=== PATIENT | male | born 1945 | race Caucasian/White ===

== ENCOUNTER → 2016-06-01 | Outpatient (CLI) | payer BC ==
[~2016-06-01] MED LIST: ALL300 PO; ALLO300T2 PO; ATV5 SL; CLC100 PO; CLOT10TR PO; CPR500 PO; CRFL PO; CYM20 PO; CYM30 PO; CYM60 PO; DFL100 PO; DLD/2 PO; DLD2 PO; DRGTP25 TD; DRON5CAP2 PO; ESOM1CAP34 PO; FAMO20TA11 PO; FAMO20TA9 PO; FINA5TAB PO; FNTTP25 TOP; GING550C PO; HYDR-5688 PO; IBUP-103 PO; IMD/2 PO; LEVO-366 PO; LIDO2SOL19 MT; LORA-741 PO; LXP10 PO; NALO1TAB2 PO; NRN100 PO; NXM/40 PO; ONDA4TAB65 PO; ONDA8TAB6 PO; OPTIRAY 320 IV PRN; PANT40TA PO; PHEN-775 PO; POLY335019 PO; PRED10TA PO; PREG1CAP28 PO; PROC1TAB5 PO; PROM25TA9 PO; PRT40 PO; RLSI SQ; SIME80CH PO; TAMS0.4C38 PO; ZNTT/150 PO
--- NOTE | 2016-06-01 10:20 | DIAGNOSTIC IMAGING REPORT ---
CHEST CT WITH CONTRAST CT DOSE: 969.13 mGy.cm HISTORY: Esophageal carcinoma ESOPHAGEAL CA TECHNIQUE: Multiaxial CT images of the chest were performed following the intravenous administration of contrast. COMPARISON: 03/03/2016 FINDINGS: Lungs currently are considered clear. The left hemithoracic findings have resolved. Esophageal stent is unchanged in location. Subcarinal node as well as are noted within the aortopulmonary window region are stable. There is no evidence for progression of mediastinal or hilar adenopathy. The wall thickening of the mid to distal esophagus primarily superior to the stent as well as seen circumferentially about the stent is stable. Intraluminal stent soft tissue primarily at its proximal aspect is stable with no major interval change. Hepatic metastatic disease is minimally progressive. Slight increase in size of lesions is present within number considered generally stable. IMPRESSION: 1. Esophageal findings stable from the prior exam. 2. Lungs are now considered clear. 3. Slightly progressive hepatic metastatic disease. Electronically signed by: Yash Giordano M.D. 06/01/2016 10:19 AM Dictated Date/Time: 06/01/2016 10:09 AM
--- NOTE | 2016-06-01 10:30 | DIAGNOSTIC IMAGING REPORT ---
CT SCAN OF THE ABDOMEN AND PELVIS WITH IV CONTRAST CLINICAL HISTORY: Metastatic esophageal cancer. COMPARISON STUDY: Abdominal CT dated 03/03/2016. TECHNIQUE: Following the IV administration of 119 cc of Optiray 320, CT scan of the abdomen and pelvis is performed from the lung bases to the proximal femora. Images are reviewed in the axial, sagittal, and coronal planes. IV contrast was administered without complication. Automated dose control exposure was utilized. FINDINGS: Lung bases: The heart is normal in size and there is trace pericardial effusion. The coronary arteries are densely calcified. There is an indeterminant 4 mm pleural-based nodule at the right lung base on image #63. This has not significant changed from previous. The nodule in the medial right middle lobe questioned previously is no longer apparent. No additional pulmonary nodules are identified. There is no airspace consolidation or pleural effusion. Liver: The contrast-enhanced liver is normal in size, contour, and attenuation. There is no intrahepatic biliary ductal dilatation. The hepatic veins and portal veins are patent. Again seen is multifocal hepatic metastatic disease (greater than 10 lesions). Several lesions have minimally decreased in size and all lesions show significantly diminished attenuation as compared to the 03/03/2016 examination. A residential sales representative lesion in the right lobe on image # 95 measures approximately 4 x 4 cm (previously measured approximately 4 x 5 cm). No new lesions are identified. Again seen is a 1.6 cm enhancing lesion the left lobe on image #89. This is incompletely characterized but may represent a hemangioma. Gallbladder: Unremarkable. Spleen: The spleen is mildly enlarged measuring 13.5 cm in length. Pancreas: The pancreas is moderately atrophic and grossly unremarkable. Adrenal glands: Nodularity of the left adrenal gland is unchanged. The right adrenal gland is unremarkable. Kidneys: The right kidney is surgically absent. The left kidney is normal in size and without hydronephrosis. The left kidney enhances symmetrically. A 1.3 cm cyst is again seen in the left upper pole. Additional subcentimeter cortical hypodensities also likely represent cysts but are too small for definitive characterization. There is a retroaortic left renal vein. Abdominal vasculature: The abdominal aorta is normal in course and caliber noting moderate to advanced atherosclerotic calcification. Stomach and bowel: A stent is again seen spanning the gastroesophageal junction. Circumferential wall thickening is seen in the distal esophagus around the stent. The stent is patent and filled with enteric contrast. The duodenum is normal in configuration. There is no bowel obstruction. There is moderate sigmoid diverticulosis without CT evidence of acute diverticulitis. Moderate colonic fecal retention is observed. The appendix is well-visualized and normal. Peritoneum: There is no intraperitoneal free air or abdominal ascites. There is a small fat-containing umbilical hernia. Lymphadenopathy: Retroperitoneal lymphadenopathy is similar appearance to the 03/03/2016 examination. Left periaortic nodes measure up to 1.2 cm in short axis as seen on image # 165. Enlarged lymph nodes in the gastrohepatic space and betsy hepatis are also also similar to previous. A gastrohepatic node seen on image #137 measures 2.7 x 1.9 cm (previously measured 2.5 x 2.2 cm.) There is there is no pelvic sidewall or inguinal lymphadenopathy. Pelvic viscera: The prostate gland is enlarged and demonstrates median lobe hypertrophy. The prostate gland measures 5.7 cm in transverse diameter. The bladder wall appears thickened and trabeculated. Small bladder diverticula are noted. These findings are consistent with chronic outlet obstruction. Skeletal structures: No definite lytic or blastic lesions are seen. IMPRESSION: 1. There has likely been positive response to treatment regarding multifocal hepatic metastatic disease as compared to 03/03/2016. Several of the lesions have slightly decreased in size and all of lesions show diminished density from previous. 2. No evidence of progressive metastatic disease is seen. 3. Metastatic upper abdominal and retroperitoneal lymphadenopathy is similar in appearance to the 03/03/2016 study. 4. An esophageal stent is unchanged in position and appears patent. Circumferential esophageal wall thickening is present around the stent. This may be related to neoplasm or treatment related change. 5. The right kidney is surgically absent. 6. Moderate sigmoid diverticulosis without CT evidence of acute diverticulitis. 7. Prostatomegaly with evidence of chronic bladder outlet obstruction. 8. Additional findings as above. Electronically signed by: Lalo Brower M.D. 06/01/2016 10:29 AM Dictated Date/Time: 06/01/2016 10:11 AM
== END | disposition home or self-care (01) ==
LOC: C.CTS 09:33
PROVIDERS: ATTEND Internal Medicine Hematology & Oncology
DX: C15.5 Malignant neoplasm of lower third of esophagus (principal); C78.7 Secondary malignant neoplasm of liver and intrahepatic bile duct; E27.9 Disorder of adrenal gland, unspecified; Z90.5 Acquired absence of kidney; R59.0 Localized enlarged lymph nodes; K57.30 Diverticulosis of large intestine without perforation or abscess without bleeding; N40.1 Benign prostatic hyperplasia with lower urinary tract symptoms

== ENCOUNTER 2016-06-26 10:03 | Emergency (ER) | payer BC ==
[~2016-06-26] VITALS: Ht 177.8 cm; Wt 86.3 kg
[~2016-06-26 10:03] MED LIST changes: -ALLO300T2 PO; -ATV5 SL; -CLC100 PO; -CLOT10TR PO; -CRFL PO; -CYM20 PO; -CYM30 PO; -CYM60 PO; -DFL100 PO; -DLD/2 PO; -DLD2 PO; -DRGTP25 TD; -DRON5CAP2 PO; -ESOM1CAP34 PO; -FAMO20TA11 PO; -FAMO20TA9 PO; -FNTTP25 TOP; -HYDR-5688 PO; -IBUP-103 PO; -LEVO-366 PO; -LIDO2SOL19 MT; -LORA-741 PO; -LXP10 PO; -NALO1TAB2 PO; -NRN100 PO; -NXM/40 PO; -ONDA4TAB65 PO; -OPTIRAY 320 IV PRN; -PHEN-775 PO; -POLY335019 PO; -PREG1CAP28 PO; -PROM25TA9 PO; -PRT40 PO; -RLSI SQ
[2016-06-26 10:09] VITALS: TEMP 36.9; Ht 177.8 cm; Wt 86.3 kg
[2016-06-26] MEDS ORDERED: GI COCKTAIL PO STA (10:12)
[2016-06-26] MEDS ORDERED: HYDROmorphone INJ 1 MG/ML SYR IV STA (10:12)
[2016-06-26] MEDS ORDERED: SODIUM CHLORIDE 0.9% 1000ML 1,000 ML IV STA (10:12)
[2016-06-26 10:20] VITALS: O2SAT 95
[2016-06-26] MEDS ORDERED: LIDOCAINE HCL 2% VISC SOLN 20 ML UDC ONE (10:33)
[2016-06-26] MEDS ORDERED: ALUMINUM/MAGNESIUM SUSP 30 ML UDC ONE (10:33)
[2016-06-26] MEDS ORDERED: HYDR-5688 PO ×2 (10:39→12:35)
[2016-06-26] MEDS ORDERED: FAMO20TA11 PO (10:39)
[2016-06-26] MEDS ORDERED: PREG1CAP28 PO (10:39)
[2016-06-26] MEDS ORDERED: NXM/40 PO ×2 (10:39→12:35)
[2016-06-26] MEDS ORDERED: CRFL PO (10:39)
[2016-06-26] MEDS ORDERED: LORA-741 PO (10:39)
[2016-06-26] MEDS ORDERED: IBUP-103 PO (10:40)
--- NOTE | 2016-06-26 10:40 | DIAGNOSTIC IMAGING REPORT ---
SINGLE VIEW CHEST CLINICAL HISTORY: Atypical chest pain. History of metastatic esophageal cancer. FINDINGS: An AP, portable, upright chest radiograph is compared to study dated 11/29/2015 and correlated with chest CT dated 06/01/16. A left subclavian central venous infusion port is unchanged in position. The cardiomediastinal silhouette is unremarkable. There is atherosclerotic calcification of the thoracic aorta. The lungs and pleural spaces are clear. No pneumothorax is seen. The bony thorax is grossly intact. An esophageal stent is again noted. IMPRESSION: 1. No acute cardiopulmonary abnormality. 2. An esophageal stent is again noted. Electronically signed by: Lalo Brower M.D. 06/26/2016 10:38 AM Dictated Date/Time: 06/26/2016 10:36 AM
[2016-06-26 10:43] LABS: BASO % 0.4 %; BASO ABS # 0.03 K/uL (0-0.2); COMPLETE YES; EOS % 2.2 %; HEMATOCRIT 35.8 % (42-52); IG% 0.5 %; LYMPH ABS # 2.32 K/uL (1.2-3.4); MEAN CELL VOLUME 85.6 fL (80-100); MEAN CORPUSCULAR HEMOGLOBIN 29.7 pg (25-34); MEAN CORPUSCULAR HGB CONC 34.6 g/dl (32-36); MEAN PLATELET VOLUME 9.5 fL (7.4-10.4); MONO % 7.9 %; PLATELET COUNT 206 K/uL (130-400); RED BLOOD COUNT 4.18 M/uL (4.7-6.1); WHITE BLOOD COUNT 8.01 K/uL (4.8-10.8)
[2016-06-26 11:01] LABS: BLOOD UREA NITROGEN 16 mg/dl (7-18); BUN/CREATININE RATIO 15.6 (10-20); CALCIUM 8.9 mg/dl (8.5-10.1); CARBON DIOXIDE 27 mmol/L (21-32); CHLORIDE 104 mmol/L (98-107); GLUCOSE 101 mg/dl (70-99); MAGNESIUM 1.9 mg/dl (1.8-2.4); POTASSIUM 3.9 mmol/L (3.5-5.1); SODIUM 139 mmol/L (136-145)
[2016-06-26] MEDS ORDERED: LIDO2SOL19 MT (12:35)
--- NOTE | 2016-06-26 12:36 | EMERGENCY ROOM VISIT NOTE ---
History Report prepared by Konrad: Bang Wadsworth Under the Supervision of: Dr. Sarwat Pedroza M.D. First contact with patient: 10:06 Chief Complaint: CHEST PAIN Stated Complaint: CHEST AND BACK PAIN, ACID REFLUX-CANCER PATIENT History of Present Illness The patient is a 70 year old male who presents to the Emergency Room with complaints of persistent mid chest pain starting about 1-2 days ago. He has been taking [place] with some relief. He also reports a sorethroat and some shortness of breath. He has a history of esophageal cancer and stents in the esophagus. He had infusion about 5 days ago. As per , he has a reduced appetite which is normal for him after infusion. He denies loss of consciousness , or any other complaints. Source of History: patient Onset: about 1-2 days ago Position: chest (mid) Timing: other (persistent) Modifying Factors (Relieving): other ([place] with some relief) Associated Symptoms: + SOB, + sorethroat, No LOC Review of Systems See HPI for pertinent positives & negatives. A total of 10 systems reviewed and were otherwise negative. Past Medical & Surgical Medical Problems: (1) Anxiety (2) Esophageal cancer (3) Gout (4) UTI (urinary tract infection) Family History Cancer Gallbladder disease Heart disease Hypertension Lung disease Social History Smoking Status: Former Smoker Alcohol Use: none Drug Use: none Marital Status: Housing Status: lives alone Occupation Status: retired Current/Historical Medications Scheduled Allopurinol (Zyloprim *), 300 MG PO QAM Esomeprazole Magnesium (Nexium), 1 CAP PO BID Famotidine (Pepcid), 20 MG PO BID Finasteride (Proscar), 5 MG PO QAM Nicole (Zingiber Officinalis) (Nicole Root), 550 MG PO QAM Lorazepam (Ativan), 0.5 MG PO Q6H Prednisone Tab (Prednisone), 10 MG PO QAM Pregabalin (Lyrica), 75 MG PO BID Ranitidine (Zantac), 150 MG PO DAILY Simethicone (Gas-X), 2 TAB PO DAILY Sucralfate (Carafate), 10 ML PO QID Tamsulosin Hcl (Flomax), 0.4 MG PO QPM Scheduled PRN Hydrocodone/Acetaminophen 5MG/325MG ([place] 5MG/325MG), 1-2 TAB PO Q4H PRN for Pain Ibuprofen Tab (Advil), 600 MG PO DAILY PRN for Pain Lidocaine Hcl (Mouth-Throat) (Lidocaine Viscous), 5-10 ML MT Q6H PRN for Pain Ondansetron Hcl (Zofran), 8 MG PO Q8 PRN for Nausea Prochlorperazine Maleate (Compazine), 10 MG PO Q6H PRN for Nausea Allergies Coded Allergies: No Known Allergies (Verified , 06/26/16) Physical Exam Vital Signs Date Time Temp Pulse Resp B/P Pulse Ox O2 Delivery O2 Flow Rate FiO2 06/26/16 13:04 64 16 122/64 97 06/26/16 12:18 63 20 134/69 99 Room Air 06/26/16 10:40 76 16 131/79 99 Room Air 06/26/16 10:20 95 Room Air 06/26/16 10:14 97 Room Air 06/26/16 10:10 83 06/26/16 10:09 36.9 80 16 146/100 98 Room Air Physical Exam GENERAL: Patient is in moderate distress, uncomfortable appearing, generalized weakness. HEENT: No acute trauma, normocephalic atraumatic, mucous membranes moist, no nasal congestion, no scleral icterus. NECK: No stridor, no adenopathy, no meningismus, trachea is midline. CHEST: Power port in left upper chest. LUNGS: No dyspnea. Clear to auscultation and equal bilaterally. No wheeze, no rhonchi. HEART: Regular rate and rhythm. No murmurs, rubs, gallops appreciated. ABDOMEN: Soft, nontender, bowel sounds positive, no masses appreciated, no peritonitis. BACK: No midline tenderness, no CVA tenderness EXTREMITIES: Normal motion all extremities, no cyanosis, no edema. NEUROLOGIC: Alert and oriented, no acute motor or sensory deficits, no focal weakness, cranial nerves grossly intact. SKIN: No rash, no jaundice, no diaphoresis. Medical Decision & Procedures ER Provider Diagnostic Interpretation: X ray results are stated below per my interpretation and the radiologist's interpretation. SINGLE VIEW CHEST CLINICAL HISTORY: Atypical chest pain. History of metastatic esophageal cancer. FINDINGS: An AP, portable, upright chest radiograph is compared to study dated 11/29/2015 and correlated with chest CT dated 06/01/16. A left subclavian central venous infusion port is unchanged in position. The cardiomediastinal silhouette is unremarkable. There is atherosclerotic calcification of the thoracic aorta. The lungs and pleural spaces are clear. No pneumothorax is seen. The bony thorax is grossly intact. An esophageal stent is again noted. IMPRESSION: 1. No acute cardiopulmonary abnormality. 2. An esophageal stent is again noted. Electronically signed by: Lalo Brower M.D. 06/26/2016 10:38 AM Dictated Date/Time: 06/26/2016 10:36 AM Laboratory Results 06/26/16 10:25 Red Blood Count 4.18, Mean Corpuscular Volume 85.6, Mean Corpuscular Hemoglobin 29.7, Mean Corpuscular Hemoglobin Concent 34.6, Mean Platelet Volume 9.5, Neutrophils (%) (Auto) 60.0, Lymphocytes (%) (Auto) 29.0, Monocytes (%) (Auto) 7.9, Eosinophils (%) (Auto) 2.2, Basophils (%) (Auto) 0.4, Neutrophils # (Auto) 4.81, Lymphocytes # (Auto) 2.32, Monocytes # (Auto) 0.63, Eosinophils # (Auto) 0.18, Basophils # (Auto) 0.03 06/26/16 10:25 Test 06/26/16 10:25 White Blood Count 8.01 K/uL (4.8-10.8) Red Blood Count 4.18 M/uL (4.7-6.1) Hemoglobin 12.4 g/dL (14.0-18.0) Hematocrit 35.8 % (42-52) Mean Corpuscular Volume 85.6 fL (80-100) Mean Corpuscular Hemoglobin 29.7 pg (25-34) Mean Corpuscular Hemoglobin Concent 34.6 g/dl (32-36) Platelet Count 206 K/uL (130-400) Mean Platelet Volume 9.5 fL (7.4-10.4) Neutrophils (%) (Auto) 60.0 % Lymphocytes (%) (Auto) 29.0 % Monocytes (%) (Auto) 7.9 % Eosinophils (%) (Auto) 2.2 % Basophils (%) (Auto) 0.4 % Neutrophils # (Auto) 4.81 K/uL (1.4-6.5) Lymphocytes # (Auto) 2.32 K/uL (1.2-3.4) Monocytes # (Auto) 0.63 K/uL (0.11-0.59) Eosinophils # (Auto) 0.18 K/uL (0-0.5) Basophils # (Auto) 0.03 K/uL (0-0.2) RDW Standard Deviation 43.8 fL (36.4-46.3) RDW Coefficient of Variation 14.1 % (11.5-14.5) Immature Granulocyte % (Auto) 0.5 % Immature Granulocyte # (Auto) 0.04 K/uL (0.00-0.02) Anion Gap 8.0 mmol/L (3-11) Est Creatinine Clear Calc Drug Dose 71.0 ml/min Estimated GFR () 88.0 Estimated GFR (Non- 75.9 BUN/Creatinine Ratio 15.6 (10-20) Calcium Level 8.9 mg/dl (8.5-10.1) Magnesium Level 1.9 mg/dl (1.8-2.4) Total Creatine Kinase 41 U/L (39-308) Creatine Kinase MB < 0.5 ng/ml (0.5-3.6) Creatine Kinase MB Ratio (0-3.0) Troponin I < 0.015 ng/ml (0-0.045) Laboratory results as reviewed by me. Medications Administered Medications (Trade) Dose Ordered Sig/Sabino Route Start Time Stop Time Status Last Admin Dose Admin Hydromorphone HCl 1 mg 1 mg NOW STAT IV 06/26/16 10:12 06/26/16 10:14 DC 06/26/16 10:39 1 MG Sodium Chloride (Nss 1000ml) 1,000 ml @ 999 mls/hr Q1H1M STAT IV 06/26/16 10:12 06/26/16 11:12 DC 06/26/16 10:38 999 MLS/HR Al Hydroxide/Mg Hydroxide (Maalox Susp) 30 ml STK-MED ONCE .ROUTE 06/26/16 10:33 06/26/16 10:36 DC 06/26/16 10:39 30 ML Lidocaine HCl (Viscous Lidocaine 2% Soln) 20 ml STK-MED ONCE .ROUTE 06/26/16 10:33 06/26/16 10:36 DC 06/26/16 10:39 10 ML Heparin Sodium (Porcine) (Heparin 100 Unit/ml 5ml Flush) 5 ml STK-MED ONCE .ROUTE 06/26/16 12:50 06/26/16 12:53 DC 06/26/16 12:50 5 ML ECG Indication: chest pain Rate (beats per minute): 83 Rhythm: normal sinus Findings: RBBB (incomplete), no acute ischemic change, no ectopy Comparison ECG Date: November 29, 2015 Change: Incomplete right bundle branch block is new when compared to November 29, 2015. ED Course 1006: The patient was evaluated in room A11B. A complete history and physical exam was performed. 1012: GI Cocktail 24 ml PO, Sodium Chloride 1000 ml @ 999 mls/hr IV, Dilaudid Inj 1 mg IV 1154: I discussed the patient's case with Dr. Lopez, intermediate manager from [facility]. He is comfortable sending the patient home. He recommended increasing the Nexium dose, adding on magic mouth wash, and increasing pain medication as needed. 1200: Reevaluated the patient. Discussed results and discharge instructions: He verbalized understanding and agreement. The patient is ready for discharge. Medical Decision Differential: Esophagitis, Esophageal stent malfunction, Cardiac Ischemia (STEMI , NSTEMI, Unstable Angina, etc), Aortic Dissection, Arrhythmia, Pulmonary Embolism, Pneumonia, Pneumothorax, MSK, Infectious, Pericarditis/Myocarditis, Esophageal Rupture, Gastrointestinal, amongst other pathologies entertained. 70 yr old male with known esophageal CA arrived with substernal chest pain radiating to back in identical fashion to previous episodes of severe esophagitis. Responded quite well to Dilaudid and gi cocktail. He has normal EKG, normal trop after several days of continued pain thus I feel this is not ACS. With improvement in symptoms I do not feel dissection likely. Symptoms not consistent with PE. He does not wish to have further CT testing as it is. Labs look good. CXR unchanged and stent in place. He is willing to try further outpatient treatment. Discussed with Dr Lopez and we will increase nexium to BID, increase norco frequency/dose and add in PRN viscous lidocaine. Patient stable and comfortable with this plan. Aware he can return at any time if worsenign or other concerns. Consults Time Called: 1146 Consulting Physician: Dr. Lopez, intermediate manager from [facility] Returned Call: 1154 I discussed the patient's case with Dr. Lopez, intermediate manager from [facility]. He is comfortable sending the patient home. He recommended increasing the Nexium dose, adding on magic mouth wash, and increasing pain medication as needed. Impression Primary Impression: Esophageal cancer Additional Impression: Esophagitis Scribe Attestation The scribe's documentation has been prepared under my direction and personally reviewed by me in its entirety. I confirm that the note above accurately reflects all work, treatment, procedures, and medical decision making performed by me. Departure Information Dispostion Home / Self-Care Prescriptions Lidocaine Hcl (Mouth-Throat) (LIDOCAINE VISCOUS) 2 % Cecilia 5-10 ML MT Q6H Y for Pain, #100 ML 5 Refills Prov: Sarwat Pedroza M.D. 06/26/16 Esomeprazole Magnesium (NEXIUM) 40 Mg Cap 1 CAP PO BID for 14 Days, #28 CAP 5 Refills Prov: Sarwat Pedroza M.D. 06/26/16 Hydrocodone/Acetaminophen 5MG/325MG ([place] 5MG/325MG) Tab 1-2 TAB PO Q4H Y for Pain, #30 TAB PRN PAIN Prov: Sarwat Pedroza M.D. 06/26/16 Referrals Garcia Whalen M.D. (PCP) Forms HOME CARE DOCUMENTATION FORM, IMPORTANT VISIT INFORMATION Patient Instructions Esophagitis, My [facility] Additional Instructions You have received a narcotic pain medication prescription. These medications may cause drowsiness and should not be used with other sedative medications. Do not drive, drink alcohol, perform dangerous activities, nor make important decisions after taking these medications. retirement use or inappropriate use may lead to addiction. Problem Qualifiers Primary Impression: Esophageal cancer Malignant neoplasm of esophagus location: unspecified location Qualified Codes: C15.9 - Malignant neoplasm of esophagus, unspecified
[2016-06-26 13:04] VITALS: BP 122/64; PULSE 64; O2SAT 97
== END 2016-06-26 13:05 | disposition home or self-care (01) ==
LOC: C.EDB 10:05 → C.EDA 13:05
DX: C15.9 Malignant neoplasm of esophagus, unspecified (principal); F41.9 Anxiety disorder, unspecified; M10.9 Gout, unspecified; Z87.440 Personal history of urinary (tract) infections; Z82.49 Family history of ischemic heart disease and other diseases of the circulatory system; Z87.891 Personal history of nicotine dependence; Z79.899 Other long term (current) drug therapy

== ENCOUNTER → 2016-07-10 | Outpatient (CLI) | payer BC ==
[~2016-07-10] MED LIST changes: +ALLO300T2 PO; +ATV5 SL; +CLC100 PO; +CLOT10TR PO; -CPR500 PO; +CRFL PO; +CYM20 PO; +CYM30 PO; +CYM60 PO; +DFL100 PO; +DLD/2 PO; +DLD2 PO; +DRGTP25 TD; +DRON5CAP2 PO; +ESOM1CAP34 PO; +FAMO20TA11 PO; +FAMO20TA9 PO; +FNTTP25 TOP; +HYDR-5688 PO; +IBUP-103 PO; -IMD/2 PO; +LEVO-366 PO; +LIDO2SOL19 MT; +LORA-741 PO; +LXP10 PO; +NALO1TAB2 PO; +NRN100 PO; +NXM/40 PO; +ONDA4TAB65 PO; +OPTIRAY 320 IV PRN; -PANT40TA PO; +PHEN-775 PO; +POLY335019 PO; +PREG1CAP28 PO; +PROM25TA9 PO; +PRT40 PO; +RLSI SQ
--- NOTE | 2016-07-10 16:24 | DIAGNOSTIC IMAGING REPORT ---
CHEST CT WITH CONTRAST CT DOSE: 936.20 mGy.cm HISTORY: Esophageal cancer. TECHNIQUE: Multiaxial CT images of the chest were performed following the intravenous administration of contrast. COMPARISON: Chest CT 06/01/2016. FINDINGS: The central airways are patent. No pleural effusions. No pneumothorax. No suspicious pulmonary nodules. Left subclavian Port-A-Cath terminates in the distal SVC. Subtle lucent lesions within the ribs remain stable and are likely benign. Hepatic lesions have increased in size. The esophageal stent is unchanged in position. Distal esophageal thickening is also unchanged. No hilar lymphadenopathy. Subcarinal lymph node is stable in size. Multiple anterior mediastinal lymph nodes have increased in number and size. These remain subcentimeter in short axis diameter. Dominant lymph node measures 8 mm, previously measuring 3 mm. IMPRESSION: 1. Multiple subcentimeter anterior mediastinal lymph nodes which have increased in size and number. This is concerning for metastatic disease. Stable prominent subcarinal lymph node. 2. Increase in size in the hepatic metastatic lesions. This is better appreciated on the same day abdomen and pelvis CT. 3. The distal esophageal stent is unchanged in position. Mild distal esophageal thickening is also stable. Electronically signed by: Antoni Badillo M.D. 07/10/2016 4:23 PM Dictated Date/Time: 07/10/2016 4:13 PM
--- NOTE | 2016-07-10 16:32 | DIAGNOSTIC IMAGING REPORT ---
CT OF THE ABDOMEN AND PELVIS WITH CONTRAST CLINICAL HISTORY: Esophageal cancer. Abdominal pain and weight loss. COMPARISON STUDY: CT of the abdomen and pelvis June 01, 2016. TECHNIQUE: Following IV administration of 70 mL of Optiray-320, axial images of the abdomen and pelvis were obtained from the lung bases to the proximal femurs. Images were reviewed in the axial, sagittal, and coronal planes. IV contrast was administered without complication. Oral contrast was administered. FINDINGS: The chest will be reported separately. The right kidney is surgically absent. There is a cyst within the upper pole of the left kidney. A subcentimeter hypodense lesion within the midpole of the left kidney is too small to characterize. An esophageal stent traversing the gastroesophageal junction is unchanged in position. Numerous hepatic metastases have increased in size since exam of June 06, 2016. An index lateral segment lesion shown on image 58 of 501 measures 5.2 cm. It previously measured 4 cm. An index right hepatic dome lesion measures 5.4 cm. It previously measured 4.7 cm. The spleen, adrenal glands and pancreas are unremarkable. Multiple enlarged upper abdominal lymph nodes have slightly increased in size since prior exam. An index portacaval node measures 1.5 cm in short axis diameter. It previously measured 1.3 cm. Small gallstones are suspected within the gallbladder. There is mild pericholecystic infiltration. There is no evidence for a bowel obstruction. There is sigmoid diverticulosis without evidence for acute diverticulitis. The prostate is mildly enlarged. Several lucent and sclerotic lesions within the ribs are unchanged. These are indeterminate. A 3.1 cm lucent lesion within the medial right iliac bone shown on image 334 is unchanged since prior exam. This has increase in size since earlier exams. IMPRESSION: 1. Mild to moderate increase in size of numerous hepatic metastases. 2. Mild increase in upper abdominal lymphadenopathy since CT of June 01, 2016. 3. Suspected cholelithiasis with mild pericholecystic infiltration. No gallbladder distention. This could be correlated with right upper outer pain to evaluate for acute cholecystitis. 4. No significant change in several lucent and sclerotic skeletal lesions which remain indeterminate. Electronically signed by: Lennox Singh M.D. 07/10/2016 4:31 PM Dictated Date/Time: 07/10/2016 4:12 PM
== END ==
LOC: C.CTS 15:21
PROVIDERS: ATTEND Internal Medicine Hematology & Oncology
DX: C15.5 Malignant neoplasm of lower third of esophagus (principal); R10.9 Unspecified abdominal pain

== ENCOUNTER 2016-07-16 10:50 | Inpatient (IN) | payer BC, OTHER ==
[~2016-07-16] VITALS: Ht 177.8 cm; Wt 84.0 kg
[~2016-07-16 10:50] MED LIST changes: -ALLO300T2 PO; -ATV5 SL; -CLC100 PO; -CLOT10TR PO; -CYM20 PO; -CYM30 PO; -CYM60 PO; -DFL100 PO; -DLD/2 PO; -DLD2 PO; -DRGTP25 TD; -DRON5CAP2 PO; -ESOM1CAP34 PO; -FAMO20TA9 PO; -FNTTP25 TOP; -LEVO-366 PO; -LXP10 PO; -NALO1TAB2 PO; -NRN100 PO; -ONDA4TAB65 PO; -OPTIRAY 320 IV PRN; -PHEN-775 PO; -POLY335019 PO; -PROM25TA9 PO; -PRT40 PO; -RLSI SQ
--- NOTE | 2016-07-16 11:40 | EMERGENCY ROOM VISIT NOTE ---
History Report prepared by Konrad: Leighton Villeda Under the Supervision of: Dr. Regina Medina M.D. First contact with patient: 11:22 Chief Complaint: CARDIAC ASSESSMENT Stated Complaint: BACK, CHEST, STOMACH PAIN, CONSTIPATION DX CANCER Nursing Triage Summary: pt is ca pt at [facility] center [address] scan and found more spot in liver and possible gallbladder problem called dr kin did not want to do anything at that time has pain below ribs has been constant. has stent in esophagus. has pain meds but do not help, pain in chest radiates to middle of shoulder blades. intermittent sob, stabbing pain. pt stopped lyrica radha night. reports pt has been depressed and believes it has been told ct scan showed mets. History of Present Illness The patient is a 70 year old male who presents to the Emergency Room with complaints of worsening chest pain for the past year. He has had pain since he had a stent placed one year ago but the pain has been worse this past week. The patient notes pain in his abdomen and back as well. The pain is rated 8/10 in severity. He has been eating and drinking less than he should. He denies vomiting. The patient had a prescription for [place] with Codeine, which has not helped with his pain this week. 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 His last chemotherapy treatment was two weeks ago. The patient had a CT scan last week that showed progression of the cancer. The CT also showed gallbladder disease. The patient is a former smoker and no longer drinks. His notes that he has been more depressed lately. He stopped taking Lyrica two days ago. Source of History: patient, spouse/significant other Onset: one week Position: chest Symptom Intensity: 8/10 Timing: worsening Associated Symptoms: + abdominal pain, + back pain, No vomiting Review of Systems See HPI for pertinent positives & negatives. A total of 10 systems reviewed and were otherwise negative. Past Medical & Surgical Medical Problems: (1) Anxiety (2) Cholecystitis (3) Esophageal cancer (4) Gout (5) UTI (urinary tract infection) Family History Cancer Gallbladder disease Heart disease Hypertension Lung disease Social History Smoking Status: Never Smoker Alcohol Use: none Drug Use: none Marital Status: Housing Status: lives alone Occupation Status: retired Current/Historical Medications Scheduled Allopurinol (Zyloprim *), 300 MG PO QAM Esomeprazole Magnesium (Nexium), 1 CAP PO BID Famotidine (Pepcid), 20 MG PO BID Finasteride (Proscar), 5 MG PO QAM Lorazepam (Ativan), 0.5 MG PO Q6H Prednisone Tab (Prednisone), 10 MG PO QAM Ranitidine (Zantac), 150 MG PO HS Sucralfate (Carafate), 10 ML PO QID Tamsulosin Hcl (Flomax), 0.4 MG PO QPM Scheduled PRN Hydrocodone/Acetaminophen 5MG/325MG ([place] 5MG/325MG), 1-2 TAB PO Q4H PRN for Pain Ibuprofen Tab (Advil), 600 MG PO DAILY PRN for Pain Lidocaine Hcl (Mouth-Throat) (Lidocaine Viscous), 5-10 ML MT Q6H PRN for Pain Ondansetron Hcl (Zofran), 8 MG PO Q8 PRN for Nausea Prochlorperazine Maleate (Compazine), 10 MG PO Q6H PRN for Nausea Allergies Coded Allergies: No Known Allergies (Verified , 07/16/16) Physical Exam Vital Signs Date Time Temp Pulse Resp B/P Pulse Ox O2 Delivery O2 Flow Rate FiO2 07/16/16 14:57 67 17 140/71 100 Room Air 07/16/16 12:33 72 16 105/66 91 Room Air 07/16/16 11:54 84 07/16/16 10:54 36.3 102 18 113/67 98 Room Air Physical Exam Vital signs reviewed. General: Chronically ill-appearing female, in no significant distress. HEENT: No scleral icterus, PERRLA, neck supple. Atraumatic. Cardiovascular: Regular rate and rhythm, no extra sounds. Pulmonary: Clear to auscultation bilaterally, normal work of breathing. Abdomen: Mild epigastric tenderness, no rebound or guarding. Musculoskeletal: Atraumatic, no peripheral edema. Neurologic: Patient awake alert and oriented x 3, full strength in all 4 extremities. Cranial nerves 2 through 12 grossly intact. Skin: Warm, dry, no rash Medical Decision & Procedures ER Provider Diagnostic Interpretation: X-ray results as stated below per my interpretation and radiologist interpretation. Other radiology results as stated below per my review and radiologist interpretation: CHEST ONE VIEW PORTABLE CLINICAL HISTORY: jermaine ZAMORA dyspnea COMPARISON STUDY: 06/26/2016 FINDINGS: Central catheter in superior vena cava. Lungs are clear. Diaphragms are smooth. Esophageal stent is again noted. IMPRESSION: No acute process.. Esophageal stent is unchanged in location. Electronically signed by: Yash Giordano M.D. 07/16/2016 12:35 PM Dictated Date/Time: 07/16/2016 12:34 PM Right upper quadrant ultrasound GALLBLADDER-ABD LIMITED CLINICAL HISTORY: epigastric pain, hopes CA pain. Nausea. TECHNIQUE: Ultrasound COMPARISON STUDY: CT dated 07/10/2016 FINDINGS: Several gallstones within the gallbladder lumen. Gallbladder wall thickness measures 3 mm with a suggestion of a trace amount pericholecystic fluid. Common bile duct is 5 mm. Hepatic metastatic change is again noted. Pancreas is poorly seen. Right kidney has been surgically removed. IMPRESSION: 1. Several gallstones with slight edematous change of the gallbladder wall. 2. A component of acute cholecystitis cannot be excluded. 3. Normal caliber bile duct. 4. Hepatic metastatic change which has been described previously Electronically signed by: Yash Giordano M.D. 07/16/2016 1:15 PM Dictated Date/Time: 07/16/2016 1:12 PM Laboratory Results Test 07/16/16 12:10 07/16/16 12:16 Immature Granulocyte % (Auto) 0.1 % White Blood Count 7.01 K/uL (4.8-10.8) Red Blood Count 4.00 M/uL (4.7-6.1) Hemoglobin 11.8 g/dL (14.0-18.0) Hematocrit 34.3 % (42-52) Mean Corpuscular Volume 85.8 fL (80-100) Mean Corpuscular Hemoglobin 29.5 pg (25-34) Mean Corpuscular Hemoglobin Concent 34.4 g/dl (32-36) Platelet Count 187 K/uL (130-400) Mean Platelet Volume 8.8 fL (7.4-10.4) Neutrophils (%) (Auto) 65.3 % Lymphocytes (%) (Auto) 26.2 % Monocytes (%) (Auto) 6.0 % Eosinophils (%) (Auto) 2.1 % Basophils (%) (Auto) 0.3 % Neutrophils # (Auto) 4.57 K/uL (1.4-6.5) Lymphocytes # (Auto) 1.84 K/uL (1.2-3.4) Monocytes # (Auto) 0.42 K/uL (0.11-0.59) Eosinophils # (Auto) 0.15 K/uL (0-0.5) Basophils # (Auto) 0.02 K/uL (0-0.2) Immature Granulocyte # (Auto) 0.01 K/uL (0.00-0.02) Direct Bilirubin 0.1 mg/dl (0-0.2) Total Creatine Kinase 55 U/L (39-308) Creatine Kinase MB < 0.5 ng/ml (0.5-3.6) Creatine Kinase MB Ratio (0-3.0) Lipase 170 U/L (73-393) Bedside Troponin I 0.000 ng/ml (0-0.045) Laboratory results per my review. Medications Administered Medications (Trade) Dose Ordered Sig/Sabino Route Start Time Stop Time Status Last Admin Dose Admin Sodium Chloride 500 ml @ 999 mls/hr Q31M STAT IV 07/16/16 11:50 07/16/16 12:20 DC 07/16/16 11:50 999 MLS/HR Sodium Chloride (Nss 1000ml) 1,000 ml @ 125 mls/hr Q8H STAT IV 07/16/16 11:50 07/16/16 16:19 DC 07/16/16 11:50 125 MLS/HR Hydromorphone HCl (Dilaudid Inj) 1 mg NOW STAT IV 07/16/16 11:50 07/16/16 11:53 DC 07/16/16 12:20 1 MG Ondansetron HCl (Zofran Inj) 4 mg NOW STAT IV 07/16/16 11:50 07/16/16 11:53 DC 07/16/16 12:20 4 MG Hydromorphone HCl (Dilaudid Inj) 1 mg NOW STAT IV 07/16/16 15:01 07/16/16 15:02 DC 07/16/16 15:05 1 MG Polyethylene (Miralax Powder Packet) 17 gm DAILY PRN PO 07/16/16 15:00 07/17/16 14:59 DC 07/17/16 06:06 17 GM Ondansetron HCl (Zofran Inj) 4 mg Q6H PRN IV 07/16/16 15:00 08/15/16 14:59 07/19/16 11:33 4 MG Prochlorperazine Maleate (Compazine Tab) 10 mg Q6H PRN PO 07/16/16 15:00 08/15/16 14:59 07/18/16 16:41 10 MG Hydromorphone HCl (Dilaudid Inj) 1 mg Q2H PRN IV 07/16/16 15:00 07/17/16 14:59 DC 07/17/16 11:06 1 MG ECG Rate (beats per minute): 85 Rhythm: normal sinus Findings: no acute ischemic change, left axis deviation, other (old inferior infarct) ED Course 1130: Past medical records reviewed. The patient was evaluated in room A2. A complete history and physical examination was performed. 1150: Zofran 4 mg IV, Dilaudid 1 mg IV, NSS 1000 ml @ 125 mls/hr, NSS 500 ml @ 999 mls/hr. 1335: Updated the patient. 1330: [facility] The patient will be evaluated. 1345: Discussed case with Dr. Bills, General Surgeon. He is aware. Medical Decision Differential diagnosis: cholecystitis, complication of esophageal stent, pleural effusion, pancreatitis, viral illness, ACS. This patient was evaluated and appeared to be in no significant distress. IV access was obtained and laboratory work was drawn. Patient was placed on the lunchroom monitor and found to be in a normal sinus rhythm. Laboratory work is fairly unrevealing. Chest x-ray is clear with a stent in good position. Ultrasound of right upper quadrant reveals evidence of cholelithiasis. The etiology of the patient's pain is unclear whether is related to his known malignancy, esophageal stent or his gallbladder. The patient responded well to IV hydration, IV Dilaudid and IV Zofran. He'll be evaluated by the hospitalist service for further management. He is aware of the plan and agrees. Consults Time Called: 1320 Consulting Physician: [facility] Returned Call: [phone]: Discussed case with Dr. [facility]ager [facility]. The patient will be evaluated. Additional Consults: Time Called: 1335 Consulted Physician: Dr. Bills, General Surgeon Returned Call: 1345 Additional Comments: 1345: Discussed case with Dr. Bills, General Surgeon. He is aware. Impression Primary Impression: Symptomatic cholelithiasis Additional Impression: Metastasis from esophageal cancer Scribe Attestation The scribe's documentation has been prepared under my direction and personally reviewed by me in its entirety. I confirm that the note above accurately reflects all work, treatment, procedures, and medical decision making performed by me. Departure Information Dispostion Being Evaluated By Hospitalist Referrals Garcia Whalen M.D. (PCP) Patient Instructions [facility] Problem Qualifiers
[2016-07-16] MEDS ORDERED: HYDROmorphone INJ 1 MG/ML SYR IV STA ×2 (11:50→15:01)
[2016-07-16] MEDS ORDERED: SODIUM CHLORIDE 0.9% 1000ML 1,000 ML IV STA (11:50)
[2016-07-16] MEDS ORDERED: ONDANSETRON INJ 2 MG/ML 2 ML VIAL IV STA (11:50)
[2016-07-16] MEDS ORDERED: SODIUM CHLORIDE 0.9% 500ML 500 ML IV STA (11:50)
[2016-07-16 12:19] LABS: BASO % 0.3 %; BASO ABS # 0.02 K/uL (0-0.2); COMPLETE YES; EOS % 2.1 %; HEMATOCRIT 34.3 % (42-52); IG% 0.1 %; LYMPH % 26.2 %; LYMPH ABS # 1.84 K/uL (1.2-3.4); MEAN CELL VOLUME 85.8 fL (80-100); MEAN CORPUSCULAR HEMOGLOBIN 29.5 pg (25-34); MEAN CORPUSCULAR HGB CONC 34.4 g/dl (32-36); MEAN PLATELET VOLUME 8.8 fL (7.4-10.4); NEUT % 65.3 %; PLATELET COUNT 187 K/uL (130-400); WHITE BLOOD COUNT 7.01 K/uL (4.8-10.8)
--- NOTE | 2016-07-16 12:36 | DIAGNOSTIC IMAGING REPORT ---
CHEST ONE VIEW PORTABLE CLINICAL HISTORY: CP, jermaine CA dyspnea COMPARISON STUDY: 06/26/2016 FINDINGS: Central catheter in superior vena cava. Lungs are clear. Diaphragms are smooth. Esophageal stent is again noted. IMPRESSION: No acute process.. Esophageal stent is unchanged in location. Electronically signed by: Yash Giordano M.D. 07/16/2016 12:35 PM Dictated Date/Time: 07/16/2016 12:34 PM
[2016-07-16 12:37] LABS: ALT/SGPT 50 U/L (12-78); AST/SGOT 28 U/L (15-37); BLOOD UREA NITROGEN 13 mg/dl (7-18); BUN/CREATININE RATIO 14.9 (10-20); CALCIUM 8.4 mg/dl (8.5-10.1); CARBON DIOXIDE 29 mmol/L (21-32); CHLORIDE 103 mmol/L (98-107); CREATININE 0.85 mg/dl (0.60-1.40); GLUCOSE 98 mg/dl (70-99); POTASSIUM 3.7 mmol/L (3.5-5.1); SODIUM 140 mmol/L (136-145)
[2016-07-16 12:42] LABS: ALKALINE PHOSPHATASE 211 U/L (45-117)
--- NOTE | 2016-07-16 13:16 | DIAGNOSTIC IMAGING REPORT ---
Right upper quadrant ultrasound GALLBLADDER-ABD LIMITED CLINICAL HISTORY: epigastric pain, hopes CA pain. Nausea. TECHNIQUE: Ultrasound COMPARISON STUDY: CT dated 07/10/2016 FINDINGS: Several gallstones within the gallbladder lumen. Gallbladder wall thickness measures 3 mm with a suggestion of a trace amount pericholecystic fluid. Common bile duct is 5 mm. Hepatic metastatic change is again noted. Pancreas is poorly seen. Right kidney has been surgically removed. IMPRESSION: 1. Several gallstones with slight edematous change of the gallbladder wall. 2. A component of acute cholecystitis cannot be excluded. 3. Normal caliber bile duct. 4. Hepatic metastatic change which has been described previously Electronically signed by: Yash Giordano M.D. 07/16/2016 1:15 PM Dictated Date/Time: 07/16/2016 1:12 PM
[2016-07-16] MEDS ORDERED: MAGNESIUM HYDROXIDE SUSP 30 ML UDC PO PRN (15:00)
[2016-07-16] MEDS ORDERED: LIDOCAINE HCL 2% VISC SOLN 20 ML UDC MT PRN (15:00)
[2016-07-16] MEDS ORDERED: ONDANSETRON 8 MG TAB PO PRN (15:00)
[2016-07-16] MEDS ORDERED: HYDROmorphone INJ 2 MG/ML SYR/VIAL IV PRN (15:00)
[2016-07-16] MEDS ORDERED: POLYETHYLENE (MIRALAX) 17 GM PACK PO PRN (15:00)
[2016-07-16] MEDS ORDERED: PROCHLORPERAZINE MALEATE 10 MG TAB PO PRN (15:00)
[2016-07-16] MEDS ORDERED: ALUMINUM/MAGNESIUM/SIMETH (MAALOX MAX) 30 ML UDC PO PRN (15:00)
[2016-07-16] MEDS ORDERED: HYDROmorphone INJ 0.5 MG/0.5 ML SYR IV PRN (15:00)
[2016-07-16] MEDS ORDERED: ACETAMINOPHEN 325 MG TAB PO PRN (15:00)
[2016-07-16] MEDS ORDERED: HYDROCODONE/ACETAMOPHEN 5/325MG TAB PO PRN (15:00)
[2016-07-16] MEDS: SODIUM CHLORIDE 0.9% 1000ML 1,000 ML IV SCH (15:15)
[2016-07-16] MEDS ORDERED: NON-FORMULARY MEDICATION SCH (15:15)
[2016-07-16 15:35] VITALS: O2SAT 100; Ht 177.8 cm; Wt 84.0 kg
[2016-07-16] MEDS ORDERED: IV FLUIDS COMPLETED PRN (16:15)
[2016-07-16] MEDS ORDERED: METHYLNALTREXONE BROMIDE INJ 12 MG/0.6 ML SYR SQ ONE (17:00)
[2016-07-16 17:01] VITALS: BP 132/76; PULSE 71; TEMP 36.6; O2SAT 97
--- NOTE | 2016-07-16 17:47 | History and Physical ---
History & Physical Date & Time of Service: Jul 16, 2016 at 17:43 Chief Complaint: Cholecystitis, Esophageal Cancer Primary Care Physician: Garcia Whalen M.D. History of Present Illness Source: patient, spouse Mr. Howell is a 70 y/o male with PMHx of R Nephrectomy (1970 - Nephritis?), BPH , GERD, and Esophageal CA with Liver Metastasis and S/P Esophageal Stent who presents to the ED complaining of worsening chest pain, upper quadrant abdominal pain, and upper back pain 1 week. Patient has been experiencing these symptoms largely for the past year ever since a stent was placed in his esophagus. However reports acute worsening over this past week. Pain is located in the sternal region with radiation to the back between shoulder blades. He also reports bilateral upper quadrant abdominal pain. He rates this pain as an 8/10 and is unable to control his pain as an outpatient. Pain is described as stabbing. Pain is exacerbated by gas with some relief with belching. Patient has prescription for [place] however does not report any relief. Patient received chemotherapy approximately 2 weeks ago and thinks he was treated with Trexall? He states he was due for follow-up appointment to reassess treatment. CT on 07/10/16 with evidence of numerous hepatic metastasis and multiple enlarged lymph nodes with evidence of gallbladder disease. Associated constipation that is chronic. He was recently started on Movantik. Last bowel movement was 3 days ago the patient reports he does not have the urge to defecate. Reports anorexia and the lack of desire to eat. States he has been avoiding more solid foods as they seem to exacerbated his abdominal pain and gas. States when he does eat he normally sticks with cereal or fruits. Patient's is at bedside and reports the patient has appeared more depressed lately since the results of his recent CT scan suggesting further metastasis. In the ED, patient is afebrile without leukocytosis. Ultrasound of the gallbladder with evidence of several gallstones, slight edematous gallbladder wall, trace pericholecystic fluid, and hepatic metastatic changes. Patient was hydrated. Pain was managed with Dilaudid 1 mg that improved the pain per patient. Patient will be admitted to [facility] for pain control and further evaluation and care. Family History Cancer Gallbladder disease Heart disease Hypertension Lung disease Social History Smoking Status: Former Smoker Smokeless Tobacco Use: No Alcohol Use: none Drug Use: none Marital Status: Occupational Status: retired Immunizations History of Influenza Vaccine: Yes Influenza Vaccine Date: Jan 18, 2015 History of Tetanus Vaccine?: Unknown History of Pneumococcal: No History of Hepatitis B Vaccine: Unknown Multi-Drug Resistant Organisms History of MDRO: No Allergies Coded Allergies: No Known Allergies (Verified , 07/16/16) Home Medications Scheduled Allopurinol (Zyloprim *), 300 MG PO QAM Esomeprazole Magnesium (Nexium), 1 CAP PO BID Famotidine (Pepcid), 20 MG PO BID Finasteride (Proscar), 5 MG PO QAM Lorazepam (Ativan), 0.5 MG PO Q6H Prednisone Tab (Prednisone), 10 MG PO QAM Ranitidine (Zantac), 150 MG PO HS Sucralfate (Carafate), 10 ML PO QID Tamsulosin Hcl (Flomax), 0.4 MG PO QPM Scheduled PRN Hydrocodone/Acetaminophen 5MG/325MG ([place] 5MG/325MG), 1-2 TAB PO Q4H PRN for Pain Ibuprofen Tab (Advil), 600 MG PO DAILY PRN for Pain Lidocaine Hcl (Mouth-Throat) (Lidocaine Viscous), 5-10 ML MT Q6H PRN for Pain Ondansetron Hcl (Zofran), 8 MG PO Q8 PRN for Nausea Prochlorperazine Maleate (Compazine), 10 MG PO Q6H PRN for Nausea Review of Systems Constitutional: + problem reported (anorexia), No chills, No fever Eyes: No worsening of vision ENT: No nasal symptoms, No sore throat, No trouble swallowing Respiratory: No cough, No shortness of breath Cardiovascular: + chest pain (chronic with exacerbation) Abdomen: + constipation, + pain (RUQ and LUQ), No diarrhea, No nausea, No vomiting Musculoskeletal: No calf pain, No swelling Genitourinary - Male: No dysuria Psychiatric: + depression symptoms Hematologic / Lymphatic: No abnormal bleeding/bruising, No clotting problems Integumentary: No rash Physical Exam Vital Signs Date Time Temp Pulse Resp B/P Pulse Ox O2 Delivery O2 Flow Rate FiO2 07/16/16 17:01 36.6 71 20 132/76 97 07/16/16 16:57 Room Air 3/19/17 15:35 100 Room Air 07/16/16 14:57 67 17 140/71 100 Room Air 07/16/16 12:33 72 16 105/66 91 Room Air 07/16/16 11:54 84 07/16/16 10:54 36.3 102 18 113/67 98 Room Air General Appearance: WD/WN, no apparent distress Head: normocephalic, atraumatic Eyes: sclerae normal ENT: hearing grossly normal Neck: supple, no JVD, trachea midline Respiratory/Chest: lungs clear, normal breath sounds, no respiratory distress, no accessory muscle use Cardiovascular: regular rate, rhythm, no gallop, no murmur Abdomen/GI: normal bowel sounds, soft, + tenderness (tenderness to palp of upper quadrants; neg for rigidity/guarding - no acute abdomen; neg Galindo's sign ) Back: no CVA tenderness Extremities/Musculoskelatal: no calf tenderness, no pedal edema Neurologic/Psych: alert, oriented x 3 Skin: normal color, warm/dry Diagnostics Laboratory Results Results Past 24 Hours Test 07/16/16 12:10 07/16/16 12:16 Range/Units White Blood Count 7.01 4.8-10.8 K/uL Red Blood Count 4.00 4.7-6.1 M/uL Hemoglobin 11.8 14.0-18.0 g/dL Hematocrit 34.3 42-52 % Mean Corpuscular Volume 85.8 80-100 fL Mean Corpuscular Hemoglobin 29.5 25-34 pg Mean Corpuscular Hemoglobin Concent 34.4 32-36 g/dl Platelet Count 187 130-400 K/uL Mean Platelet Volume 8.8 7.4-10.4 fL Neutrophils (%) (Auto) 65.3 % Lymphocytes (%) (Auto) 26.2 % Monocytes (%) (Auto) 6.0 % Eosinophils (%) (Auto) 2.1 % Basophils (%) (Auto) 0.3 % Neutrophils # (Auto) 4.57 1.4-6.5 K/uL Lymphocytes # (Auto) 1.84 1.2-3.4 K/uL Monocytes # (Auto) 0.42 0.11-0.59 K/uL Eosinophils # (Auto) 0.15 0-0.5 K/uL Basophils # (Auto) 0.02 0-0.2 K/uL RDW Standard Deviation 44.4 36.4-46.3 fL RDW Coefficient of Variation 14.2 11.5-14.5 % Immature Granulocyte % (Auto) 0.1 % Immature Granulocyte # (Auto) 0.01 0.00-0.02 K/uL Sodium Level 140 136-145 mmol/L Potassium Level 3.7 3.5-5.1 mmol/L Chloride Level 103 98-107 mmol/L Carbon Dioxide Level 29 21-32 mmol/L Anion Gap 8.0 3-11 mmol/L Blood Urea Nitrogen 13 7-18 mg/dl Creatinine 0.85 0.60-1.40 mg/dl Est Creatinine Clear Calc Drug Dose 83.5 ml/min Estimated GFR () 102.3 Estimated GFR (Non- 88.3 BUN/Creatinine Ratio 14.9 10-20 Random Glucose 98 70-99 mg/dl Calcium Level 8.4 8.5-10.1 mg/dl Total Bilirubin 0.5 0.2-1 mg/dl Direct Bilirubin 0.1 0-0.2 mg/dl Aspartate Amino Transf (AST/SGOT) 28 15-37 U/L Alanine Aminotransferase (ALT/SGPT) 50 12-78 U/L Alkaline Phosphatase 211 45-117 U/L Total Creatine Kinase 55 39-308 U/L Creatine Kinase MB < 0.5 0.5-3.6 ng/ml Creatine Kinase MB Ratio 0-3.0 Total Protein 6.2 6.4-8.2 gm/dl Albumin 3.0 3.4-5.0 gm/dl Lipase 170 73-393 U/L Bedside Troponin I 0.000 0-0.045 ng/ml Diagnostic Radiology CHEST ONE VIEW PORTABLE CLINICAL HISTORY: CP, hopes CA dyspnea COMPARISON STUDY: 06/26/2016 FINDINGS: Central catheter in superior vena cava. Lungs are clear. Diaphragms are smooth. Esophageal stent is again noted. IMPRESSION: No acute process.. Esophageal stent is unchanged in location. Right upper quadrant ultrasound GALLBLADDER-ABD LIMITED CLINICAL HISTORY: epigastric pain, hopes CA pain. Nausea. TECHNIQUE: Ultrasound COMPARISON STUDY: CT dated 07/10/2016 FINDINGS: Several gallstones within the gallbladder lumen. Gallbladder wall thickness measures 3 mm with a suggestion of a trace amount pericholecystic fluid. Common bile duct is 5 mm. Hepatic metastatic change is again noted. Pancreas is poorly seen. Right kidney has been surgically removed. IMPRESSION: 1. Several gallstones with slight edematous change of the gallbladder wall. 2. A component of acute cholecystitis cannot be excluded. 3. Normal caliber bile duct. 4. Hepatic metastatic change which has been described previously Impression Assessment and Plan Mr. Howell is a 70 y/o male with PMHx of R Nephrectomy (1970 - Nephritis?), BPH , GERD, and Esophageal CA with Liver Metastasis and S/P Esophageal Stent who presents to the ED complaining of worsening chest pain, upper quadrant abdominal pain, and upper back pain 1 week. Pain is acute on chronic. Worsening chest pain is consistent with chronic pain he has been dealing with. This pain is unlikely to be cardiac in nature. Large GI component with metastatic cancer pain. Esophageal CA with Metastasis S/P Esophageal Stent: CP, Back Pain, Abdominal Pain - Pain is consistent with chronic symptoms with recent exacerbation - multifactorial given metastatic cancer, GERD, gallbladder findings -- Pain is inadequately controlled with [place] and GERD symptoms difficult to treat and is on multiple drug regimen - Consideration for HIDA scanning? Unlikely need for surgical intervention at this time - We'll defer antibiotic treatment at this time as patient is afebrile and without leukocytosis - consideration for antibiotic treatment in AM - [place] Q4H PRN and Dilaudid 0.5-2 mg IV PRN - Prednisone 10 mg daily - utilized as an appetite stimulant - Patient may benefit from pain management consultation for outpatient control - Current low-fat diet - will place NPO at midnight - a case of GI intervention - Consult gastroenterology - patient has been seen by Dr. Lopez in the past -- Appreciate recommendations related to esophageal stent in gallbladder findings - Consult oncology - patient follows with Dr. Ybarra - appreciate recommendations GERD: - Pepcid 20 mg BID - Protonix 40 mg BID as omeprazole interchange - Zantac 150 mg daily - Carafate 1 g QID Opioid Induced Constipation: - NSS at 125 mL/hr - Milk of magnesia and MiraLAX PRN - Relistor 12 mg SC x 1 dose - Movantik 25 mg daily - non-formulary and patient may take his own med BPH: - Proscar 5 mg daily and Flomax 0.4 mg daily Gout: - Allopurinol 300 mg daily DVT Prophylaxis: - JESI/SCDs - Withhold chemical prophylaxis - pending surgical intervention -- Given unlikely nature of for surgical intervention - may need prophylaxis initiated tomorrow Disposition: - Patient lives at home with spouse and is currently undergoing cancer treatment I agree with PA assessment and plan and have seen and examined pt myself Reviewed imaging, labs No leukocytosis or fevers Pt with chest pain, RUQ and LUQ pain Abd US with GB wall thickening and pericholecystic fluid Abd: Soft ND, mildly tender in RUQ, LUQ Spoke with surgery, unlikely pain from GB No need for antibx at this time May benefit from palliative care, and perhaps switching norco to fentanyl patch Level of Care Med/Surg Advanced Directives Existing Living Will: Yes Existing Power of Retort Setter: Yes Resuscitation Status FULL RESUSCITATION VTE Prophylaxis VTE Risk Assessment Done? Y/N: Yes Risk Level: Moderate Given or contraindicated: Tina Orta, SCD's Social Service Consult Cancer Patient Under [place]
[2016-07-16] MEDS ORDERED: LORAZEPAM 0.5 MG TAB PO SCH (18:00)
--- NOTE | 2016-07-16 18:15 | Surgery Consultation ---
Consultation Date of Consultation: Jul 16, 2016. Attending Physician: Jose Angel Hager D.O. History of Present Illness pt with metastatic esophageal cancer and a stent currently in place. has been having epigastric pain, burning, gerd, etc...on going but it has been getting worse. he states his appetite has decreased as well and nausea has increased. He has metastatic disease to his liver and lymph nodes. US showed some gallstones and possibly some wall thickening Past Medical/Surgical History Medical Problems: (1) Esophagitis Status: Acute (2) GI bleed Status: Acute (3) Metastasis from esophageal cancer Status: Acute (4) Symptomatic cholelithiasis Status: Acute Family History Cancer Gallbladder disease Heart disease Hypertension Lung disease Social History Smoking Status: Former Smoker Smokeless Tobacco Use: No Alcohol Use: none Drug Use: none Marital Status: Housing Status: lives alone Occupation Status: retired Allergies Coded Allergies: No Known Allergies (Verified , 07/16/16) Home Medications Scheduled Allopurinol (Zyloprim *), 300 MG PO QAM Esomeprazole Magnesium (Nexium), 1 CAP PO BID Famotidine (Pepcid), 20 MG PO BID Finasteride (Proscar), 5 MG PO QAM Lorazepam (Ativan), 0.5 MG PO Q6H Prednisone Tab (Prednisone), 10 MG PO QAM Ranitidine (Zantac), 150 MG PO HS Sucralfate (Carafate), 10 ML PO QID Tamsulosin Hcl (Flomax), 0.4 MG PO QPM Scheduled PRN Hydrocodone/Acetaminophen 5MG/325MG ([place] 5MG/325MG), 1-2 TAB PO Q4H PRN for Pain Ibuprofen Tab (Advil), 600 MG PO DAILY PRN for Pain Lidocaine Hcl (Mouth-Throat) (Lidocaine Viscous), 5-10 ML MT Q6H PRN for Pain Ondansetron Hcl (Zofran), 8 MG PO Q8 PRN for Nausea Prochlorperazine Maleate (Compazine), 10 MG PO Q6H PRN for Nausea Current Inpatient Medications Current Inpatient Medications Medications (Trade) Dose Ordered Sig/Sabino Route Start Time Stop Time Status Last Admin Dose Admin Acetaminophen (Tylenol Tab) 650 mg Q4H PRN PO 07/16/16 15:00 08/15/16 14:59 Al Hydrox/Mg Hydrox/Simethicone (Maalox Max Susp) 15 ml Q4H PRN PO 07/16/16 15:00 08/15/16 14:59 Magnesium Hydroxide (Milk Of Magnesia Susp) 30 ml Q6H PRN PO 07/16/16 15:00 08/15/16 14:59 Polyethylene (Miralax Powder Packet) 17 gm DAILY PRN PO 07/16/16 15:00 08/15/16 14:59 Ondansetron HCl (Zofran Inj) 4 mg Q6H PRN IV 07/16/16 15:00 08/15/16 14:59 Allopurinol (Zyloprim Tab) 300 mg QAM PO 07/17/16 08:00 08/16/16 08:59 Famotidine (Pepcid Tab) 20 mg BID PO 07/16/16 20:00 08/15/16 20:59 Finasteride (Proscar Tab) 5 mg QAM PO 07/17/16 08:00 08/16/16 08:59 Acetaminophen/ Hydrocodone Bitart ([place] 5/325 Tab) 1 tab Q4H PRN PO 07/16/16 15:00 07/30/16 14:59 Lidocaine HCl (Viscous Lidocaine 2% Soln) 5 ml Q6H PRN MT 07/16/16 15:00 08/15/16 14:59 Ondansetron HCl (Zofran Tab) 8 mg Q8 PRN PO 07/16/16 15:00 08/15/16 14:59 Prednisone (PredniSONE TAB) 10 mg QAM PO 07/17/16 08:00 08/16/16 08:59 Prochlorperazine Maleate (Compazine Tab) 10 mg Q6H PRN PO 07/16/16 15:00 08/15/16 14:59 Ranitidine HCl (zANTac TAB) 150 mg HS PO 07/16/16 21:00 08/15/16 20:59 Sucralfate (Carafate Susp) 1 gm QID PO 07/16/16 17:00 08/15/16 16:59 Tamsulosin HCl (Flomax Cap) 0.4 mg QPM PO 07/16/16 21:00 08/15/16 20:59 Pantoprazole Sodium (Protonix Tab) 40 mg BID PO 07/16/16 20:00 08/15/16 20:59 Hydromorphone HCl (Dilaudid Inj) 1 mg Q2H PRN IV 07/16/16 15:00 07/30/16 14:59 Hydromorphone HCl (Dilaudid Inj) 2 mg Q2H PRN IV 07/16/16 15:00 07/30/16 14:59 Hydromorphone HCl 0.5 mg 0.5 mg Q2H PRN IV 07/16/16 15:00 07/30/16 14:59 Sodium Chloride (Nss 1000ml) 1,000 ml @ 100 mls/hr Q10H IV 07/16/16 15:15 08/15/16 15:14 07/16/16 15:15 100 MLS/HR Miscellaneous (Iv Fluids Completed) 1 ea PRN PRN N/A 07/16/16 16:15 07/16/17 16:14 Non-Formulary Medication (Non-Formulary Patient'S Own Med) 1 ea DAILY PO 07/17/16 08:00 08/16/16 07:59 Lorazepam (Ativan Tab) 0.5 mg Q6 PRN PO 07/16/16 18:00 08/15/16 17:59 Review of Systems Constitutional: + weight loss Abdomen: + nausea, + pain Physical Exam Date Time Temp Pulse Resp B/P Pulse Ox O2 Delivery O2 Flow Rate FiO2 07/16/16 17:01 36.6 71 20 132/76 97 07/16/16 16:57 Room Air 07/16/16 15:35 100 Room Air 07/16/16 14:57 67 17 140/71 100 Room Air 07/16/16 12:33 72 16 105/66 91 Room Air 07/16/16 11:54 84 07/16/16 10:54 36.3 102 18 113/67 98 Room Air General Appearance: no apparent distress Head: normocephalic, atraumatic Eyes: PERRL, EOMI ENT: hearing grossly normal Neck: supple, no adenopathy Respiratory/Chest: no respiratory distress, no accessory muscle use Abdomen/GI: soft, + pertinent finding (mild epigastric ttp. no g/r/r) Extremities/Musculoskelatal: no pedal edema Neurologic/Psych: radiology aide II-XII nml as tested, alert, oriented x 3 Skin: normal color, warm/dry Laboratory Results Last 24 Hours Test 07/16/16 12:10 07/16/16 12:16 White Blood Count 7.01 K/uL Red Blood Count 4.00 M/uL Hemoglobin 11.8 g/dL Hematocrit 34.3 % Mean Corpuscular Volume 85.8 fL Mean Corpuscular Hemoglobin 29.5 pg Mean Corpuscular Hemoglobin Concent 34.4 g/dl Platelet Count 187 K/uL Mean Platelet Volume 8.8 fL Neutrophils (%) (Auto) 65.3 % Lymphocytes (%) (Auto) 26.2 % Monocytes (%) (Auto) 6.0 % Eosinophils (%) (Auto) 2.1 % Basophils (%) (Auto) 0.3 % Neutrophils # (Auto) 4.57 K/uL Lymphocytes # (Auto) 1.84 K/uL Monocytes # (Auto) 0.42 K/uL Eosinophils # (Auto) 0.15 K/uL Basophils # (Auto) 0.02 K/uL RDW Standard Deviation 44.4 fL RDW Coefficient of Variation 14.2 % Immature Granulocyte % (Auto) 0.1 % Immature Granulocyte # (Auto) 0.01 K/uL Sodium Level 140 mmol/L Potassium Level 3.7 mmol/L Chloride Level 103 mmol/L Carbon Dioxide Level 29 mmol/L Anion Gap 8.0 mmol/L Blood Urea Nitrogen 13 mg/dl Creatinine 0.85 mg/dl Est Creatinine Clear Calc Drug Dose 83.5 ml/min Estimated GFR () 102.3 Estimated GFR (Non- 88.3 BUN/Creatinine Ratio 14.9 Random Glucose 98 mg/dl Calcium Level 8.4 mg/dl Total Bilirubin 0.5 mg/dl Direct Bilirubin 0.1 mg/dl Aspartate Amino Transf (AST/SGOT) 28 U/L Alanine Aminotransferase (ALT/SGPT) 50 U/L Alkaline Phosphatase 211 U/L Total Creatine Kinase 55 U/L Creatine Kinase MB < 0.5 ng/ml Creatine Kinase MB Ratio Total Protein 6.2 gm/dl Albumin 3.0 gm/dl Lipase 170 U/L Bedside Troponin I 0.000 ng/ml Assessment & Plan discussed case with Dr. Hager. I suspect progression of his disease and possible gerd/esophagitis from stent contributing clinically not c/w gallbladder etiology. wbc normal I would consider changing oral hydrocodone to duragesic patch or something similar as the norco thurman when he takes it and admittedly he avoids taking it will cont to follow along for now. doubt lap johnny would relieve his symptoms.
[2016-07-16] MEDS: SUCRALFATE 1 GM/10 ML UDC PO SCH ×2 (18:20→20:20)
[2016-07-16] MEDS: HYDROmorphone INJ 1 MG/ML SYR IV PRN ×3 (18:25→23:33)
[2016-07-16 19:25] VITALS: BP 123/72; PULSE 68; TEMP 36.6; O2SAT 97
[2016-07-16 19:39] LABS: INR 0.9 (0.9-1.1); PARTIAL THROMBOPLASTIN RATIO 0.9
[2016-07-16] MEDS: FAMOTIDINE 20 MG TAB PO SCH (20:20)
[2016-07-16] MEDS: PANTOprazole SOD 40 MG TAB PO SCH (20:20)
[2016-07-16] MEDS: TAMSULOSIN HCL 0.4 MG CAP PO SCH (20:20)
[2016-07-16] MEDS: RANITIDINE HCL 150 MG TAB PO SCH (20:20)
[2016-07-16] MEDS: HEPARIN SOD 5000 UNIT/0.5 ML CARP SQ SCH (20:23)
[2016-07-16 23:39] VITALS: BP 121/66; PULSE 71; TEMP 36.7; O2SAT 98
[2016-07-16 23:50] VITALS: BP 146/79; TEMP 36.5; O2SAT 100
[2016-07-17] VITALS (7 sets, daily range): BP systolic 115–154; BP diastolic 68–81; PULSE 58–82; TEMP 36.2–37.1; O2SAT 95–98
[2016-07-17] MEDS: SODIUM CHLORIDE 0.9% 1000ML 1,000 ML IV SCH ×3 (00:50→21:16)
[2016-07-17] MEDS: HYDROmorphone INJ 1 MG/ML SYR IV PRN ×3 (02:00→11:06)
[2016-07-17] MEDS: MOVANTIK PO SCH (06:01)
[2016-07-17] MEDS: FAMOTIDINE 20 MG TAB PO SCH ×2 (07:45→21:12)
[2016-07-17] MEDS: ALLOPURINOL 300 MG TAB PO SCH (07:45)
[2016-07-17] MEDS: FINASTERIDE 5 MG TAB PO SCH (07:46)
[2016-07-17] MEDS: SUCRALFATE 1 GM/10 ML UDC PO SCH ×4 (07:46→21:11)
[2016-07-17] MEDS: PANTOprazole SOD 40 MG TAB PO SCH ×2 (07:46→21:13)
[2016-07-17] MEDS: HEPARIN SOD 5000 UNIT/0.5 ML CARP SQ SCH ×2 (07:49→21:18)
--- NOTE | 2016-07-17 08:42 | Oncology Consultation ---
Oncology/Heme Consultation Date of Consultation: Jul 17, 2016. Attending Physician: Garcia Ewing MD Reason for Consultation: History of metastatic esophageal adenocarcinoma History of Present Illness Mr. 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 He has been treated with a number of systemic regimens. An esophageal stent was placed in June 2015. He then went on to receive 6 cycles ofEOX. This tumor is adenocarcinoma and HER-2/cierra negative. He did have a number of GI complaints and Xeloda was continued as a single agent in December of last year but then held in January due to worsening performance status peripheral neuropathy and cytopenias and disease progression. In February of last year there was progression of hepatic metastatic disease compared to November. He was then treated with Taxol along with Ramucirumab. Initially there appeared to be a response but the patient then developed significant peripheral neuropathy.He was continued on ramicurumab as a single agent but unfortunately a recent CT scan showed progression of his prostatic metastasis. He has now admitted with abdominal pain in the right upper quadrant as well as mid epigastric. We are currently pursuing a checkpoint inhibitor (nivolumab). He is admitted now with abdominal pain. He denies nausea or vomiting. He does admit to constipation Past Medical/Surgical History Medical Problems: (1) Esophagitis Status: Acute (2) GI bleed Status: Acute (3) Metastasis from esophageal cancer Status: Acute (4) Symptomatic cholelithiasis Status: Acute Family History Cancer Gallbladder disease Heart disease Hypertension Lung disease Social History Smoking Status: Former Smoker Smokeless Tobacco Use: No Alcohol Use: none Drug Use: none Marital Status: Housing Status: lives alone Occupation Status: retired Allergies Coded Allergies: No Known Allergies (Verified , 07/16/16) Home Medications Scheduled Allopurinol (Zyloprim *), 300 MG PO QAM Esomeprazole Magnesium (Nexium), 1 CAP PO BID Famotidine (Pepcid), 20 MG PO BID Finasteride (Proscar), 5 MG PO QAM Lorazepam (Ativan), 0.5 MG PO Q6H Prednisone Tab (Prednisone), 10 MG PO QAM Ranitidine (Zantac), 150 MG PO HS Sucralfate (Carafate), 10 ML PO QID Tamsulosin Hcl (Flomax), 0.4 MG PO QPM Scheduled PRN Hydrocodone/Acetaminophen 5MG/325MG ([place] 5MG/325MG), 1-2 TAB PO Q4H PRN for Pain Ibuprofen Tab (Advil), 600 MG PO DAILY PRN for Pain Lidocaine Hcl (Mouth-Throat) (Lidocaine Viscous), 5-10 ML MT Q6H PRN for Pain Ondansetron Hcl (Zofran), 8 MG PO Q8 PRN for Nausea Prochlorperazine Maleate (Compazine), 10 MG PO Q6H PRN for Nausea Current Inpatient Medications Current Inpatient Medications Medications (Trade) Dose Ordered Sig/Sabino Route Start Time Stop Time Status Last Admin Dose Admin Acetaminophen (Tylenol Tab) 650 mg Q4H PRN PO 07/16/16 15:00 08/15/16 14:59 Al Hydrox/Mg Hydrox/Simethicone (Maalox Max Susp) 15 ml Q4H PRN PO 07/16/16 15:00 08/15/16 14:59 Magnesium Hydroxide (Milk Of Magnesia Susp) 30 ml Q6H PRN PO 07/16/16 15:00 08/15/16 14:59 Polyethylene (Miralax Powder Packet) 17 gm DAILY PRN PO 07/16/16 15:00 08/15/16 14:59 07/17/16 06:06 17 GM Ondansetron HCl (Zofran Inj) 4 mg Q6H PRN IV 07/16/16 15:00 08/15/16 14:59 Allopurinol (Zyloprim Tab) 300 mg QAM PO 07/17/16 08:00 08/16/16 08:59 07/17/16 07:45 300 MG Famotidine (Pepcid Tab) 20 mg BID PO 07/16/16 20:00 08/15/16 20:59 07/17/16 07:45 20 MG Finasteride (Proscar Tab) 5 mg QAM PO 07/17/16 08:00 08/16/16 08:59 07/17/16 07:46 5 MG Acetaminophen/ Hydrocodone Bitart ([place] 5/325 Tab) 1 tab Q4H PRN PO 07/16/16 15:00 07/30/16 14:59 Lidocaine HCl (Viscous Lidocaine 2% Soln) 5 ml Q6H PRN MT 07/16/16 15:00 08/15/16 14:59 Ondansetron HCl (Zofran Tab) 8 mg Q8 PRN PO 07/16/16 15:00 08/15/16 14:59 Prednisone (PredniSONE TAB) 10 mg QAM PO 07/17/16 08:00 08/16/16 08:59 07/17/16 07:46 10 MG Prochlorperazine Maleate (Compazine Tab) 10 mg Q6H PRN PO 07/16/16 15:00 08/15/16 14:59 Ranitidine HCl (zANTac TAB) 150 mg HS PO 07/16/16 21:00 08/15/16 20:59 Sucralfate (Carafate Susp) 1 gm QID PO 07/16/16 17:00 08/15/16 16:59 07/17/16 07:46 1 GM Tamsulosin HCl (Flomax Cap) 0.4 mg QPM PO 07/16/16 21:00 08/15/16 20:59 07/16/16 20:20 0.4 MG Pantoprazole Sodium (Protonix Tab) 40 mg BID PO 07/16/16 20:00 08/15/16 20:59 07/17/16 07:46 40 MG Hydromorphone HCl (Dilaudid Inj) 1 mg Q2H PRN IV 07/16/16 15:00 07/30/16 14:59 07/17/16 05:54 1 MG Hydromorphone HCl (Dilaudid Inj) 2 mg Q2H PRN IV 07/16/16 15:00 07/30/16 14:59 Hydromorphone HCl 0.5 mg 0.5 mg Q2H PRN IV 07/16/16 15:00 07/30/16 14:59 Sodium Chloride (Nss 1000ml) 1,000 ml @ 100 mls/hr Q10H IV 07/16/16 15:15 08/15/16 15:14 07/17/16 00:50 100 MLS/HR Miscellaneous (Iv Fluids Completed) 1 ea PRN PRN N/A 07/16/16 16:15 07/16/17 16:14 Non-Formulary Medication (Non-Formulary Patient'S Own Med) 1 ea DAILY PO 07/17/16 08:00 4/19/17 07:59 07/17/16 06:01 1 EA Lorazepam (Ativan Tab) 0.5 mg Q6 PRN PO 07/16/16 18:00 08/15/16 17:59 Heparin Sodium (Porcine) (Heparin Sq 5000 Unit/0.5ml) 5,000 unit Q12 SQ 07/16/16 21:00 08/15/16 20:59 07/17/16 07:49 5,000 UNIT Heparin Sodium (Porcine) (Heparin 100 Unit/ml 5ml Flush) 1 ml PRN PRN FLUSH 07/17/16 01:00 08/16/16 00:59 Review of Systems Constitutional: Negative for weight loss, night sweats, or fever Eyes: Negative for event change of vision ENT: Negative for epistaxis, nasal discharge, sore throat, or deafness Cardiovascular: Negative for chest pain, palpitations, dizziness, diaphoresis Respiratory: Negative for new shortness of breath,hemoptysis, or purulent cough Gastrointestinal: Negative for diarrhea, hematemesis, melena, nausea, vomiting , or dyspepsia. He denies any reflux symptoms. Pain that he has is mostly midepigastric and right upper quadrant. He states it has become worse over the past 2-3 weeks Integumentary (skin): Negative for rash or jaundice discoloration Genitourinary: Negative for urinary frequency, hematuria, or dysuria Neurological: Negative for weakness, seizure activity, headache, or dizziness Lymphatic/Hematologic: Negative for petechiae, bleeding or new adenopathy Musculoskeletal: Negative for new joint or back pain Allergic/Immunologic: Negative for unusual rash or pruritis. Physical Exam Date Time Temp Pulse Resp B/P Pulse Ox O2 Delivery O2 Flow Rate FiO2 07/17/16 06:57 36.4 58 18 154/80 95 Room Air 07/17/16 03:59 36.7 63 20 115/68 98 Room Air 07/16/16 23:50 36.5 16 146/79 100 Room Air 07/16/16 23:50 Room Air 07/16/16 23:39 36.7 71 20 121/66 98 Room Air 07/16/16 19:25 36.6 68 20 123/72 97 Room Air 07/16/16 17:01 36.6 71 20 132/76 97 07/16/16 16:57 Room Air 07/16/16 15:35 100 Room Air 07/16/16 14:57 67 17 140/71 100 Room Air 07/16/16 12:33 72 16 105/66 91 Room Air 07/16/16 11:54 84 07/16/16 10:54 36.3 102 18 113/67 98 Room Air Constitutional: vitals are stable. Eyes: Eyes are SUAD EOMI without conjuctival erythema or icterus. ENT: External examination was negative for masses. Neck: Negative for masses or palpable thyromegaly Respiratory: Lung sounds were generally clear bilaterally Cardiovascular: Heart was RRR without significant murmur, gallops aoe rubs Gastrointestinal: No palpable hepatic or splenomegaly. The abdomen was soft with normal bowel sounds. There is a slight fullness in the left upper quadrant. The abdomen itself was nontender. Bowel sounds were normal slightly decreased Lymphatic system: there was no palpable peripheral lymphadenopathy Musculoskeletal System: The musculoskeletal system seemed concordant with age. Skin: The skin was negative for jaundice. Neurologic exam: The exam was negative for any focal findings. Deep tendon reflexes were equal and symmetrical. Psychiatric exam: Was essentially negative with normal mood and effect. Extremities: Negative for edema or erythema Laboratory Results Last 24 Hours Test 07/16/16 12:10 07/16/16 12:16 07/16/16 19:12 07/17/16 07:17 White Blood Count 7.01 K/uL Red Blood Count 4.00 M/uL Hemoglobin 11.8 g/dL Hematocrit 34.3 % Mean Corpuscular Volume 85.8 fL Mean Corpuscular Hemoglobin 29.5 pg Mean Corpuscular Hemoglobin Concent 34.4 g/dl Platelet Count 187 K/uL Mean Platelet Volume 8.8 fL Neutrophils (%) (Auto) 65.3 % Lymphocytes (%) (Auto) 26.2 % Monocytes (%) (Auto) 6.0 % Eosinophils (%) (Auto) 2.1 % Basophils (%) (Auto) 0.3 % Neutrophils # (Auto) 4.57 K/uL Lymphocytes # (Auto) 1.84 K/uL Monocytes # (Auto) 0.42 K/uL Eosinophils # (Auto) 0.15 K/uL Basophils # (Auto) 0.02 K/uL RDW Standard Deviation 44.4 fL RDW Coefficient of Variation 14.2 % Immature Granulocyte % (Auto) 0.1 % Immature Granulocyte # (Auto) 0.01 K/uL Sodium Level 140 mmol/L Potassium Level 3.7 mmol/L Chloride Level 103 mmol/L Carbon Dioxide Level 29 mmol/L Anion Gap 8.0 mmol/L Blood Urea Nitrogen 13 mg/dl Creatinine 0.85 mg/dl Est Creatinine Clear Calc Drug Dose 83.5 ml/min Estimated GFR () 102.3 Estimated GFR (Non- 88.3 BUN/Creatinine Ratio 14.9 Random Glucose 98 mg/dl Calcium Level 8.4 mg/dl Total Bilirubin 0.5 mg/dl Direct Bilirubin 0.1 mg/dl Aspartate Amino Transf (AST/SGOT) 28 U/L Alanine Aminotransferase (ALT/SGPT) 50 U/L Alkaline Phosphatase 211 U/L Total Creatine Kinase 55 U/L Creatine Kinase MB < 0.5 ng/ml Creatine Kinase MB Ratio Total Protein 6.2 gm/dl Albumin 3.0 gm/dl Lipase 170 U/L Bedside Troponin I 0.000 ng/ml Prothrombin Time 10.0 SECONDS Prothromb Time International Ratio 0.9 Activated Partial Thromboplast Time 23.2 SECONDS Partial Thromboplastin Ratio 0.9 Assessment & Plan Metastatic esophageal adenocarcinoma HER-2/cierra negative. We are pursuing Opdivo as a systemic treatment alternative in our clinic.. Scans were reviewed and he does have cholelithiasis however I doubt that the gallstones are responsible for symptoms. I suspect his pain is from liver capsule stretching secondary to progression of his metastatic disease. Treatment then should be focused on pain control and would recommend adding a Duragesic patch beginning at 12 g per hour every 72 hours with oxycodone 5-10 mg every 4 hours as needed for breakthrough pain. We will follow along with you. He is concerned about his constipation and stool softeners along with bowel stimulants are ongoing.
[2016-07-17 09:12] LABS: MEAN CELL VOLUME 88.2 fL (80-100); MEAN CORPUSCULAR HEMOGLOBIN 29.4 pg (25-34); MEAN CORPUSCULAR HGB CONC 33.3 g/dl (32-36); MEAN PLATELET VOLUME 9.2 fL (7.4-10.4); PLATELET COUNT 191 K/uL (130-400); RED BLOOD COUNT 4.08 M/uL (4.7-6.1)
[2016-07-17 09:37] LABS: CALCIUM 8.8 mg/dl (8.5-10.1); CREATININE 0.77 mg/dl (0.60-1.40); POTASSIUM 3.8 mmol/L (3.5-5.1)
--- NOTE | 2016-07-17 09:41 | Gastrointestinal Consultation ---
Gastrointestinal Consultation Date of Consultation: Jul 17, 2016 Attending Physician: Dr. Ewing Consulting Physician: Candi Zamora PA-C Reason for Consultation: epigastric pain, constipation History of Present Illness Patient is a 70 year old male with a PMH of nephrectomy, BPH, GERD, & esophageal adenocarcinoma with liver metastasis who presents with epigastric abdominal pain & acute on chronic constipation. The patient was recently seen in the outpatient GI clinic by Gavi PAZ. He was prescribed Movantik for his opioid-induced constipation. He does take prescription narcotic pain medications due to his advanced cancer. He last underwent an EGD on 07/21/15 at which time an esophageal stent was placed. He takes Nexium 40 mg daily at home along with Pepcid & Carafate. He is prescribed Lidocaine, but he reports that he rarely uses this. He has persistent epigastric discomfort & can feel his esophageal stent. He denies melena or hematemesis. He reports that he has had minimal bowel movements for 4 days. He denies rectal bleeding. He has been utilizing Miralax since hospitalized. He offers no further complaints at present. Past Medical/Surgical History Medical Problems: (1) Esophagitis Status: Acute (2) GI bleed Status: Acute (3) Metastasis from esophageal cancer Status: Acute (4) Symptomatic cholelithiasis Status: Acute Past Medical History: Nephritis. BPH, GERD, Esophageal adenocarcinoma with liver metastasis Past Surgical History: Nephrectomy Family History Cancer Gallbladder disease Heart disease Hypertension Lung disease Social History Smoking Status: Former Smoker Alcohol Use: none Drug Use: none Marital Status: Housing Status: lives alone Occupation Status: retired Allergies Coded Allergies: No Known Allergies (Verified , 07/16/16) Current Medications Home Meds and Scripts Medications Dose Route/Sig Max Daily Dose Days Date Category Dose Instructions Lidocaine Viscous (Lidocaine Hcl (Mouth-Throat)) 2 % Cecilia 5-10 Ml MT Q6H PRN 06/26/16 Rx Nexium (Esomeprazole Magnesium) 40 Mg Cap 1 Cap PO BID 14 06/26/16 Rx [place] 5MG/325MG (Acetaminophen/Hydrocodone Bitart) Tab 1-2 Tab PO Q4H PRN 06/26/16 Rx PRN PAIN Advil (Ibuprofen) 200 Mg Tab 600 Mg PO DAILY PRN 06/26/16 Reported Ativan (Lorazepam) 0.5 Mg Tab 0.5 Mg PO Q6H 06/26/16 Reported Carafate (Sucralfate) 1 Gm/10 Ml Edilia 10 Ml PO QID 30 06/26/16 Reported Pepcid (Famotidine) 20 Mg Tab 20 Mg PO BID 06/26/16 Reported Proscar (Finasteride) 5 Mg Tab 5 Mg PO QAM 11/27/15 Reported Flomax (Tamsulosin Hcl) 0.4 Mg Cap 0.4 Mg PO QPM 11/27/15 Reported Zofran (Ondansetron HCl) 8 Mg Tab 8 Mg PO Q8 PRN 11/27/15 Reported Prednisone 10 Mg Tab 10 Mg PO QAM 11/27/15 Reported Zantac (Ranitidine HCl) 150 Mg Tab 150 Mg PO HS 11/27/15 Reported Compazine (Prochlorperazine Maleate) 10 Mg Tab 10 Mg PO Q6H PRN 07/22/15 Reported Zyloprim * (Allopurinol) 300 Mg Tab 300 Mg PO QAM 12/17/05 Reported Review of Systems Constitutional: No chills, No fever Eyes: No problem reported Respiratory: No cough, No shortness of breath Cardiac: No chest pain Abdomen: + constipation, + pain (epigastric), No GI bleeding, No diarrhea, No nausea, No vomiting Musculoskeletal: No joint pain Neuro: No problem reported Heme: No problem reported Skin: No problem reported Physical Exam Date Time Temp Pulse Resp B/P Pulse Ox O2 Delivery O2 Flow Rate FiO2 07/17/16 08:00 Room Air 07/17/16 06:57 36.4 58 18 154/80 95 Room Air 07/17/16 03:59 36.7 63 20 115/68 98 Room Air 07/16/16 23:50 36.5 16 146/79 100 Room Air 07/16/16 23:50 Room Air 07/16/16 23:39 36.7 71 20 121/66 98 Room Air 07/16/16 19:25 36.6 68 20 123/72 97 Room Air 07/16/16 17:01 36.6 71 20 132/76 97 07/16/16 16:57 Room Air 07/16/16 15:35 100 Room Air 07/16/16 14:57 67 17 140/71 100 Room Air 07/16/16 12:33 72 16 105/66 91 Room Air 07/16/16 11:54 84 07/16/16 10:54 36.3 102 18 113/67 98 Room Air General Appearance: WD/WN, no apparent distress Eyes: normal inspection, PERRL Respiratory/Chest: lungs clear, normal breath sounds Cardiovascular: regular rate, rhythm Abdomen: normal bowel sounds, + tenderness (epigastric) Extremities: non-tender Neurologic/Psych: alert, oriented x 3 Skin: normal color Laboratory Results Last 24 Hours Test 07/16/16 12:10 07/16/16 12:16 07/16/16 19:12 07/17/16 08:42 White Blood Count 7.01 K/uL 5.90 K/uL Red Blood Count 4.00 M/uL 4.08 M/uL Hemoglobin 11.8 g/dL 12.0 g/dL Hematocrit 34.3 % 36.0 % Mean Corpuscular Volume 85.8 fL 88.2 fL Mean Corpuscular Hemoglobin 29.5 pg 29.4 pg Mean Corpuscular Hemoglobin Concent 34.4 g/dl 33.3 g/dl Platelet Count 187 K/uL 191 K/uL Mean Platelet Volume 8.8 fL 9.2 fL Neutrophils (%) (Auto) 65.3 % Lymphocytes (%) (Auto) 26.2 % Monocytes (%) (Auto) 6.0 % Eosinophils (%) (Auto) 2.1 % Basophils (%) (Auto) 0.3 % Neutrophils # (Auto) 4.57 K/uL Lymphocytes # (Auto) 1.84 K/uL Monocytes # (Auto) 0.42 K/uL Eosinophils # (Auto) 0.15 K/uL Basophils # (Auto) 0.02 K/uL RDW Standard Deviation 44.4 fL 46.7 fL RDW Coefficient of Variation 14.2 % 14.4 % Immature Granulocyte % (Auto) 0.1 % Immature Granulocyte # (Auto) 0.01 K/uL Sodium Level 140 mmol/L Potassium Level 3.7 mmol/L Chloride Level 103 mmol/L Carbon Dioxide Level 29 mmol/L Anion Gap 8.0 mmol/L Blood Urea Nitrogen 13 mg/dl Creatinine 0.85 mg/dl Est Creatinine Clear Calc Drug Dose 83.5 ml/min Estimated GFR () 102.3 Estimated GFR (Non- 88.3 BUN/Creatinine Ratio 14.9 Random Glucose 98 mg/dl Calcium Level 8.4 mg/dl Total Bilirubin 0.5 mg/dl Direct Bilirubin 0.1 mg/dl Aspartate Amino Transf (AST/SGOT) 28 U/L Alanine Aminotransferase (ALT/SGPT) 50 U/L Alkaline Phosphatase 211 U/L Total Creatine Kinase 55 U/L Creatine Kinase MB < 0.5 ng/ml Creatine Kinase MB Ratio Total Protein 6.2 gm/dl Albumin 3.0 gm/dl Lipase 170 U/L Bedside Troponin I 0.000 ng/ml Prothrombin Time 10.0 SECONDS Prothromb Time International Ratio 0.9 Activated Partial Thromboplast Time 23.2 SECONDS Partial Thromboplastin Ratio 0.9 Impression Patient is a 70 year old male with epigastric pain & chest discomfort along with opioid induced constipation. Plan Opioid-Induced Constipation 1) Obtain abdominal xray to rule out obstruction 2) If no obstruction, would recommend continuation of Relistor 12 mg subcutaneously every other day. 3) Continue Miralax, but would increase to 17 gm BID dosing. 4) If no obstruction, would recommend continuation of Movantik as prescribed as an outpatient. Patient may bring home medication. Esophageal Adenocarcinoma with liver metastasis; Epigastric discomfort presumably from stent 1) Offered EGD for further evaluation of stent. Patient would like to think about this and make a decision this afternoon. Would plan for tomorrow if patient wants this to be done. He must be strictly NPO. 2) Continue PPI therapy daily. Takes Nexium 40 mg daily at home. Can have Protonix 40 mg BID now. 3) Continue Carafate 1 gm four times daily before meals and at bedtime. 4) Continue viscous Lidocaine as prescribed as an outpatient for persistent symptoms. Thank you for allowing us to participate in the care of this patient. If you should have any further questions or concerns, do not hesitate to contact us. Agree with INNA Carpio as above Abd: Soft, NT, ND, +BS Continue current therapy Patient Agreeable to EGD in AM NPO after midnight
[2016-07-17 09:51] LABS: ALB/GLOB RATIO 1.1 (0.9-2)
[2016-07-17] MEDS ORDERED: METHYLNALTREXONE BROMIDE INJ 12 MG/0.6 ML SYR SQ SCH (10:30)
[2016-07-17] MEDS: DOCUSATE SODIUM 100 MG CAP PO SCH ×2 (11:07→21:12)
--- NOTE | 2016-07-17 11:43 | DIAGNOSTIC IMAGING REPORT ---
ABDOMEN 2 VIEWS CLINICAL HISTORY: constipation COMPARISON STUDY: 11/10/2015 FINDINGS: Mass. Esophageal stent in position. Nonobstructive bowel pattern. Unremarkable fecal load. IMPRESSION: No obstructive change. No evidence for constipation or increased fecal load. Esophageal stent. Electronically signed by: Yash Giordano M.D. 07/17/2016 11:42 AM Dictated Date/Time: 07/17/2016 11:40 AM
--- NOTE | 2016-07-17 12:44 | Surgery Progress Note ---
Surgery Progress Note Date of Service Jul 17, 2016. Subjective no new complaints/issues Objective Vital Signs: Date Time Temp Pulse Resp B/P Pulse Ox O2 Delivery O2 Flow Rate FiO2 07/17/16 08:00 Room Air 07/17/16 06:57 36.4 58 18 154/80 95 Room Air 07/17/16 03:59 36.7 63 20 115/68 98 Room Air 07/16/16 23:50 36.5 16 146/79 100 Room Air 07/16/16 23:50 Room Air 07/16/16 23:39 36.7 71 20 121/66 98 Room Air 07/16/16 19:25 36.6 68 20 123/72 97 Room Air 07/16/16 17:01 36.6 71 20 132/76 97 07/16/16 16:57 Room Air 07/16/16 15:35 100 Room Air 07/16/16 14:57 67 17 140/71 100 Room Air General Appearance: no apparent distress Head: normocephalic Neck: supple, no adenopathy Abdomen: non distended, soft Extremities: normal inspection Laboratory Results: Results Past 24 Hours Test 07/16/16 19:12 07/17/16 08:42 Range/Units Prothrombin Time 10.0 9.0-12.0 SECONDS Prothromb Time International Ratio 0.9 0.9-1.1 Activated Partial Thromboplast Time 23.2 21.0-31.0 SECONDS Partial Thromboplastin Ratio 0.9 White Blood Count 5.90 4.8-10.8 K/uL Red Blood Count 4.08 4.7-6.1 M/uL Hemoglobin 12.0 14.0-18.0 g/dL Hematocrit 36.0 42-52 % Mean Corpuscular Volume 88.2 80-100 fL Mean Corpuscular Hemoglobin 29.4 25-34 pg Mean Corpuscular Hemoglobin Concent 33.3 32-36 g/dl RDW Standard Deviation 46.7 36.4-46.3 fL RDW Coefficient of Variation 14.4 11.5-14.5 % Platelet Count 191 130-400 K/uL Mean Platelet Volume 9.2 7.4-10.4 fL Sodium Level 140 136-145 mmol/L Potassium Level 3.8 3.5-5.1 mmol/L Chloride Level 106 98-107 mmol/L Carbon Dioxide Level 26 21-32 mmol/L Anion Gap 8.0 3-11 mmol/L Blood Urea Nitrogen 10 7-18 mg/dl Creatinine 0.77 0.60-1.40 mg/dl Est Creatinine Clear Calc Drug Dose 92.2 ml/min Estimated GFR () 106.6 Estimated GFR (Non- 91.9 BUN/Creatinine Ratio 13.0 10-20 Random Glucose 105 70-99 mg/dl Calcium Level 8.8 8.5-10.1 mg/dl Total Bilirubin 0.5 0.2-1 mg/dl Aspartate Amino Transf (AST/SGOT) 29 15-37 U/L Alanine Aminotransferase (ALT/SGPT) 42 12-78 U/L Alkaline Phosphatase 215 45-117 U/L Total Protein 6.0 6.4-8.2 gm/dl Albumin 3.1 3.4-5.0 gm/dl Globulin 2.9 2.5-4.0 gm/dl Albumin/Globulin Ratio 1.1 0.9-2 Assessment & Plan reviewed oncology/GI consults d/w IM I think everyone agrees it is unlikely to be his gallbladder as the main issue will sign off. please call if I can be of assistance
[2016-07-17] MEDS: LORAZEPAM 0.5 MG TAB PO PRN ×2 (13:09→21:11)
[2016-07-17] MEDS ORDERED: OXYCODONE HCL IR 5 MG TAB (IMMEDIATE RELEASE) PO PRN (14:45)
--- NOTE | 2016-07-17 14:57 | Hospitalist Progress Note ---
Hospitalist Progress Note Date of Service Jul 17, 2016. (Adrianne Thomas ., PA-C) Subjective Pt evaluation today including: conversation w/ patient, conversation w/ family , physical exam, chart review, lab review, review of studies, review of inpatient medication list Voiding: no voiding problems, no incontinence Patient still admits to RUQ/epigastric discomfort. Per patient, pain has been ongoing since esophageal stent placement- he would just like some relief in his symptoms. GI recommended EGD- patient does NOT want procedure at this time. + constipation- patient admits to small bowel movement this afternoon. Discussed starting Fentanyl patch for pain management- he is eager to try. Patient denies any fever, chills, sweats, lightheadedness, dizziness, vision changes, CP, palpitations, edema, SOB, wheezing, cough, nausea, vomiting, diarrhea, urinary symptoms, melena, numbness/tingling, weakness, muscle/joint pain, anxiety/ depression, active bleeding, or new skin discoloration/changes. (Adrianne Thomas ., PA-C) Medications Current Inpatient Medications Medications (Trade) Dose Ordered Sig/Sabino Route Start Time Stop Time Status Last Admin Dose Admin Acetaminophen (Tylenol Tab) 650 mg Q4H PRN PO 07/16/16 15:00 08/15/16 14:59 Al Hydrox/Mg Hydrox/Simethicone (Maalox Max Susp) 15 ml Q4H PRN PO 07/16/16 15:00 08/15/16 14:59 Magnesium Hydroxide (Milk Of Magnesia Susp) 30 ml Q6H PRN PO 07/16/16 15:00 08/15/16 14:59 Ondansetron HCl (Zofran Inj) 4 mg Q6H PRN IV 07/16/16 15:00 08/15/16 14:59 Allopurinol (Zyloprim Tab) 300 mg QAM PO 07/17/16 08:00 08/16/16 08:59 07/17/16 07:45 300 MG Famotidine (Pepcid Tab) 20 mg BID PO 07/16/16 20:00 08/15/16 20:59 07/17/16 07:45 20 MG Finasteride (Proscar Tab) 5 mg QAM PO 07/17/16 08:00 08/16/16 08:59 07/17/16 07:46 5 MG Lidocaine HCl (Viscous Lidocaine 2% Soln) 5 ml Q6H PRN MT 07/16/16 15:00 08/15/16 14:59 Ondansetron HCl (Zofran Tab) 8 mg Q8 PRN PO 07/16/16 15:00 08/15/16 14:59 Prednisone (PredniSONE TAB) 10 mg QAM PO 07/17/16 08:00 08/16/16 08:59 07/17/16 07:46 10 MG Prochlorperazine Maleate (Compazine Tab) 10 mg Q6H PRN PO 07/16/16 15:00 08/15/16 14:59 Ranitidine HCl (zANTac TAB) 150 mg HS PO 07/16/16 21:00 08/15/16 20:59 Sucralfate (Carafate Susp) 1 gm QID PO 07/16/16 17:00 08/15/16 16:59 07/17/16 12:04 1 GM Tamsulosin HCl (Flomax Cap) 0.4 mg QPM PO 07/16/16 21:00 08/15/16 20:59 07/16/16 20:20 0.4 MG Pantoprazole Sodium 40 mg 40 mg BID PO 07/16/16 20:00 08/15/16 20:59 07/17/16 07:46 40 MG Sodium Chloride (Nss 1000ml) 1,000 ml @ 100 mls/hr Q10H IV 07/16/16 15:15 08/15/16 15:14 07/17/16 11:02 100 MLS/HR Miscellaneous (Iv Fluids Completed) 1 ea PRN PRN N/A 07/16/16 16:15 07/16/17 16:14 Non-Formulary Medication (Non-Formulary Patient'S Own Med) 1 ea DAILY PO 07/17/16 08:00 08/16/16 07:59 07/17/16 06:01 1 EA Lorazepam (Ativan Tab) 0.5 mg Q6 PRN PO 07/16/16 18:00 08/15/16 17:59 07/17/16 13:09 0.5 MG Heparin Sodium (Porcine) (Heparin Sq 5000 Unit/0.5ml) 5,000 unit Q12 SQ 07/16/16 21:00 08/15/16 20:59 07/17/16 07:49 5,000 UNIT Heparin Sodium (Porcine) (Heparin 100 Unit/ml 5ml Flush) 1 ml PRN PRN FLUSH 07/17/16 01:00 08/16/16 00:59 Polyethylene (Miralax Powder Packet) 17 gm BID PO 07/17/16 20:00 08/16/16 19:59 Methylnaltrexone [place] (Relistor Inj) 12 mg Q2D SQ 07/17/16 10:30 08/16/16 10:29 Docusate Sodium (coLACE CAP) 100 mg BID PO 07/17/16 20:00 08/16/16 19:59 07/17/16 11:07 100 MG Fentanyl (Duragesic Patch) 12 mcg Q72H TD 07/17/16 15:30 07/31/16 15:29 Miscellaneous (Fentanyl Patch Remove & Waste) 1 ea Q3D N/A 07/20/16 15:30 08/19/16 15:29 Miscellaneous Information (Check Fentanyl Patch Placement) 1 ea QS N/A 07/17/16 16:00 08/16/16 15:59 Oxycodone HCl (Roxicodone Immediate Rel Tab) 5 mg Q4H PRN PO 07/17/16 14:45 07/31/16 14:44 Oxycodone HCl (Roxicodone Immediate Rel Tab) 10 mg Q4H PRN PO 07/17/16 14:45 07/31/16 14:44 (Adrianne Thomas, PA-C) Objective Vital Signs Date Time Temp Pulse Resp B/P Pulse Ox O2 Delivery O2 Flow Rate FiO2 07/17/16 08:00 Room Air 07/17/16 06:57 36.4 58 18 154/80 95 Room Air 07/17/16 03:59 36.7 63 20 115/68 98 Room Air 07/16/16 23:50 36.5 16 146/79 100 Room Air 07/16/16 23:50 Room Air 07/16/16 23:39 36.7 71 20 121/66 98 Room Air 07/16/16 19:25 36.6 68 20 123/72 97 Room Air 07/16/16 17:01 36.6 71 20 132/76 97 07/16/16 16:57 Room Air 07/16/16 15:35 100 Room Air 07/16/16 14:57 67 17 140/71 100 Room Air (Adrianne Thomas PA-C) Physical Exam General Appearance: no apparent distress Eyes: normal inspection, PERRL ENT: hearing grossly normal Neck: supple Respiratory/Chest: lungs clear, no respiratory distress, no accessory muscle use Cardiovascular: regular rate, rhythm Abdomen: normal bowel sounds, soft, + tenderness (very minimal ttp of RUQ/ epigastric region ) Extremities: no pedal edema, no calf tenderness Neurologic/Psychiatric: alert, normal mood/affect, oriented x 3 Skin: normal color, warm/dry, no rash (Adrianne Thomas PA-C) Laboratory Results Last 24 Hours Test 07/16/16 19:12 07/17/16 08:42 Prothrombin Time 10.0 SECONDS Prothromb Time International Ratio 0.9 Activated Partial Thromboplast Time 23.2 SECONDS Partial Thromboplastin Ratio 0.9 White Blood Count 5.90 K/uL Red Blood Count 4.08 M/uL Hemoglobin 12.0 g/dL Hematocrit 36.0 % Mean Corpuscular Volume 88.2 fL Mean Corpuscular Hemoglobin 29.4 pg Mean Corpuscular Hemoglobin Concent 33.3 g/dl RDW Standard Deviation 46.7 fL RDW Coefficient of Variation 14.4 % Platelet Count 191 K/uL Mean Platelet Volume 9.2 fL Sodium Level 140 mmol/L Potassium Level 3.8 mmol/L Chloride Level 106 mmol/L Carbon Dioxide Level 26 mmol/L Anion Gap 8.0 mmol/L Blood Urea Nitrogen 10 mg/dl Creatinine 0.77 mg/dl Est Creatinine Clear Calc Drug Dose 92.2 ml/min Estimated GFR () 106.6 Estimated GFR (Non- 91.9 BUN/Creatinine Ratio 13.0 Random Glucose 105 mg/dl Calcium Level 8.8 mg/dl Total Bilirubin 0.5 mg/dl Aspartate Amino Transf (AST/SGOT) 29 U/L Alanine Aminotransferase (ALT/SGPT) 42 U/L Alkaline Phosphatase 215 U/L Total Protein 6.0 gm/dl Albumin 3.1 gm/dl Globulin 2.9 gm/dl Albumin/Globulin Ratio 1.1 (Adrianne Thomas PA-C) Assessment and Plan Mr. Howell is a 70 y/o male with PMHx of R Nephrectomy (1970 - Nephritis?), BPH , GERD, and Esophageal CA with Liver Metastasis and S/P Esophageal Stent who presents to the ED complaining of worsening chest pain, upper quadrant abdominal pain, and upper back pain 1 week. Pain is acute on chronic. Worsening chest pain is consistent with chronic pain he has been dealing with. This pain is unlikely to be cardiac in nature. Large GI component with metastatic cancer pain. Esophageal CA with metastasis S/P esophageal stent: CP, Back Pain, Abdominal Pain: - Admit med/surg - [place] Q4H PRN and Dilaudid 0.5-2 mg IV PRN--> d/c'd- started Fentanyl patch/ oxycodone regimen on 07/17--> will increase Fentanyl q72 hrs PRN until optimal pain management - Prednisone 10 mg daily - utilized as an appetite stimulant - Mechanical soft diet per pan pusher recommendations - Consult general surgery, appreciate recommendations -- Unlikely gallbladder related- No intervention at this time - Consult gastroenterology - patient has been seen by Dr. Lopez in the past -- Abdominal x-ray to r/o obstruction- unremarkable -- ?EGD- pt does NOT want procedure at this time - Consult oncology - patient follows with Dr. Ybarra - appreciate recommendations -- Recommend mainly pain control--> Duragesic patch at 12 mcg q72 hrs w/ Oxycodone 5-10 mg q4 hrs PRN for break through pain GERD: - Pepcid 20 mg BID - Protonix 40 mg BID as Omeprazole interchange - Zantac 150 mg daily - Carafate 1 g QID Opioid Induced Constipation: - NSS at 125 mL/hr - Milk of magnesia and MiraLAX BID - Relistor 12 mg SC Q2D - Movantik 25 mg daily - non-formulary and patient may take his own med BPH: Proscar 5 mg daily and Flomax 0.4 mg daily Gout: Allopurinol 300 mg daily DVT prophylaxis: Heparin 5000 units SQ q12 hrs, JESI and SCDs Disposition: - Patient lives at home with spouse and is currently undergoing cancer treatment - No discharge needs anticipated (Adrianne Thomas ., PAGala) Attending attestation: Pt seen/examined, chart reviewed, care plan d/w JUSTIN Thomas. I agree w/ the croft components of her documentation. I saw the patient very late in the day today. At that point he DID elect to have EGD tomorrow. She stated his pain WAS better. 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 He had tried gabapentin w/o relief. Tried lyrica but had side effects. gen - restricted affect but NAD heart - RRR lungs - CTA b/l abd - soft, NT, ND, mild tenderness RUQ and high epigastric area ext - no edema A/P: 1. stage 4 esophageal ca 2. esophageal stent status 3. chest pain and upper abd pain 4. neuropathy 5. concern of acute cholecystitis - ruled out per gen surgery EGD in AM NPO after MN start cymbalta tomorrow 20mg daily; increase to 30mg in a few days; ultimate goal 60mg daily PPI, carafate, etc consider b12 level in light of neuropathy Mark EWING MD (Garcia Ewing MD)
[2016-07-17] MEDS ORDERED: FENTANYL 12 MCG/HR TDSY TD SCH (15:30)
[2016-07-17] MEDS: CHECK FENTANYL PATCH PLACEMENT SCH (16:17)
[2016-07-17] MEDS: OXYCODONE HCL IR 5 MG TAB (IMMEDIATE RELEASE) PO PRN ×2 (17:10→21:41)
[2016-07-17] MEDS ORDERED: POLYETHYLENE (MIRALAX) 17 GM PACK PO SCH (20:00)
[2016-07-17] MEDS: RANITIDINE HCL 150 MG TAB PO SCH (21:12)
[2016-07-17] MEDS: TAMSULOSIN HCL 0.4 MG CAP PO SCH (21:13)
[2016-07-18] VITALS (7 sets, daily range): BP systolic 129–154; BP diastolic 68–89; PULSE 68–85; TEMP 36.3–36.9; O2SAT 94–99
[2016-07-18] MEDS: CHECK FENTANYL PATCH PLACEMENT SCH ×3 (00:10→16:41)
[2016-07-18 06:41] LABS: BUN/CREATININE RATIO 9.6 (10-20); CALCIUM 8.6 mg/dl (8.5-10.1); CREATININE 0.77 mg/dl (0.60-1.40)
[2016-07-18] MEDS: ONDANSETRON INJ 2 MG/ML 2 ML VIAL IV PRN ×2 (07:01→16:46)
[2016-07-18] MEDS: OXYCODONE HCL IR 5 MG TAB (IMMEDIATE RELEASE) PO PRN (07:02)
[2016-07-18] MEDS: SODIUM CHLORIDE 0.9% 1000ML 1,000 ML IV SCH ×2 (07:02→16:46)
[2016-07-18] MEDS: SUCRALFATE 1 GM/10 ML UDC PO SCH ×4 (08:00→21:08)
--- NOTE | 2016-07-18 08:05 | Hematology/Oncology Prog Note ---
Hematology/Onc Progress Note Date of Service Jul 18, 2016. Diagnoses Metastatic esophageal carcinoma Midepigastric pain Medications Medications Administered Medications (Trade) Dose Ordered Sig/Sabino Route Start Time Stop Time Status Last Admin Dose Admin Sodium Chloride 500 ml @ 999 mls/hr Q31M STAT IV 07/16/16 11:50 07/16/16 12:20 DC 07/16/16 11:50 999 MLS/HR Sodium Chloride (Nss 1000ml) 1,000 ml @ 125 mls/hr Q8H STAT IV 07/16/16 11:50 07/16/16 16:19 DC 07/16/16 11:50 125 MLS/HR Hydromorphone HCl (Dilaudid Inj) 1 mg NOW STAT IV 07/16/16 11:50 07/16/16 11:53 DC 07/16/16 12:20 1 MG Ondansetron HCl (Zofran Inj) 4 mg NOW STAT IV 07/16/16 11:50 07/16/16 11:53 DC 07/16/16 12:20 4 MG Hydromorphone HCl (Dilaudid Inj) 1 mg NOW STAT IV 07/16/16 15:01 07/16/16 15:02 DC 07/16/16 15:05 1 MG Polyethylene (Miralax Powder Packet) 17 gm DAILY PRN PO 07/16/16 15:00 07/17/16 14:59 DC 07/17/16 06:06 17 GM Ondansetron HCl (Zofran Inj) 4 mg Q6H PRN IV 07/16/16 15:00 08/15/16 14:59 07/18/16 07:01 4 MG Allopurinol (Zyloprim Tab) 300 mg QAM PO 07/17/16 08:00 08/16/16 08:59 07/17/16 07:45 300 MG Famotidine (Pepcid Tab) 20 mg BID PO 07/16/16 20:00 08/15/16 20:59 07/17/16 21:12 20 MG Finasteride (Proscar Tab) 5 mg QAM PO 07/17/16 08:00 08/16/16 08:59 07/17/16 07:46 5 MG Prednisone (PredniSONE TAB) 10 mg QAM PO 07/17/16 08:00 08/16/16 08:59 07/17/16 07:46 10 MG Ranitidine HCl (zANTac TAB) 150 mg HS PO 07/16/16 21:00 08/15/16 20:59 07/17/16 21:12 150 MG Sucralfate (Carafate Susp) 1 gm QID PO 07/16/16 17:00 08/15/16 16:59 07/17/16 21:11 1 GM Tamsulosin HCl (Flomax Cap) 0.4 mg QPM PO 07/16/16 21:00 08/15/16 20:59 07/17/16 21:13 0.4 MG Pantoprazole Sodium (Protonix Tab) 40 mg BID PO 07/16/16 20:00 08/15/16 20:59 07/17/16 21:13 40 MG Hydromorphone HCl 1 mg 1 mg Q2H PRN IV 07/16/16 15:00 07/17/16 14:59 DC 07/17/16 11:06 1 MG Sodium Chloride (Nss 1000ml) 1,000 ml @ 100 mls/hr Q10H IV 07/16/16 15:15 08/15/16 15:14 07/18/16 07:02 100 MLS/HR Methylnaltrexone [place] (Relistor Inj) 12 mg ONE ONCE SQ 07/16/16 17:00 07/16/16 17:01 DC 07/16/16 18:20 12 MG Non-Formulary Medication (Non-Formulary Patient'S Own Med) 1 ea DAILY PO 07/17/16 08:00 08/16/16 07:59 07/17/16 06:01 1 EA Lorazepam (Ativan Tab) 0.5 mg Q6 PRN PO 07/16/16 18:00 08/15/16 17:59 07/17/16 21:11 0.5 MG Heparin Sodium (Porcine) (Heparin Sq 5000 Unit/0.5ml) 5,000 unit Q12 SQ 07/16/16 21:00 08/15/16 20:59 07/17/16 21:18 5,000 UNIT Polyethylene (Miralax Powder Packet) 17 gm BID PO 07/17/16 20:00 08/16/16 19:59 07/17/16 21:11 17 GM Docusate Sodium (coLACE CAP) 100 mg BID PO 07/17/16 20:00 08/16/16 19:59 07/17/16 21:12 100 MG Fentanyl (Duragesic Patch) 12 mcg Q72H TD 07/17/16 15:30 07/31/16 15:29 07/17/16 16:17 12 MCG Miscellaneous Information (Check Fentanyl Patch Placement) 1 ea QS N/A 07/17/16 16:00 08/16/16 15:59 07/18/16 00:10 1 EA Oxycodone HCl (Roxicodone Immediate Rel Tab) 10 mg Q4H PRN PO 07/17/16 14:45 07/31/16 14:44 07/18/16 07:02 10 MG Subjective Still has pain in midepigastric area that waxes and wanes. Scheduled for an upper endoscopy today to check on esophageal stent primarily Review of Systems: Constitutional: Negative for weight loss, night sweats, or fever Eyes: Negative for event change of vision ENT: Negative for epistaxis, nasal discharge, sore throat, or deafness Cardiovascular: Negative for chest pain - his pain tends to be mostly subxiphoid or midepigastric, palpitations, dizziness, diaphoresis Respiratory: Negative for new shortness of breath,hemoptysis, or purulent cough Gastrointestinal: Negative for diarrhea, hematemesis, melena, nausea, vomiting , or dyspepsia. Still complains of constipation Integumentary (skin): Negative for rash or jaundice discoloration Genitourinary: Negative for urinary frequency, hematuria, or dysuria Neurological: Negative for weakness, seizure activity, headache, or dizziness Lymphatic/Hematologic: Negative for petechiae, bleeding or new adenopathy Musculoskeletal: Negative for new joint or back pain Allergic/Immunologic: Negative for unusual rash or pruritis. Vital Signs Vital Signs Past 12 Hours Date Time Temp Pulse Resp B/P Pulse Ox O2 Delivery O2 Flow Rate FiO2 07/18/16 07:19 36.6 82 20 154/81 98 Room Air 07/18/16 04:53 36.8 85 20 152/89 99 Room Air 07/18/16 00:18 36.8 81 20 142/86 99 Room Air 07/17/16 23:59 95 Room Air Physical Exam Constitutional: vitals are stable. Eyes: Eyes are SUAD EOMI without conjuctival erythema or icterus. ENT: External examination was negative for masses. Neck: Negative for masses or palpable thyromegaly Respiratory: Lung sounds were generally clear bilaterally Cardiovascular: Heart was RRR without significant murmur, gallops aoe rubs Gastrointestinal: No palpable hepatic or splenomegaly. The abdomen was soft with normal bowel sounds. Lymphatic system: there was no palpable peripheral lymphadenopathy Musculoskeletal System: The musculoskeletal system seemed concordant with age. Skin: The skin was negative for jaundice. Neurologic exam: The exam was negative for any focal findings. Deep tendon reflexes were equal and symmetrical. Psychiatric exam: Was essentially negative with normal mood and effect. Extremities: Negative for edema erythema or tenderness Assessment & Plan Seems stable. Pain is still issue. Upper endoscopy plan. Would not hesitate to increase the Duragesic patch. He should begin to have some analgesic effect from the patch placed yesterday - today. However pain persists then again would increase the patch concentration.
[2016-07-18] MEDS ORDERED: LIDOCAINE HCL 2% 2 ML VIAL (20MG/ML) ONE (12:32)
[2016-07-18] MEDS ORDERED: PROPOFOL IV EMULSION 10 MG/ML 20 ML VIAL IV ONE (12:32)
--- NOTE | 2016-07-18 12:54 | Clinical Documentation Query ---
CLINICAL DOCUMENTATION QUERY Dr. BASURTO, In your clinical opinion is this patient being managed for: ( ) Abdominal Pain due to previously placed esophageal stent ( X ) Abdominal Pain due to progression of esophageal cancer ( ) Other explanation of clinical findings (Please Explain) ( ) Unable to determine (Please Define) ( ) Need to Discuss ( ) Not Agree The medical record reflects the following clinical findings, treatment, and risk factors. Clinical Indicators:70 yo male presented with worsening chest pain, upper quadrant abd pain and upper back pain. Pain started back when esophageal stent was placed approx 1 year ago and is worsening. Cardiac etiology unlikely. GI consult documented epigastric discomfort presumably from stent. Treatment: GI consult, fentanyl patch, GI consult, pepcid, protonix, zantac, carafate, plan for EGD--result pending Risk Factors: esophageal cancer with previous stent placement Please clarify and document your clinical opinion in the progress notes and discharge summary. Terms such as "probable", "suspected", "likely", "questionable", "possible", or "still to be ruled out" are acceptable. IF IN AGREEMENT, YOU MUST DOCUMENT ABOVE DIAGNOSTIC STATEMENT IN DAILY PROGRESS NOTES AND DISCHARGE SUMMARY. This document is not part of the patient's record. Thank You, Connie Pepper, IDA [phone]
--- NOTE | 2016-07-18 12:59 | GI REPORT ---
Procedure Date: 07/18/2016 12:38 PM Procedure: Upper GI endoscopy Indications: Follow-up of malignant esophageal adenocarcinoma Medicines: Monitored Anesthesia Care Complications: No immediate complications. Estimated Blood Loss: Estimated blood loss: none. Procedure: Pre-Anesthesia Assessment: - Prior to the procedure, a History and Physical was performed, and patient medications and allergies were reviewed. The patient's tolerance of previous anesthesia was also reviewed. The risks and benefits of the procedure and the sedation options and risks were discussed with the patient. All questions were answered, and informed consent was obtained. Prior Anticoagulants: The patient has taken no previous anticoagulant or antiplatelet agents. ASA Grade Assessment: III - A patient with severe systemic disease. After reviewing the risks and benefits, the patient was deemed in satisfactory condition to undergo the procedure. After obtaining informed consent, the endoscope was passed under direct vision. Throughout the procedure, the patient's blood pressure, pulse, and oxygen saturations were monitored continuously. The scope was introduced through the mouth, and advanced to the second part of duodenum. The upper GI endoscopy was accomplished without difficulty. The patient tolerated the procedure well. Findings: An esophageal stent was found in the lower third of the esophagus. Biopsies were taken with a cold forceps for histology. The stomach was normal. The examined duodenum was normal. Impression: - Pre-existing esophageal stent. Biopsied. - Normal stomach. - Normal examined duodenum. Recommendation: - Return patient to [facility] for ongoing care. - Resume previous diet. - Continue present medications. - Await pathology results. Naeem Lopez, DO 07/18/2016 12:58:44 PM This report has been signed electronically. Note Initiated On: 07/18/2016 12:38 PM I attest to the content of the Intraoperative Record and orders documented therein, exceptions below
[2016-07-18] MEDS: HYDROmorphone INJ 2 MG/ML SYR/VIAL IV PRN ×2 (13:37→18:53)
[2016-07-18] MEDS: DULOXETINE HCL 20 MG CAP PO SCH (13:40)
[2016-07-18] MEDS: DOCUSATE SODIUM 100 MG CAP PO SCH ×2 (13:41→21:08)
[2016-07-18] MEDS: ALLOPURINOL 300 MG TAB PO SCH (13:41)
[2016-07-18] MEDS: FAMOTIDINE 20 MG TAB PO SCH ×2 (13:41→21:08)
[2016-07-18] MEDS: PANTOprazole SOD 40 MG TAB PO SCH ×2 (13:42→21:08)
[2016-07-18] MEDS: POLYETHYLENE (MIRALAX) 17 GM PACK PO SCH ×2 (13:42→21:09)
[2016-07-18] MEDS: FINASTERIDE 5 MG TAB PO SCH (13:44)
[2016-07-18] MEDS: HEPARIN SOD 5000 UNIT/0.5 ML CARP SQ SCH ×2 (13:47→21:14)
[2016-07-18] MEDS: MOVANTIK PO SCH (13:49)
--- NOTE | 2016-07-18 14:40 | Anesthesiology Progress Note ---
Anesthesia Post Op Note Date & Time Jul 18, 2016 at 14:40 Vital Signs Pain Intensity: 9.0 Vital Signs Past 12 Hours Date Time Temp Pulse Resp B/P Pulse Ox O2 Delivery O2 Flow Rate FiO2 07/18/16 13:24 72 18 168/78 97 Room Air 07/18/16 13:07 79 18 172/77 97 Room Air 07/18/16 12:53 69 22 116/59 97 Room Air 07/18/16 11:20 36.8 76 22 161/86 98 Room Air 07/18/16 11:13 36.8 78 20 129/75 97 Room Air 07/18/16 08:00 Room Air 07/18/16 07:19 36.6 82 20 154/81 98 Room Air 07/18/16 04:53 36.8 85 20 152/89 99 Room Air Notes Mental Status: alert / awake / arousable, participated in evaluation Pt Amnestic to Procedure: Yes Nausea / Vomiting: adequately controlled Pain: adequately controlled Airway Patency, RR, SpO2: stable & adequate BP & HR: stable & adequate Hydration State: stable & adequate Anesthetic Complications: no major complications apparent
--- NOTE | 2016-07-18 18:13 | Hospitalist Progress Note ---
Hospitalist Progress Note Date of Service Jul 18, 2016. Subjective Pt evaluation today including: conversation w/ patient, physical exam, chart review, lab review, review of studies, review of inpatient medication list Patient had EGD and no stricture found. Stent was in place. I going to increase the Duragesic patch to attempt to improve pain control. Additional Comments: A 10 system review was performed and all were negative. Positives were placed in the subjective section. Objective Vital Signs Date Time Temp Pulse Resp B/P Pulse Ox O2 Delivery O2 Flow Rate FiO2 07/18/16 16:00 97 Room Air 07/18/16 14:56 36.9 80 22 130/74 97 Room Air 07/18/16 13:24 72 18 168/78 97 Room Air 07/18/16 13:07 79 18 172/77 97 Room Air 07/18/16 12:53 69 22 116/59 97 Room Air 07/18/16 11:20 36.8 76 22 161/86 98 Room Air 07/18/16 11:13 36.8 78 20 129/75 97 Room Air 07/18/16 08:00 Room Air 07/18/16 07:19 36.6 82 20 154/81 98 Room Air 07/18/16 04:53 36.8 85 20 152/89 99 Room Air 07/18/16 00:18 36.8 81 20 142/86 99 Room Air 07/17/16 23:59 95 Room Air 07/17/16 19:08 36.2 82 18 139/78 95 Room Air 07/17/16 18:58 36.6 82 20 154/81 98 Room Air Physical Exam Notes: GEN: Awake, alert, and oriented x 3. Not in acute distress HEENT: Tm's intact, no inflammation, EOMI, PERRLA, MMM Neck: Soft, supple Lungs: CTA b/l, no r/r/w Heart: REG, nrl S1S2 without murmurs, rubs or gallops Abdomen: Soft, NT, ND, + BS EXT: No C/C/E NEURO: CN's II-XII grossly intact, non-focal Skin: warm, dry, no rashes PSYCH: pleasant, cooperative. Laboratory Results Last 24 Hours Test 07/18/16 05:50 Sodium Level 143 mmol/L Potassium Level 4.0 mmol/L Chloride Level 109 mmol/L Carbon Dioxide Level 26 mmol/L Anion Gap 8.0 mmol/L Blood Urea Nitrogen 7 mg/dl Creatinine 0.77 mg/dl Est Creatinine Clear Calc Drug Dose 92.2 ml/min Estimated GFR () 106.6 Estimated GFR (Non- 91.9 BUN/Creatinine Ratio 9.6 Random Glucose 87 mg/dl Calcium Level 8.6 mg/dl Assessment and Plan 1) Esophageal cancer - Stent in place. 2) Cancer related pain - increase Duragesic patch. He has not had any side effect to the 12mcg dose. 3) GERD - PPI 4) Constipation - Hold Relistor now. DVT prophylaxis - Heparin sub-q, TEDs and SCDs.
[2016-07-18] MEDS ORDERED: FENTANYL PATCH REMOVE & WASTE SCH (18:14)
[2016-07-18] MEDS ORDERED: FENTANYL 25 MCG/HR TDSY TD SCH (18:15)
[2016-07-18] MEDS: TAMSULOSIN HCL 0.4 MG CAP PO SCH (21:08)
[2016-07-18] MEDS: RANITIDINE HCL 150 MG TAB PO SCH (21:08)
[2016-07-19] VITALS (7 sets, daily range): BP systolic 133–166; BP diastolic 70–94; PULSE 74–82; TEMP 36.3–36.8; O2SAT 93–99
[2016-07-19] MEDS: CHECK FENTANYL PATCH PLACEMENT SCH ×3 (00:13→16:27)
[2016-07-19] MEDS: HYDROmorphone INJ 2 MG/ML SYR/VIAL IV PRN ×2 (00:18→17:30)
[2016-07-19] MEDS: SODIUM CHLORIDE 0.9% 1000ML 1,000 ML IV SCH ×2 (02:38→13:16)
[2016-07-19 05:37] LABS: HEMATOCRIT 32.2 % (42-52); MEAN CELL VOLUME 86.1 fL (80-100); MEAN CORPUSCULAR HEMOGLOBIN 29.4 pg (25-34); MEAN CORPUSCULAR HGB CONC 34.2 g/dl (32-36); MEAN PLATELET VOLUME 9.2 fL (7.4-10.4); PLATELET COUNT 172 K/uL (130-400); RED BLOOD COUNT 3.74 M/uL (4.7-6.1)
[2016-07-19 06:13] LABS: BUN/CREATININE RATIO 11.3 (10-20); CALCIUM 8.2 mg/dl (8.5-10.1); CREATININE 0.67 mg/dl (0.60-1.40)
[2016-07-19] MEDS: SUCRALFATE 1 GM/10 ML UDC PO SCH ×4 (07:49→19:41)
[2016-07-19] MEDS: POLYETHYLENE (MIRALAX) 17 GM PACK PO SCH ×2 (07:49→19:42)
[2016-07-19] MEDS: DULOXETINE HCL 20 MG CAP PO SCH (07:53)
[2016-07-19] MEDS: ALLOPURINOL 300 MG TAB PO SCH (07:53)
[2016-07-19] MEDS: FINASTERIDE 5 MG TAB PO SCH (07:53)
[2016-07-19] MEDS: PANTOprazole SOD 40 MG TAB PO SCH ×2 (07:53→19:42)
[2016-07-19] MEDS: DOCUSATE SODIUM 100 MG CAP PO SCH ×2 (07:53→19:41)
[2016-07-19] MEDS: MOVANTIK PO SCH (07:54)
[2016-07-19] MEDS: FAMOTIDINE 20 MG TAB PO SCH ×2 (07:54→19:42)
[2016-07-19] MEDS: HEPARIN SOD 5000 UNIT/0.5 ML CARP SQ SCH ×2 (07:56→20:26)
--- NOTE | 2016-07-19 09:54 | Gastroenterology Progress Note ---
Progress Note Date of Service: Jul 19, 2016 Subjective Pt evaluation today including: conversation w/ patient, physical exam, lab review, review of studies Patient is a 70 yo male with metastatic esophageal cancer and chest discomfort. He underwent an EGD on 07/18/16 that did not indicate any acute abnormality of the existing esophageal stent. He reports persistent discomfort. CT of the chest did indicate increased mediastinal lymph nodes. His Duragesic patch dosing has been increased. He reports his bowels are moving more than they have been. An abdominal xray was unremarkable for significant constipation or obstruction. He offers no new complaints at present. Review of Systems Constitutional: No problem reported Respiratory: No cough, No shortness of breath Cardiac: + chest pain Abdomen: + constipation (improving), No GI bleeding, No diarrhea, No nausea, No pain, No vomiting Musculoskeletal: No joint pain, No problem reported Heme: No problem reported Skin: No problem reported Medications Current Inpatient Medications Medications (Trade) Dose Ordered Sig/Sabino Route Start Time Stop Time Status Last Admin Dose Admin Acetaminophen (Tylenol Tab) 650 mg Q4H PRN PO 07/16/16 15:00 08/15/16 14:59 Al Hydrox/Mg Hydrox/Simethicone (Maalox Max Susp) 15 ml Q4H PRN PO 07/16/16 15:00 08/15/16 14:59 Magnesium Hydroxide (Milk Of Magnesia Susp) 30 ml Q6H PRN PO 07/16/16 15:00 08/15/16 14:59 Ondansetron HCl (Zofran Inj) 4 mg Q6H PRN IV 07/16/16 15:00 08/15/16 14:59 07/18/16 16:46 4 MG Allopurinol (Zyloprim Tab) 300 mg QAM PO 07/17/16 08:00 08/16/16 08:59 07/19/16 07:53 300 MG Famotidine (Pepcid Tab) 20 mg BID PO 07/16/16 20:00 08/15/16 20:59 07/19/16 07:54 20 MG Finasteride (Proscar Tab) 5 mg QAM PO 07/17/16 08:00 08/16/16 08:59 07/19/16 07:53 5 MG Lidocaine HCl (Viscous Lidocaine 2% Soln) 5 ml Q6H PRN MT 07/16/16 15:00 4/18/17 14:59 Ondansetron HCl (Zofran Tab) 8 mg Q8 PRN PO 07/16/16 15:00 08/15/16 14:59 Prednisone (PredniSONE TAB) 10 mg QAM PO 07/17/16 08:00 08/16/16 08:59 07/19/16 07:53 10 MG Prochlorperazine Maleate (Compazine Tab) 10 mg Q6H PRN PO 07/16/16 15:00 08/15/16 14:59 07/18/16 16:41 10 MG Ranitidine HCl (zANTac TAB) 150 mg HS PO 07/16/16 21:00 08/15/16 20:59 07/18/16 21:08 150 MG Sucralfate (Carafate Susp) 1 gm QID PO 07/16/16 17:00 08/15/16 16:59 07/19/16 07:49 1 GM Tamsulosin HCl (Flomax Cap) 0.4 mg QPM PO 07/16/16 21:00 08/15/16 20:59 07/18/16 21:08 0.4 MG Pantoprazole Sodium 40 mg 40 mg BID PO 07/16/16 20:00 08/15/16 20:59 07/19/16 07:53 40 MG Sodium Chloride (Nss 1000ml) 1,000 ml @ 100 mls/hr Q10H IV 07/16/16 15:15 08/15/16 15:14 07/19/16 02:38 100 MLS/HR Miscellaneous (Iv Fluids Completed) 1 ea PRN PRN N/A 07/16/16 16:15 07/16/17 16:14 Non-Formulary Medication (Non-Formulary Patient'S Own Med) 1 ea DAILY PO 07/17/16 08:00 08/16/16 07:59 07/19/16 07:54 1 EA Lorazepam (Ativan Tab) 0.5 mg Q6 PRN PO 07/16/16 18:00 08/15/16 17:59 07/17/16 21:11 0.5 MG Heparin Sodium (Porcine) (Heparin Sq 5000 Unit/0.5ml) 5,000 unit Q12 SQ 07/16/16 21:00 08/15/16 20:59 07/19/16 07:56 5,000 UNIT Heparin Sodium (Porcine) (Heparin 100 Unit/ml 5ml Flush) 1 ml PRN PRN FLUSH 07/17/16 01:00 08/16/16 00:59 Docusate Sodium (coLACE CAP) 100 mg BID PO 07/17/16 20:00 08/16/16 19:59 07/19/16 07:53 100 MG Oxycodone HCl (Roxicodone Immediate Rel Tab) 5 mg Q4H PRN PO 07/17/16 14:45 07/31/16 14:44 Oxycodone HCl (Roxicodone Immediate Rel Tab) 10 mg Q4H PRN PO 07/17/16 14:45 07/31/16 14:44 07/18/16 07:02 10 MG Duloxetine HCl (Cymbalta Cap) 20 mg QAM PO 07/18/16 08:00 08/17/16 07:59 07/19/16 07:53 20 MG Hydromorphone HCl (Dilaudid Inj) 1.5 mg Q3HWA PRN IV 07/18/16 10:00 08/01/16 09:59 07/19/16 00:18 1.5 MG Polyethylene (Miralax Powder Packet) 17 gm BID PO 07/18/16 20:00 08/17/16 19:59 07/19/16 07:49 17 GM Fentanyl (Duragesic Patch) 25 mcg Q3D@2100 TD 07/18/16 18:15 08/01/16 18:14 07/18/16 18:34 25 MCG Miscellaneous (Fentanyl Patch Remove & Waste) 1 ea Q3D@2059 N/A 07/18/16 18:14 08/17/16 18:13 07/18/16 18:33 1 EA Miscellaneous Information (Check Fentanyl Patch Placement) 1 ea QS N/A 07/19/16 00:00 08/18/16 00:00 07/19/16 07:55 1 EA Objective Vital Signs Date Time Temp Pulse Resp B/P Pulse Ox O2 Delivery O2 Flow Rate FiO2 07/19/16 07:37 36.7 82 18 166/94 96 Room Air 147/84 07/19/16 03:45 36.8 74 20 138/70 96 Room Air 07/19/16 00:01 36.6 81 20 145/76 96 Room Air 07/19/16 00:00 Room Air 07/18/16 20:03 36.3 68 20 131/68 94 07/18/16 16:00 97 Room Air 07/18/16 14:56 36.9 80 22 130/74 97 Room Air 07/18/16 13:24 72 18 168/78 97 Room Air 07/18/16 13:07 79 18 172/77 97 Room Air 07/18/16 12:53 69 22 116/59 97 Room Air 07/18/16 11:20 36.8 76 22 161/86 98 Room Air 07/18/16 11:13 36.8 78 20 129/75 97 Room Air Physical Exam General Appearance: WD/WN, no apparent distress Eyes: normal inspection, PERRL Respiratory/Chest: lungs clear, normal breath sounds Cardiovascular: regular rate, rhythm Abdomen: normal bowel sounds, non tender, soft Extremities: non-tender Neurologic/Psych: alert, oriented x 3 Skin: normal color Laboratory Results Last 24 Hours Test 07/19/16 05:00 White Blood Count 5.00 K/uL Red Blood Count 3.74 M/uL Hemoglobin 11.0 g/dL Hematocrit 32.2 % Mean Corpuscular Volume 86.1 fL Mean Corpuscular Hemoglobin 29.4 pg Mean Corpuscular Hemoglobin Concent 34.2 g/dl RDW Standard Deviation 44.5 fL RDW Coefficient of Variation 14.2 % Platelet Count 172 K/uL Mean Platelet Volume 9.2 fL Sodium Level 142 mmol/L Potassium Level 4.0 mmol/L Chloride Level 108 mmol/L Carbon Dioxide Level 26 mmol/L Anion Gap 8.0 mmol/L Blood Urea Nitrogen 8 mg/dl Creatinine 0.67 mg/dl Est Creatinine Clear Calc Drug Dose 105.9 ml/min Estimated GFR () 112.8 Estimated GFR (Non- 97.4 BUN/Creatinine Ratio 11.3 Random Glucose 99 mg/dl Calcium Level 8.2 mg/dl Assessment and Plan Patient is a 70 yo male with metastatic esophageal cancer who underwent an EGD on 07/18/16 due to persistent chest discomfort. 1) Continue Protonix 40 mg BID. 2) Continue Carafate 4 times daily before meals and at bedtime. 3) Okay to use viscous Lidocaine as needed for persistent esophageal discomfort. 4) Discussed symptoms likely related to cancer pain. Primary team has increased his pain medications. 5) As for constipation, this has improved. Would hold off on Relistor, but continue Miralax 17 gm BID on a daily and Movantik as prescribed as an outpatient for OIC. 6) Supportive care per primary team. Thank you for allowing us to participate in the care of this patient. If you should have any further questions or concerns, do not hesitate to contact us. Agree with INNA Carpio as above Abd: Soft, NT, ND, +BS Continue current therapy Continue current bowel regimen
[2016-07-19] MEDS: ONDANSETRON INJ 2 MG/ML 2 ML VIAL IV PRN (11:33)
--- NOTE | 2016-07-19 13:03 | Progress Note ---
Subjective Date of Service: Jul 19, 2016. (Lara Vergara PA-C) Subjective Pt evaluation today including: conversation w/ patient, physical exam, chart review, lab review, review of studies, review of inpatient medication list Patient seen and evaluated. No acute events overnight. He reports his pain is better controlled with fentanyl patch. Pain is not completely resolved however she reports it is manageable. At this point pain appears to be related to cancer burden and no further GI workup anticipated. Patient with BM on 07/17 and 07/18. He still reports some abdominal distention. Mild increase in oral intake. States the desire to the distal absent. He had an appointment with oncology scheduled today. Will await their possible visit. Pending pain control may be optimal for discharge tomorrow. 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 Status: Acute (4) Symptomatic cholelithiasis Status: Acute (Lara Vergara PA-C) Review of Systems Constitutional: No chills, No fever Respiratory: No shortness of breath Cardiac: + chest pain (improved) Abdomen: + pain (improved - epigastric), No constipation, No diarrhea, No nausea, No vomiting Musculoskeletal: No calf pain, No swelling Male : No dysuria Skin: No rash (Lara Vergara PA-C) Medications Current Inpatient Medications Medications (Trade) Dose Ordered Sig/Sabino Route Start Time Stop Time Status Last Admin Dose Admin Acetaminophen (Tylenol Tab) 650 mg Q4H PRN PO 07/16/16 15:00 08/15/16 14:59 Al Hydrox/Mg Hydrox/Simethicone (Maalox Max Susp) 15 ml Q4H PRN PO 07/16/16 15:00 08/15/16 14:59 Magnesium Hydroxide (Milk Of Magnesia Susp) 30 ml Q6H PRN PO 07/16/16 15:00 08/15/16 14:59 Ondansetron HCl (Zofran Inj) 4 mg Q6H PRN IV 07/16/16 15:00 08/15/16 14:59 07/19/16 11:33 4 MG Allopurinol (Zyloprim Tab) 300 mg QAM PO 07/17/16 08:00 08/16/16 08:59 07/19/16 07:53 300 MG Famotidine (Pepcid Tab) 20 mg BID PO 07/16/16 20:00 08/15/16 20:59 07/19/16 07:54 20 MG Finasteride (Proscar Tab) 5 mg QAM PO 07/17/16 08:00 08/16/16 08:59 07/19/16 07:53 5 MG Lidocaine HCl (Viscous Lidocaine 2% Soln) 5 ml Q6H PRN MT 07/16/16 15:00 08/15/16 14:59 Ondansetron HCl (Zofran Tab) 8 mg Q8 PRN PO 07/16/16 15:00 08/15/16 14:59 Prednisone (PredniSONE TAB) 10 mg QAM PO 07/17/16 08:00 08/16/16 08:59 07/19/16 07:53 10 MG Prochlorperazine Maleate (Compazine Tab) 10 mg Q6H PRN PO 07/16/16 15:00 08/15/16 14:59 07/18/16 16:41 10 MG Ranitidine HCl (zANTac TAB) 150 mg HS PO 07/16/16 21:00 08/15/16 20:59 07/18/16 21:08 150 MG Sucralfate (Carafate Susp) 1 gm QID PO 07/16/16 17:00 08/15/16 16:59 07/19/16 11:33 1 GM Tamsulosin HCl (Flomax Cap) 0.4 mg QPM PO 07/16/16 21:00 08/15/16 20:59 07/18/16 21:08 0.4 MG Pantoprazole Sodium 40 mg 40 mg BID PO 07/16/16 20:00 08/15/16 20:59 07/19/16 07:53 40 MG Sodium Chloride (Nss 1000ml) 1,000 ml @ 100 mls/hr Q10H IV 07/16/16 15:15 08/15/16 15:14 07/19/16 02:38 100 MLS/HR Miscellaneous (Iv Fluids Completed) 1 ea PRN PRN N/A 07/16/16 16:15 07/16/17 16:14 Non-Formulary Medication (Non-Formulary Patient'S Own Med) 1 ea DAILY PO 07/17/16 08:00 08/16/16 07:59 07/19/16 07:54 1 EA Lorazepam (Ativan Tab) 0.5 mg Q6 PRN PO 07/16/16 18:00 08/15/16 17:59 07/17/16 21:11 0.5 MG Heparin Sodium (Porcine) (Heparin Sq 5000 Unit/0.5ml) 5,000 unit Q12 SQ 07/16/16 21:00 08/15/16 20:59 07/19/16 07:56 5,000 UNIT Heparin Sodium (Porcine) (Heparin 100 Unit/ml 5ml Flush) 1 ml PRN PRN FLUSH 07/17/16 01:00 08/16/16 00:59 Docusate Sodium (coLACE CAP) 100 mg BID PO 07/17/16 20:00 08/16/16 19:59 07/19/16 07:53 100 MG Oxycodone HCl (Roxicodone Immediate Rel Tab) 5 mg Q4H PRN PO 07/17/16 14:45 07/31/16 14:44 Oxycodone HCl (Roxicodone Immediate Rel Tab) 10 mg Q4H PRN PO 07/17/16 14:45 07/31/16 14:44 07/18/16 07:02 10 MG Duloxetine HCl (Cymbalta Cap) 20 mg QAM PO 07/18/16 08:00 08/17/16 07:59 07/19/16 07:53 20 MG Hydromorphone HCl (Dilaudid Inj) 1.5 mg Q3HWA PRN IV 07/18/16 10:00 08/01/16 09:59 07/19/16 00:18 1.5 MG Polyethylene (Miralax Powder Packet) 17 gm BID PO 07/18/16 20:00 08/17/16 19:59 07/19/16 07:49 17 GM Fentanyl (Duragesic Patch) 25 mcg Q3D@2100 TD 07/18/16 18:15 08/01/16 18:14 07/18/16 18:34 25 MCG Miscellaneous (Fentanyl Patch Remove & Waste) 1 ea Q3D@9 N/A 07/18/16 18:14 08/17/16 18:13 07/18/16 18:33 1 EA Miscellaneous Information (Check Fentanyl Patch Placement) 1 ea QS N/A 07/19/16 00:00 08/18/16 00:00 07/19/16 07:55 1 EA (Lara Vergara PA-C) Objective Vital Signs Date Time Temp Pulse Resp B/P Pulse Ox O2 Delivery O2 Flow Rate FiO2 07/19/16 11:41 36.3 74 20 148/73 96 Room Air 07/19/16 08:00 Room Air 07/19/16 07:37 36.7 82 18 166/94 96 Room Air 147/84 07/19/16 03:45 36.8 74 20 138/70 96 Room Air 07/19/16 00:01 36.6 81 20 145/76 96 Room Air 07/19/16 00:00 Room Air 07/18/16 20:03 36.3 68 20 131/68 94 07/18/16 16:00 97 Room Air 07/18/16 14:56 36.9 80 22 130/74 97 Room Air 07/18/16 13:24 72 18 168/78 97 Room Air 07/18/16 13:07 79 18 172/77 97 Room Air 07/18/16 12:53 69 22 116/59 97 Room Air (Lara Vergara PA-C) Physical Exam General Appearance: WD/WN, no apparent distress Eyes: sclerae normal ENT: hearing grossly normal Neck: supple, no JVD, trachea midline Respiratory/Chest: lungs clear, normal breath sounds, no respiratory distress, no accessory muscle use Cardiovascular: regular rate, rhythm, no gallop, no murmur Abdomen: normal bowel sounds, non tender, soft Extremities: no pedal edema, no calf tenderness Neurologic/Psychiatric: alert, oriented x 3 Skin: normal color, warm/dry (Lara Vergara PA-C) Laboratory Results Last 24 Hours Test 07/19/16 05:00 White Blood Count 5.00 K/uL Red Blood Count 3.74 M/uL Hemoglobin 11.0 g/dL Hematocrit 32.2 % Mean Corpuscular Volume 86.1 fL Mean Corpuscular Hemoglobin 29.4 pg Mean Corpuscular Hemoglobin Concent 34.2 g/dl RDW Standard Deviation 44.5 fL RDW Coefficient of Variation 14.2 % Platelet Count 172 K/uL Mean Platelet Volume 9.2 fL Sodium Level 142 mmol/L Potassium Level 4.0 mmol/L Chloride Level 108 mmol/L Carbon Dioxide Level 26 mmol/L Anion Gap 8.0 mmol/L Blood Urea Nitrogen 8 mg/dl Creatinine 0.67 mg/dl Est Creatinine Clear Calc Drug Dose 105.9 ml/min Estimated GFR () 112.8 Estimated GFR (Non- 97.4 BUN/Creatinine Ratio 11.3 Random Glucose 99 mg/dl Calcium Level 8.2 mg/dl (Lara Vergara, PAKanC) Assessment and Plan Mr. Howell is a 70 y/o male with PMHx of R Nephrectomy (1970 - Nephritis?), BPH , GERD, and Esophageal CA with Liver Metastasis and S/P Esophageal Stent who presents to the ED complaining of worsening chest pain, upper quadrant abdominal pain, and upper back pain 1 week. Pain is acute on chronic. Worsening chest pain is consistent with chronic pain he has been dealing with. This pain is unlikely to be cardiac in nature. Large GI component with metastatic cancer pain. Esophageal CA with Metastasis S/P Esophageal Stent: Pain Related to Cancer [place] - Pain is consistent with chronic symptoms with recent exacerbation - multifactorial given metastatic cancer, GERD, gallbladder findings - Fentanyl patch 25 mcg Q3D - improvement in pain expressed by patient -- Has not required IV Dilaudid throughout today - last dose given at midnight - continue for breakthrough pain -- Consideration for continued patch and oral pain medication for breakthrough pain is outpatient - Viscous lidocaine PRN - Prednisone 10 mg daily - utilized as an appetite stimulant - Consult gastroenterology -recommendations reviewed - Consult oncology - patient follows with Dr. Ybarra - recommendations reviewed GERD: - Pepcid 20 mg BID - Protonix 40 mg BID as omeprazole interchange - Zantac 150 mg daily - Carafate 1 g QID Opioid Induced Constipation: - NSS at 100 mL/hr - Milk of magnesia and MiraLAX PRN - Colace 100 mg BID - Movantik 25 mg daily - non-formulary and patient may take his own med BPH: - Proscar 5 mg daily and Flomax 0.4 mg daily Gout: - Allopurinol 300 mg daily DVT Prophylaxis: - JESI/SCDs - Heparin 5000 units SC BID Disposition: - Possible discharge tomorrow pending adequate pain control Continued [facility] stay due to: multiple IV medications needed Discharge planning: home (Lara Vergara PA-C) I personally evaluated this patient and performed a physical exam. I reviewed the orders. I read this note completed by Lara Vergara PA-C and agree with the contents in entirety. (Josué Bueno, DO)
[2016-07-19] MEDS: LORAZEPAM 0.5 MG TAB PO PRN (14:29)
[2016-07-19] MEDS ORDERED: NURSING VERBAL MED ORDER ONE (14:30)
[2016-07-19] MEDS: TAMSULOSIN HCL 0.4 MG CAP PO SCH (20:24)
[2016-07-19] MEDS: RANITIDINE HCL 150 MG TAB PO SCH (20:24)
[2016-07-20] MEDS: CHECK FENTANYL PATCH PLACEMENT SCH ×2 (00:02→08:56)
[2016-07-20] MEDS: HYDROmorphone INJ 2 MG/ML SYR/VIAL IV PRN (03:57)
[2016-07-20 04:45] VITALS: BP 105/62; PULSE 71; TEMP 36.6; O2SAT 95
[2016-07-20 06:22] LABS: BUN/CREATININE RATIO 8.8 (10-20); CALCIUM 8.3 mg/dl (8.5-10.1); CREATININE 0.68 mg/dl (0.60-1.40); POTASSIUM 3.7 mmol/L (3.5-5.1)
[2016-07-20 07:37] VITALS: BP 159/82; PULSE 88; TEMP 35.8; O2SAT 95
[2016-07-20] MEDS: SUCRALFATE 1 GM/10 ML UDC PO SCH ×2 (07:44→11:49)
[2016-07-20] MEDS: LORAZEPAM 0.5 MG TAB PO PRN (07:55)
[2016-07-20] MEDS ORDERED: HYDROmorphone HCL 2 MG TAB PO PRN (08:15)
--- NOTE | 2016-07-20 08:36 | Hematology/Oncology Prog Note ---
Hematology/Onc Progress Note Date of Service Jul 20, 2016. Diagnoses Metastatic esophageal carcinoma Midepigastric pain Medications Medications Administered Medications (Trade) Dose Ordered Sig/Sabino Route Start Time Stop Time Status Last Admin Dose Admin Sodium Chloride 500 ml @ 999 mls/hr Q31M STAT IV 07/16/16 11:50 07/16/16 12:20 DC 07/16/16 11:50 999 MLS/HR Sodium Chloride (Nss 1000ml) 1,000 ml @ 125 mls/hr Q8H STAT IV 07/16/16 11:50 07/16/16 16:19 DC 07/16/16 11:50 125 MLS/HR Hydromorphone HCl (Dilaudid Inj) 1 mg NOW STAT IV 07/16/16 11:50 07/16/16 11:53 DC 07/16/16 12:20 1 MG Ondansetron HCl (Zofran Inj) 4 mg NOW STAT IV 07/16/16 11:50 07/16/16 11:53 DC 07/16/16 12:20 4 MG Hydromorphone HCl (Dilaudid Inj) 1 mg NOW STAT IV 07/16/16 15:01 07/16/16 15:02 DC 07/16/16 15:05 1 MG Polyethylene (Miralax Powder Packet) 17 gm DAILY PRN PO 07/16/16 15:00 07/17/16 14:59 DC 07/17/16 06:06 17 GM Ondansetron HCl (Zofran Inj) 4 mg Q6H PRN IV 07/16/16 15:00 08/15/16 14:59 07/19/16 11:33 4 MG Allopurinol (Zyloprim Tab) 300 mg QAM PO 07/17/16 08:00 08/16/16 08:59 07/19/16 07:53 300 MG Famotidine (Pepcid Tab) 20 mg BID PO 07/16/16 20:00 08/15/16 20:59 07/19/16 19:42 20 MG Finasteride (Proscar Tab) 5 mg QAM PO 07/17/16 08:00 08/16/16 08:59 07/19/16 07:53 5 MG Ondansetron HCl (Zofran Tab) 8 mg Q8 PRN PO 07/16/16 15:00 08/15/16 14:59 07/20/16 07:51 8 MG Prednisone (PredniSONE TAB) 10 mg QAM PO 07/17/16 08:00 08/16/16 08:59 07/19/16 07:53 10 MG Prochlorperazine Maleate (Compazine Tab) 10 mg Q6H PRN PO 07/16/16 15:00 08/15/16 14:59 07/18/16 16:41 10 MG Ranitidine HCl (zANTac TAB) 150 mg HS PO 07/16/16 21:00 08/15/16 20:59 07/19/16 20:24 150 MG Sucralfate (Carafate Susp) 1 gm QID PO 07/16/16 17:00 08/15/16 16:59 07/20/16 07:44 1 GM Tamsulosin HCl (Flomax Cap) 0.4 mg QPM PO 07/16/16 21:00 08/15/16 20:59 07/19/16 20:24 0.4 MG Pantoprazole Sodium (Protonix Tab) 40 mg BID PO 07/16/16 20:00 08/15/16 20:59 07/19/16 19:42 40 MG Hydromorphone HCl 1 mg 1 mg Q2H PRN IV 07/16/16 15:00 07/17/16 14:59 DC 07/17/16 11:06 1 MG Sodium Chloride (Nss 1000ml) 1,000 ml @ 100 mls/hr Q10H IV 07/16/16 15:15 07/19/16 14:24 DC 07/19/16 13:16 100 MLS/HR Methylnaltrexone [place] (Relistor Inj) 12 mg ONE ONCE SQ 07/16/16 17:00 07/16/16 17:01 DC 07/16/16 18:20 12 MG Non-Formulary Medication (Non-Formulary Patient'S Own Med) 1 ea DAILY PO 07/17/16 08:00 08/16/16 07:59 07/19/16 07:54 1 EA Lorazepam (Ativan Tab) 0.5 mg Q6 PRN PO 07/16/16 18:00 08/15/16 17:59 07/20/16 07:55 0.5 MG Heparin Sodium (Porcine) (Heparin Sq 5000 Unit/0.5ml) 5,000 unit Q12 SQ 07/16/16 21:00 08/15/16 20:59 07/19/16 20:26 5,000 UNIT Heparin Sodium (Porcine) (Heparin 100 Unit/ml 5ml Flush) 1 ml PRN PRN FLUSH 07/17/16 01:00 08/16/16 00:59 07/20/16 05:30 5 ML Polyethylene (Miralax Powder Packet) 17 gm BID PO 07/17/16 20:00 07/18/16 12:24 DC 07/17/16 21:11 17 GM Docusate Sodium (coLACE CAP) 100 mg BID PO 07/17/16 20:00 08/16/16 19:59 07/19/16 19:41 100 MG Fentanyl (Duragesic Patch) 12 mcg Q72H TD 07/17/16 15:30 07/18/16 18:04 DC 07/17/16 16:17 12 MCG Miscellaneous Information (Check Fentanyl Patch Placement) 1 ea QS N/A 07/17/16 16:00 07/18/16 18:04 DC 07/18/16 16:41 1 EA Oxycodone HCl (Roxicodone Immediate Rel Tab) 10 mg Q4H PRN PO 07/17/16 14:45 07/31/16 14:44 07/18/16 07:02 10 MG Duloxetine HCl (Cymbalta Cap) 20 mg QAM PO 07/18/16 08:00 08/17/16 07:59 07/19/16 07:53 20 MG Hydromorphone HCl (Dilaudid Inj) 1.5 mg Q3HWA PRN IV 07/18/16 10:00 07/20/16 08:16 DC 07/20/16 03:57 1.5 MG Polyethylene (Miralax Powder Packet) 17 gm BID PO 07/18/16 20:00 08/17/16 19:59 07/19/16 19:42 17 GM Fentanyl (Duragesic Patch) 25 mcg Q3D@2100 TD 07/18/16 18:15 08/01/16 18:14 07/18/16 18:34 25 MCG Miscellaneous (Fentanyl Patch Remove & Waste) 1 ea Q3D@2059 N/A 07/18/16 18:14 08/17/16 18:13 07/18/16 18:33 1 EA Miscellaneous Information (Check Fentanyl Patch Placement) 1 ea QS N/A 07/19/16 00:00 08/18/16 00:00 07/20/16 00:02 1 EA Subjective Still has pain in midepigastric area that waxes and wanes. also still complains of constipation although he looks quite comfortable. He wonders whether a lot of his pain and nausea might be more from anxiety Review of Systems: Constitutional: Negative for night sweats, or fever Eyes: Negative for event change of vision ENT: Negative for epistaxis, nasal discharge, sore throat, or deafness Cardiovascular: Negative for chest pain, palpitations, dizziness, diaphoresis Respiratory: Negative for new shortness of breath,hemoptysis, or purulent cough Gastrointestinal: Negative for diarrhea, hematemesis, melena, nausea, vomiting , or dyspepsia Integumentary (skin): Negative for rash or jaundice discoloration Genitourinary: Negative for urinary frequency, hematuria, or dysuria Neurological: Negative for weakness, seizure activity, headache, or dizziness Lymphatic/Hematologic: Negative for petechiae, bleeding or new adenopathy Musculoskeletal: Negative for new joint or back pain Allergic/Immunologic: Negative for unusual rash or pruritis. Vital Signs Vital Signs Past 12 Hours Date Time Temp Pulse Resp B/P Pulse Ox O2 Delivery O2 Flow Rate FiO2 07/20/16 07:40 18 07/20/16 07:37 35.8 88 159/82 95 Room Air 07/20/16 04:45 36.6 71 20 105/62 95 Room Air 07/20/16 00:01 Room Air 07/19/16 23:41 36.6 76 18 133/74 99 Room Air Physical Exam Constitutional: vitals are stable. Respiratory: Lung sounds were generally clear bilaterally Cardiovascular: Heart was RRR without significant murmur, gallops aoe rubs Gastrointestinal: No palpable hepatic or splenomegaly. The abdomen was soft with normal bowel sounds. Lymphatic system: there was no palpable peripheral lymphadenopathy Musculoskeletal System: The musculoskeletal system seemed concordant with age. Skin: The skin was negative for jaundice. Neurologic exam: The exam was negative for any focal findings. Deep tendon reflexes were equal and symmetrical. Psychiatric exam: Was essentially negative with normal mood and effect. Extremities: Negative for edema or erythema Laboratory Last 24 Hours Test 07/20/16 05:28 Sodium Level 139 mmol/L Potassium Level 3.7 mmol/L Chloride Level 103 mmol/L Carbon Dioxide Level 28 mmol/L Anion Gap 8.0 mmol/L Blood Urea Nitrogen 6 mg/dl Creatinine 0.68 mg/dl Est Creatinine Clear Calc Drug Dose 104.4 ml/min Estimated GFR () 112.1 Estimated GFR (Non- 96.8 BUN/Creatinine Ratio 8.8 Random Glucose 88 mg/dl Calcium Level 8.3 mg/dl Assessment & Plan Continues to look stable. He feels that the narcotic patch has helped. I suspect he'll be ready for discharge today. The paperwork to obtain Opdivo has been obtained and submitted. We will arrange for follow-up in our clinic in a neck 7-10 days in anticipation of hopefully beginning that medicine. Appreciate everyone's help in his care
[2016-07-20] MEDS: DOCUSATE SODIUM 100 MG CAP PO SCH (08:57)
[2016-07-20] MEDS: DULOXETINE HCL 20 MG CAP PO SCH (08:58)
[2016-07-20] MEDS: POLYETHYLENE (MIRALAX) 17 GM PACK PO SCH (08:59)
[2016-07-20] MEDS: MOVANTIK PO SCH (08:59)
[2016-07-20] MEDS: FAMOTIDINE 20 MG TAB PO SCH (09:00)
[2016-07-20] MEDS: PANTOprazole SOD 40 MG TAB PO SCH (09:01)
[2016-07-20] MEDS: FINASTERIDE 5 MG TAB PO SCH (09:01)
[2016-07-20] MEDS: ALLOPURINOL 300 MG TAB PO SCH (09:02)
[2016-07-20] MEDS ORDERED: CLC100 PO (09:04)
[2016-07-20] MEDS ORDERED: DLD2 PO (09:04)
[2016-07-20] MEDS ORDERED: DRGTP25 TD (09:04)
[2016-07-20] MEDS ORDERED: CYM20 PO (09:04)
[2016-07-20] MEDS ORDERED: NALO1TAB2 PO (09:05)
[2016-07-20] MEDS: HEPARIN SOD 5000 UNIT/0.5 ML CARP SQ SCH (09:10)
--- NOTE | 2016-07-20 09:20 | Discharge Instructions ---
Discharge Instructions Date of Service Jul 20, 2016. Admission Reason for Admission: Cholecystitis, Esophageal Cancer Discharge Discharge Diagnosis / Problem: Esophageal Cancer Discharge Goals Goal(s): Decrease discomfort, Improve function, Increase independence Activity Recommendations Activity Limitations: resume your previous activity . Instructions / Follow-Up Instructions / Follow-Up Esophageal Cancer with Esophageal Stent: - Your pain is related to your esophageal cancer with an element of your acid reflux. - You will be provided with a prescription for fentanyl patch 25 mcg to use every 3 days - You will be provided with a prescription for Dilaudid 2-4 mg to take every 4 hours as needed for breakthrough pain -- You may take 1 pill (2mg) for moderate pain or 2 pills (4mg) for severe pain - STOP YOUR NORCO THAT WAS PREVIOUSLY PRESCRIBED AND DISCARD APPROPRIATELY - You were started on Cymbalta 20 mg daily and you'll be provided a prescription. - Continue your home medications for your heartburn as previously prescribed - Follow-up with your oncologist - they will call you with an appointment in the next 1-2 days for continued treatment Opioid Induced Constipation: - Continue Movantik take 25 mg daily - You may use MiraLAX daily to assist with bowel movements - He will be provided with a prescription for Colace 100 mg to take twice a day to help soften stools Home Medications: - Please continue your home medications as previously prescribed Disposition: - Possible discharge tomorrow pending adequate pain control Current Hospital Diet Patient's current hospital diet: Regular Diet Discharge Diet Recommended Diet: Regular Diet Procedures Procedures Performed: EGD, BX Pending Studies Studies pending at discharge: no Medical Emergencies . Who to Call and When: Medical Emergencies: If at any time you feel your situation is an emergency, please call 911 immediately. . Non-Emergent Contact Non-Emergency issues call your: Primary Care Provider Call Non-Emergent contact if: you have a fever, your pain is concerning you, you have any medication questions . . "Provider Documentation" section prepared by Lara Vergara. VTE Core Measure Inpt VTE Proph given/why not?: Unfractionated heparin SQ, T.E.D. You, SCD 's [place] Drug Monitoring Program Search Results: patient reviewed within database Drug Monitoring Findings: Patient with recent prescription for Otter 5 mg/325 mg - from the emergency department - this medication not produce adequate control in the setting of cancer - patient was instructed to discontinue this Otter and dispose of appropriately.
[2016-07-20 10:45] VITALS: BP 110/70; PULSE 82; TEMP 36.8; O2SAT 96
--- NOTE | 2016-07-20 14:03 | Discharge Summary ---
Discharge Summary Date of Service Jul 20, 2016. (Lara Vergara PA-C) Discharge Summary Admission Date: Jul 16, 2016 at 15:10 Discharge Date: Jul 20, 2016 Discharge Disposition: Home Principal Diagnosis: Metastatic Esophageal Cancer Problems/Secondary Diagnoses: 1. GERD 2. Anxiety/Depression Immunizations: Have You Had Influenza Vaccine: Yes Influenza Vaccine Date: Jan 18, 2015 History of Tetanus Vaccine?: Unknown History of Pneumococcal: No History of Hepatitis B Vaccine: Unknown Procedures: 1. EGD Impression: - Pre-existing esophageal stent. Biopsied. - Normal stomach. - Normal examined duodenum. 2. ABDOMEN 2 VIEWS CLINICAL HISTORY: constipation COMPARISON STUDY: 11/10/2015 FINDINGS: Mass. Esophageal stent in position. Nonobstructive bowel pattern. Unremarkable fecal load. IMPRESSION: No obstructive change. No evidence for constipation or increased fecal load. Esophageal stent. 3. CHEST ONE VIEW PORTABLE CLINICAL HISTORY: CP, hopes CA dyspnea COMPARISON STUDY: 06/26/2016 FINDINGS: Central catheter in superior vena cava. Lungs are clear. Diaphragms are smooth. Esophageal stent is again noted. IMPRESSION: No acute process.. Esophageal stent is unchanged in location. 4. Right upper quadrant ultrasound GALLBLADDER-ABD LIMITED CLINICAL HISTORY: epigastric pain, hopes CA pain. Nausea. TECHNIQUE: Ultrasound COMPARISON STUDY: CT dated 07/10/2016 FINDINGS: Several gallstones within the gallbladder lumen. Gallbladder wall thickness measures 3 mm with a suggestion of a trace amount pericholecystic fluid. Common bile duct is 5 mm. Hepatic metastatic change is again noted. Pancreas is poorly seen. Right kidney has been surgically removed. IMPRESSION: 1. Several gallstones with slight edematous change of the gallbladder wall. 2. A component of acute cholecystitis cannot be excluded. 3. Normal caliber bile duct. 4. Hepatic metastatic change which has been described previously Consultations: 1. GI 2. Oncology (Lara Vergara PA-C) Medication Reconciliation New Medications: Docusate Sodium (Docusate Sodium) 100 Mg Cap 100 MG PO BID for 15 Days, CAP Duloxetine HCl (Duloxetine HCl) 20 Mg Cap 20 MG PO QAM for 30 Days, CAP Fentanyl (Fentanyl) 25 Mcg Tdsy 25 MCG TD Q3D@2100 for 15 Days Hydromorphone HCl (Hydromorphone HCl) 2 Mg Tab 2-4 MG PO Q4H PRN for Pain for 15 Days, TAB Take one tablet for moderate pain and two tablets for severe pain Continued Medications: Allopurinol (Zyloprim *) 300 Mg Tab 300 MG PO QAM Esomeprazole Magnesium (Nexium) 40 Mg Cap 1 CAP PO BID for 14 Days, #28 CAP 5 Refills Famotidine (Pepcid) 20 Mg Tab 20 MG PO BID, TAB Finasteride (Proscar) 5 Mg Tab 5 MG PO QAM, TAB Lidocaine Hcl (Mouth-Throat) (Lidocaine Viscous) 2 % Cecilia 5-10 ML MT Q6H PRN for Pain, #100 ML 5 Refills Lorazepam (Ativan) 0.5 Mg Tab 0.5 MG PO Q6H, TAB Naloxegol Oxalate (Movantik) 25 Mg Tab 25 MG PO DAILY Ondansetron Hcl (Zofran) 8 Mg Tab 8 MG PO Q8 PRN for Nausea, TAB Prednisone Tab (Prednisone) 10 Mg Tab 10 MG PO QAM, TAB Prochlorperazine Maleate (Compazine) 10 Mg Tab 10 MG PO Q6H PRN for Nausea, TAB Ranitidine (Zantac) 150 Mg Tab 150 MG PO HS, TAB Sucralfate (Carafate) 1 Gm/10 Ml Edilia 10 ML PO QID for 30 Days, #1200 ML Tamsulosin Hcl (Flomax) 0.4 Mg Cap 0.4 MG PO QPM, CAP Discontinued Medications: Hydrocodone/Acetaminophen 5MG/325MG (Tinnie 5MG/325MG) Tab 1-2 TAB PO Q4H PRN for Pain, #30 TAB PRN PAIN Ibuprofen Tab (Advil) 200 Mg Tab 600 MG PO DAILY PRN for Pain, TAB Discharge Exam Review of Systems: Constitutional: No chills, No fever Eyes: No worsening of vision ENT: No nasal symptoms, No sore throat, No trouble swallowing Respiratory: No cough, No shortness of breath Cardiovascular: No chest pain Abdomen: + constipation, + nausea, No diarrhea, No pain, No vomiting Musculoskeletal: No calf pain, No swelling Genitourinary - Male: No dysuria Neurologic: No weakness Hematologic / Lymphatic: No abnormal bleeding/bruising, No clotting problems Integumentary: No rash Physical Exam: General Appearance: WD/WN, no apparent distress Eyes: sclerae normal ENT: hearing grossly normal Neck: supple, no JVD, trachea midline Respiratory/Chest: lungs clear, normal breath sounds, no respiratory distress, no accessory muscle use Cardiovascular: regular rate, rhythm, no gallop, no murmur Abdomen / GI: normal bowel sounds, non tender, soft Extremities: no calf tenderness, no pedal edema Neurologic/Psychiatric: alert, oriented x 3 Skin: normal color, warm/dry (Lara Vergara, ANKIT) Hospital Course ADMISSION: Mr. Howell is a 70 y/o male with PMHx of R Nephrectomy (1970 - Nephritis?), BPH, GERD, and Esophageal CA with Liver Metastasis and S/P Esophageal Stent who presents to the ED complaining of worsening chest pain, upper quadrant abdominal pain, and upper back pain 1 week. Patient has been experiencing these symptoms largely for the past year ever since a stent was placed in his esophagus. However reports acute worsening over this past week. Pain is located in the sternal region with radiation to the back between shoulder blades. He also reports bilateral upper quadrant abdominal pain. He rates this pain as an 8/10 and is unable to control his pain as an outpatient. Pain is described as stabbing. Pain is exacerbated by gas with some relief with belching. Patient has prescription for Tinnie however does not report any relief. Patient received chemotherapy approximately 2 weeks ago and thinks he was treated with Trexall? He states he was due for follow-up appointment to reassess treatment. CT on 07/10/16 with evidence of numerous hepatic metastasis and multiple enlarged lymph nodes with evidence of gallbladder disease. Associated constipation that is chronic. He was recently started on Movantik. Last bowel movement was 3 days ago the patient reports he does not have the urge to defecate. Reports anorexia and the lack of desire to eat. States he has been avoiding more solid foods as they seem to exacerbated his abdominal pain and gas. States when he does eat he normally sticks with cereal or fruits. Patient's is at bedside and reports the patient has appeared more depressed lately since the results of his recent CT scan suggesting further metastasis. In the ED, patient is afebrile without leukocytosis. Ultrasound of the gallbladder with evidence of several gallstones, slight edematous gallbladder wall, trace pericholecystic fluid, and hepatic metastatic changes. Patient was hydrated. Pain was managed with Dilaudid 1 mg that improved the pain per patient. Patient will be admitted to [facility] [place] for pain control and further evaluation and care. HOSPITAL COURSE: Mr. Howell was admitted due to intractable chest and back pain. His chest pain and back pain were consistent with chronic pain was acutely exacerbated. He was prescribed Tinnie 5 mg/325 mg but did not give him relief. Imaging revealed evidence of esophageal stent, gallstones, and slightly edematous gallbladder wall. Laboratories did not reveal evidence of a liver dysfunction. See procedures for official imaging reports. GI and oncology were both consulted given imaging findings and metastatic esophageal cancer. High suspicion the pain was related to uncontrolled cancer burden. EGD was performed without abnormal findings. Please see procedures for official report. He was initiated on Fentanyl patch and ultimately discharged home with Fentanyl patch 25 mcg Q3D. He reports good control at this dosing. Intermittent lightheadedness and nausea appreciated but improving. For breakthrough pain he was prescribed Dilaudid 2-4 mg by po Q4H. Patient's pain, constipation, anxiety, and depression were addressed. Patient was previously prescribed Lyrica which she has not been taken and reports increased depression due to continued metastasis of his cancer. He was initiated on Cymbalta 20 mg daily and prescription was provided. He was continued on his home medications as previously prescribed for his GERD and opioid-induced constipation. He was advised to appropriately discard the Tinnie. Patient was covered for DVT prophylaxis with heparin 5000 units BID. Patient with improved appetite and adequate pain control. Oncology to contact him for outpatient follow-up. Appointment for 07/27/2016 was arranged for PCP follow-up. He is optimal for discharge home. Total Time Spent: Greater than 30 minutes This includes examination of the patient, discharge planning, medication reconciliation, and communication with other providers. (Lara Vergara PA-C) I personally evaluated this patient and performed a physical exam. I reviewed the orders. I read this discharge summary completed by Lara Vergara PA-C and agree with the contents in entirety. I did adjust one discharge medication. I ordered Cymbalta 20mg daily for 5 days then wrote script for Cymbalta 30mg daily for #30. I even feel that he would benefit from an increase to 60mg some time after 5-7 days on the 30mg dose. This is being used for the combination of lower extremity neuropathy and underlying anxiety/depression. (Josué Bueno, DO) Discharge Instructions Please refer to the electronic Patient Visit Report (Discharge Instructions) for additional information. (Lara Vergara, PA-C) Additional Copies To Garcia Whalen M.D.
[2016-07-20] MEDS ORDERED: FENTANYL PATCH REMOVE & WASTE SCH (15:30)
== END 2016-07-20 12:53 | disposition home or self-care (01) | DRG 948 ==
LOC: ENRESERVTM → ENRESERVDT → C.EDB 10:57 → C.4E 15:10
PROVIDERS: ADMIT Hospitalist; ATTEND Hospitalist
PROC: 0DB38ZX Excision of Lower Esophagus, Via Natural or Artificial Opening Endoscopic, Diagnostic (ICD-10-PCS; principal; 2016-07-18 11:13)
DX: G89.3 Neoplasm related pain (acute) (chronic) (principal); C15.9 Malignant neoplasm of esophagus, unspecified; C78.7 Secondary malignant neoplasm of liver and intrahepatic bile duct; K80.00 Calculus of gallbladder with acute cholecystitis without obstruction; K21.9 Gastro-esophageal reflux disease without esophagitis; F32.9 Major depressive disorder, single episode, unspecified; F41.9 Anxiety disorder, unspecified; N40.0 Benign prostatic hyperplasia without lower urinary tract symptoms; K59.03 Drug induced constipation; M10.9 Gout, unspecified; Z87.891 Personal history of nicotine dependence

== ENCOUNTER 2016-08-02 06:58 | Emergency (ER) | payer BC, OTHER ==
[~2016-08-02] VITALS: Ht 177.8 cm; Wt 79.0 kg
[~2016-08-02 06:58] MED LIST changes: +CLC100 PO; +CYM20 PO; +DRGTP25 TD; -GING550C PO; -HYDR-5688 PO; +HYDR2TAB3 PO; -IBUP-103 PO; +NALO1TAB2 PO; -PREG1CAP28 PO; -SIME80CH PO
[2016-08-02 07:01] VITALS: TEMP 36.4; Ht 177.8 cm; Wt 79.0 kg
[2016-08-02] MEDS ORDERED: SODIUM CHLORIDE 0.9% 1000ML 1,000 ML IV STA (07:14)
[2016-08-02] MEDS ORDERED: ONDANSETRON INJ 2 MG/ML 2 ML VIAL IV STA (07:14)
[2016-08-02] MEDS ORDERED: MoRPHine SULFATE 4 MG/ML 1 ML CARP\\VIAL IV PRN (07:15)
[2016-08-02 07:25] VITALS: O2SAT 100
[2016-08-02 07:32] LABS: BASO % 0.2 %; BASO ABS # 0.02 K/uL (0-0.2); COMPLETE YES; EOS % 1.3 %; HEMATOCRIT 35.5 % (42-52); IG% 0.3 %; LYMPH % 28.9 %; LYMPH ABS # 2.66 K/uL (1.2-3.4); MEAN CELL VOLUME 81.8 fL (80-100); MEAN CORPUSCULAR HGB CONC 35.5 g/dl (32-36); MEAN PLATELET VOLUME 8.9 fL (7.4-10.4); MONO % 8.5 %; NEUT % 60.8 %; PLATELET COUNT 229 K/uL (130-400); RED BLOOD COUNT 4.34 M/uL (4.7-6.1)
[2016-08-02 07:43] LABS: PROTHROMBIN TIME (PATIENT) 10.6 SECONDS (9.0-12.0)
[2016-08-02 07:48] LABS: BUN/CREATININE RATIO 8.6 (10-20); CREATININE 0.82 mg/dl (0.60-1.40); POTASSIUM 3.6 mmol/L (3.5-5.1)
--- NOTE | 2016-08-02 08:24 | DIAGNOSTIC IMAGING REPORT ---
CHEST AND ABDOMEN 2 VIEWS HISTORY: Generalized abdominal pain. COMPARISON: Abdominal series 07/17/2016. FINDINGS: The lungs are clear. No pleural effusions. No pneumothorax. The heart is normal in size. The distal esophageal stent is unchanged in position. Left subclavian Port-A-Cath terminates in the SVC. No pneumoperitoneum. No pneumatosis. The bowel gas pattern is unremarkable. No evidence for bowel obstruction. Suture material within the right upper quadrant. IMPRESSION: 1. No acute process within the chest. 2. No evidence for bowel obstruction. 3. The distal esophageal stent is unchanged in position. Electronically signed by: Antoni Badillo M.D. 08/02/2016 8:23 AM Dictated Date/Time: 08/02/2016 8:20 AM
[2016-08-02] MEDS ORDERED: HYDROmorphone INJ 2 MG/ML SYR/VIAL IV STA (08:25)
--- NOTE | 2016-08-02 08:28 | DIAGNOSTIC IMAGING REPORT ---
CT SCAN OF THE ABDOMEN AND PELVIS WITHOUT CONTRAST CLINICAL HISTORY: Abdominal pain. Esophageal carcinoma. COMPARISON STUDY: 07/10/2016 TECHNIQUE: CT scan of the abdomen and pelvis was performed from the lung bases to the proximal femurs. Images are reviewed in the axial, sagittal, and coronal planes. IV contrast was not administered for this examination. CT DOSE: 386.53 mGy.cm FINDINGS: Lower chest: There is indwelling esophageal stent. The lung bases are clear. There are no pleural effusions. Liver: There are multiple space-occupying hepatic masses consistent with metastasis. These appear slightly larger than on the preceding study. Gallbladder: Cholelithiasis. Spleen: Normal in size and attenuation. Pancreas: Unremarkable. Adrenal glands: There is mild left adrenal gland thickening unchanged the prior study Kidneys: The right kidney is absent. There is no left-sided hydronephrosis. Bowel: There is colonic diverticulosis. There are no acute peridiverticular inflammatory changes. There are no transition zones indicate bowel obstruction. Peritoneum: There is no intraperitoneal free air or abdominal ascites. Vasculature: The abdominal aorta is normal in course and caliber. Adenopathy: There are mildly enlarged para-aortic lymph nodes similar to the prior study. There is a stable enlarged precaval lymph node. Pelvic viscera: The prostate remains enlarged. Skeletal structures: There is a 35mm lytic lesion within the right iliac bone, slightly larger than on the preceding study. There are few scattered small sclerotic bone lesions. Several lytic rib lesions are visualized. IMPRESSION: 1. No evidence of bowel obstruction. No evidence of free air 2. Indwelling esophageal stent 3. Cholelithiasis 4. Increasing hepatic metastasis 5. Persistent abdominal lymphadenopathy 6. Slight increase in the suspected skeletal metastasis Electronically signed by: Jose Renae M.D. 08/02/2016 8:26 AM Dictated Date/Time: 08/02/2016 8:20 AM
[2016-08-02] MEDS ORDERED: LXP10 PO (08:33)
[2016-08-02] MEDS ORDERED: ALLO300T2 PO (08:33)
[2016-08-02] MEDS ORDERED: CYM30 PO (08:33)
--- NOTE | 2016-08-02 09:03 | EMERGENCY ROOM VISIT NOTE ---
History Report prepared by Konrad: Carolina Gama Under the Supervision of: Dr. Wilbert Ashby D.O. First contact with patient: 07:10 Chief Complaint: ABDOMINAL PAIN Stated Complaint: PAIN IN STOMACH,VOMITING - CANCER PATIENT Nursing Triage Summary: pt shaking with reporting "it's his nerves he gets very nervous with with all this." pt has hx of liver and esophagus cancer and started on Opdivo last week. pt has had increased abd pain and vomitting over the past several days with his home medications not decreasing his pain. pt reports he has been constipated in the past and has not had bm in several day. reports "the last time he had a good bowel momvement was several weeks ago when i gave him an enema." History of Present Illness The patient is a 70 year old male who presents to the Emergency Room with complaints of worsening abdominal pain starting a couple days ago. He has a history of esophageal cancer and is currently undergoing his third round of chemotherapy. He last went to chemotherapy last week. The patient has upper abdominal pain at baseline, but reports that it has been diffuse and worse than normal. His pain is not like the chronic pain he experiences. He says that the pain is worse in his lower abdomen. He has had nausea which is worse than he usually experiences with his treatment. He reports that he had some dry heaving for the past two mornings. He also had an episode of vomiting this morning. He has not had a bowel movement in 2 days. His family reports that he has been eating around 600 calories a day of bland food. He is usually able to move his bowels, but often does not produce a lot of stool because of his diet. He reports diaphoresis. He denies any fever, chills, chest pain, SOB, or urinary symptoms. He has a past medical history of gout. Source of History: patient, family Onset: couple days ago Position: abdomen (diffuse) Timing: worsening Associated Symptoms: + diaphoresis, + nausea, + vomiting, No SOB, No chest pain, No chills, No fevers, No urinary symptoms Review of Systems See HPI for pertinent positives & negatives. A total of 10 systems reviewed and were otherwise negative. Past Medical & Surgical Medical Problems: (1) Anxiety (2) Benign prostate hyperplasia (3) Cholecystitis (4) Esophageal cancer (5) Gout (6) Precordial chest pain (7) UTI (urinary tract infection) Surgical Problems: (1) Right Nephrectomy (2) Right Nephrectomy Family History Cancer Gallbladder disease Heart disease Hypertension Lung disease Social History Smoking Status: Former Smoker Alcohol Use: none Drug Use: none Marital Status: Housing Status: lives alone Occupation Status: retired Current/Historical Medications Scheduled Allopurinol (Zyloprim), 300 MG PO QAM Docusate Sodium (Docusate Sodium), 100 MG PO BID Duloxetine HCl (Duloxetine HCl), 1 CAP PO QAM Escitalopram Oxalate (Escitalopram Oxalate), 1 TAB PO DAILY Esomeprazole Magnesium (Nexium), 1 CAP PO BID Famotidine (Pepcid), 20 MG PO BID Fentanyl (Fentanyl), 25 MCG TD Q3D@2100 Finasteride (Proscar), 5 MG PO QAM Lorazepam (Ativan), 0.5 MG PO Q6H Naloxegol Oxalate (Movantik), 25 MG PO DAILY Prednisone Tab (Prednisone), 10 MG PO QAM Sucralfate (Carafate), 10 ML PO QID Tamsulosin Hcl (Flomax), 0.4 MG PO QPM Scheduled PRN Hydromorphone HCl (Hydromorphone HCl), 2-4 MG PO Q4H PRN for Pain Lidocaine Hcl (Mouth-Throat) (Lidocaine Viscous), 5-10 ML MT Q6H PRN for Pain Ondansetron Hcl (Zofran), 8 MG PO Q8 PRN for Nausea Prochlorperazine Maleate (Compazine), 10 MG PO Q6H PRN for Nausea Allergies Coded Allergies: No Known Allergies (Verified , 08/02/16) Physical Exam Vital Signs Date Time Temp Pulse Resp B/P Pulse Ox O2 Delivery O2 Flow Rate FiO2 08/02/16 09:20 85 18 153/75 93 Room Air 08/02/16 08:21 79 18 153/83 93 Room Air 08/02/16 07:32 89 22 162/100 98 Room Air 08/02/16 07:25 100 Room Air 08/02/16 07:12 96 08/02/16 07:01 36.4 89 18 139/88 100 Room Air Physical Exam CONSTITUTIONAL/VITAL SIGNS: Reviewed / noted above. GENERAL: Non-toxic in appearance. INTEGUMENTARY: Warm, dry, and [place]. HEAD: Normocephalic. EYES: without scleral icterus or trauma. ENT/OROPHARYNX: clear and moist. LYMPHADENOPATHY/NECK: Is supple without lymphadenopathy or meningismus. RESPIRATORY: Lungs clear and equal. CARDIOVASCULAR: Regular rate and rhythm. GI/ABDOMEN: Soft with mild diffuse abdominal tenderness. No organomegaly or pulsatile mass. No rebound or guarding. Normal bowel sounds. EXTREMITIES: Warm and well perfused. BACK: No CVA tenderness. NEUROLOGICAL: Intact without focal deficits. PSYCHIATRIC: normal affect. MUSCULOSKELETAL: Normally developed with good muscle tone. Medical Decision & Procedures ER Provider Diagnostic Interpretation: X ray results and stated below per my interpretation and radiology interpretation. Radiology results as stated below per my review and radiologist interpretation: CHEST AND ABDOMEN 2 VIEWS HISTORY: Generalized abdominal pain. COMPARISON: Abdominal series 07/17/2016. FINDINGS: The lungs are clear. No pleural effusions. No pneumothorax. The heart is normal in size. The distal esophageal stent is unchanged in position. Left subclavian Port-A-Cath terminates in the SVC. No pneumoperitoneum. No pneumatosis. The bowel gas pattern is unremarkable. No evidence for bowel obstruction. Suture material within the right upper quadrant. IMPRESSION: 1. No acute process within the chest. 2. No evidence for bowel obstruction. 3. The distal esophageal stent is unchanged in position. Electronically signed by: Antoni Badillo M.D. 08/02/2016 8:23 AM Dictated Date/Time: 08/02/2016 8:[address] SCAN OF THE ABDOMEN AND PELVIS WITHOUT CONTRAST CLINICAL HISTORY: Abdominal pain. Esophageal carcinoma. COMPARISON STUDY: 07/10/2016 TECHNIQUE: CT scan of the abdomen and pelvis was performed from the lung bases to the proximal femurs. Images are reviewed in the axial, sagittal, and coronal planes. IV contrast was not administered for this examination. CT DOSE: 386.53 mGy.cm FINDINGS: Lower chest: There is indwelling esophageal stent. The lung bases are clear. There are no pleural effusions. Liver: There are multiple space-occupying hepatic masses consistent with metastasis. These appear slightly larger than on the preceding study. Gallbladder: Cholelithiasis. Spleen: Normal in size and attenuation. Pancreas: Unremarkable. Adrenal glands: There is mild left adrenal gland thickening unchanged the prior study Kidneys: The right kidney is absent. There is no left-sided hydronephrosis. Bowel: There is colonic diverticulosis. There are no acute peridiverticular inflammatory changes. There are no transition zones indicate bowel obstruction. Peritoneum: There is no intraperitoneal free air or abdominal ascites. Vasculature: The abdominal aorta is normal in course and caliber. Adenopathy: There are mildly enlarged para-aortic lymph nodes similar to the prior study. There is a stable enlarged precaval lymph node. Pelvic viscera: The prostate remains enlarged. Skeletal structures: There is a 35mm lytic lesion within the right iliac bone, slightly larger than on the preceding study. There are few scattered small sclerotic bone lesions. Several lytic rib lesions are visualized. IMPRESSION: 1. No evidence of bowel obstruction. No evidence of free air 2. Indwelling esophageal stent 3. Cholelithiasis 4. Increasing hepatic metastasis 5. Persistent abdominal lymphadenopathy 6. Slight increase in the suspected skeletal metastasis Electronically signed by: Jose Renae M.D. 08/02/2016 8:26 AM Dictated Date/Time: 08/02/2016 8:20 AM Laboratory Results 08/02/16 07:19 Red Blood Count 4.34, Mean Corpuscular Volume 81.8, Mean Corpuscular Hemoglobin 29.0, Mean Corpuscular Hemoglobin Concent 35.5, Mean Platelet Volume 8.9, Neutrophils (%) (Auto) 60.8, Lymphocytes (%) (Auto) 28.9, Monocytes (%) (Auto) 8.5, Eosinophils (%) (Auto) 1.3, Basophils (%) (Auto) 0.2, Neutrophils # (Auto) 5.59, Lymphocytes # (Auto) 2.66, Monocytes # (Auto) 0.78, Eosinophils # (Auto) 0.12, Basophils # (Auto) 0.02 08/02/16 07:19 Test 08/02/16 07:19 08/02/16 07:38 White Blood Count 9.20 K/uL (4.8-10.8) Red Blood Count 4.34 M/uL (4.7-6.1) Hemoglobin 12.6 g/dL (14.0-18.0) Hematocrit 35.5 % (42-52) Mean Corpuscular Volume 81.8 fL (80-100) Mean Corpuscular Hemoglobin 29.0 pg (25-34) Mean Corpuscular Hemoglobin Concent 35.5 g/dl (32-36) Platelet Count 229 K/uL (130-400) Mean Platelet Volume 8.9 fL (7.4-10.4) Neutrophils (%) (Auto) 60.8 % Lymphocytes (%) (Auto) 28.9 % Monocytes (%) (Auto) 8.5 % Eosinophils (%) (Auto) 1.3 % Basophils (%) (Auto) 0.2 % Neutrophils # (Auto) 5.59 K/uL (1.4-6.5) Lymphocytes # (Auto) 2.66 K/uL (1.2-3.4) Monocytes # (Auto) 0.78 K/uL (0.11-0.59) Eosinophils # (Auto) 0.12 K/uL (0-0.5) Basophils # (Auto) 0.02 K/uL (0-0.2) RDW Standard Deviation 42.2 fL (36.4-46.3) RDW Coefficient of Variation 14.1 % (11.5-14.5) Immature Granulocyte % (Auto) 0.3 % Immature Granulocyte # (Auto) 0.03 K/uL (0.00-0.02) Prothrombin Time 10.6 SECONDS (9.0-12.0) Prothromb Time International Ratio 1.0 (0.9-1.1) Activated Partial Thromboplast Time 26.4 SECONDS (21.0-31.0) Partial Thromboplastin Ratio 1.0 Anion Gap 10.0 mmol/L (3-11) Est Creatinine Clear Calc Drug Dose 86.6 ml/min Estimated GFR () 103.8 Estimated GFR (Non- 89.6 BUN/Creatinine Ratio 8.6 (10-20) Calcium Level 9.0 mg/dl (8.5-10.1) Total Bilirubin 1.1 mg/dl (0.2-1) Direct Bilirubin 0.3 mg/dl (0-0.2) Aspartate Amino Transf (AST/SGOT) 33 U/L (15-37) Alanine Aminotransferase (ALT/SGPT) 50 U/L (12-78) Alkaline Phosphatase 321 U/L (45-117) Total Protein 6.5 gm/dl (6.4-8.2) Albumin 3.3 gm/dl (3.4-5.0) Lipase 211 U/L (73-393) Lactic Acid Level 2.0 mmol/L (0.4-2.0) Laboratory results as stated above per my review. Medications Administered Medications (Trade) Dose Ordered Sig/Sabino Route Start Time Stop Time Status Last Admin Dose Admin Sodium Chloride (Nss 1000ml) 1,000 ml @ 999 mls/hr Q1H1M STAT IV 08/02/16 07:14 08/02/16 08:14 DC 08/02/16 07:29 999 MLS/HR Ondansetron HCl (Zofran Inj) 4 mg NOW STAT IV 08/02/16 07:14 08/02/16 07:16 DC 08/02/16 07:29 4 MG Morphine Sulfate (MoRPHine SULFATE INJ) 4 mg Q1H PRN IV 08/02/16 07:15 08/16/16 07:14 08/02/16 07:29 4 MG Hydromorphone HCl (Dilaudid Inj) 2 mg NOW STAT IV 08/02/16 08:25 08/02/16 08:27 DC 08/02/16 08:34 2 MG ED Course 0714: Zofran Inj 4 mg IV, NSS 1000 ml @ 999 mls/hr IV. 0715: Morphine Sulfate 4 mg IV. 0723: At this time the patient was evaluated by the medical student. The students findings were discussed with me. We discussed a possible treatment plan and differential diagnoses for the patient. 0823: Previous medical records were reviewed. The patient was evaluated in room A2. A complete history and physical examination was performed. 0825: Dilaudid Inj 2 mg IV. 0925: On reevaluation, the patient is resting comfortably. I discussed the results and findings with the patient. He verbalized agreement of the treatment plan. He was discharged home. Medical Decision Differential considered: pancreatitis, hepatitis, or acute cholecystitis, AAA, UTI, pyelonephritis, kidney stones, appendicitis, diverticulitis, shingles, bowel obstruction mesenteric ischemia, intussusception,hernia, testicular torsion. This is a 70-year-old male who presents to the ED with a chief complaint of abdominal pain. The patient has a history of esophageal cancer with a stent. He has undergone 3 chemotherapy treatments, the last one being last . He reports decreased appetite as well as no bowel movement for the past 2 days. He reports some nausea and dry heaves and a little vomiting this morning. The patient's pain is diffuse in the abdomen. He does have metastasis to the liver and lymph nodes. He also has history of gallstones seen on a ultrasound report in May. The patient's pain is worse than usual. He does take Dilaudid at home. He did not take his entire dose of Dilaudid this morning. He states that he did not take it because he is trying not to take a lot of it. He has history of a nephrectomy. His review of systems was negative. His exam reveals soft and mildly tender diffusely abdomen. Vital signs are stable. CBC and complete metabolic panel were unremarkable. Lipase is negative. Lactate is normal. Acute obstruction series did not show any acute abnormality. The CT scan of the abdomen and pelvis did not show acute abnormality. The patient was treated with IV morphine as well as IV Dilaudid, IV Zofran and IV fluids. On reassessment, the patient was feeling better. He is felt to be stable for discharge. They will continue taking medication as it is prescribed, as he has not been taking as much as he should have. Impression Primary Impression: Diffuse abdominal pain Additional Impression: Metastatic cancer Scribe Attestation The scribe's documentation has been prepared under my direction and personally reviewed by me in its entirety. I confirm that the note above accurately reflects all work, treatment, procedures, and medical decision making performed by me. Departure Information Dispostion Home / Self-Care Referrals Garcia Whalen M.D. (PCP) Patient Instructions My [facility] Additional Instructions Follow-up with your doctor for further care and evaluation in 1-2 days. Return to the emergency department for worsening or new symptoms or any concerns. You have been examined and treated today on an emergency basis only. This is not a substitute for, or an effort to provide, complete comprehensive medical care. It is impossible to recognize and treat all injuries or illnesses in a single emergency department visit. It is therefore important that you follow up closely with your doctor. Call as soon as possible for an appointment. Problem Qualifiers
[2016-08-02 09:41] VITALS: BP 151/76; PULSE 76; O2SAT 95
== END 2016-08-02 09:52 | disposition home or self-care (01) ==
LOC: C.EDB 06:59 → C.EDA 09:52
DX: G89.3 Neoplasm related pain (acute) (chronic) (principal); C15.9 Malignant neoplasm of esophagus, unspecified; C78.7 Secondary malignant neoplasm of liver and intrahepatic bile duct; R11.2 Nausea with vomiting, unspecified; M10.9 Gout, unspecified; F41.9 Anxiety disorder, unspecified; N40.0 Benign prostatic hyperplasia without lower urinary tract symptoms; Z87.440 Personal history of urinary (tract) infections; Z90.5 Acquired absence of kidney; Z82.49 Family history of ischemic heart disease and other diseases of the circulatory system; Z87.891 Personal history of nicotine dependence; Z79.899 Other long term (current) drug therapy; C79.89 Secondary malignant neoplasm of other specified sites

== ENCOUNTER → 2016-08-04 | Outpatient (CLI) | payer BC ==
[~2016-08-04] MED LIST changes: -ALL300 PO; +ALLO300T2 PO; +ATV5 SL; +CLOT10TR PO; -CYM20 PO; +CYM30 PO; +CYM60 PO; +DFL100 PO; +DLD/2 PO; +DRON5CAP2 PO; +ESOM1CAP34 PO; +FAMO20TA9 PO; +FNTTP25 TOP; +LEVO-366 PO; +LXP10 PO; +NRN100 PO; +ONDA4TAB65 PO; +PHEN-775 PO; +POLY335019 PO; +PROM25TA9 PO; +PRT40 PO; +RLSI SQ; -ZNTT/150 PO
== END | disposition home or self-care (01) ==
LOC: C.FOODA 10:01
PROVIDERS: ATTEND Internal Medicine Hematology & Oncology
DX: C15.5 Malignant neoplasm of lower third of esophagus (principal); R10.11 Right upper quadrant pain; R10.13 Epigastric pain; K92.2 Gastrointestinal hemorrhage, unspecified; Z87.891 Personal history of nicotine dependence; R63.4 Abnormal weight loss; R11.0 Nausea; R68.81 Early satiety

== ENCOUNTER 2016-08-15 22:25 | Emergency (ER) | payer BC ==
[~2016-08-15] VITALS: Ht 177.8 cm; Wt 79.0 kg
[~2016-08-15 22:25] MED LIST changes: -ATV5 SL; -CLOT10TR PO; -CYM60 PO; -DFL100 PO; -DLD/2 PO; -DRON5CAP2 PO; -ESOM1CAP34 PO; -FAMO20TA9 PO; -FNTTP25 TOP; -LEVO-366 PO; -NRN100 PO; -ONDA4TAB65 PO; -PHEN-775 PO; -POLY335019 PO; -PROM25TA9 PO; -PRT40 PO; -RLSI SQ
[2016-08-15 22:39] VITALS: Ht 177.8 cm; Wt 79.0 kg
[2016-08-15] MEDS ORDERED: SODIUM CHLORIDE 0.9% 500ML 500 ML IV STA (23:23)
[2016-08-15] MEDS ORDERED: SODIUM CHLORIDE 0.9% 1000ML 1,000 ML IV STA (23:23)
[2016-08-15] MEDS ORDERED: PROMETHAZINE HCL INJ 12.5 MG in SODIUM CHLORIDE 0.9% 50ML 50 ML IV STA (23:23)
[2016-08-15 23:31] LABS: BASO % 0.2 %; BASO ABS # 0.02 K/uL (0-0.2); COMPLETE YES; EOS % 0.8 %; HEMATOCRIT 33.3 % (42-52); IG% 0.5 %; LYMPH % 23.6 %; LYMPH ABS # 1.95 K/uL (1.2-3.4); MEAN CELL VOLUME 85.4 fL (80-100); MEAN CORPUSCULAR HEMOGLOBIN 28.7 pg (25-34); MEAN CORPUSCULAR HGB CONC 33.6 g/dl (32-36); MEAN PLATELET VOLUME 8.8 fL (7.4-10.4); MONO % 7.6 %; NEUT % 67.3 %; PLATELET COUNT 223 K/uL (130-400); WHITE BLOOD COUNT 8.28 K/uL (4.8-10.8)
--- NOTE | 2016-08-15 23:36 | EMERGENCY ROOM VISIT NOTE ---
History Report prepared by Konrad: Maxwell Lozoya Under the Supervision of: Dr. Regina Medina M.D. First contact with patient: 23:07 Chief Complaint: ABDOMINAL PAIN Stated Complaint: STOMACH PAIN, CANCER History of Present Illness The patient is a 70 year old male who presents to the Emergency Room with complaints of worsening epigastric pain and nausea that the patient has been experiencing since , five days prior to arrival. Per the patient's the patient's nausea and epigastric pain has been worsening significantly over the past two days. The patient just started a new chemotherapy treatment and had his second round of this on . The patient has esophageal cancer that metastasized. The patient is on a significant amount of medications for pain and nausea. He is currently on 8-mg of Zofran daily as well as 3 25-mg Fentanyl patches. The patient was originally started on 1 25-mg Fentanyl patch and was increased to two patches on the , five days prior to this visit. Per the , she spoke with the [facility] today who told her to increase to 3 25-mg patches. He currently is wearing 3 25-mg patches. He also takes Dilaudid daily, which the patients oncologist are trying to wean him off of. The patient notes that he has also been constipated, and has not had a good bowel movement since Sunday, two days [employer]. He commonly struggles with constipation and uses prune juice, milk of magnesia, and MiraLAX. Source of History: patient, spouse/significant other Onset: 5 days [employer] Position: abdomen (Epigastric) Timing: worsening Associated Symptoms: + nausea Note: Constipation. Review of Systems See HPI for pertinent positives & negatives. A total of 10 systems reviewed and were otherwise negative. Past Medical & Surgical Medical Problems: (1) Anxiety (2) Benign prostate hyperplasia (3) Cholecystitis (4) Esophageal cancer (5) Gout (6) Precordial chest pain (7) UTI (urinary tract infection) Surgical Problems: (1) Right Nephrectomy (2) Right Nephrectomy Family History Cancer Gallbladder disease Heart disease Hypertension Lung disease Social History Smoking Status: Former Smoker Alcohol Use: none Drug Use: none Marital Status: Housing Status: lives alone Occupation Status: retired Current/Historical Medications Scheduled Allopurinol (Zyloprim), 300 MG PO QAM Docusate Sodium (Docusate Sodium), 100 MG PO BID Dronabinol (Marinol), 5 MG PO QID Duloxetine HCl (Duloxetine HCl), 30 MG PO QAM Esomeprazole Magnesium (Esomeprazole Magnesium), 40 MG PO BID Famotidine (Pepcid), 20 MG PO BID Fentanyl (Fentanyl), 75 MCG TOP [id number] Finasteride (Proscar), 5 MG PO QAM Lorazepam (Ativan), 0.5 MG PO Q6H Naloxegol Oxalate (Movantik), 25 MG PO DAILY Polyethylene Glycol 3350 (Miralax), 17 GM PO DAILY Prednisone Tab (Prednisone), 10 MG PO QAM Tamsulosin Hcl (Flomax), 0.4 MG PO QPM Scheduled PRN Hydromorphone HCl (Hydromorphone HCl), 2-4 MG PO Q4 PRN for MOD-SEVERE PAIN Ondansetron Hcl (Zofran), 8 MG PO Q8 PRN for Nausea Promethazine Hcl (Phenergan), 25 MG PO Q6H PRN for Nausea Allergies Coded Allergies: No Known Allergies (Verified , 08/16/16) Physical Exam Vital Signs Date Time Temp Pulse Resp B/P Pulse Ox O2 Delivery O2 Flow Rate FiO2 08/16/16 02:31 73 16 154/88 93 Room Air 08/16/16 01:10 88 16 134/77 93 Room Air 08/16/16 00:13 36.9 60 20 173/103 97 Room Air 08/15/16 23:47 60 16 138/87 98 Room Air 08/15/16 23:17 75 08/15/16 22:39 36.5 88 20 129/79 97 Room Air Physical Exam Vital signs reviewed. General: Chronically ill appearing, in some discomfort HEENT: No scleral icterus, PERRLA, neck supple. Atraumatic. Cardiovascular: Regular rate and rhythm, no extra sounds. Pulmonary: Clear to auscultation bilaterally, normal work of breathing. Abdomen: Soft, nondistended, positive bowel sounds. Mildly diffuse tender abdomen. No guarding or rebounding. Musculoskeletal: Atraumatic, no peripheral edema. Neurologic: Patient awake alert and oriented x 3, full strength in all 4 extremities. Cranial nerves 2 through 12 grossly intact. Skin: Warm, dry, no rash Medical Decision & Procedures ER Provider Diagnostic Interpretation: Radiology results as stated below per my review and radiologist interpretation: CHEST ABDOMEN X-RAY: No free air, no obstruction. Laboratory Results 08/15/16 23:20 Red Blood Count 3.90, Mean Corpuscular Volume 85.4, Mean Corpuscular Hemoglobin 28.7, Mean Corpuscular Hemoglobin Concent 33.6, Mean Platelet Volume 8.8, Neutrophils (%) (Auto) 67.3, Lymphocytes (%) (Auto) 23.6, Monocytes (%) (Auto) 7.6, Eosinophils (%) (Auto) 0.8, Basophils (%) (Auto) 0.2, Neutrophils # (Auto) 5.57, Lymphocytes # (Auto) 1.95, Monocytes # (Auto) 0.63, Eosinophils # (Auto) 0.07, Basophils # (Auto) 0.02 08/15/16 23:20 Test 08/15/16 23:20 08/16/16 02:32 White Blood Count 8.28 K/uL (4.8-10.8) Red Blood Count 3.90 M/uL (4.7-6.1) Hemoglobin 11.2 g/dL (14.0-18.0) Hematocrit 33.3 % (42-52) Mean Corpuscular Volume 85.4 fL (80-100) Mean Corpuscular Hemoglobin 28.7 pg (25-34) Mean Corpuscular Hemoglobin Concent 33.6 g/dl (32-36) Platelet Count 223 K/uL (130-400) Mean Platelet Volume 8.8 fL (7.4-10.4) Neutrophils (%) (Auto) 67.3 % Lymphocytes (%) (Auto) 23.6 % Monocytes (%) (Auto) 7.6 % Eosinophils (%) (Auto) 0.8 % Basophils (%) (Auto) 0.2 % Neutrophils # (Auto) 5.57 K/uL (1.4-6.5) Lymphocytes # (Auto) 1.95 K/uL (1.2-3.4) Monocytes # (Auto) 0.63 K/uL (0.11-0.59) Eosinophils # (Auto) 0.07 K/uL (0-0.5) Basophils # (Auto) 0.02 K/uL (0-0.2) RDW Standard Deviation 44.6 fL (36.4-46.3) RDW Coefficient of Variation 14.5 % (11.5-14.5) Immature Granulocyte % (Auto) 0.5 % Immature Granulocyte # (Auto) 0.04 K/uL (0.00-0.02) Prothrombin Time 10.8 SECONDS (9.0-12.0) Prothromb Time International Ratio 1.0 (0.9-1.1) Activated Partial Thromboplast Time 26.6 SECONDS (21.0-31.0) Partial Thromboplastin Ratio 1.0 Anion Gap 8.0 mmol/L (3-11) Est Creatinine Clear Calc Drug Dose 95.9 ml/min Estimated GFR () 108.3 Estimated GFR (Non- 93.5 BUN/Creatinine Ratio 9.7 (10-20) Calcium Level 8.8 mg/dl (8.5-10.1) Total Bilirubin 0.9 mg/dl (0.2-1) Direct Bilirubin 0.3 mg/dl (0-0.2) Aspartate Amino Transf (AST/SGOT) 43 U/L (15-37) Alanine Aminotransferase (ALT/SGPT) 62 U/L (12-78) Alkaline Phosphatase 445 U/L (45-117) Total Protein 5.9 gm/dl (6.4-8.2) Albumin 2.7 gm/dl (3.4-5.0) Urine Color YELLOW Urine Appearance CLEAR (CLEAR) Urine pH 8.5 (4.5-7.5) Urine Specific Gill 1.008 (1.000-1.030) Urine Protein NEG (NEG) Urine Glucose (UA) NEG (NEG) Urine Ketones NEG (NEG) Urine Occult Blood NEG (NEG) Urine Nitrite NEG (NEG) Urine Bilirubin NEG (NEG) Urine Urobilinogen NEG (NEG) Urine Leukocyte Esterase NEG (NEG) Laboratory results per my review. Medications Administered Medications (Trade) Dose Ordered Sig/Sabino Route Start Time Stop Time Status Last Admin Dose Admin Promethazine HCl 12.5 mg/Sodium Chloride 50.5 ml @ 204 mls/hr NOW STAT IV 08/15/16 23:23 08/15/16 23:37 DC 08/15/16 23:43 204 MLS/HR Sodium Chloride 500 ml @ 999 mls/hr Q31M STAT IV 08/15/16 23:23 08/15/16 23:53 DC 08/15/16 23:23 999 MLS/HR Sodium Chloride (Nss 1000ml) 1,000 ml @ 200 mls/hr Q5H STAT IV 08/15/16 23:23 08/16/16 03:30 DC 08/16/16 00:16 200 MLS/HR Hydromorphone HCl (Dilaudid Inj) 1 mg NOW STAT IV 08/16/16 00:02 08/16/16 00:03 DC 08/16/16 00:16 1 MG Heparin Sodium (Porcine) (Heparin 100 Unit/ml 5ml Flush) 5 ml STK-MED ONCE .ROUTE 08/16/16 02:34 08/16/16 02:35 DC 08/16/16 02:34 5 ML Promethazine HCl (Phenergan 25MG Home Pack) 1 homepack UD ONCE PO 08/16/16 02:45 08/16/16 02:46 DC 08/16/16 02:40 1 HOMEPACK ED Course 2321: Past medical records reviewed. The patient was evaluated in room A11. A complete history and physical examination was performed. 2323: Ordered Sodium Chloride 1000 mL @ 200 mL/hr IV, Sodium Chloride 500 mL @ 999 mL/hr IV, Promethazine HCl 50.5 mL @ 204 mL/hr IV. 0002: Ordered Dilaudid 1 mg IV. 0234: Ordered Heparin Sodium 5 mL. 0234: Upon reevaluation, the patient appeared to have improvement of his symptoms. I discussed findings with him. He verbalized agreement of the treatment plan. The patient was discharged home. 0245: Ordered Promethazine HCl 1 homepack PO. Medical Decision Differential diagnosis: Etiologies such as gastroenteritis, food borne illness, infections, chemotherapy effect, appendicitis, diverticulitis, inflammatory bowel disease, obstruction, GI bleed, biliary pathology, as well as others were entertained. This patient was evaluated and appeared to be in no significant distress. IV access was obtained and laboratory work was drawn. The patient was placed on the medical director and found to be in a normal sinus rhythm. He was medicated with IV Phenergan and IV normal saline solution. The patient was given 1 mg of IV Dilaudid for pain control. Abdominal x-ray series reveals no evidence of obstruction or free air. Laboratory work is unrevealing. The patient was feeling much improved on my reevaluation. He was given a prescription for Phenergan tablets to be used as needed for nausea. His oncologist has increased his fentanyl patch to 75 g per hour with when necessary Dilaudid. Patient will follow up with oncology within the next several days and return to the ER for worsening of symptoms or any medical concerns. Impression Primary Impression: Abdominal pain Additional Impressions: Nausea Esophageal cancer Scribe Attestation The scribe's documentation has been prepared under my direction and personally reviewed by me in its entirety. I confirm that the note above accurately reflects all work, treatment, procedures, and medical decision making performed by me. Departure Information Dispostion Home / Self-Care Prescriptions Promethazine Hcl (Phenergan) 25 Mg Tab 25 MG PO Q6H Y for Nausea, #20 TAB Prov: Regina Medina M.D. 08/16/16 Referrals Garcia Whalen M.D. (PCP) Forms HOME CARE DOCUMENTATION FORM, IMPORTANT VISIT INFORMATION Patient Instructions My [facility] Additional Instructions Diagnosis: Abdominal pain, nausea Phenergan 25 mg tablet every 6 hours as needed for nausea. Drink plenty of clear fluids. Continue your medications as prescribed. Follow-up with your physician tomorrow for reevaluation. Return to the ER for worsening of symptoms or any medical concerns. Problem Qualifiers Primary Impression: Abdominal pain Abdominal location: generalized Qualified Codes: R10.84 - Generalized abdominal pain
[2016-08-15 23:39] LABS: PROTHROMBIN TIME (PATIENT) 10.8 SECONDS (9.0-12.0)
[2016-08-15 23:47] LABS: BUN/CREATININE RATIO 9.7 (10-20); CALCIUM 8.8 mg/dl (8.5-10.1); CREATININE 0.74 mg/dl (0.60-1.40); POTASSIUM 3.9 mmol/L (3.5-5.1)
[2016-08-16] MEDS ORDERED: HYDROmorphone INJ 1 MG/ML SYR IV STA (00:02)
[2016-08-16 00:13] VITALS: TEMP 36.9
[2016-08-16] MEDS ORDERED: FNTTP25 TOP (02:29)
[2016-08-16] MEDS ORDERED: ESOM1CAP34 PO (02:29)
[2016-08-16] MEDS ORDERED: DLD/2 PO (02:29)
[2016-08-16] MEDS ORDERED: DRON5CAP2 PO (02:29)
[2016-08-16] MEDS ORDERED: FAMO20TA9 PO (02:29)
[2016-08-16 02:31] VITALS: BP 154/88; PULSE 73; O2SAT 93
[2016-08-16] MEDS ORDERED: PROM25TA9 PO (02:34)
[2016-08-16 02:44] LABS: URINE APPEARANCE CLEAR (CLEAR); URINE BILIRUBIN NEG (NEG); URINE COLOR YELLOW; URINE NITRITE NEG (NEG); URINE PH 8.5 (4.5-7.5); URINE SPECIFIC GRAVITY 1.008 (1.000-1.030); UROBILINOGEN NEG (NEG); ZZUR CULT IF INDIC CLEAN CATCH NO
[2016-08-16 02:45] LABS: MANUAL MICROSCOPIC REQUIRED? NO; REVIEW REQ? NO
[2016-08-16] MEDS ORDERED: PHENERGAN 25MG HOMEPACK PO ONE (02:45)
--- NOTE | 2016-08-16 07:38 | DIAGNOSTIC IMAGING REPORT ---
CHEST AND ABDOMEN 2 VIEWS HISTORY: nausea, mets esophageal CA COMPARISON: Abdomen and pelvis CT 08/12/2016. FINDINGS: Left subclavian Port-A-Cath terminates in the distal SVC. The distal esophageal stent is unchanged in position. The lungs are clear. The heart is normal in size. No pneumoperitoneum. No pneumatosis. The bowel gas pattern is unremarkable. No dilated loops of small bowel to suggest an obstruction. There is suture material within the right upper quadrant. No suspicious lytic or blastic osseous lesions. No renal calculi. IMPRESSION: 1. No change from the prior study. 2. No acute process within the chest. 3. No change in position of the distal esophageal stent. 4. No evidence for bowel obstruction. Electronically signed by: Antoni Badillo M.D. 08/16/2016 7:36 AM Dictated Date/Time: 08/16/2016 7:34 AM
[2016-08-16] MEDS ORDERED: POLY335019 PO (20:39)
== END 2016-08-16 02:45 | disposition home or self-care (01) ==
LOC: C.EDB 22:26 → C.EDA 08-16 02:45
DX: R10.84 Generalized abdominal pain (principal); R11.0 Nausea; C15.9 Malignant neoplasm of esophagus, unspecified; F41.9 Anxiety disorder, unspecified; N40.0 Benign prostatic hyperplasia without lower urinary tract symptoms; K81.9 Cholecystitis, unspecified; M10.9 Gout, unspecified; Z87.440 Personal history of urinary (tract) infections; Z80.9 Family history of malignant neoplasm, unspecified; Z83.79 Family history of other diseases of the digestive system; Z82.49 Family history of ischemic heart disease and other diseases of the circulatory system; Z83.6 Family history of other diseases of the respiratory system; Z87.891 Personal history of nicotine dependence; Z79.899 Other long term (current) drug therapy; Z79.52 Long term (current) use of systemic steroids

== ENCOUNTER 2016-08-16 19:05 | Inpatient (IN) | payer BC, OTHER ==
[~2016-08-16] VITALS: Ht 177.8 cm; Wt 74.0 kg
[~2016-08-16 19:05] MED LIST changes: +DLD/2 PO; +DRON5CAP2 PO; +ESOM1CAP34 PO; +FAMO20TA9 PO; +FNTTP25 TOP; +PROM25TA9 PO
[2016-08-16] MEDS ORDERED: PROMETHAZINE HCL INJ 25 MG/ML 1 ML VIAL IV STA (19:42)
[2016-08-16] MEDS ORDERED: SODIUM CHLORIDE 0.9% 1000ML 1,000 ML IV STA (19:42)
[2016-08-16] MEDS ORDERED: SODIUM CHLORIDE 0.9% 1000ML 500 ML IV STA (19:42)
[2016-08-16] MEDS ORDERED: PIPERACILLIN/TAZOBACTAM 4.5 GM/100ML D5W IV STA (19:45)
[2016-08-16] MEDS ORDERED: HYDROmorphone INJ 2 MG/ML SYR/VIAL IV PRN (19:45)
[2016-08-16] MEDS ORDERED: OPTIRAY 320 IV PRN (20:00)
--- NOTE | 2016-08-16 20:02 | DIAGNOSTIC IMAGING REPORT ---
CHEST ONE VIEW PORTABLE CLINICAL HISTORY: ABDOMINAL PAIN/GI COMPARISON STUDY: 08/15/2016 FINDINGS: The bones soft tissues and hemidiaphragms are normal. The cardiomediastinal silhouette is normal. The lungs are clear. The pulmonary vasculature is normal. IMPRESSION: Negative chest. Electronically signed by: Yash Giordano M.D. 08/16/2016 8:01 PM Dictated Date/Time: 08/16/2016 8:00 PM
[2016-08-16 20:22] LABS: BASO % 0.3 %; BASO ABS # 0.03 K/uL (0-0.2); COMPLETE YES; EOS % 1.6 %; HEMATOCRIT 34.7 % (42-52); IG% 0.6 %; LYMPH % 20.2 %; LYMPH ABS # 1.75 K/uL (1.2-3.4); MEAN CELL VOLUME 85.9 fL (80-100); MEAN CORPUSCULAR HEMOGLOBIN 29.2 pg (25-34); MEAN PLATELET VOLUME 8.7 fL (7.4-10.4); MONO % 9.9 %; NEUT % 67.4 %; PLATELET COUNT 230 K/uL (130-400); RED BLOOD COUNT 4.04 M/uL (4.7-6.1); WHITE BLOOD COUNT 8.67 K/uL (4.8-10.8)
--- NOTE | 2016-08-16 20:25 | EMERGENCY ROOM VISIT NOTE ---
History Report prepared by Konrda: Leighton Villeda Under the Supervision of: Dr. Lalo Dumont M.D. First contact with patient: 19:32 Chief Complaint: DIZZY Stated Complaint: CHILLS,DIZZY ABD PAIN,NAUSEA Nursing Triage Summary: Pt with s.o. Reports pt has had n/v, abd pain for a month. Cancer pt. pt reports today pt now feeling dizzy, "handing me things that aren't there. Tripping over things. His nervousness and nerves are through the roof". Pt is not drinking as usual. Pt referred to ED by Cancer physician History of Present Illness The patient is a 70 year old male who presents to the Emergency Room with complaints of acute dizziness that started today. The patient has been experiencing intermittent nausea and abdominal pain for the past month. His pain can be severe. He was seen in the ED yesterday and discharged last night. The patient was discharged with Phenergan but is not feeling any better. The patient has also been experiencing chills but has no documented fevers. Per the patient's , he has not been eating or drinking much and has been losing weight. He has not had a bowel movement for the past four days. He deals with constipation often for which he takes laxatives / stool softeners. As per his , the patient had increased confusion today. 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 The patient wears a Fentanyl patch, which was increased to 75 mcg today. Source of History: patient, spouse/significant other Onset: today Position: other (global) Quality: other (dizziness) Timing: other (acute) Associated Symptoms: + abdominal pain, + chills, + nausea Review of Systems See HPI for pertinent positives & negatives. A total of 10 systems reviewed and were otherwise negative. Past Medical & Surgical Medical Problems: (1) Anxiety (2) Benign prostate hyperplasia (3) Cholecystitis (4) Esophageal cancer (5) Gout (6) Precordial chest pain (7) UTI (urinary tract infection) Surgical Problems: (1) Right Nephrectomy (2) Right Nephrectomy Family History Cancer Gallbladder disease Heart disease Hypertension Lung disease Social History Smoking Status: Former Smoker Alcohol Use: none Drug Use: none Marital Status: Housing Status: lives alone Occupation Status: retired Current/Historical Medications Scheduled Allopurinol (Zyloprim), 300 MG PO QAM Docusate Sodium (Docusate Sodium), 100 MG PO BID Dronabinol (Marinol), 5 MG PO QID Duloxetine HCl (Duloxetine HCl), 30 MG PO QAM Esomeprazole Magnesium (Esomeprazole Magnesium), 40 MG PO BID Famotidine (Pepcid), 20 MG PO BID Fentanyl (Fentanyl), 75 MCG TOP [id number] Finasteride (Proscar), 5 MG PO QAM Lorazepam (Ativan), 0.5 MG PO Q6H Naloxegol Oxalate (Movantik), 25 MG PO DAILY Polyethylene Glycol 3350 (Miralax), 17 GM PO DAILY Prednisone Tab (Prednisone), 10 MG PO QAM Tamsulosin Hcl (Flomax), 0.4 MG PO QPM Scheduled PRN Hydromorphone HCl (Hydromorphone HCl), 2-4 MG PO Q4 PRN for MOD-SEVERE PAIN Ondansetron Hcl (Zofran), 8 MG PO Q8 PRN for Nausea Promethazine Hcl (Phenergan), 25 MG PO Q6H PRN for Nausea Allergies Coded Allergies: No Known Allergies (Verified , 08/16/16) Physical Exam Vital Signs Date Time Temp Pulse Resp B/P Pulse Ox O2 Delivery O2 Flow Rate FiO2 08/16/16 22:45 76 18 142/78 94 Room Air 08/16/16 20:57 82 20 133/75 94 Room Air 08/16/16 19:15 36.7 115 18 119/92 94 Room Air Physical Exam GENERAL: Patient is in no acute distress. HEENT: No acute trauma, normocephalic atraumatic, mucous membranes are dry, no nasal congestion, no scleral icterus. NECK: No stridor, no adenopathy, no meningismus, trachea is midline. LUNGS: Clear to auscultation bilaterally, no wheeze, no rhonchi, breath sounds equal. HEART: Tachycardic with a regular rhythm and no murmurs. ABDOMEN: Soft, tender in the epigastrium, bowel sounds positive, no hernias, no peritonitis. EXTREMITIES: No cyanosis or edema, full range of motion of all the joints without pain or difficulty, no signs for acute trauma. NEUROLOGIC: Oriented x 3, no acute motor or sensory deficits, no focal weakness , no pronator drift. SKIN: No rash, no jaundice, no diaphoresis. Medical Decision & Procedures ER Provider Diagnostic Interpretation: X ray results and stated below per my interpretation and radiologist interpretation. Other radiology results and stated below per my review and radiologist interpretation: ABDOMEN AND PELVIS CT WITH IV CONTRAST CT DOSE: 423.32 mGy.cm HISTORY: Pain ABD PAIN, POSS OBSTRUCTION, IV CONTRAST ONLY TECHNIQUE: Multiaxial CT images of the abdomen and pelvis were performed following the use of intravenous contrast. COMPARISON STUDY: 08/02/2016 FINDINGS: Esophageal stent surrounding thickened esophageal wall. Stent appears to be soft tissue occluded. This is progressive compared to the prior study where there was near complete occlusion. Hepatic metastatic change slightly variable in terms of appearance from the prior study but nevertheless stable. Upper abdominal 100. No adenopathy stable. Bowel pattern within the abdomen and pelvis is considered nonobstructive. Skeletal metastatic disease stable. Small amount of fluid within the pelvic cul-de-sac considered an interval finding. Mild chronic colonic diverticulosis. No evidence for acute diverticulitis. IMPRESSION: 1. Esophageal stent now showing soft tissue occlusion. 2. Nonobstructive bowel pattern. 3. Stable abdominal and pelvic adenopathy. 4. Interval development of a small amount of cul-de-sac fluid. 6. Hepatic metastatic disease similar. 7. Skeletal metastatic change similar. Electronically signed by: Yash Giordano M.D. 08/16/2016 9:32 PM Dictated Date/Time: 08/16/2016 9:28 PM CHEST ONE VIEW PORTABLE CLINICAL HISTORY: ABDOMINAL PAIN/GI COMPARISON STUDY: 08/15/2016 FINDINGS: The bones soft tissues and hemidiaphragms are normal. The cardiomediastinal silhouette is normal. The lungs are clear. The pulmonary vasculature is normal. IMPRESSION: Negative chest. Electronically signed by: Yash Giordano M.D. 08/16/2016 8:01 PM Dictated Date/Time: 08/16/2016 8:00 PM Laboratory Results 08/16/16 20:13 Red Blood Count 4.04, Mean Corpuscular Volume 85.9, Mean Corpuscular Hemoglobin 29.2, Mean Corpuscular Hemoglobin Concent 34.0, Mean Platelet Volume 8.7, Neutrophils (%) (Auto) 67.4, Lymphocytes (%) (Auto) 20.2, Monocytes (%) (Auto) 9.9, Eosinophils (%) (Auto) 1.6, Basophils (%) (Auto) 0.3, Neutrophils # (Auto) 5.84, Lymphocytes # (Auto) 1.75, Monocytes # (Auto) 0.86, Eosinophils # (Auto) 0.14, Basophils # (Auto) 0.03 08/16/16 20:13 Test 08/16/16 20:13 White Blood Count 8.67 K/uL (4.8-10.8) Red Blood Count 4.04 M/uL (4.7-6.1) Hemoglobin 11.8 g/dL (14.0-18.0) Hematocrit 34.7 % (42-52) Mean Corpuscular Volume 85.9 fL (80-100) Mean Corpuscular Hemoglobin 29.2 pg (25-34) Mean Corpuscular Hemoglobin Concent 34.0 g/dl (32-36) Platelet Count 230 K/uL (130-400) Mean Platelet Volume 8.7 fL (7.4-10.4) Neutrophils (%) (Auto) 67.4 % Lymphocytes (%) (Auto) 20.2 % Monocytes (%) (Auto) 9.9 % Eosinophils (%) (Auto) 1.6 % Basophils (%) (Auto) 0.3 % Neutrophils # (Auto) 5.84 K/uL (1.4-6.5) Lymphocytes # (Auto) 1.75 K/uL (1.2-3.4) Monocytes # (Auto) 0.86 K/uL (0.11-0.59) Eosinophils # (Auto) 0.14 K/uL (0-0.5) Basophils # (Auto) 0.03 K/uL (0-0.2) RDW Standard Deviation 45.8 fL (36.4-46.3) RDW Coefficient of Variation 14.7 % (11.5-14.5) Immature Granulocyte % (Auto) 0.6 % Immature Granulocyte # (Auto) 0.05 K/uL (0.00-0.02) Prothrombin Time 10.6 SECONDS (9.0-12.0) Prothromb Time International Ratio 1.0 (0.9-1.1) Activated Partial Thromboplast Time 23.6 SECONDS (21.0-31.0) Partial Thromboplastin Ratio 0.9 Anion Gap 7.0 mmol/L (3-11) Est Creatinine Clear Calc Drug Dose 92.2 ml/min Estimated GFR () 106.6 Estimated GFR (Non- 91.9 BUN/Creatinine Ratio 10.3 (10-20) Lactic Acid Level 1.1 mmol/L (0.4-2.0) Calcium Level 9.1 mg/dl (8.5-10.1) Magnesium Level 1.7 mg/dl (1.8-2.4) Total Bilirubin 0.9 mg/dl (0.2-1) Aspartate Amino Transf (AST/SGOT) 40 U/L (15-37) Alanine Aminotransferase (ALT/SGPT) 56 U/L (12-78) Alkaline Phosphatase 451 U/L (45-117) Troponin I < 0.015 ng/ml (0-0.045) Total Protein 6.1 gm/dl (6.4-8.2) Albumin 2.9 gm/dl (3.4-5.0) Globulin 3.2 gm/dl (2.5-4.0) Albumin/Globulin Ratio 0.9 (0.9-2) Lipase 149 U/L (73-393) Thyroid Stimulating Hormone (TSH) 1.160 uIu/ml (0.300-4.500) Laboratory results reviewed by me. Medications Administered Medications (Trade) Dose Ordered Sig/Sabino Route Start Time Stop Time Status Last Admin Dose Admin Sodium Chloride (Nss 1000ml) 500 ml @ 999 mls/hr Q31M STAT IV 08/16/16 19:42 08/16/16 20:12 DC 08/16/16 20:21 999 MLS/HR Promethazine HCl 6.25 mg 6.25 mg NOW STAT IV 08/16/16 19:42 08/16/16 19:46 DC 08/16/16 20:29 6.25 MG Sodium Chloride (Nss 1000ml) 1,000 ml @ 200 mls/hr Q5H STAT IV 08/16/16 19:42 08/17/16 00:41 08/16/16 20:56 200 MLS/HR Hydromorphone HCl (Dilaudid Inj) 0.5 mg Q15M PRN IV 08/16/16 19:45 08/30/16 19:44 08/16/16 20:30 0.5 MG Piperacillin Sod/ Tazobactam Sod (Zosyn Iv) 4.5 gm NOW STAT IV 08/16/16 19:45 08/16/16 19:46 DC 08/16/16 20:30 4.5 GM Magnesium Sulfate (Magnesium Sulfate) 1 gm NOW STAT IV 08/16/16 21:56 08/16/16 21:57 DC 08/16/16 22:01 1 GM ECG Indication: other (dizziness) Rate (beats per minute): 90 Rhythm: normal sinus Findings: no acute ischemic change, no ectopy ED Course 1935: The patient was evaluated in room B12b. A complete history and physical exam was performed. 1941: NSS 1000 ml @ 200 mls/hr, Phenergan 6.26 mg IV, NSS 500 ml @ 999 mls/hr. 1944: Zosyn 4.5 gm IV, Dilaudid 0.5 mg IV. 2137: Discussed the case with Dr. Miller, [facility] Hospitalist. The patient will be evaluated. 2153: Updated the patient. He will get some magnesium. 2156: Magnesium Sulfate 1 gm IV. Medical Decision Differential diagnosis includes bowel obstruction, pancreatitis, dehydration, electrolyte imbalance, acute cholecystitis, pneumonia, cardiac ischemia, malignancy, diverticulitis. There is no leukocytosis or concerning anemia. No significant electrolyte abnormality or kidney failure-magnesium somewhat low. A few of the liver enzymes are slightly elevated. There was no pancreatitis. No coagulopathy. Urinalysis does not show infection. Lactic acid level is not elevated making sepsis or bowel ischemia less likely. Abdominal and pelvis CT shows findings consistent with his malignancy. His esophageal stent appears occluded by soft tissue. Chest film does not show free air or pneumonia. EKG shows a sinus rhythm, no acute ischemia. Cardiac enzyme testing is not consistent with acute cardiac injury. The patient received IV saline, IV Phenergan, IV Dilaudid. He was given IV Zosyn for antibiotic coverage. He received a dose of IV magnesium. He does feel improved. The patient has lost weight. He is failing outpatient treatment. He appears to have an obstruction of his esophageal stent, certainly, this could be causing his difficulty. I do think admission/observation is warranted. Further care in the hospital, hydration in the hospital is required. He will require a GI consult. I spoke with the patient and case management. The on- call hospitalist was consulted. Consults Time Called: 2129 Consulting Physician: Dr. Miller [facility]. Returned Call: [phone]: Discussed the case with Dr. Miller [facility]. The patient will be evaluated. Impression Primary Impression: Epigastric abdominal pain Additional Impressions: Dehydration Esophageal cancer Failure of outpatient treatment Scribe Attestation The scribe's documentation has been prepared under my direction and personally reviewed by me in its entirety. I confirm that the note above accurately reflects all work, treatment, procedures, and medical decision making performed by me. Departure Information Dispostion Being Evaluated By Hospitalist Referrals Garcia Whalen M.D. (PCP) Patient Instructions My [facility] Health Problem Qualifiers
[2016-08-16 20:35] LABS: PARTIAL THROMBOPLASTIN RATIO 0.9; PROTHROMBIN TIME (PATIENT) 10.6 SECONDS (9.0-12.0)
[2016-08-16] MEDS ORDERED: POLY335019 PO (20:39)
[2016-08-16 20:48] LABS: ALT/SGPT 56 U/L (12-78); BLOOD UREA NITROGEN 8 mg/dl (7-18); BUN/CREATININE RATIO 10.3 (10-20); CARBON DIOXIDE 29 mmol/L (21-32); CHLORIDE 101 mmol/L (98-107); CREATININE 0.77 mg/dl (0.60-1.40); GLUCOSE 99 mg/dl (70-99); MAGNESIUM 1.7 mg/dl (1.8-2.4); POTASSIUM 3.7 mmol/L (3.5-5.1); SODIUM 137 mmol/L (136-145)
[2016-08-16 20:59] LABS: ALB/GLOB RATIO 0.9 (0.9-2); ALKALINE PHOSPHATASE 451 U/L (45-117); AST/SGOT 40 U/L (15-37)
--- NOTE | 2016-08-16 21:34 | DIAGNOSTIC IMAGING REPORT ---
ABDOMEN AND PELVIS CT WITH IV CONTRAST CT DOSE: 423.32 mGy.cm HISTORY: Pain ABD PAIN, POSS OBSTRUCTION, IV CONTRAST ONLY TECHNIQUE: Multiaxial CT images of the abdomen and pelvis were performed following the use of intravenous contrast. COMPARISON STUDY: 08/02/2016 FINDINGS: Esophageal stent surrounding thickened esophageal wall. Stent appears to be soft tissue occluded. This is progressive compared to the prior study where there was near complete occlusion. Hepatic metastatic change slightly variable in terms of appearance from the prior study but nevertheless stable. Upper abdominal 100. No adenopathy stable. Bowel pattern within the abdomen and pelvis is considered nonobstructive. Skeletal metastatic disease stable. Small amount of fluid within the pelvic cul-de-sac considered an interval finding. Mild chronic colonic diverticulosis. No evidence for acute diverticulitis. IMPRESSION: 1. Esophageal stent now showing soft tissue occlusion. 2. Nonobstructive bowel pattern. 3. Stable abdominal and pelvic adenopathy. 4. Interval development of a small amount of cul-de-sac fluid. 6. Hepatic metastatic disease similar. 7. Skeletal metastatic change similar. Electronically signed by: Yash Giordano M.D. 08/16/2016 9:32 PM Dictated Date/Time: 08/16/2016 9:28 PM
[2016-08-16 21:55] LABS: CALCIUM 9.1 mg/dl (8.5-10.1)
[2016-08-16] MEDS ORDERED: MAGNESIUM SULFATE 1GM / D5W 1 GM BAG IV STA (21:56)
--- NOTE | 2016-08-16 23:57 | History and Physical ---
History & Physical Date & Time of Service: Aug 16, 2016 at 23:56 Chief Complaint: Chills,Dizzy Abd Pain,Nausea Primary Care Physician: Garcia Whalen M.D. History of Present Illness Source: patient, spouse 70-year-old male with past medical history of esophageal cancer status post esophageal stent placement, 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 He has been experiencing abdominal pain and intermittent nausea for about a month. He was in the ED yesterday and discharged with Phenergan. Per his , he has been very weak and fatigued and had decreased by mouth intake and appeared very dehydrated . denied any fevers but had been feeling chilly. He usually has issues with constipation his last bowel movement was 4 days ago. Per his the patient has been taking Dilaudid for abdominal pain. His oncologist is trying to wean him off the Dilaudid and and he was put on a scopolamine patch and fentanyl patch. The the fentanyl patch dose has been increased to 75 g a few days ago. Past Medical/Surgical History Medical Problems: (1) Anxiety Status: Chronic (2) Benign prostate hyperplasia Status: Chronic (3) Cholecystitis Status: Resolved (4) Esophageal cancer Status: Chronic (5) Precordial chest pain Status: Resolved Surgical Problems: (1) Right Nephrectomy Status: Chronic Family History Cancer Gallbladder disease Heart disease Hypertension Lung disease Social History Smoking Status: Former Smoker Drug Use: none Marital Status: Occupational Status: retired Immunizations History of Influenza Vaccine: Yes Influenza Vaccine Date: Jan 18, 2015 History of Tetanus Vaccine?: Unknown History of Pneumococcal: No History of Hepatitis B Vaccine: Unknown Multi-Drug Resistant Organisms History of MDRO: No Allergies Coded Allergies: No Known Allergies (Verified , 08/16/16) Home Medications Scheduled Allopurinol (Zyloprim), 300 MG PO QAM Docusate Sodium (Docusate Sodium), 100 MG PO BID Dronabinol (Marinol), 5 MG PO QID Duloxetine HCl (Duloxetine HCl), 30 MG PO QAM Esomeprazole Magnesium (Esomeprazole Magnesium), 40 MG PO BID Famotidine (Pepcid), 20 MG PO BID Fentanyl (Fentanyl), 75 MCG TOP [id number] Finasteride (Proscar), 5 MG PO QAM Lorazepam (Ativan), 0.5 MG PO Q6H Naloxegol Oxalate (Movantik), 25 MG PO DAILY Polyethylene Glycol 3350 (Miralax), 17 GM PO DAILY Prednisone Tab (Prednisone), 10 MG PO QAM Tamsulosin Hcl (Flomax), 0.4 MG PO QPM Scheduled PRN Hydromorphone HCl (Hydromorphone HCl), 2-4 MG PO Q4 PRN for MOD-SEVERE PAIN Ondansetron Hcl (Zofran), 8 MG PO Q8 PRN for Nausea Promethazine Hcl (Phenergan), 25 MG PO Q6H PRN for Nausea Review of Systems Constitutional: + chills, + fatigue, + problem reported (dehydrated), + weakness, No fever Eyes: No worsening of vision ENT: No hearing loss Respiratory: No cough, No shortness of breath Cardiovascular: No chest pain Abdomen: + constipation, + pain Musculoskeletal: No joint pain Genitourinary - Male: No hematuria Neurologic: No memory loss Psychiatric: + depression symptoms Endocrine: No excessive thirst Hematologic / Lymphatic: No abnormal bleeding/bruising Physical Exam Vital Signs Date Time Temp Pulse Resp B/P Pulse Ox O2 Delivery O2 Flow Rate FiO2 08/16/16 22:45 76 18 142/78 94 Room Air 08/16/16 20:57 82 20 133/75 94 Room Air 08/16/16 19:15 36.7 115 18 119/92 94 Room Air General Appearance: WD/WN, no apparent distress Head: normocephalic Eyes: normal inspection ENT: normal ENT inspection, hearing grossly normal Neck: supple Respiratory/Chest: chest non-tender, lungs clear, normal breath sounds, no respiratory distress, no accessory muscle use Cardiovascular: regular rate, rhythm Abdomen/GI: normal bowel sounds, + tenderness (diffuse tenderness) Back: normal inspection, normal range of motion Extremities/Musculoskelatal: normal inspection, no pedal edema Neurologic/Psych: alert, oriented x 3, + depressed affect Skin: warm/dry Diagnostics Laboratory Results Results Past 24 Hours Test 08/16/16 20:13 Range/Units White Blood Count 8.67 4.8-10.8 K/uL Red Blood Count 4.04 4.7-6.1 M/uL Hemoglobin 11.8 14.0-18.0 g/dL Hematocrit 34.7 42-52 % Mean Corpuscular Volume 85.9 80-100 fL Mean Corpuscular Hemoglobin 29.2 25-34 pg Mean Corpuscular Hemoglobin Concent 34.0 32-36 g/dl Platelet Count 230 130-400 K/uL Mean Platelet Volume 8.7 7.4-10.4 fL Neutrophils (%) (Auto) 67.4 % Lymphocytes (%) (Auto) 20.2 % Monocytes (%) (Auto) 9.9 % Eosinophils (%) (Auto) 1.6 % Basophils (%) (Auto) 0.3 % Neutrophils # (Auto) 5.84 1.4-6.5 K/uL Lymphocytes # (Auto) 1.75 1.2-3.4 K/uL Monocytes # (Auto) 0.86 0.11-0.59 K/uL Eosinophils # (Auto) 0.14 0-0.5 K/uL Basophils # (Auto) 0.03 0-0.2 K/uL RDW Standard Deviation 45.8 36.4-46.3 fL RDW Coefficient of Variation 14.7 11.5-14.5 % Immature Granulocyte % (Auto) 0.6 % Immature Granulocyte # (Auto) 0.05 0.00-0.02 K/uL Prothrombin Time 10.6 9.0-12.0 SECONDS Prothromb Time International Ratio 1.0 0.9-1.1 Activated Partial Thromboplast Time 23.6 21.0-31.0 SECONDS Partial Thromboplastin Ratio 0.9 Sodium Level 137 136-145 mmol/L Potassium Level 3.7 3.5-5.1 mmol/L Chloride Level 101 98-107 mmol/L Carbon Dioxide Level 29 21-32 mmol/L Anion Gap 7.0 3-11 mmol/L Blood Urea Nitrogen 8 7-18 mg/dl Creatinine 0.77 0.60-1.40 mg/dl Est Creatinine Clear Calc Drug Dose 92.2 ml/min Estimated GFR () 106.6 Estimated GFR (Non- 91.9 BUN/Creatinine Ratio 10.3 10-20 Random Glucose 99 70-99 mg/dl Lactic Acid Level 1.1 0.4-2.0 mmol/L Calcium Level 9.1 8.5-10.1 mg/dl Magnesium Level 1.7 1.8-2.4 mg/dl Total Bilirubin 0.9 0.2-1 mg/dl Aspartate Amino Transf (AST/SGOT) 40 15-37 U/L Alanine Aminotransferase (ALT/SGPT) 56 12-78 U/L Alkaline Phosphatase 451 45-117 U/L Troponin I < 0.015 0-0.045 ng/ml Total Protein 6.1 6.4-8.2 gm/dl Albumin 2.9 3.4-5.0 gm/dl Globulin 3.2 2.5-4.0 gm/dl Albumin/Globulin Ratio 0.9 0.9-2 Lipase 149 73-393 U/L Thyroid Stimulating Hormone (TSH) 1.160 0.300-4.500 uIu/ml Microbiology Results 08/16/16 Blood Culture, Received Pending 08/16/16 Blood Culture, Received Pending Diagnostic Radiology CHEST ONE VIEW PORTABLE CLINICAL HISTORY: ABDOMINAL PAIN/GI COMPARISON STUDY: 08/15/2016 FINDINGS: The bones soft tissues and hemidiaphragms are normal. The cardiomediastinal silhouette is normal. The lungs are clear. The pulmonary vasculature is normal. IMPRESSION: Negative chest. ABDOMEN AND PELVIS CT WITH IV CONTRAST CT DOSE: 423.32 mGy.cm HISTORY: Pain ABD PAIN, POSS OBSTRUCTION, IV CONTRAST ONLY TECHNIQUE: Multiaxial CT images of the abdomen and pelvis were performed following the use of intravenous contrast. COMPARISON STUDY: 08/02/2016 FINDINGS: Esophageal stent surrounding thickened esophageal wall. Stent appears to be soft tissue occluded. This is progressive compared to the prior study where there was near complete occlusion. Hepatic metastatic change slightly variable in terms of appearance from the prior study but nevertheless stable. Upper abdominal 100. No adenopathy stable. Bowel pattern within the abdomen and pelvis is considered nonobstructive. Skeletal metastatic disease stable. Small amount of fluid within the pelvic cul-de-sac considered an interval finding. Mild chronic colonic diverticulosis. No evidence for acute diverticulitis. IMPRESSION: 1. Esophageal stent now showing soft tissue occlusion. 2. Nonobstructive bowel pattern. 3. Stable abdominal and pelvic adenopathy. 4. Interval development of a small amount of cul-de-sac fluid. 6. Hepatic metastatic disease similar. 7. Skeletal metastatic change similar. Impression Assessment and Plan 70-year-old male with past medical history of esophageal cancer status post esophageal stent placement, 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 He has been experiencing abdominal pain and intermittent nausea for about a month. He has had decreased by mouth intake and has been very dehydrated and feeling very weak and fatigued. Abdominal pain: - Chronic but likely worsened by constipation secondary to opioid use - CT abdomen and pelvis: 1. Esophageal stent now showing soft tissue occlusion. 2. Nonobstructive bowel pattern. 3. Stable abdominal and pelvic adenopathy. 4. Interval development of a small amount of cul- de-sac fluid. 6. Hepatic metastatic disease similar. 7. Skeletal metastatic change similar. - Continue fentanyl patch - Continue scopolamine patch - Bowel regimen Generalized weakness/dehydration and decreased appetite - likely secondary to decreased by mouth intake: - Continue IV fluids - CT abdomen and pelvis - Esophageal stent now showing soft tissue occlusion. - Consult gastroenterology -Continue dronabinol BPH : - Continue finasteride Gout - Continue allopurinol Depression: The patient appeared very frustrated and depressed about his diagnosis/prognosis requests psychiatric involvement to help him cope with diagnosis - Consult psychiatry/support group - Continue home meds DVT prophylaxis: - Heparin subcutaneous Full code Disposition :admitted to [facility] Level of Care Med/Surg Advanced Directives Existing Living Will: Yes Resuscitation Status FULL RESUSCITATION VTE Prophylaxis VTE Risk Assessment Done? Y/N: Yes Risk Level: Moderate Given or contraindicated: Unfractionated heparin SQ Resident Tracking Resident Involvement: Resident Care Provided Care Provided: Adult [facility] Medicine Assessment and Plan Attending Addendum: I have physically seen and examined this patient, have directed their medical care, have supervised the medical residents activities, and agree with the H&P as noted above, with the following changes: NONE
[2016-08-17] VITALS (8 sets, daily range): BP systolic 111–126; BP diastolic 65–75; PULSE 69–95; TEMP 36.5–37.4; O2SAT 94–96; BMI 25.6
[2016-08-17] MEDS ORDERED: POLYETHYLENE (MIRALAX) 17 GM PACK PO PRN
[2016-08-17] MEDS ORDERED: PROMETHAZINE HCL 25 MG TAB PO PRN
[2016-08-17] MEDS ORDERED: MAGNESIUM HYDROXIDE SUSP 30 ML UDC PO PRN
[2016-08-17] MEDS ORDERED: ACETAMINOPHEN 325 MG TAB PO PRN
[2016-08-17] MEDS ORDERED: HYDROmorphone HCL 2 MG TAB PO PRN
[2016-08-17] MEDS ORDERED: FENTANYL 25 MCG/HR TDSY TD SCH
[2016-08-17] MEDS ORDERED: ALUMINUM/MAGNESIUM/SIMETH (MAALOX MAX) 30 ML UDC PO PRN
[2016-08-17] MEDS: NSS + 20MEQ KCL 1000ML 1,000 ML IV SCH ×3 (01:35→21:24)
[2016-08-17] MEDS ORDERED: NURSING DECISION MEDICATION ORDER SCH (02:00)
[2016-08-17] MEDS: LORAZEPAM 0.5 MG TAB PO SCH ×4 (06:00→23:39)
[2016-08-17 07:12] LABS: BASO % 0.4 %; BASO ABS # 0.03 K/uL (0-0.2); COMPLETE YES; EOS % 2.3 %; HEMATOCRIT 32.5 % (42-52); IG% 0.7 %; LYMPH % 21.9 %; LYMPH ABS # 1.65 K/uL (1.2-3.4); MEAN CELL VOLUME 86.9 fL (80-100); MEAN CORPUSCULAR HEMOGLOBIN 28.9 pg (25-34); MEAN CORPUSCULAR HGB CONC 33.2 g/dl (32-36); MEAN PLATELET VOLUME 9.3 fL (7.4-10.4); MONO % 9.8 %; NEUT % 64.9 %; PLATELET COUNT 208 K/uL (130-400); RED BLOOD COUNT 3.74 M/uL (4.7-6.1); WHITE BLOOD COUNT 7.54 K/uL (4.8-10.8)
[2016-08-17 07:51] LABS: BUN/CREATININE RATIO 11.6 (10-20); CALCIUM 8.4 mg/dl (8.5-10.1); CREATININE 0.7 mg/dl (0.60-1.40); POTASSIUM 3.9 mmol/L (3.5-5.1)
[2016-08-17 07:54] LABS: ALB/GLOB RATIO 0.9 (0.9-2)
[2016-08-17] MEDS ORDERED: CHECK FENTANYL PATCH PLACEMENT SCH (08:00)
[2016-08-17] MEDS ORDERED: DULOXETINE (CYMBALTA) 30 MG CAP PO SCH (08:00)
[2016-08-17] MEDS: DOCUSATE SODIUM 100 MG CAP PO SCH ×2 (08:43→21:25)
[2016-08-17] MEDS: FAMOTIDINE 20 MG TAB PO SCH ×2 (08:44→21:26)
[2016-08-17] MEDS: PANTOprazole SOD 40 MG TAB PO SCH ×2 (08:44→21:25)
[2016-08-17] MEDS: ALLOPURINOL 300 MG TAB PO SCH (08:44)
[2016-08-17] MEDS: ONDANSETRON 8 MG TAB PO PRN (08:45)
[2016-08-17] MEDS: POLYETHYLENE (MIRALAX) 17 GM PACK PO SCH (08:45)
[2016-08-17] MEDS: FINASTERIDE 5 MG TAB PO SCH (08:45)
[2016-08-17] MEDS: DRONABINOL 2.5 MG CAP PO SCH ×4 (08:52→21:24)
[2016-08-17] MEDS ORDERED: ENOXAPARIN 40 MG/0.4 ML SYR SQ SCH (09:00)
--- NOTE | 2016-08-17 09:48 | Gastrointestinal Consultation ---
Gastrointestinal Consultation Date of Consultation: Aug 17, 2016 Attending Physician: Dr. Macario Consulting Physician: Dr. Lopez/JACKSON Chris Reason for Consultation: Questionable stent occlusion History of Present Illness Patient is a 70 year old male with a history of esophageal cancer status post esophageal stent placement by Dr. Loepz with ongoing symptoms of chest and epigastric pain that have been chronic. He has been treated with PPI, Carafate, GI cocktails, viscous lidocaine and dietary modification with minimal benefit to his symptoms. He verbalizes frustration with ongoing discomfort as well as nausea, loss of appetite, weight loss and progressive weakness. He was in the ER two days ago with concerns for dehydration and returned the following day with subsequent admission. A CT a/p with IV enhancement was performed and questions the possibility of soft tissue occlusion. He denies any dysphagia, odynophagia, vomiting or hematemesis, however. Additionally, he recently underwent a diagnostic EGD by Dr. Lopez on 07/18/16 and at that time the stent was patent. The only other associated symptoms he reports are epigastric pain and constipation which has been a chronic issue in regard to use of opioid analgesics for pain. Denies any melena or hematochezia. Past Medical/Surgical History Medical Problems: (1) Abdominal pain Status: Acute (2) Dehydration Status: Acute (3) Diffuse abdominal pain Status: Acute (4) Epigastric abdominal pain Status: Acute (5) Esophageal cancer Status: Chronic (6) Esophagitis Status: Acute (7) Failure of outpatient treatment Status: Acute (8) GI bleed Status: Acute (9) Metastasis from esophageal cancer Status: Acute (10) Metastatic cancer Status: Acute (11) Nausea Status: Acute (12) Nausea & vomiting Status: Acute (13) Symptomatic cholelithiasis Status: Acute Past Medical History: 1. Anxiety 2. Benign prostate hyperplasia 3. Cholecystitis 4. Esophageal cancer 5. Chest pain Past Surgical History: 1. A port placement 2. EGD 3. Right nephrectomy Family History Cancer Gallbladder disease Heart disease Hypertension Lung disease Social History Smoking Status: Former Smoker Alcohol Use: none Drug Use: none Marital Status: in relationship Housing Status: lives alone Occupation Status: retired Allergies Coded Allergies: No Known Allergies (Verified , 08/16/16) Current Medications Home Meds and Scripts Medications Dose Route/Sig Max Daily Dose Days Date Category Dose Instructions Miralax (Polyethylene Glycol 3350) 1 Pow Pow 17 Gm PO DAILY 08/16/16 Reported Phenergan (Promethazine HCl) 25 Mg Tab 25 Mg PO Q6H PRN 08/16/16 Rx Hydromorphone HCl 2 Mg Tab 2-4 Mg PO Q4 PRN 08/16/16 Reported Esomeprazole Magnesium 40 Mg Cap 40 Mg PO BID 08/16/16 Reported Fentanyl 25 Mcg Tdsy 75 Mcg TOP CQ72HR 08/16/16 Reported CHANGE AT 10 AM START 75MCG ON 08/16/16 Marinol (Dronabinol) 5 Mg Cap 5 Mg PO QID 08/16/16 Reported Pepcid (Famotidine) 20 Mg Tab 20 Mg PO BID 08/16/16 Reported Duloxetine HCl 30 Mg Cap 30 Mg PO QAM 08/02/16 Reported Zyloprim (Allopurinol) 300 Mg Tab 300 Mg PO QAM 08/02/16 Reported Movantik (Naloxegol Oxalate) 25 Mg Tab 25 Mg PO DAILY 07/20/16 Reported Docusate Sodium 100 Mg Cap 100 Mg PO BID 15 07/20/16 Rx Ativan (Lorazepam) 0.5 Mg Tab 0.5 Mg PO Q6H 06/26/16 Reported Proscar (Finasteride) 5 Mg Tab 5 Mg PO QAM 11/27/15 Reported Flomax (Tamsulosin Hcl) 0.4 Mg Cap 0.4 Mg PO QPM 11/27/15 Reported Zofran (Ondansetron HCl) 8 Mg Tab 8 Mg PO Q8 PRN 11/27/15 Reported Prednisone 10 Mg Tab 10 Mg PO QAM 11/27/15 Reported Review of Systems Constitutional: + fatigue, + weakness, + weight loss, No chills, No fever Eyes: No problem reported ENT: No pain on swallowing, No trouble swallowing Respiratory: No cough, No wheezing Cardiac: + chest pain, No palpitations Abdomen: + constipation, + nausea, + pain, No GI bleeding, No vomiting Musculoskeletal: No problem reported Male : No problem reported Neuro: No problem reported Psych: No problem reported Physical Exam Date Time Temp Pulse Resp B/P Pulse Ox O2 Delivery O2 Flow Rate FiO2 08/17/16 07:32 36.9 74 18 115/71 94 Room Air 08/17/16 04:23 36.8 95 16 126/71 94 Room Air 08/17/16 01:33 37.0 72 16 124/74 94 Room Air 08/17/16 00:43 71 20 129/65 93 Room Air 08/16/16 22:45 76 18 142/78 94 Room Air 08/16/16 20:57 82 20 133/75 94 Room Air 08/16/16 19:15 36.7 115 18 119/92 94 Room Air General Appearance: WD/WN, no apparent distress Eyes: EOMI ENT: hearing grossly normal Neck: supple Respiratory/Chest: lungs clear, normal breath sounds, no respiratory distress Cardiovascular: regular rate, rhythm, no gallop, no murmur Abdomen: normal bowel sounds, non tender, soft Extremities: normal range of motion, non-tender, normal inspection Neurologic/Psych: alert, normal mood/affect, oriented x 3 Skin: no jaundice, warm/dry Laboratory Results Last 24 Hours Test 08/16/16 20:13 08/17/16 06:53 White Blood Count 8.67 K/uL 7.54 K/uL Red Blood Count 4.04 M/uL 3.74 M/uL Hemoglobin 11.8 g/dL 10.8 g/dL Hematocrit 34.7 % 32.5 % Mean Corpuscular Volume 85.9 fL 86.9 fL Mean Corpuscular Hemoglobin 29.2 pg 28.9 pg Mean Corpuscular Hemoglobin Concent 34.0 g/dl 33.2 g/dl Platelet Count 230 K/uL 208 K/uL Mean Platelet Volume 8.7 fL 9.3 fL Neutrophils (%) (Auto) 67.4 % 64.9 % Lymphocytes (%) (Auto) 20.2 % 21.9 % Monocytes (%) (Auto) 9.9 % 9.8 % Eosinophils (%) (Auto) 1.6 % 2.3 % Basophils (%) (Auto) 0.3 % 0.4 % Neutrophils # (Auto) 5.84 K/uL 4.90 K/uL Lymphocytes # (Auto) 1.75 K/uL 1.65 K/uL Monocytes # (Auto) 0.86 K/uL 0.74 K/uL Eosinophils # (Auto) 0.14 K/uL 0.17 K/uL Basophils # (Auto) 0.03 K/uL 0.03 K/uL RDW Standard Deviation 45.8 fL 46.7 fL RDW Coefficient of Variation 14.7 % 15.0 % Immature Granulocyte % (Auto) 0.6 % 0.7 % Immature Granulocyte # (Auto) 0.05 K/uL 0.05 K/uL Prothrombin Time 10.6 SECONDS Prothromb Time International Ratio 1.0 Activated Partial Thromboplast Time 23.6 SECONDS Partial Thromboplastin Ratio 0.9 Sodium Level 137 mmol/L 139 mmol/L Potassium Level 3.7 mmol/L 3.9 mmol/L Chloride Level 101 mmol/L 105 mmol/L Carbon Dioxide Level 29 mmol/L 26 mmol/L Anion Gap 7.0 mmol/L 8.0 mmol/L Blood Urea Nitrogen 8 mg/dl 8 mg/dl Creatinine 0.77 mg/dl 0.70 mg/dl Est Creatinine Clear Calc Drug Dose 92.2 ml/min 101.4 ml/min Estimated GFR () 106.6 110.8 Estimated GFR (Non- 91.9 95.6 BUN/Creatinine Ratio 10.3 11.6 Random Glucose 99 mg/dl 95 mg/dl Lactic Acid Level 1.1 mmol/L Calcium Level 9.1 mg/dl 8.4 mg/dl Magnesium Level 1.7 mg/dl Total Bilirubin 0.9 mg/dl 0.9 mg/dl Aspartate Amino Transf (AST/SGOT) 40 U/L 46 U/L Alanine Aminotransferase (ALT/SGPT) 56 U/L 57 U/L Alkaline Phosphatase 451 U/L 430 U/L Troponin I < 0.015 ng/ml Total Protein 6.1 gm/dl 5.6 gm/dl Albumin 2.9 gm/dl 2.6 gm/dl Globulin 3.2 gm/dl 3.0 gm/dl Albumin/Globulin Ratio 0.9 0.9 Lipase 149 U/L Thyroid Stimulating Hormone (TSH) 1.160 uIu/ml Impression Patient is a 70 year old male with a history of esophageal cancer status post stent placement with ongoing symptoms of chest and epigastric pain with new onset of nausea and decreased appetite and abnormal CT imaging which suggests a soft tissue stent obstruction. Plan Given the fact that the patient is able to swallow without difficulty, not vomiting and demonstrated a patent stent just a few weeks ago, I doubt the patient does in fact have an occluded esophageal stent. In that regard, I would recommend a clear liquid diet for now and a Gastrografin UGI series for further evaluation in this regard. Additional recommendations pending results of testing. If no obstruction, could be restarted on mechanical soft/pureed consistency diet. Continue supportive care with BID Protonix and antiemetics as prescribed. If decreased appetite and weight loss continue, could consider Megace. Thank you for allowing us to participate in the care of this patient. If you have any questions or concerns, please do not hesitate to contact us. Agree with JACKSON Chris as above Abd: Soft, NT, ND, +BS Continue current therapy Advance diet as tolerated as his UGI series was unremarkable.
--- NOTE | 2016-08-17 09:53 | ONCOLOGY CONSULTATION ---
DATE OF CONSULTATION: 08/17/2016 DATE OF CONSULTATION: 08/17/2016. ATTENDING OF CONSULTATION: Intractable nausea and vomiting. HISTORY OF PRESENT ILLNESS: Shawn is a pleasant 70-year-old gentleman well known to [facility], currently under Dr. Nacho Ybarra's care for metastatic esophageal cancer involving retroperitoneal lymph nodes and liver. Tito has been battling with intermittent abdominal pain and nausea for well over a month. Different agents have been tried recently instituted Marinol to try to increase his appetite and stabilize sensation of nausea. Tito relates he is able to eat, has no problem with dysphagia per se, but has this persistent feeling of nausea that has not resolved. The oncology service has tried to wean his opioids and actually had a scopolamine patch recently. Tito has expressed some frustration, he has been in and out of the Emergency Room and trying to seek resolution. His last visit was yesterday. He was given Phenergan and subsequently sent home. I received a call from the answering service advising me his was taking him back to the Emergency Room for further evaluation. PAST MEDICAL HISTORY: Significant for metastatic esophageal cancer, anxiety, benign prostatic hypertrophy, cholecystitis. PAST SURGICAL HISTORY: Right nephrectomy. MEDICATIONS: Prior to admission include allopurinol 300 mg p.o. q.a.m., docusate sodium 10 mg p.o. b.i.d., Marinol 5 mg p.o. q.i.d., duloxetine 30 mg p.o. daily, Nexium 40 mg p.o. b.i.d., famotidine 20 mg p.o. b.i.d., fentanyl 75 mcg topically q. 72 hours, finasteride 5 mg p.o. daily, Ativan 0.5 mg p.o. q. 6 hours, Movantik 25 mg p.o. q. daily, MiraLax 17 grams p.o. q. daily, prednisone 10 mg p.o. q.a.m., Flomax 0.4 mg p.o. q.p.m. ALLERGIES: No known drug allergies. SOCIAL HISTORY: The patient is , reformed smoker and retired. FAMILY HISTORY: Positive for cancer, gallbladder disease, heart disease, hypertension, lung disease. REVIEW OF SYSTEMS: As per HPI, negative for fevers, chills or sweats. He is not anorexic or losing weight. SKIN: No rashes or lesions. No history of dermatoses. HEAD, EYES, EARS, NOSE, AND THROAT: Negative for headaches, lightheadedness or dizziness. No dysphagia or sore throat. LYMPH: No history of lymphoproliferative disorder. CARDIAC: Negative for coronary artery disease, no angina or palpitations. PULMONARY: Negative for COPD. No shortness of breath, dyspnea or orthopnea. No cough or hemoptysis. GASTROINTESTINAL: As per HPI. GENITOURINARY: Positive for BPH. No current hematuria, dysuria, urinary incontinence. PSYCHIATRIC: Positive for anxiety/depression. ENDOCRINE: Negative for diabetes or thyroid disease. NEUROLOGIC: Negative for seizure, stroke, or migraine headache. HEMATOLOGIC: Positive for mild normocytic, normochromic anemia. PHYSICAL EXAMINATION: GENERAL: Very pleasant 70-year-old gentleman awake, alert and appropriate in no acute distress at this time. VITAL SIGNS: Temperature 36.9, pulse 74, respirations 18, blood pressure 115/71. SKIN: Warm, dry, noncyanotic with petechia, rash or ecchymosis. HEAD, EYES, EARS, NOSE, AND THROAT: Atraumatic, normocephalic. EYES: PERRLA, EOMI. Sclerae nonicteric. No conjunctival injection. Nares patent without rhinorrhea or discharge. Throat is clear. Tongue is midline. Mucous membranes are moist. NECK: Supple without JVD or thyromegaly. LYMPH: No cervical, supraclavicular, axillary or inguinal palpable nodes. HEART: Regular rate and rhythm. No clicks, rubs, murmurs, gallops. LUNGS: Clear to auscultation bilaterally. ABDOMEN: Soft, nontender, nondistended, without palpable hepatosplenomegaly. EXTREMITIES: No calf tenderness or swelling. No clubbing, cyanosis or edema. NEUROLOGICALLY: He is awake, alert and oriented x3. Cranial nerves II-XII are intact. No gross motor or sensory deficits are noted. RADIOGRAPHIC DATA: CT scan of the abdomen and pelvis done on admission reveals a nonobstructive bowel pattern, stable abdominal and pelvic lymphadenopathy. Interval development of a small amount of cul-de-sac fluid, hepatic metastatic disease similar, esophageal stent revealing a soft tissue occlusion. Chest x-ray on admission was unremarkable. LABORATORY DATA: WBC count 7,540, hemoglobin 10.8, platelet count 208,000. Sodium 139, potassium 3.9, chloride 105, carbon dioxide 26, creatinine 0.7, BUN 8, alkaline phosphatase markedly elevated at 430. Albumin decreased 2.6. LFTs otherwise reveal a very mildly elevated AST at 46. IMPRESSION: 1. Intractable nausea. 2. Metastatic esophageal cancer. 3. Possible esophageal stent obstruction. 4. Depression/anxiety. PLAN: I had the pleasure of seeing Tito at bedside today. He expressed a fair amount of frustration with his ongoing struggle with persistent nausea. He has been followed closely by Dr. Ybarra and JACKSON Perez and multiple interventions have been tried to yoly these symptoms. Most recently was started on Marinol taking 5 mg p.o. q.i.d. Perhaps the addition of a promotilic agent such as Reglan may be helpful. I generally recommend 5-10 mg p.o. q.i.d. Perhaps raising his Marinol dose might be helpful as well. Tito advised me that he did undergo EGD about 3 weeks ago. It is conceivable the stent has moved thus resulting in the soft tissue obstruction. It would not be unreasonable to have GI take a look at him again consider EGD to see if the stent has indeed migrated. I will ensure Mr. Howell is scheduled for outpatient visit with Dr. Ybarra or Rena Marin upon discharge. I have nothing further to add at this time, but will continue to follow him periodically during his hospital stay. Thank you again for allowing us to assist in the care of this very pleasant gentleman. [facility]
--- NOTE | 2016-08-17 13:14 | Psychiatric Consultation ---
Consultation Date of Consultation Aug 17, 2016. Identifying Data Shawn Howell is a 70-year-old male who was admitted to the medical floor with persistent nausea and abdominal pain in the context of metastatic esophageal cancer. We are requested to evaluate depression. Information is gathered from the patient, the electronic medical record, and considered to be reliable. Chief Complaint "I've just been feeling poorly.". History of Present Illness Shawn Howell is a 70-year-old gentleman who was diagnosed last year esophageal cancer and now has metastasis to her lymph nodes, liver and spine. He has had an esophageal stent placement as well. Over the last month or so, he has been experiencing a persistent sense of nausea that is interfering with his ability to eat. He reports a recent 12 pound weight loss. He has been trying himself to figure out whether this is a side effect to medications or some other process and has had multiple visits to the emergency due to his symptoms. He also experiences persistent abdominal pain as well. He admits that he has been depressed and anxious regarding his condition. He finds himself ruminating about what's to come, about not feeling well and about the end of his life. His sleep has been disturbed waking every 1-2 hours and not feeling rested during the day. He describes feeling that everything is an effort. He has had several recent short stays at the hospital, says that he feels better when he is in the hospital and then when he goes home, pain and nausea recur. He finds it frustrating that nobody can tell him specifically why he is experiencing these symptoms. He's had several rounds of chemotherapy the last of which he said was "tough". He is now on a new agent that they're hopeful will help to control his illness. He has been on opiates, currently on a fentanyl patch 75 g daily which they have been trying to wean down on. He has reported some visual hallucinations being on the fentanyl patch, specifically recently thinking that he had a flower in his hand and tried to hand to his significant other Imani. He denies hallucinations at any other time. He denies that he is suicidal and is committed to continuing to fight his cancer. He has never been one, by his own descriptions, to share his emotional feelings having grown up in an era where you pushed through such things. He admits that he allows Radha to do a great deal of his talking for him especially in view of the fact he has trouble remembering names and timelines. Past Psychiatric History Current OP Treatment: no current treatment Prior OP Treatment: therapist (after his first ) Prior Psych Hospitalizations: none Access to a Gun: Yes (locked but he has the croft) Suicide Attempts: No Past Medication Trials none Past Medical/Surgical History History of Concussion/Seizure: No (1) Esophageal cancer Allergies Allergies: Coded Allergies: No Known Allergies (Verified , 08/16/16) Home Medications Scheduled Allopurinol (Zyloprim), 300 MG PO QAM Docusate Sodium (Docusate Sodium), 100 MG PO BID Dronabinol (Marinol), 5 MG PO QID Duloxetine HCl (Duloxetine HCl), 30 MG PO QAM Esomeprazole Magnesium (Esomeprazole Magnesium), 40 MG PO BID Famotidine (Pepcid), 20 MG PO BID Fentanyl (Fentanyl), 75 MCG TOP [id number] Finasteride (Proscar), 5 MG PO QAM Lorazepam (Ativan), 0.5 MG PO Q6H Naloxegol Oxalate (Movantik), 25 MG PO DAILY Polyethylene Glycol 3350 (Miralax), 17 GM PO DAILY Prednisone Tab (Prednisone), 10 MG PO QAM Tamsulosin Hcl (Flomax), 0.4 MG PO QPM Scheduled PRN Hydromorphone HCl (Hydromorphone HCl), 2-4 MG PO Q4 PRN for MOD-SEVERE PAIN Ondansetron Hcl (Zofran), 8 MG PO Q8 PRN for Nausea Promethazine Hcl (Phenergan), 25 MG PO Q6H PRN for Nausea Family History Cancer Gallbladder disease Heart disease Hypertension Lung disease History of Suicide: No History of Substance Abuse: No Psychiatric History: No Alcohol Use Alcohol Use In Past 12 Months: No Smoking Use Smoking Status: Former Smoker Personal History Lives in: [place] Education: graduated college Work History: Retired from the banking industry Relationship History: (has been with his girlfriend for 11 years) Children: 1 daughter who lives in [place] Review of Systems Constitutional: malaise Eyes: denies: as stated in HPI, blurred vision, discharge, double vision, eye pain, itching, no symptoms, other, photophobia, redness, tearing, visual changes ENT: denies: dental pain, ear discharge, ear pain, epistaxis, gum swelling, loss of hearing, mouth pain, mouth swelling, nasal congestion, nasal pain, no symptoms reported, other, rhinorrhea, see HPI, sore throat, stidor, throat swelling, tinnitus Cardiovascular: denies: chest pain, chest pressure, chest tightness, diaphoresis, no symptoms reported, other, palpitations, see HPI, syncope Respiratory: denies: FISH, PND, cough, cyanosis, no symptoms reported, orthopnea , other, see HPI, short of breath, sputum production, stridor, wheezing Gastrointestinal: abdominal pain, nausea Genitourinary - Male: denies: amenorrhea, impotence, no symptoms, other, penile discharge, penile itching, rash, see HPI, testicular pain, testicular swelling Musculoskeletal: back pain Integumentary: denies no symptoms reported, denies see HPI, denies change in color, denies change in hair/nails, denies dryness, denies lesions, denies lumps , denies rash, denies other Neurologic: denies: dizziness, focal weakness, general weakness, headache, lethargy, memory loss, no symptoms, numbness, other, paresthesias, pre-existing deficit, see HPI, seizure, tics, tingling, tremors, vertigo Endocrine: denies: as stated in HPI, cold intolerance, goiter, hair changes, heat intolerance, no symptoms, other, polydipsia, polyuria, skin changes Hematologic / Lymphatic: denies: abnormal clotting, adenopathy, anemia, as stated in HPI, easy bleeding, easy bruising, gums bleeding, no symptoms, other, petechiae Examination Physical Examination As per Dr. Macario Vital Signs Vital Signs Past 12 Hours Date Time Temp Pulse Resp B/P Pulse Ox O2 Delivery O2 Flow Rate FiO2 08/17/16 11:25 36.5 69 18 126/75 94 Room Air 08/17/16 08:40 94 Room Air 08/17/16 07:32 36.9 74 18 115/71 94 Room Air 08/17/16 04:23 36.8 95 16 126/71 94 Room Air 08/17/16 01:33 37.0 72 16 124/74 94 Room Air Laboratory Results Last 24 Hours Test 4/19/17 20:13 08/17/16 06:53 White Blood Count 8.67 K/uL 7.54 K/uL Red Blood Count 4.04 M/uL 3.74 M/uL Hemoglobin 11.8 g/dL 10.8 g/dL Hematocrit 34.7 % 32.5 % Mean Corpuscular Volume 85.9 fL 86.9 fL Mean Corpuscular Hemoglobin 29.2 pg 28.9 pg Mean Corpuscular Hemoglobin Concent 34.0 g/dl 33.2 g/dl Platelet Count 230 K/uL 208 K/uL Mean Platelet Volume 8.7 fL 9.3 fL Neutrophils (%) (Auto) 67.4 % 64.9 % Lymphocytes (%) (Auto) 20.2 % 21.9 % Monocytes (%) (Auto) 9.9 % 9.8 % Eosinophils (%) (Auto) 1.6 % 2.3 % Basophils (%) (Auto) 0.3 % 0.4 % Neutrophils # (Auto) 5.84 K/uL 4.90 K/uL Lymphocytes # (Auto) 1.75 K/uL 1.65 K/uL Monocytes # (Auto) 0.86 K/uL 0.74 K/uL Eosinophils # (Auto) 0.14 K/uL 0.17 K/uL Basophils # (Auto) 0.03 K/uL 0.03 K/uL RDW Standard Deviation 45.8 fL 46.7 fL RDW Coefficient of Variation 14.7 % 15.0 % Immature Granulocyte % (Auto) 0.6 % 0.7 % Immature Granulocyte # (Auto) 0.05 K/uL 0.05 K/uL Prothrombin Time 10.6 SECONDS Prothromb Time International Ratio 1.0 Activated Partial Thromboplast Time 23.6 SECONDS Partial Thromboplastin Ratio 0.9 Sodium Level 137 mmol/L 139 mmol/L Potassium Level 3.7 mmol/L 3.9 mmol/L Chloride Level 101 mmol/L 105 mmol/L Carbon Dioxide Level 29 mmol/L 26 mmol/L Anion Gap 7.0 mmol/L 8.0 mmol/L Blood Urea Nitrogen 8 mg/dl 8 mg/dl Creatinine 0.77 mg/dl 0.70 mg/dl Est Creatinine Clear Calc Drug Dose 92.2 ml/min 101.4 ml/min Estimated GFR () 106.6 110.8 Estimated GFR (Non- 91.9 95.6 BUN/Creatinine Ratio 10.3 11.6 Random Glucose 99 mg/dl 95 mg/dl Lactic Acid Level 1.1 mmol/L Calcium Level 9.1 mg/dl 8.4 mg/dl Magnesium Level 1.7 mg/dl Total Bilirubin 0.9 mg/dl 0.9 mg/dl Aspartate Amino Transf (AST/SGOT) 40 U/L 46 U/L Alanine Aminotransferase (ALT/SGPT) 56 U/L 57 U/L Alkaline Phosphatase 451 U/L 430 U/L Troponin I < 0.015 ng/ml Total Protein 6.1 gm/dl 5.6 gm/dl Albumin 2.9 gm/dl 2.6 gm/dl Globulin 3.2 gm/dl 3.0 gm/dl Albumin/Globulin Ratio 0.9 0.9 Lipase 149 U/L Thyroid Stimulating Hormone (TSH) 1.160 uIu/ml Mental Examination During interview pt is: alert and oriented Appearance: appropriately groomed Eye contact is: good Motor behavior is: no abnormal motor movements Speech: normal in rate, rhythm & volume Affect: depressed, tearful (at times) Mood is: depressed, anxious Thought process: goal directed Thought content: reality based without delusions Suicidal thought are: denied Homicidal thoughts are: denied Hallucinations: visual (of a flower under the influence of fentanyl) Cognition: memory grossly intact, attention grossly intact, language grossly intact Intelligence estimated to be: average Insight: fair Judgement: fair Impression / Recommendations Impression 70-year-old gentleman admitted to the hospital with nausea and abdominal pain in the setting of metastatic esophageal cancer. His primary complaint is that of persistent symptoms of nausea and upper abdominal pain which may be a side effect to medications or there is a possibility that his stent has migrated. His oncologist has suggested a GI consult which has been completed and there is low likelihood for this and have suggested a clear liquid diet. The patient has been on Cymbalta 30 mg daily for pain and has found that helpful to some degree. We discussed several options for treatment including increasing his Cymbalta to 60 mg daily to target mood, anxiety and abdominal pain. We also reviewed the option for a trial of Remeron which would target his sleep, and help to quiet his GI system. After his second discussion about medications, the patient prefers to increase the Cymbalta to see if that's helpful because he has had such good success with it controlling the pain in his hands and feet. He is willing to consider Remeron as a second option. We would suggest you start at 7.5 mg moving to 15 mg at at time if this is needed. We have also talked about the benefits of having a counselor to talk to as he goes through this process. As per the history of present illness, he is a proud man who does not necessarily want to talk about his emotions, but made good use of our time together and felt the benefit of talk therapy. He will think about this and I will have our liaison nurse return tomorrow to see if he would like us to facilitate an outpatient appointment. Inventory Assets Strengths: Support from girlfriend Risk Factors Assessment Male: Yes : Yes /single/: Yes Higher / Fall in social status: No Access to guns: Yes Health problems: Yes Mental Health Diagnoses: No Substance use disorders: No Previous psychiatric stay: No Smoker: No Protective Factors Assessment : No Responsible for young children: No Stable relationships: Yes Supportive family: Yes Recommendations (1) mood disorder related to medical condition 08/17 -Increase Cymbalta to 60 mg daily - Consider a trial of Remeron 7.5-15 mg at bedtime if nausea and insomnia persist -recommend outpatient counseling which the patient is willing to consider. Will have liaison nurse return tomorrow to check on the status Has been reviewed with Dr. Martin Davis
--- NOTE | 2016-08-17 14:00 | Progress Note ---
Subjective Date of Service: Aug 17, 2016. Subjective pt has issues with no appetite and post prandial pain, family feels that the fentanyl patches are not any more helpful but also cause more mental confusion and hallucinations, did speak to psychiatry and will agree to outpt follow up Problem List Medical Problems: (1) Abdominal pain Status: Acute (2) Dehydration Status: Acute (3) Diffuse abdominal pain Status: Acute (4) Epigastric abdominal pain Status: Acute (5) Esophageal cancer Status: Chronic (6) Esophagitis Status: Acute (7) Failure of outpatient treatment Status: Acute (8) GI bleed Status: Acute (9) Metastasis from esophageal cancer Status: Acute (10) Metastatic cancer Status: Acute (11) Nausea Status: Acute (12) Nausea & vomiting Status: Acute (13) Symptomatic cholelithiasis Status: Acute Review of Systems Constitutional: + weakness, No chills, No fever Respiratory: + cough, No dyspnea on exertion, No shortness of breath Cardiac: + chest pain, No edema Abdomen: + pain, + problem reported (anorexia), No diarrhea, No nausea, No vomiting Male : No dysuria, No urinary frequency Neurologic: + weakness, No memory loss Objective Vital Signs Date Time Temp Pulse Resp B/P Pulse Ox O2 Delivery O2 Flow Rate FiO2 08/17/16 07:32 36.9 74 18 115/71 94 Room Air 08/17/16 04:23 36.8 95 16 126/71 94 Room Air 08/17/16 01:33 37.0 72 16 124/74 94 Room Air 08/17/16 00:43 71 20 129/65 93 Room Air 08/16/16 22:45 76 18 142/78 94 Room Air 08/16/16 20:57 82 20 133/75 94 Room Air 08/16/16 19:15 36.7 115 18 119/92 94 Room Air Physical Exam General Appearance: WD/WN, + mild distress Neck: supple, trachea midline Respiratory/Chest: chest non-tender, lungs clear, normal breath sounds Cardiovascular: regular rate, rhythm, no murmur Abdomen: normal bowel sounds, non tender, soft Neurologic/Psychiatric: alert, oriented x 3 Laboratory Results Last 24 Hours Test 08/16/16 20:13 08/17/16 06:53 White Blood Count 8.67 K/uL 7.54 K/uL Red Blood Count 4.04 M/uL 3.74 M/uL Hemoglobin 11.8 g/dL 10.8 g/dL Hematocrit 34.7 % 32.5 % Mean Corpuscular Volume 85.9 fL 86.9 fL Mean Corpuscular Hemoglobin 29.2 pg 28.9 pg Mean Corpuscular Hemoglobin Concent 34.0 g/dl 33.2 g/dl Platelet Count 230 K/uL 208 K/uL Mean Platelet Volume 8.7 fL 9.3 fL Neutrophils (%) (Auto) 67.4 % 64.9 % Lymphocytes (%) (Auto) 20.2 % 21.9 % Monocytes (%) (Auto) 9.9 % 9.8 % Eosinophils (%) (Auto) 1.6 % 2.3 % Basophils (%) (Auto) 0.3 % 0.4 % Neutrophils # (Auto) 5.84 K/uL 4.90 K/uL Lymphocytes # (Auto) 1.75 K/uL 1.65 K/uL Monocytes # (Auto) 0.86 K/uL 0.74 K/uL Eosinophils # (Auto) 0.14 K/uL 0.17 K/uL Basophils # (Auto) 0.03 K/uL 0.03 K/uL RDW Standard Deviation 45.8 fL 46.7 fL RDW Coefficient of Variation 14.7 % 15.0 % Immature Granulocyte % (Auto) 0.6 % 0.7 % Immature Granulocyte # (Auto) 0.05 K/uL 0.05 K/uL Prothrombin Time 10.6 SECONDS Prothromb Time International Ratio 1.0 Activated Partial Thromboplast Time 23.6 SECONDS Partial Thromboplastin Ratio 0.9 Sodium Level 137 mmol/L 139 mmol/L Potassium Level 3.7 mmol/L 3.9 mmol/L Chloride Level 101 mmol/L 105 mmol/L Carbon Dioxide Level 29 mmol/L 26 mmol/L Anion Gap 7.0 mmol/L 8.0 mmol/L Blood Urea Nitrogen 8 mg/dl 8 mg/dl Creatinine 0.77 mg/dl 0.70 mg/dl Est Creatinine Clear Calc Drug Dose 92.2 ml/min 101.4 ml/min Estimated GFR () 106.6 110.8 Estimated GFR (Non- 91.9 95.6 BUN/Creatinine Ratio 10.3 11.6 Random Glucose 99 mg/dl 95 mg/dl Lactic Acid Level 1.1 mmol/L Calcium Level 9.1 mg/dl 8.4 mg/dl Magnesium Level 1.7 mg/dl Total Bilirubin 0.9 mg/dl 0.9 mg/dl Aspartate Amino Transf (AST/SGOT) 40 U/L 46 U/L Alanine Aminotransferase (ALT/SGPT) 56 U/L 57 U/L Alkaline Phosphatase 451 U/L 430 U/L Troponin I < 0.015 ng/ml Total Protein 6.1 gm/dl 5.6 gm/dl Albumin 2.9 gm/dl 2.6 gm/dl Globulin 3.2 gm/dl 3.0 gm/dl Albumin/Globulin Ratio 0.9 0.9 Lipase 149 U/L Thyroid Stimulating Hormone (TSH) 1.160 uIu/ml Assessment and Plan 70-M with significant history of esophageal cancer with metastasis status post esophageal stent placement now with concern for soft tissue occlusion of stent on CT Abdominal pain: nausea and decreased po intake - CT shows Esophageal stent now showing soft tissue occlusion with stable metastatic disease consult gastroenterology to comment -Iv dilaudid,, scopolamine patch, Family feels fentanyl patch has not been a good fit with no better pain control and some hallucinations, request to return to po dilaudid, will obligue, family states would rather set alarm at night than to have hallucinations, still having issues with neuropathic pain. Generalized weakness/dehydration and decreased appetite, IV fluids dronabinol BPH : finasteride Gout allopurinol Depression requests psychiatric involvement to help him cope with diagnosis DVT prophylaxis:- Heparin subcutaneous Full code
--- NOTE | 2016-08-17 14:16 | DIAGNOSTIC IMAGING REPORT ---
GI SERIES W/O KUB CLINICAL HISTORY: Gastric pain. Possible stent occlusion.Esophageal carcinoma. COMPARISON STUDY: CT scan dated 08/16/2016 FLUOROSCOPY TIME: 2 minutes. 13 fluoroscopic spot images were acquired.. FINDINGS: The study was initially performed with Gastrografin. There is no extravasation. The examination was then performed with barium. There is mild irregular narrowing of the distal esophagus at the proximal aspect of the stent. This is likely secondary to the patient's known neoplasm. The patient's distal esophageal stent is patent. No gastric masses are visualized. There is no gastric outlet obstruction. The duodenal bulb appears patent. The ligament Treitz is located in the normal anatomical position. IMPRESSION: 1. Distal esophageal stent. No evidence of stent occlusion 2. Luminal narrowing of the distal esophagus at the proximal aspect of the stent. The lumen is narrowed by approximately 50%. This may indicate neoplasm . Electronically signed by: Jose Renae M.D. 08/17/2016 2:14 PM Dictated Date/Time: 08/17/2016 2:10 PM
[2016-08-17] MEDS: HEPARIN SOD 5000 UNIT/0.5 ML CARP SQ SCH ×3 (14:41→21:24)
[2016-08-17] MEDS: HYDROmorphone HCL 2 MG TAB PO PRN (15:51)
[2016-08-17] MEDS: TAMSULOSIN HCL 0.4 MG CAP PO SCH (21:25)
[2016-08-18 00:36] VITALS: BP 110/62; PULSE 69; TEMP 37.2; O2SAT 95
[2016-08-18] MEDS: HYDROmorphone HCL 2 MG TAB PO PRN ×2 (03:48→23:03)
[2016-08-18 03:59] VITALS: BP 132/78; PULSE 84; TEMP 37.3; O2SAT 94
[2016-08-18] MEDS: LORAZEPAM 0.5 MG TAB PO SCH ×2 (05:48→12:00)
[2016-08-18] MEDS: HEPARIN SOD 5000 UNIT/0.5 ML CARP SQ SCH ×3 (05:52→21:49)
[2016-08-18] MEDS ORDERED: NALOXEGOL OXALATE 25 MG PO SCH (06:30)
[2016-08-18 06:36] VITALS: BMI 24.8
[2016-08-18] MEDS: NSS + 20MEQ KCL 1000ML 1,000 ML IV SCH ×2 (07:02→17:03)
[2016-08-18] MEDS: FAMOTIDINE 20 MG TAB PO SCH ×2 (07:50→20:00)
[2016-08-18] MEDS: FINASTERIDE 5 MG TAB PO SCH (07:51)
[2016-08-18] MEDS: ALLOPURINOL 300 MG TAB PO SCH (07:51)
[2016-08-18] MEDS: PANTOprazole SOD 40 MG TAB PO SCH ×2 (07:51→19:59)
[2016-08-18] MEDS: POLYETHYLENE (MIRALAX) 17 GM PACK PO SCH (07:52)
[2016-08-18] MEDS: DOCUSATE SODIUM 100 MG CAP PO SCH ×2 (07:52→20:00)
[2016-08-18 07:58] VITALS: BP 150/75; PULSE 75; TEMP 36.5; O2SAT 94
[2016-08-18] MEDS ORDERED: DULOXETINE HCL 60 MG CAP PO SCH (08:00)
--- NOTE | 2016-08-18 08:04 | Progress Note ---
Subjective Date of Service: Aug 18, 2016. Subjective pt has acute delirium with visual hallucinations, no focal defects, Problem List Medical Problems: (1) Abdominal pain Status: Acute (2) Dehydration Status: Acute (3) Diffuse abdominal pain Status: Acute (4) Epigastric abdominal pain Status: Acute (5) Esophageal cancer Status: Chronic (6) Esophagitis Status: Acute (7) Failure of outpatient treatment Status: Acute (8) GI bleed Status: Acute (9) Metastasis from esophageal cancer Status: Acute (10) Metastatic cancer Status: Acute (11) Nausea Status: Acute (12) Nausea & vomiting Status: Acute (13) Symptomatic cholelithiasis Status: Acute Review of Systems Constitutional: + fatigue, + weakness, No chills, No fever Respiratory: No cough, No shortness of breath Cardiac: No chest pain, No edema Abdomen: No diarrhea, No nausea, No pain, No vomiting Neurologic: + balance problems, + memory loss, + weakness Psychiatric: + anxiety, + depression symptoms Objective Vital Signs Date Time Temp Pulse Resp B/P Pulse Ox O2 Delivery O2 Flow Rate FiO2 08/18/16 03:59 37.3 84 18 132/78 94 Room Air 08/18/16 00:36 37.2 69 18 110/62 95 08/18/16 00:00 Room Air 08/17/16 19:37 36.8 92 16 111/65 96 Room Air 08/17/16 16:22 94 Room Air 08/17/16 15:05 37.4 74 16 123/73 94 Room Air 08/17/16 11:25 36.5 69 18 126/75 94 Room Air 08/17/16 08:40 94 Room Air Physical Exam General Appearance: WD/WN, + moderate distress Eyes: PERRL, EOMI ENT: hearing grossly normal, pharynx normal Respiratory/Chest: chest non-tender, lungs clear, normal breath sounds Cardiovascular: regular rate, rhythm, no murmur Abdomen: normal bowel sounds, non tender, soft Extremities: no pedal edema, no calf tenderness Neurologic/Psychiatric: alert, + disoriented Assessment and Plan 70-M with significant history of esophageal cancer with metastasis status post esophageal stent placement now with concern for soft tissue occlusion of stent on CT. significant encephalopathy overnight, hallucinations, agitation Encephalopahty, maybe toxic from medications, metabolic from occult infection, or neurologic from metastatic disease or paraneoplastic issues, will give stress dose steroids, hold marinol MRI with some motion artifact, no significant metastatic disease seen Abdominal pain: nausea and decreased po intake - CT shows Esophageal stent now showing soft tissue occlusion with stable metastatic disease consult gastroenterology ordered UGi to asses stent patency, showing non occlusive narrowing -Iv dilaudid,, scopolamine patch, Family feels fentanyl patch has not been a good fit with no better pain control and some hallucinations, request to return to po dilaudid, transition 08/17 todays delerium maybe left over affect, family states would rather set alarm at night than to have hallucinations, still having issues with neuropathic pain. Generalized weakness/dehydration and decreased appetite, IV fluids dronabinol will be held due to confusion BPH : finasteride Gout allopurinol Depression requests psychiatric involvement to help him cope with diagnosis , cymbalta at home doses DVT prophylaxis:- Heparin subcutaneous Full code
[2016-08-18] MEDS ORDERED: LORAZEPAM 2 MG/ML 1 ML VIAL IV PRN (09:00)
[2016-08-18] MEDS: HYDROCORTISONE IV 50 MG in SYRINGE 0 ML IV SCH ×3 (09:02→21:44)
--- NOTE | 2016-08-18 09:08 | HEME/ONC PROGRESS NOTE ---
DATE: 08/18/2016 DIAGNOSES: 1. Intractable nausea. 2. Metastatic esophageal cancer. 3. Possible esophageal stent obstruction. 4. Depression/anxiety. Shawn was examined at bedside today, clearly encephalopathic. Significant other states that he has been readily confused and agitated since last night. No new medicines were administered overnight. Discussed informally with the primary medical service the need to obtain MRI. Shawn will require sedation prior to procedure. He was seen by the GI service. They have opted to monitor him and treat conservatively. PHYSICAL EXAMINATION: GENERAL: He is indeed disoriented to place and time. VITAL SIGNS: Temperature 36.5, pulse 75, respirations 17, and blood pressure 150/75. SKIN: Without rash or lesion. HEENT: Oral mucosa without erythema or ulceration. NECK: Supple. HEART: Regular rate and rhythm. LUNGS: Clear to auscultation bilaterally. ABDOMEN: Soft, nontender, and nondistended. EXTREMITIES: No calf tenderness or swelling. NEUROLOGIC: No focality observed. LABORATORY DATA: CBC pending. Chemistries pending. RADIOGRAPHIC DATA: GI series reveal a distal esophageal stent, luminal narrowing of the distal esophagus at the proximal aspect of the stent, narrowed by approximately 50%. IMPRESSION: 1. Acute encephalopathy, etiology unclear. 2. Intractable nausea. 3. Metastatic esophageal cancer. 4. Partial esophageal stent obstruction. 5. Depression/anxiety. PLAN: Shawn was seen and examined at bedside today. He is clearly confused and I recommend a stat MRI of the brain with contrast. I have also suggested sedation with Haldol. I had a brief discussion with Dr. Robertson and he agrees and will proceed with the diagnostic study. Appreciate GI input. We will continue to follow him periodically during his hospital stay. We will also discuss his status with Dr. Ybarra. Thank you again for allowing us to participate in his care. If you have any questions or concerns, I am online media director over the weekend. [employer]
[2016-08-18] MEDS ORDERED: LORAZEPAM INJ 1 MG in SYRINGE 0.5 ML IV PRN (09:15)
[2016-08-18] MEDS ORDERED: OLANZAPINE ZYDIS 5 MG ORALLY DIS. TAB PO ONE (09:30)
--- NOTE | 2016-08-18 09:48 | Gastroenterology Progress Note ---
Progress Note Date of Service: Aug 18, 2016 Subjective Pt evaluation today including: conversation w/ patient, physical exam, chart review, review of inpatient medication list Patient disoriented. On a 1:1 observation status. MRI Leon has been ordered. UGI yesterday with patent stent. Dr. Lopez advanced diet. Review of Systems unable to obtain due to altered mental status Medications Current Inpatient Medications Medications (Trade) Dose Ordered Sig/Sabino Route Start Time Stop Time Status Last Admin Dose Admin Ioversol (Optiray 320) 100 ml UD PRN IV 08/16/16 20:00 08/20/16 19:59 Acetaminophen (Tylenol Tab) 650 mg Q4H PRN PO 08/17/16 00:00 09/16/16 00:00 Al Hydrox/Mg Hydrox/Simethicone (Maalox Max Susp) 15 ml Q4H PRN PO 08/17/16 00:00 09/16/16 00:00 Magnesium Hydroxide (Milk Of Magnesia Susp) 30 ml Q6H PRN PO 08/17/16 00:00 09/16/16 00:00 Polyethylene (Miralax Powder Packet) 17 gm DAILY PRN PO 08/17/16 00:00 09/16/16 00:00 Ondansetron HCl 4 mg 4 mg Q6H PRN IV 08/17/16 00:00 09/16/16 00:00 Potassium Chloride/Sodium Chloride (Nss + 20meq KCl 1000ml) 1,000 ml @ 100 mls/hr Q10H IV 08/17/16 01:30 09/16/16 01:29 08/18/16 07:02 100 MLS/HR Allopurinol (Zyloprim Tab) 300 mg QAM PO 08/17/16 08:00 09/16/16 08:59 08/18/16 07:51 300 MG Docusate Sodium (coLACE CAP) 100 mg BID PO 08/17/16 08:00 09/16/16 08:59 08/17/16 21:25 100 MG Famotidine (Pepcid Tab) 20 mg BID PO 08/17/16 08:00 09/16/16 08:59 08/18/16 07:50 20 MG Finasteride (Proscar Tab) 5 mg QAM PO 08/17/16 08:00 09/16/16 08:59 08/18/16 07:51 5 MG Hydromorphone HCl (Dilaudid Tab) 2-4 MG BASED ON PAIN LEVEL Q4 PRN PO 08/17/16 00:00 08/31/16 00:00 Lorazepam (Ativan Tab) 0.5 mg Q6H PO 08/17/16 06:00 09/16/16 05:59 08/18/16 05:48 0.5 MG Ondansetron HCl (Zofran Tab) 8 mg Q8 PRN PO 08/17/16 00:00 09/16/16 00:00 08/17/16 08:45 8 MG Prednisone (PredniSONE TAB) 10 mg QAM PO 08/17/16 08:00 09/16/16 08:59 Future Hold 08/17/16 08:43 10 MG Promethazine HCl (Phenergan Tab) 25 mg Q6H PRN PO 08/17/16 00:00 09/16/16 00:00 08/18/16 04:26 25 MG Tamsulosin HCl (Flomax Cap) 0.4 mg QPM PO 08/17/16 21:00 09/16/16 20:59 08/17/16 21:25 0.4 MG Dronabinol (Marinol Cap) 5 mg QID PO 08/17/16 08:00 09/16/16 08:59 Future Hold 08/17/16 21:24 5 MG Pantoprazole Sodium (Protonix Tab) 40 mg BID PO 08/17/16 08:00 09/16/16 08:59 08/18/16 07:51 40 MG Polyethylene (Miralax Powder Packet) 17 gm DAILY PO 08/17/16 08:00 09/16/16 08:59 08/17/16 08:45 17 GM Heparin Sodium (Porcine) (Heparin 100 Unit/ml 5ml Flush) 5 ml PRN PRN IV 08/17/16 02:00 09/16/16 01:59 Heparin Sodium (Porcine) (Heparin Sq 5000 Unit/0.5ml) 5,000 unit Q8H SQ 08/17/16 06:00 09/16/16 05:59 08/18/16 05:52 5,000 UNIT Hydromorphone HCl (Dilaudid Inj) 0.5 mg Q4 PRN IV 08/17/16 08:45 08/31/16 08:44 Hydromorphone HCl (Dilaudid Inj) 1 mg Q4 PRN IV 08/17/16 08:45 08/31/16 08:44 Hydromorphone HCl (Dilaudid Tab) 2 mg Q4H PRN PO 08/17/16 11:30 08/31/16 11:29 08/18/16 03:48 2 MG Hydromorphone HCl (Dilaudid Tab) 4 mg Q4H PRN PO 08/17/16 11:30 08/31/16 11:29 Duloxetine HCl 60 mg 60 mg QAM PO 08/18/16 08:00 09/17/16 07:59 Hydrocortisone Sodium Succinate/ Syringe (Solu-Cortef IV/ Syringe) 1 ml @ 4 mls/min Q8 IV 08/18/16 09:00 09/17/16 08:59 08/18/16 09:02 4 MLS/MIN Lorazepam (Ativan Inj) 1 mg Q4H PRN IV 08/18/16 09:00 09/17/16 08:59 Lorazepam 0.5 mg 0.5 mg Q4H PRN IV 08/18/16 09:00 09/17/16 08:59 Lorazepam 0.5 mg/ Syringe 1 ml @ 1 mls/min Q4H PRN IV 08/18/16 09:15 09/17/16 09:14 Lorazepam/Syringe (Ativan Inj/ Syringe) 1 ml @ 1 mls/min Q4H PRN IV 08/18/16 09:15 09/17/16 09:14 Objective Vital Signs Date Time Temp Pulse Resp B/P Pulse Ox O2 Delivery O2 Flow Rate FiO2 08/18/16 07:58 36.5 75 17 150/75 94 Room Air 08/18/16 03:59 37.3 84 18 132/78 94 Room Air 08/18/16 00:36 37.2 69 18 110/62 95 08/18/16 00:00 Room Air 08/17/16 19:37 36.8 92 16 111/65 96 Room Air 08/17/16 16:22 94 Room Air 08/17/16 15:05 37.4 74 16 123/73 94 Room Air 08/17/16 11:25 36.5 69 18 126/75 94 Room Air Physical Exam General Appearance: + mild distress Respiratory/Chest: lungs clear, normal breath sounds, no respiratory distress Cardiovascular: regular rate, rhythm, no gallop, no murmur Abdomen: normal bowel sounds, soft Neurologic/Psych: + disoriented Assessment and Plan Patient is a 70 year old male with a history of esophageal cancer status post stent placement with ongoing symptoms of chest and epigastric pain with new onset of nausea and decreased appetite with new onset of acute mental status changes. 1. MRI brain has been ordered. If tumor burden noted, could explain persistent nausea. 2. Continue analgesics, antiemetics and PPI therapy as ordered. 3. Diet as tolerated. Agree with JACKSON Chris as above Abd: Soft, NT, ND, +BS Continue supportive care Prognosis is poor, recommend addressing code status with patient and family, as he is currently level 1
[2016-08-18] MEDS: LORAZEPAM 2 MG/ML 1 ML VIAL IV PRN ×2 (10:28→10:55)
--- NOTE | 2016-08-18 11:56 | DIAGNOSTIC IMAGING REPORT ---
MRI OF THE BRAIN WITHOUT AND WITH IV CONTRAST CLINICAL HISTORY: Esophageal carcinoma. Encephalopathy. COMPARISON STUDY: No previous studies for comparison. TECHNIQUE: MRI of the brain was performed from the vertex to the skull base utilizing various T1 and T2 weighted sequences. Following the IV administration of 7.8 mL of Gadavist contrast, additional enhanced images were obtained. FINDINGS: Sagittal T1, axial diffusion, proton density and T2 weighted axial, coronal FLAIR, and pre and post axial T1-weighted images were acquired. These were supplemented with post gadolinium coronal T1 weighted images. No intra or extra-axial mass lesions are visualized. Axial diffusion-weighted images reveal no evidence of acute or subacute infarction. There is no evidence of ventricular dilatation. T2-weighted images reveal no significant brachial signal abnormalities. There are no abnormal flow voids. There is no evidence of pathologic enhancement. The examination is moderately limited from a technical standpoint secondary to motion artifact. IMPRESSION: 1. Technically limited study secondary to motion artifact 2. No acute intracranial findings. No evidence of intracranial metastasis. Electronically signed by: Jose Renae M.D. 08/18/2016 11:54 AM Dictated Date/Time: 08/18/2016 11:51 AM
[2016-08-18 12:02] VITALS: BP 160/84; PULSE 78; TEMP 36.4; O2SAT 96
--- NOTE | 2016-08-18 12:23 | Psychiatric Progress Notes ---
Psychiatric Progress Note Date of Service Aug 18, 2016. Notes ID: Patient reviewed with liaison nurse and JACKSON Cruz who completed initial consult on 08/17/16 with recommendation for Cymbalta increase and therapy referral. Interim history reviewed. Discussed concerns with partner Titus. CC: "the dogs will be fine for a few hours" HPI: decline in MSE yesterday evening/persisting into this am--seems to be picking at pills/the air, confused but not combative. He described seeing a blob of a figure to nursing. Fentanyl and scopolamine patch removed. ROS: patient unable to complete, initially denied problems MSE: waxing/waning alert to sedated, disorganized thought processes Imp: delirious today Plan: titus represents that spoke with primary service about not increasing Cymbalta until after MRI and it was held this am, reordered Cymbalta for tomorrow am at the lower dose. seen after was given Zyprexa 5 mg per primary team, appears to be appropriate rx for delirium as less likely to cause dystonia/impact swallow than Haldol, can also be given Zydis formulation. May need to be split BID if too sedating.
[2016-08-18 15:32] VITALS: BP 163/88; PULSE 89; TEMP 36.8; O2SAT 95
[2016-08-18] MEDS: ONDANSETRON INJ 2 MG/ML 2 ML VIAL IV PRN (17:04)
[2016-08-18] MEDS: HYDROmorphone INJ 0.5 MG/0.5 ML SYR IV PRN (17:04)
[2016-08-18 18:23] LABS: BUN/CREATININE RATIO 6.8 (10-20); CALCIUM 8.6 mg/dl (8.5-10.1); CREATININE 0.75 mg/dl (0.60-1.40)
[2016-08-18 18:26] LABS: ALB/GLOB RATIO 0.9 (0.9-2)
[2016-08-18 19:12] VITALS: BP 162/78; PULSE 102; TEMP 37.7; O2SAT 98
[2016-08-18] MEDS: TAMSULOSIN HCL 0.4 MG CAP PO SCH (19:59)
[2016-08-18] MEDS ORDERED: TRAZODONE HCL 50 MG TAB PO SCH (21:00)
[2016-08-19] MEDS: NSS + 20MEQ KCL 1000ML 1,000 ML IV SCH ×3 (03:08→23:36)
[2016-08-19 04:10] VITALS: BP 144/69; PULSE 63; TEMP 37.2; O2SAT 95
[2016-08-19] MEDS: HEPARIN SOD 5000 UNIT/0.5 ML CARP SQ SCH ×3 (05:09→21:44)
[2016-08-19] MEDS: HYDROCORTISONE IV 50 MG in SYRINGE 0 ML IV SCH ×3 (05:11→21:44)
[2016-08-19 06:28] VITALS: BMI 25.4
[2016-08-19] MEDS: ONDANSETRON INJ 2 MG/ML 2 ML VIAL IV PRN (07:45)
[2016-08-19] MEDS ORDERED: DULOXETINE HCL 60 MG CAP PO SCH (08:00)
[2016-08-19 09:30] VITALS: BP 163/82; PULSE 91; TEMP 36.8; O2SAT 98
[2016-08-19] MEDS: DOCUSATE SODIUM 100 MG CAP PO SCH ×2 (10:10→20:34)
[2016-08-19] MEDS: POLYETHYLENE (MIRALAX) 17 GM PACK PO SCH (10:11)
[2016-08-19 10:17] LABS: BUN/CREATININE RATIO 10.7 (10-20); CREATININE 0.67 mg/dl (0.60-1.40); POTASSIUM 3.7 mmol/L (3.5-5.1)
[2016-08-19 10:18] LABS: ALB/GLOB RATIO 0.9 (0.9-2)
[2016-08-19 10:28] LABS: CALCIUM 8.7 mg/dl (8.5-10.1)
[2016-08-19] MEDS ORDERED: NURSING VERBAL MED ORDER ONE (11:45)
[2016-08-19 11:52] VITALS: BP 174/81; PULSE 98; TEMP 37.1; O2SAT 98
[2016-08-19] MEDS: FAMOTIDINE 20 MG TAB PO SCH ×2 (11:52→20:35)
[2016-08-19] MEDS: FINASTERIDE 5 MG TAB PO SCH (11:52)
[2016-08-19] MEDS: ALLOPURINOL 300 MG TAB PO SCH (11:52)
[2016-08-19] MEDS: PANTOprazole SOD 40 MG TAB PO SCH ×2 (11:53→20:35)
--- NOTE | 2016-08-19 12:05 | Psychiatric Progress Notes ---
Psychiatric Progress Note Date of Service Aug 19, 2016. Notes spoke with sister and Gladis at bedside, patient currently resting. They feel MSE improved today. Would still like to wait to increase Cymbalta. Are supportive of referral to [facility], family has history with [facility]. Liaison to facilitate referral when patient able to sign release/office reopens.
[2016-08-19] MEDS: ONDANSETRON INJ 8 MG in DEXTROSE 5% 50ML 50 ML IV PRN ×2 (12:30→23:39)
[2016-08-19] MEDS: SUCRALFATE 1 GM/10 ML UDC PO SCH ×3 (13:32→20:33)
[2016-08-19] MEDS: DULOXETINE (CYMBALTA) 30 MG CAP PO SCH (13:33)
[2016-08-19] MEDS ORDERED: FENTANYL PATCH REMOVE & WASTE SCH (13:59)
[2016-08-19] MEDS ORDERED: FENTANYL 75 MCG/HR TDSY TD SCH (14:00)
[2016-08-19 15:29] VITALS: BP 162/84; PULSE 80; TEMP 36.5; O2SAT 95
--- NOTE | 2016-08-19 16:05 | Progress Note ---
Subjective Date of Service: Aug 19, 2016. Subjective pt has some overhang from sleeper, but much less confusion and no hallucinations , now nausea returns Problem List Medical Problems: (1) Abdominal pain Status: Acute (2) Dehydration Status: Acute (3) Diffuse abdominal pain Status: Acute (4) Epigastric abdominal pain Status: Acute (5) Esophageal cancer Status: Chronic (6) Esophagitis Status: Acute (7) Failure of outpatient treatment Status: Acute (8) GI bleed Status: Acute (9) Metastasis from esophageal cancer Status: Acute (10) Metastatic cancer Status: Acute (11) Nausea Status: Acute (12) Nausea & vomiting Status: Acute (13) Symptomatic cholelithiasis Status: Acute Review of Systems Constitutional: No chills, No fever Respiratory: No cough, No shortness of breath Cardiac: No chest pain, No edema Abdomen: + nausea, + pain, No diarrhea, No vomiting Musculoskeletal: No joint pain, No muscle pain Male : No dysuria, No urinary frequency Neurologic: + weakness, No memory loss Objective Vital Signs Date Time Temp Pulse Resp B/P Pulse Ox O2 Delivery O2 Flow Rate FiO2 08/19/16 15:29 36.5 80 16 162/84 95 Room Air 08/19/16 11:52 37.1 98 18 174/81 98 Room Air 08/19/16 09:30 36.8 91 18 163/82 98 Room Air 08/19/16 08:00 Room Air 08/19/16 04:10 37.2 63 18 144/69 95 Room Air 08/19/16 00:00 Room Air 08/18/16 20:00 Room Air 08/18/16 19:12 37.7 102 18 162/78 98 Room Air Physical Exam General Appearance: WD/WN, + mild distress Neck: supple, no JVD Respiratory/Chest: chest non-tender, lungs clear Cardiovascular: regular rate, rhythm, no murmur Abdomen: normal bowel sounds, soft, + guarding, + tenderness Extremities: no pedal edema, no calf tenderness Neurologic/Psychiatric: alert, oriented x 3 Laboratory Results Last 24 Hours Test 08/18/16 17:58 08/19/16 05:06 08/19/16 09:41 Sodium Level 140 mmol/L 139 mmol/L Potassium Level 4.0 mmol/L 3.7 mmol/L Chloride Level 105 mmol/L 102 mmol/L Carbon Dioxide Level 30 mmol/L 28 mmol/L Anion Gap 5.0 mmol/L 9.0 mmol/L Blood Urea Nitrogen 5 mg/dl 7 mg/dl Creatinine 0.75 mg/dl 0.67 mg/dl Est Creatinine Clear Calc Drug Dose 94.6 ml/min 105.9 ml/min Estimated GFR () 107.7 112.8 Estimated GFR (Non- 92.9 97.4 BUN/Creatinine Ratio 6.8 10.7 Random Glucose 128 mg/dl 117 mg/dl Calcium Level 8.6 mg/dl 8.7 mg/dl Total Bilirubin 1.0 mg/dl 1.0 mg/dl Aspartate Amino Transf (AST/SGOT) 58 U/L 54 U/L Alanine Aminotransferase (ALT/SGPT) 70 U/L 69 U/L Alkaline Phosphatase 467 U/L 459 U/L Total Protein 5.9 gm/dl 5.8 gm/dl Albumin 2.8 gm/dl 2.7 gm/dl Globulin 3.1 gm/dl 3.1 gm/dl Albumin/Globulin Ratio 0.9 0.9 Ammonia 24.0 umol/L Assessment and Plan 70-M with significant history of esophageal cancer with metastasis status post esophageal stent placement now with concern for soft tissue occlusion of stent on CT. significant encephalopathy overnight, hallucinations, agitation Encephalopahty, toxic from medications, as great improvement with stopping all meds but po dialudid, and sleeping aid Abdominal pain: nausea and decreased po intake - CT shows Esophageal stent now showing soft tissue occlusion with stable metastatic disease consult gastroenterology ordered UGi to asses stent patency, showing non occlusive narrowing, treat symptomatically -Iv dilaudid,, scopolamine patch, , family states would rather set alarm at night than to have hallucinations that he has had with fentanyl, still having issues with neuropathic pain. Generalized weakness/dehydration and decreased appetite, IV fluids dronabinol will be held due to confusion BPH : finasteride Gout allopurinol Depression requests psychiatric involvement to help him cope with diagnosis , cymbalta at home doses, will hold there while mental status improved DVT prophylaxis:- Heparin subcutaneous Full code
[2016-08-19 19:49] VITALS: BP 143/81; PULSE 87; TEMP 36.7; O2SAT 96
[2016-08-19] MEDS: TRAZODONE HCL 50 MG TAB PO SCH (20:34)
[2016-08-19] MEDS: TAMSULOSIN HCL 0.4 MG CAP PO SCH (20:34)
[2016-08-19 22:36] VITALS: BP 167/89; PULSE 77; TEMP 36.7; O2SAT 97
[2016-08-19] MEDS: HYDROmorphone INJ 0.5 MG/0.5 ML SYR IV PRN (23:39)
[2016-08-20] MEDS: HEPARIN SOD 5000 UNIT/0.5 ML CARP SQ SCH ×3 (06:00→21:00)
[2016-08-20 06:01] VITALS: BMI 24.3
[2016-08-20] MEDS: ONDANSETRON INJ 8 MG in DEXTROSE 5% 50ML 50 ML IV PRN (06:11)
[2016-08-20] MEDS: HYDROCORTISONE IV 50 MG in SYRINGE 0 ML IV SCH (06:11)
[2016-08-20 06:49] LABS: BUN/CREATININE RATIO 12.8 (10-20); CALCIUM 8.5 mg/dl (8.5-10.1); CREATININE 0.74 mg/dl (0.60-1.40); POTASSIUM 3.9 mmol/L (3.5-5.1)
[2016-08-20 06:51] LABS: ALB/GLOB RATIO 0.9 (0.9-2)
[2016-08-20 07:53] VITALS: BP 147/75; PULSE 77; TEMP 36.7; O2SAT 98
[2016-08-20] MEDS: HYDROmorphone INJ 0.5 MG/0.5 ML SYR IV PRN ×2 (07:59→17:17)
[2016-08-20] MEDS: SUCRALFATE 1 GM/10 ML UDC PO SCH ×4 (08:07→20:52)
[2016-08-20] MEDS: POLYETHYLENE (MIRALAX) 17 GM PACK PO SCH (09:44)
[2016-08-20] MEDS: DOCUSATE SODIUM 100 MG CAP PO SCH ×2 (09:44→20:53)
[2016-08-20] MEDS: DULOXETINE (CYMBALTA) 30 MG CAP PO SCH (09:45)
[2016-08-20] MEDS: PANTOprazole SOD 40 MG TAB PO SCH (09:46)
[2016-08-20] MEDS: ALLOPURINOL 300 MG TAB PO SCH (09:47)
[2016-08-20] MEDS: FAMOTIDINE 20 MG TAB PO SCH (09:48)
[2016-08-20] MEDS: FINASTERIDE 5 MG TAB PO SCH (09:48)
[2016-08-20] MEDS: NSS + 20MEQ KCL 1000ML 1,000 ML IV SCH ×2 (09:53→20:52)
[2016-08-20 10:16] VITALS: O2SAT 98
[2016-08-20] MEDS ORDERED: BISMUTH SUBSALICYLATE LIQUID 236 ML PO ONE (10:45)
[2016-08-20] MEDS: FAMOTIDINE IV INJ 20 MG in DEXTROSE 5% 100ML 100 ML IV SCH ×2 (11:29→22:52)
[2016-08-20] MEDS: PANTOprazole INJ 40 MG in SYRINGE 0 ML IV SCH ×2 (11:31→20:56)
[2016-08-20] MEDS ORDERED: FOSAPREPITANT DIMEGLUMINE INJ 150 MG in SODIUM CHLORIDE 0.9% 150ML 145 ML IV SCH (13:00)
[2016-08-20] MEDS: HYDROmorphone INJ 1 MG/ML SYR IV PRN (13:02)
[2016-08-20 13:11] VITALS: BP 194/74
--- NOTE | 2016-08-20 13:49 | HEME/ONC PROGRESS NOTE ---
DATE: 08/20/2016 1. Acute encephalopathy (thought to be medication related). 2. Metastatic esophageal cancer. 3. Intractable nausea. 4. Possible esophageal stent obstruction. 5. Depression/anxiety. HOSPITAL COURSE: Shawn is a pleasant 70-year-old gentleman, well known to [facility], was diagnosed of metastatic esophageal cancer on hospital day #4. When I last saw him 48 hours ago, was significantly agitated and confused. MRI was obtained, revealing no intracerebral abnormalities. Primary service weaned him off many of his medications and provided intravenous Dilaudid and sleeping agent only. Mentally, he is much better today. Continues to complain of nonspecific abdominal pain however. Psychiatry has seen Mr. Howell as well and are making recommendations. Nursing reports no overnight issues. He is ambulating with assistance and sitting up in a chair. He also is moving his bowels. PHYSICAL EXAMINATION: GENERAL: He is in no acute distress. VITAL SIGNS: Temperature 36.7, pulse 77, respirations 18, blood pressure 147/75. SKIN: Without rash or lesion. HEENT: Oral mucosa without erythema or ulceration. NECK: Supple. HEART: Regular rate and rhythm. LUNGS: Clear to auscultation. ABDOMEN: Soft, nontender, nondistended, without palpable hepatosplenomegaly. EXTREMITIES: No calf tenderness or swelling. No clubbing, cyanosis or edema. NEUROLOGIC: Grossly intact. LABORATORY DATA: No results for today. IMPRESSION: 1. Acute encephalopathy (medication related). 2. Intractable nausea. 3. Metastatic esophageal cancer. 4. Partial esophageal stent obstruction. 5. Depression/anxiety. PLAN: Shawn was seen and examined at bedside today. His mental status has markedly improved with discontinuing some of his medications. Psychiatry is on consultation and hopefully will establish followup. It is unclear whether GI will move to either change his stent or maneuver it. Clinically, overall he seems to be much better. We will ask Dr. Ybarra to visit with Tito tomorrow to establish outpatient followup and therapeutic plan going forward. I have nothing further to add today. Thank you again for allowing us to participate in the care of this very pleasant gentleman.
[2016-08-20 15:38] VITALS: BP 150/87; PULSE 79; TEMP 36.7; O2SAT 97
--- NOTE | 2016-08-20 15:40 | Progress Note ---
Subjective Date of Service: Aug 20, 2016. Subjective pt has returned with his mental status, how back to his dyspepsia and poor appetite Problem List Medical Problems: (1) Abdominal pain Status: Acute (2) Dehydration Status: Acute (3) Diffuse abdominal pain Status: Acute (4) Epigastric abdominal pain Status: Acute (5) Esophageal cancer Status: Chronic (6) Esophagitis Status: Acute (7) Failure of outpatient treatment Status: Acute (8) GI bleed Status: Acute (9) Metastasis from esophageal cancer Status: Acute (10) Metastatic cancer Status: Acute (11) Nausea Status: Acute (12) Nausea & vomiting Status: Acute (13) Symptomatic cholelithiasis Status: Acute Review of Systems Constitutional: + fatigue, + weakness, No chills, No fever Respiratory: No cough, No shortness of breath Cardiac: No chest pain, No edema, No orthopnea Abdomen: + nausea, + pain, No diarrhea, No vomiting Musculoskeletal: No joint pain, No muscle pain Male : No dysuria, No urinary frequency Objective Vital Signs Date Time Temp Pulse Resp B/P Pulse Ox O2 Delivery O2 Flow Rate FiO2 08/20/16 10:16 98 Room Air 08/20/16 07:53 36.7 77 18 147/75 98 Room Air 08/20/16 00:30 Room Air 08/19/16 22:36 36.7 77 18 167/89 97 Room Air 08/19/16 20:05 Room Air 08/19/16 19:49 36.7 87 16 143/81 96 Room Air 08/19/16 16:00 Room Air Physical Exam General Appearance: WD/WN, + mild distress Neck: supple, no JVD Respiratory/Chest: chest non-tender, lungs clear, normal breath sounds Cardiovascular: regular rate, rhythm, no murmur Abdomen: soft, + distended, + guarding, + tenderness Extremities: no pedal edema, no calf tenderness Laboratory Results Last 24 Hours Test 08/20/16 05:55 Sodium Level 138 mmol/L Potassium Level 3.9 mmol/L Chloride Level 104 mmol/L Carbon Dioxide Level 28 mmol/L Anion Gap 6.0 mmol/L Blood Urea Nitrogen 9 mg/dl Creatinine 0.74 mg/dl Est Creatinine Clear Calc Drug Dose 95.9 ml/min Estimated GFR () 108.3 Estimated GFR (Non- 93.5 BUN/Creatinine Ratio 12.8 Random Glucose 111 mg/dl Calcium Level 8.5 mg/dl Total Bilirubin 0.9 mg/dl Aspartate Amino Transf (AST/SGOT) 44 U/L Alanine Aminotransferase (ALT/SGPT) 71 U/L Alkaline Phosphatase 445 U/L Total Protein 5.8 gm/dl Albumin 2.7 gm/dl Globulin 3.1 gm/dl Albumin/Globulin Ratio 0.9 Assessment and Plan 70-M with significant history of esophageal cancer with metastasis status post esophageal stent placement now with concern for soft tissue occlusion of stent on CT. significant encephalopathy overnight, hallucinations, agitation Encephalopahty, toxic from medications, continues with improvement with stopping all meds but po dialudid, and sleeping aid ASks if oncology will comment if can have optiva this week as scheduled Abdominal pain: nausea and decreased po intake, continues, will change ppi and H2 to IV try emend and add bisthmuth to carafate, hopeful to have GI input on symptom management - CT shows Esophageal stent now showing soft tissue occlusion with stable metastatic disease - UGi to asses stent patency, showing non occlusive narrowing, treat symptomatically -Iv dilaudid, , family states would rather set alarm at night than to have hallucinations that he has had with fentanyl, still having issues with neuropathic pain. Generalized weakness/dehydration and decreased appetite, IV fluids dronabinol will be held due to confusion overall symptom management maybe useful BPH : finasteride Gout allopurinol Depression requests psychiatric involvement to help him cope with diagnosis , cymbalta at home doses, follow up with psyche as outpt DVT prophylaxis:- Heparin subcutaneous Full code
[2016-08-20 19:17] VITALS: BP 130/75; PULSE 67; TEMP 36.6; O2SAT 98
[2016-08-20] MEDS: TRAZODONE HCL 50 MG TAB PO SCH (20:56)
[2016-08-20] MEDS: TAMSULOSIN HCL 0.4 MG CAP PO SCH (20:57)
[2016-08-20] MEDS: LORAZEPAM INJ 0.5 MG in SYRINGE 0.75 ML IV PRN (21:22)
[2016-08-20 22:39] VITALS: BP 144/68; PULSE 70; TEMP 36.6; O2SAT 98
[2016-08-21] MEDS: HYDROmorphone INJ 0.5 MG/0.5 ML SYR IV PRN ×3 (00:56→08:52)
[2016-08-21] MEDS: ONDANSETRON INJ 8 MG in DEXTROSE 5% 50ML 50 ML IV PRN ×3 (01:00→16:07)
[2016-08-21 04:21] VITALS: BP 133/69; PULSE 62; TEMP 36.5; O2SAT 99
[2016-08-21] MEDS: NSS + 20MEQ KCL 1000ML 1,000 ML IV SCH ×2 (05:41→16:08)
[2016-08-21] MEDS: HEPARIN SOD 5000 UNIT/0.5 ML CARP SQ SCH ×3 (05:42→21:40)
[2016-08-21 06:33] VITALS: BMI 24.4
[2016-08-21 06:49] LABS: BUN/CREATININE RATIO 9.6 (10-20); CALCIUM 8.4 mg/dl (8.5-10.1); CREATININE 0.7 mg/dl (0.60-1.40); POTASSIUM 3.6 mmol/L (3.5-5.1)
[2016-08-21 06:51] LABS: ALB/GLOB RATIO 0.9 (0.9-2)
[2016-08-21 07:34] VITALS: BP 153/80; PULSE 82; TEMP 36.8; O2SAT 99
[2016-08-21] MEDS: PANTOprazole INJ 40 MG in SYRINGE 0 ML IV SCH ×2 (08:31→20:34)
--- NOTE | 2016-08-21 10:01 | Psychiatric Progress Notes ---
Psychiatric Progress Note Date of Service Aug 21, 2016. Notes ID: Patient reviewed with liaison nurse. Interim progress reviewed. Seen with Gladis at bedside. CC: "don't feel good today" HPI: delirium essentially cleared, difficulty with N this am, aware Cymbalta increase ROS: GI issues as above, no SI/HI/winn MSE: alert but keeps eye closed as not feeling well, thoughts organized Imp: anxiety and depression, same as initial consult Plan: Cymbalta 60 mg po qam, first dose this am, monitor N signed [facility] for [facility] for therapist
[2016-08-21] MEDS: SUCRALFATE 1 GM/10 ML UDC PO SCH ×4 (10:32→19:37)
[2016-08-21] MEDS: FINASTERIDE 5 MG TAB PO SCH (10:32)
[2016-08-21] MEDS: ALLOPURINOL 300 MG TAB PO SCH (10:32)
[2016-08-21] MEDS: DULOXETINE HCL 60 MG CAP PO SCH (10:33)
[2016-08-21] MEDS: POLYETHYLENE (MIRALAX) 17 GM PACK PO SCH (10:33)
[2016-08-21] MEDS: DOCUSATE SODIUM 100 MG CAP PO SCH ×2 (10:33→19:37)
[2016-08-21] MEDS: FAMOTIDINE IV INJ 20 MG in DEXTROSE 5% 100ML 100 ML IV SCH ×2 (10:37→23:14)
[2016-08-21 12:01] VITALS: BP 132/74; PULSE 74; TEMP 36.6; O2SAT 97
[2016-08-21] MEDS: HYDROmorphone INJ 1 MG/ML SYR IV PRN ×2 (12:40→17:45)
[2016-08-21 15:42] VITALS: BP 145/72; PULSE 87; TEMP 36.5; O2SAT 98
--- NOTE | 2016-08-21 16:00 | Hematology/Oncology Prog Note ---
Hematology/Onc Progress Note Date of Service Aug 21, 2016. Diagnoses Metastatic esophageal adenocarcinoma Medications Medications Administered Medications (Trade) Dose Ordered Sig/Sabino Route Start Time Stop Time Status Last Admin Dose Admin Sodium Chloride (Nss 1000ml) 500 ml @ 999 mls/hr Q31M STAT IV 08/16/16 19:42 08/16/16 20:12 DC 08/16/16 20:21 999 MLS/HR Promethazine HCl 6.25 mg 6.25 mg NOW STAT IV 08/16/16 19:42 08/16/16 19:46 DC 08/16/16 20:29 6.25 MG Sodium Chloride (Nss 1000ml) 1,000 ml @ 200 mls/hr Q5H STAT IV 08/16/16 19:42 08/17/16 00:41 DC 08/16/16 20:56 200 MLS/HR Hydromorphone HCl (Dilaudid Inj) 0.5 mg Q15M PRN IV 08/16/16 19:45 08/17/16 01:22 DC 08/16/16 20:30 0.5 MG Piperacillin Sod/ Tazobactam Sod (Zosyn Iv) 4.5 gm NOW STAT IV 08/16/16 19:45 08/16/16 19:46 DC 08/16/16 20:30 4.5 GM Magnesium Sulfate (Magnesium Sulfate) 1 gm NOW STAT IV 08/16/16 21:56 08/16/16 21:57 DC 08/16/16 22:01 1 GM Ondansetron HCl 4 mg 4 mg Q6H PRN IV 08/17/16 00:00 08/19/16 11:45 DC 08/19/16 07:45 4 MG Potassium Chloride/Sodium Chloride (Nss + 20meq KCl 1000ml) 1,000 ml @ 100 mls/hr Q10H IV 08/17/16 01:30 09/16/16 01:29 08/21/16 05:41 100 MLS/HR Allopurinol (Zyloprim Tab) 300 mg QAM PO 08/17/16 08:00 09/16/16 08:59 08/21/16 10:32 300 MG Docusate Sodium (coLACE CAP) 100 mg BID PO 08/17/16 08:00 09/16/16 08:59 08/21/16 10:33 100 MG Duloxetine HCl (Cymbalta Cap) 30 mg QAM PO 08/17/16 08:00 08/17/16 13:15 DC 08/17/16 08:45 30 MG Famotidine (Pepcid Tab) 20 mg BID PO 08/17/16 08:00 08/20/16 10:38 DC 08/20/16 09:48 20 MG Finasteride (Proscar Tab) 5 mg QAM PO 08/17/16 08:00 09/16/16 08:59 08/21/16 10:32 5 MG Hydromorphone HCl (Dilaudid Tab) 2-4 MG BASED ON PAIN LEVEL Q4 PRN PO 08/17/16 00:00 08/31/16 00:00 08/19/16 11:56 4 MG Lorazepam (Ativan Tab) 0.5 mg Q6H PO 08/17/16 06:00 09/16/16 05:59 Future Hold 08/18/16 05:48 0.5 MG Ondansetron HCl (Zofran Tab) 8 mg Q8 PRN PO 08/17/16 00:00 09/16/16 00:00 08/17/16 08:45 8 MG Prednisone (PredniSONE TAB) 10 mg QAM PO 08/17/16 08:00 09/16/16 08:59 Future hold 08/21/16 10:32 10 MG Promethazine HCl (Phenergan Tab) 25 mg Q6H PRN PO 08/17/16 00:00 09/16/16 00:00 Future Hold 08/18/16 04:26 25 MG Tamsulosin HCl (Flomax Cap) 0.4 mg QPM PO 08/17/16 21:00 09/16/16 20:59 08/20/16 20:57 0.4 MG Dronabinol (Marinol Cap) 5 mg QID PO 08/17/16 08:00 09/16/16 08:59 Future Hold 08/17/16 21:24 5 MG Pantoprazole Sodium (Protonix Tab) 40 mg BID PO 08/17/16 08:00 08/20/16 10:38 DC 08/20/16 09:46 40 MG Polyethylene (Miralax Powder Packet) 17 gm DAILY PO 08/17/16 08:00 5/20/17 08:59 08/21/16 10:33 17 GM Miscellaneous Information (Check Fentanyl Patch Placement) 1 ea QS N/A 08/17/16 08:00 08/17/16 11:25 DC 08/17/16 08:54 1 EA Heparin Sodium (Porcine) (Heparin 100 Unit/ml 5ml Flush) 5 ml PRN PRN IV 08/17/16 02:00 09/16/16 01:59 08/18/16 11:52 5 ML Heparin Sodium (Porcine) (Heparin Sq 5000 Unit/0.5ml) 5,000 unit Q8H SQ 08/17/16 06:00 09/16/16 05:59 08/21/16 05:42 5,000 UNIT Hydromorphone HCl (Dilaudid Inj) 0.5 mg Q4 PRN IV 08/17/16 08:45 08/31/16 08:44 08/21/16 08:52 0.5 MG Hydromorphone HCl (Dilaudid Inj) 1 mg Q4 PRN IV 08/17/16 08:45 08/31/16 08:44 08/21/16 12:40 1 MG Hydromorphone HCl 2 mg 2 mg Q4H PRN PO 08/17/16 11:30 08/31/16 11:29 08/18/16 23:03 2 MG Hydrocortisone Sodium Succinate/ Syringe (Solu-Cortef IV/ Syringe) 1 ml @ 4 mls/min Q8 IV 08/18/16 09:00 08/20/16 10:38 DC 08/20/16 06:11 4 MLS/MIN Lorazepam (Ativan Inj) 0.5 mg Q4H PRN IV 08/18/16 09:00 09/17/16 08:59 08/18/16 10:55 0.5 MG Olanzapine 5 mg 5 mg 0930 ONCE PO 08/18/16 09:30 08/18/16 09:31 DC 08/18/16 10:00 5 MG Lorazepam/Syringe (Ativan Inj/ Syringe) 1 ml @ 1 mls/min Q4H PRN IV 08/18/16 09:15 09/17/16 09:14 08/20/16 21:22 1 MLS/MIN Trazodone HCl 50 mg 50 mg HS PO 08/18/16 21:00 08/19/16 12:20 DC 08/18/16 19:59 50 MG Ondansetron HCl/ Dextrose (Zofran Inj/D5 50ml) 54 ml @ 216 mls/hr Q6H PRN IV 08/19/16 12:00 09/18/16 11:59 08/21/16 07:43 216 MLS/HR Duloxetine HCl (Cymbalta Cap) 30 mg QAM PO 08/19/16 12:30 08/21/16 06:22 DC 08/20/16 09:45 30 MG Trazodone HCl (Desyrel Tab) 25 mg HS PO 08/19/16 21:00 09/18/16 20:59 08/20/16 20:56 25 MG Sucralfate 1 gm 1 gm QID PO 08/19/16 13:15 09/18/16 13:14 08/21/16 12:17 1 GM Fosaprepitant 150 mg/Sodium Chloride 150 ml @ 300 mls/hr TODAY@1300 IV 08/20/16 13:00 08/20/16 23:00 DC 08/20/16 13:03 300 MLS/HR Pantoprazole Sodium 40 mg/ Syringe 10 ml @ 5 mls/min DAILY@09,21 IV 08/20/16 10:45 09/19/16 10:44 08/21/16 08:31 5 MLS/MIN Famotidine/ Dextrose (Pepcid IV Inj/ D5 100ml) 102 ml @ 200 mls/hr Q12H IV 08/20/16 11:00 09/19/16 10:59 08/21/16 10:37 200 MLS/HR Bismuth Subsalicylate (Kaopectate Liquid) 30 ml ONE ONCE PO 08/20/16 10:45 08/20/16 10:46 DC 08/20/16 11:32 30 ML Duloxetine HCl (Cymbalta Cap) 60 mg QAM PO 08/21/16 08:00 09/20/16 07:59 08/21/16 10:33 60 MG Subjective He is oriented 3. He states his major problem is nausea after he has a few bites to eat Review of Systems: Constitutional: Negative for night sweats, or fever - he has had weight loss of at least 45 pounds since he's been here he states Eyes: Negative for event change of vision ENT: Negative for epistaxis, nasal discharge, sore throat, or deafness Cardiovascular: Negative for chest pain, palpitations, dizziness, diaphoresis Respiratory: Negative for new shortness of breath,hemoptysis, or purulent cough Gastrointestinal: Negative for diarrhea, hematemesis, melena, he does have postprandial nausea Integumentary (skin): Negative for rash or jaundice discoloration Genitourinary: Negative for urinary frequency, hematuria, or dysuria Neurological: Negative for weakness, seizure activity, headache, or dizziness Lymphatic/Hematologic: Negative for petechiae, bleeding or new adenopathy Musculoskeletal: Negative for new joint or back pain Allergic/Immunologic: Negative for unusual rash or pruritis. Vital Signs Vital Signs Past 12 Hours Date Time Temp Pulse Resp B/P Pulse Ox O2 Delivery O2 Flow Rate FiO2 08/21/16 15:42 36.5 87 18 145/72 98 Room Air 08/21/16 12:01 36.6 74 18 132/74 97 Room Air 08/21/16 08:00 Room Air 08/21/16 07:34 36.8 82 18 153/80 99 Room Air 08/21/16 04:21 36.5 62 16 133/69 99 Room Air Physical Exam Constitutional: vitals are stable. Eyes: Eyes are SUAD EOMI without conjuctival erythema or icterus. ENT: External examination was negative for masses. Neck: Negative for masses or palpable thyromegaly Respiratory: Lung sounds were generally clear bilaterally Cardiovascular: Heart was RRR without significant murmur, gallops or rubs Gastrointestinal: The left lobe of the liver is enlarged. It is nontender. Lymphatic system: there was no palpable peripheral lymphadenopathy Musculoskeletal System: The musculoskeletal system seemed concordant with age. Skin: The skin was negative for jaundice. Neurologic exam: The exam was negative for any focal findings. Deep tendon reflexes were equal and symmetrical. Psychiatric exam: Was essentially negative with normal mood and effect. Extremities: Negative for edema or erythema Laboratory Last 24 Hours Test 08/20/16 16:40 08/21/16 06:00 08/21/16 07:39 Bedside Glucose 100 mg/dl 111 mg/dl Sodium Level 136 mmol/L Potassium Level 3.6 mmol/L Chloride Level 103 mmol/L Carbon Dioxide Level 28 mmol/L Anion Gap 5.0 mmol/L Blood Urea Nitrogen 7 mg/dl Creatinine 0.70 mg/dl Est Creatinine Clear Calc Drug Dose 101.4 ml/min Estimated GFR () 110.8 Estimated GFR (Non- 95.6 BUN/Creatinine Ratio 9.6 Random Glucose 97 mg/dl Calcium Level 8.4 mg/dl Total Bilirubin 1.0 mg/dl Aspartate Amino Transf (AST/SGOT) 51 U/L Alanine Aminotransferase (ALT/SGPT) 73 U/L Alkaline Phosphatase 436 U/L Total Protein 5.6 gm/dl Albumin 2.6 gm/dl Globulin 3.0 gm/dl Albumin/Globulin Ratio 0.9 Assessment & Plan Metastatic HER-2/cierra negative esophageal adenocarcinoma involving liver and probable mediastinal as well as retroperitoneal adenopathy. Scans were reviewed. Hepatic metastases are similar in size to a month ago. His only had 2 doses of the PD1 inhibitor. His next treatment was to be of this week. If he is discharged and we can follow through with that. If he still hospitalized then we'll see whether it can be done in a house or weight next week. I would almost prefer that the treatment be delayed until next week because then presumably his nausea would be better. I would recommend Reglan 10 mg 4 times a day (IV for now). I suspect some of the nausea is being contributed by the enlarged liver pressing on the stomach. I will write for the Reglan and healthy that will help his nausea.
[2016-08-21] MEDS: METOCLOPRAMIDE HCL INJ 5 MG/ML 2 ML VIAL IV. SCH ×2 (16:52→21:35)
--- NOTE | 2016-08-21 17:27 | PROGRESS NOTE ---
DATE: 08/21/2016 GASTROENTEROLOGY PROGRESS NOTE RACE: . SUBJECTIVE: I had the pleasure of seeing Shawn Howell today at his bedside in regards to his continued symptoms of dyspepsia, nausea, and poor appetite. He has been on Protonix 40 mg IV b.i.d., Carafate 1 gram p.o. q.i.d. and Zofran p.r.n. for nausea. He has also been receiving intermittent narcotic analgesics and a bowel regimen including a stool softener and MiraLax therapy for control of his symptoms with poor results. At the time that I saw the patient today, he continues to state that he is having absolutely no difficulty with swallowing his food or swallowing liquids. He states that when he does eat he becomes nauseous. He denies any hematemesis, melena, hematochezia, vomiting, fevers or chills at the present time. REVIEW OF SYSTEMS: Negative 10 system review other than pertinent positives listed in the HPI. PHYSICAL EXAMINATION: VITAL SIGNS: Temp 36.5, pulse 87, respirations 18, blood pressure 145/72, pulse ox 98% on room air. GENERAL: He is awake, cooperative, chronic ill appearing, in no acute distress. CHEST: Decreased breath sounds, bilateral bases. CARDIOVASCULAR SYSTEM: Regular rate and rhythm. ABDOMEN: Soft, nontender, nondistended. Positive bowel sounds. EXTREMITIES: No clubbing, cyanosis, or edema. LABORATORY STUDIES: From today include a sodium 136, potassium 3.6, chloride 103, bicarbonate 28, BUN 7, creatinine 0.7, blood glucose 111. Calcium 8.4, total bilirubin 1.0, AST 51, ALT 73, and alkaline phosphatase 436. IMPRESSION: A 70-year-old male with widely metastatic esophageal adenocarcinoma with esophageal stent placement who complains of continued nausea and dyspepsia. PLAN: I reviewed both the patient's recent upper endoscopy performed last month as well as his recent imaging studies including CT scans of the chest and abdomen with by Dr. Badillo of radiology. Again, the patient is completely asymptomatic from a swallowing standpoint. His upper endoscopy in the past month did show some mild ingrowth of tumor at the proximal and distal edge, but nothing that would contribute to the patient's symptomatology at present and nothing that is unexpected. The CT scan that was performed on the and the Gastrografin swallow performed on the of this month were reviewed with Dr. Badillo and he agreed that none of the findings would be unexpected in a patient with his disease history. However, the findings do not appear to be contributing to symptoms at this time. I believe that the more likely reason for the patient's continued symptoms is the burden of the disease itself with mets to the liver as well as bone, and I believe that the patient should be continued on his regimen. At present, I agree with Dr. Ybarra's recent addition of Reglan therapy and I would recommend palliative consult as the patient's prognosis is very poor. Finally, I would recommend discussion with patient and family regarding his code status, as he remains listed as a full code, despite his incurable diagnosis. BERNADETTED
[2016-08-21 19:15] VITALS: BP 119/73; PULSE 90; TEMP 36.5; O2SAT 97
[2016-08-21] MEDS: TAMSULOSIN HCL 0.4 MG CAP PO SCH (19:37)
--- NOTE | 2016-08-21 19:37 | Hospitalist Progress Note ---
Hospitalist Progress Note Date of Service Aug 21, 2016. Subjective Pt evaluation today including: conversation w/ patient, conversation w/ family , physical exam, chart review poor oral intake. Medications Medications (Trade) Dose Ordered Sig/Sabino Route Start Time Stop Time Status Last Admin Dose Admin Duloxetine HCl (Cymbalta Cap) 60 mg QAM PO 08/21/16 08:00 09/20/16 07:59 08/21/16 10:33 60 MG Metoclopramide HCl (Reglan Inj) 10 mg Q6H IV. 08/21/16 16:00 09/20/16 15:59 08/21/16 16:52 10 MG Objective Vital Signs Date Time Temp Pulse Resp B/P Pulse Ox O2 Delivery O2 Flow Rate FiO2 08/21/16 19:15 36.5 90 18 119/73 97 Room Air 08/21/16 16:00 Room Air 08/21/16 15:42 36.5 87 18 145/72 98 Room Air 08/21/16 12:01 36.6 74 18 132/74 97 Room Air 08/21/16 08:00 Room Air 08/21/16 07:34 36.8 82 18 153/80 99 Room Air 08/21/16 04:21 36.5 62 16 133/69 99 Room Air 08/21/16 00:00 Room Air 08/20/16 22:39 36.6 70 18 144/68 98 Room Air Physical Exam General Appearance: WD/WN Eyes: normal inspection ENT: normal ENT inspection Neck: supple, no JVD Respiratory/Chest: chest non-tender, lungs clear Cardiovascular: regular rate, rhythm, no edema, no murmur Abdomen: normal bowel sounds, non tender, soft Extremities: normal range of motion, non-tender 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, alert Laboratory Results Last 24 Hours Test 08/21/16 06:00 08/21/16 07:39 Sodium Level 136 mmol/L Potassium Level 3.6 mmol/L Chloride Level 103 mmol/L Carbon Dioxide Level 28 mmol/L Anion Gap 5.0 mmol/L Blood Urea Nitrogen 7 mg/dl Creatinine 0.70 mg/dl Est Creatinine Clear Calc Drug Dose 101.4 ml/min Estimated GFR () 110.8 Estimated GFR (Non- 95.6 BUN/Creatinine Ratio 9.6 Random Glucose 97 mg/dl Calcium Level 8.4 mg/dl Total Bilirubin 1.0 mg/dl Aspartate Amino Transf (AST/SGOT) 51 U/L Alanine Aminotransferase (ALT/SGPT) 73 U/L Alkaline Phosphatase 436 U/L Total Protein 5.6 gm/dl Albumin 2.6 gm/dl Globulin 3.0 gm/dl Albumin/Globulin Ratio 0.9 Bedside Glucose 111 mg/dl Assessment and Plan 70-M with significant history of esophageal cancer with metastasis status post esophageal stent placement now with concern for soft tissue occlusion of stent on CT. significant encephalopathy overnight, hallucinations, agitation Encephalopahty, toxic from medications, continues with improvement with stopping all meds but po dialudid, and sleeping aid ASks if oncology will comment if can have optiva this week as scheduled Abdominal pain: nausea and decreased po intake, continues, will change ppi and H2 to IV try emend and add bisthmuth to carafate, hopeful to have GI input on symptom management - CT shows Esophageal stent now showing soft tissue occlusion with stable metastatic disease - UGi to asses stent patency, showing non occlusive narrowing, treat symptomatically - Appreciate GI and Onc input. - Will consult nutrition reg. supplements and need for TPN -Iv dilaudid, , family states would rather set alarm at night than to have hallucinations that he has had with fentanyl, still having issues with neuropathic pain. Generalized weakness/dehydration and decreased appetite, IV fluids dronabinol will be held due to confusion overall symptom management maybe useful BPH : finasteride Gout allopurinol Depression requests psychiatric involvement to help him cope with diagnosis , cymbalta at home doses, follow up with psyche as outpt DVT prophylaxis:- Heparin subcutaneous
[2016-08-21] MEDS: TRAZODONE HCL 50 MG TAB PO SCH (21:38)
[2016-08-21 22:57] VITALS: BP 123/65; PULSE 81; TEMP 36.6; O2SAT 100
[2016-08-22] MEDS: HYDROmorphone HCL 2 MG TAB PO PRN (01:30)
[2016-08-22] MEDS: ONDANSETRON 8 MG TAB PO PRN (01:31)
[2016-08-22] MEDS: NSS + 20MEQ KCL 1000ML 1,000 ML IV SCH ×3 (01:33→21:46)
[2016-08-22] MEDS: METOCLOPRAMIDE HCL INJ 5 MG/ML 2 ML VIAL IV. SCH ×4 (04:23→21:45)
[2016-08-22 04:27] VITALS: BP 126/76; PULSE 84; TEMP 36.6; O2SAT 97
[2016-08-22] MEDS: HEPARIN SOD 5000 UNIT/0.5 ML CARP SQ SCH ×3 (05:39→21:47)
[2016-08-22 06:27] LABS: BUN/CREATININE RATIO 9.8 (10-20); CALCIUM 8.2 mg/dl (8.5-10.1); CREATININE 0.64 mg/dl (0.60-1.40); POTASSIUM 3.9 mmol/L (3.5-5.1)
[2016-08-22 06:30] LABS: ALB/GLOB RATIO 0.9 (0.9-2)
[2016-08-22 06:52] VITALS: BMI 24.4
[2016-08-22 07:19] VITALS: BP 122/72; PULSE 88; TEMP 36.8; O2SAT 99
[2016-08-22] MEDS: SUCRALFATE 1 GM/10 ML UDC PO SCH ×4 (07:57→20:31)
[2016-08-22] MEDS: DOCUSATE SODIUM 100 MG CAP PO SCH ×2 (07:57→20:31)
[2016-08-22] MEDS: DULOXETINE HCL 60 MG CAP PO SCH (07:58)
[2016-08-22] MEDS: POLYETHYLENE (MIRALAX) 17 GM PACK PO SCH (07:58)
[2016-08-22] MEDS: PANTOprazole INJ 40 MG in SYRINGE 0 ML IV SCH ×2 (07:58→20:32)
[2016-08-22] MEDS: FINASTERIDE 5 MG TAB PO SCH (07:58)
[2016-08-22] MEDS: ALLOPURINOL 300 MG TAB PO SCH (07:58)
[2016-08-22 11:20] VITALS: BP 154/73; PULSE 78; TEMP 36.6; O2SAT 97
[2016-08-22] MEDS: FAMOTIDINE IV INJ 20 MG in DEXTROSE 5% 100ML 100 ML IV SCH ×2 (11:53→23:06)
[2016-08-22] MEDS: HYDROmorphone INJ 1 MG/ML SYR IV PRN ×3 (11:54→21:46)
--- NOTE | 2016-08-22 12:27 | Hospitalist Progress Note ---
Hospitalist Progress Note Date of Service Aug 22, 2016. Subjective Pt evaluation today including: conversation w/ patient, physical exam, chart review improved oral intake. Objective Vital Signs Date Time Temp Pulse Resp B/P Pulse Ox O2 Delivery O2 Flow Rate FiO2 08/22/16 11:20 36.6 78 20 154/73 97 08/22/16 11:13 Room Air 08/22/16 07:19 36.8 88 20 122/72 99 Room Air 08/22/16 04:27 36.6 84 18 126/76 97 Room Air 08/22/16 00:33 Room Air 08/21/16 22:57 36.6 81 18 123/65 100 Room Air 08/21/16 20:01 Room Air 08/21/16 19:15 36.5 90 18 119/73 97 Room Air 08/21/16 16:00 Room Air 08/21/16 15:42 36.5 87 18 145/72 98 Room Air Physical Exam General Appearance: WD/WN Neck: supple, no adenopathy, no JVD Respiratory/Chest: chest non-tender, lungs clear Cardiovascular: regular rate, rhythm, no edema Abdomen: normal bowel sounds, non tender, soft Neurologic/Psychiatric: alert, oriented x 3 Skin: normal color Lymphatic: no adenopathy Laboratory Results Last 24 Hours Test 08/22/16 05:40 Sodium Level 137 mmol/L Potassium Level 3.9 mmol/L Chloride Level 103 mmol/L Carbon Dioxide Level 28 mmol/L Anion Gap 6.0 mmol/L Blood Urea Nitrogen 6 mg/dl Creatinine 0.64 mg/dl Est Creatinine Clear Calc Drug Dose 110.9 ml/min Estimated GFR () 115.0 Estimated GFR (Non- 99.2 BUN/Creatinine Ratio 9.8 Random Glucose 99 mg/dl Calcium Level 8.2 mg/dl Total Bilirubin 1.0 mg/dl Aspartate Amino Transf (AST/SGOT) 48 U/L Alanine Aminotransferase (ALT/SGPT) 77 U/L Alkaline Phosphatase 438 U/L Total Protein 5.3 gm/dl Albumin 2.5 gm/dl Globulin 2.8 gm/dl Albumin/Globulin Ratio 0.9 Assessment and Plan 70-M with significant history of esophageal cancer with metastasis status post esophageal stent placement now with concern for soft tissue occlusion of stent on CT. significant encephalopathy overnight, hallucinations, agitation Encephalopahty, toxic from medications, continues with improvement with stopping all meds but po dialudid, and sleeping aid Abdominal pain: nausea and decreased po intake, continues, will change ppi and H2 to IV try emend and add bisthmuth to carafate, hopeful to have GI input on symptom management - CT shows Esophageal stent now showing soft tissue occlusion with stable metastatic disease - UGi to asses stent patency, showing non occlusive narrowing, treat symptomatically. GI recommendations from noted. Appreciate Die Machine Operator input. Will add Ensure - Appreciate GI and Onc input. - Will consult nutrition reg. supplements and need for TPN -Iv dilaudid, , family states would rather set alarm at night than to have hallucinations that he has had with fentanyl, still having issues with neuropathic pain. Generalized weakness/dehydration and decreased appetite, IV fluids dronabinol will be held due to confusion overall symptom management maybe useful BPH : finasteride Gout allopurinol Depression requests psychiatric involvement to help him cope with diagnosis , cymbalta at home doses, follow up with psyche as outpt DVT prophylaxis:- Heparin subcutaneous
[2016-08-22] MEDS: BOOST PLUS VANILLA PO SCH ×4 (14:38→16:28)
[2016-08-22 14:45] VITALS: BP 125/72; PULSE 82; TEMP 36.5; O2SAT 98
[2016-08-22 19:22] VITALS: BP 144/79; PULSE 72; TEMP 36.6; O2SAT 98
[2016-08-22] MEDS: TAMSULOSIN HCL 0.4 MG CAP PO SCH (20:32)
[2016-08-22] MEDS: TRAZODONE HCL 50 MG TAB PO SCH (20:33)
[2016-08-23] VITALS (8 sets, daily range): BP systolic 106–156; BP diastolic 63–87; PULSE 73–84; TEMP 36.5–36.7; O2SAT 95–99; BMI 27.5
[2016-08-23] MEDS: METOCLOPRAMIDE HCL INJ 5 MG/ML 2 ML VIAL IV. SCH ×4 (04:03→23:49)
[2016-08-23] MEDS: HYDROmorphone INJ 1 MG/ML SYR IV PRN ×5 (04:04→23:23)
[2016-08-23] MEDS: HEPARIN SOD 5000 UNIT/0.5 ML CARP SQ SCH ×3 (05:59→20:51)
[2016-08-23 06:46] LABS: BUN/CREATININE RATIO 12.2 (10-20); CALCIUM 8.2 mg/dl (8.5-10.1); CREATININE 0.61 mg/dl (0.60-1.40); POTASSIUM 3.9 mmol/L (3.5-5.1)
[2016-08-23 06:48] LABS: ALB/GLOB RATIO 0.9 (0.9-2)
[2016-08-23] MEDS: DULOXETINE HCL 60 MG CAP PO SCH (07:51)
[2016-08-23] MEDS: FINASTERIDE 5 MG TAB PO SCH (07:51)
[2016-08-23] MEDS: ALLOPURINOL 300 MG TAB PO SCH (07:51)
[2016-08-23] MEDS: DOCUSATE SODIUM 100 MG CAP PO SCH ×2 (07:52→20:49)
[2016-08-23] MEDS: SUCRALFATE 1 GM/10 ML UDC PO SCH ×4 (07:52→20:49)
[2016-08-23] MEDS: PANTOprazole INJ 40 MG in SYRINGE 0 ML IV SCH ×2 (07:52→20:49)
[2016-08-23] MEDS: ONDANSETRON 8 MG TAB PO PRN (07:52)
[2016-08-23] MEDS: POLYETHYLENE (MIRALAX) 17 GM PACK PO SCH (07:53)
[2016-08-23] MEDS: NSS + 20MEQ KCL 1000ML 1,000 ML IV SCH ×2 (07:53→17:19)
[2016-08-23] MEDS: BOOST PLUS VANILLA PO SCH ×8 (08:00→17:20)
--- NOTE | 2016-08-23 10:16 | Hospitalist Progress Note ---
Hospitalist Progress Note Date of Service Aug 23, 2016. Subjective Pt evaluation today including: conversation w/ patient, physical exam, chart review Poor oral intake. Medications Medications (Trade) Dose Ordered Sig/Sabino Route Start Time Stop Time Status Last Admin Dose Admin Enteral Nutritional Formula (Boost Plus Vanilla) 1 can [id number] PO 08/22/16 13:00 09/21/16 12:59 08/22/16 16:28 1 CAN Objective Vital Signs Date Time Temp Pulse Resp B/P Pulse Ox O2 Delivery O2 Flow Rate FiO2 08/23/16 07:22 36.7 83 20 127/76 99 Room Air 08/23/16 04:16 36.6 82 18 147/87 99 Room Air 08/23/16 01:04 36.7 84 18 121/76 97 Room Air 08/23/16 00:00 Room Air 08/22/16 20:00 Room Air 08/22/16 19:22 36.6 72 18 144/79 98 Room Air 08/22/16 14:45 36.5 82 20 125/72 98 08/22/16 11:20 36.6 78 20 154/73 97 08/22/16 11:13 Room Air Physical Exam General Appearance: WD/WN Eyes: normal inspection ENT: hearing grossly normal Neck: supple, no adenopathy, no JVD Respiratory/Chest: chest non-tender, lungs clear Cardiovascular: regular rate, rhythm, no edema, no murmur Abdomen: normal bowel sounds, non tender, soft Extremities: normal range of motion 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, no motor/sensory deficits, alert, normal mood/affect, oriented x 3 Skin: normal color Laboratory Results Last 24 Hours Test 08/23/16 05:43 Sodium Level 137 mmol/L Potassium Level 3.9 mmol/L Chloride Level 103 mmol/L Carbon Dioxide Level 29 mmol/L Anion Gap 5.0 mmol/L Blood Urea Nitrogen 7 mg/dl Creatinine 0.61 mg/dl Est Creatinine Clear Calc Drug Dose 110.3 ml/min Estimated GFR () 117.3 Estimated GFR (Non- 101.2 BUN/Creatinine Ratio 12.2 Random Glucose 95 mg/dl Calcium Level 8.2 mg/dl Total Bilirubin 1.0 mg/dl Aspartate Amino Transf (AST/SGOT) 86 U/L Alanine Aminotransferase (ALT/SGPT) 134 U/L Alkaline Phosphatase 521 U/L Total Protein 5.2 gm/dl Albumin 2.5 gm/dl Globulin 2.7 gm/dl Albumin/Globulin Ratio 0.9 Assessment and Plan 70-M with significant history of esophageal cancer with metastasis status post esophageal stent placement now with concern for soft tissue occlusion of stent on CT. significant encephalopathy overnight, hallucinations, agitation Encephalopahty, toxic from medications, continues with improvement with stopping all meds but po dialudid, and sleeping aid Abdominal pain: nausea and decreased po intake, continues, will change ppi and H2 to IV try emend and add bisthmuth to carafate, hopeful to have GI input on symptom management - CT shows Esophageal stent now showing soft tissue occlusion with stable metastatic disease - UGi to asses stent patency, showing non occlusive narrowing, treat symptomatically. GI recommendations from noted. Appreciate Applications Tester input. Will add Ensure - Appreciate GI and Onc input. - Will consult nutrition reg. supplements and need for TPN -Iv dilaudid, , family states would rather set alarm at night than to have hallucinations that he has had with fentanyl, still having issues with neuropathic pain. Generalized weakness/dehydration and decreased appetite, IV fluids dronabinol will be held due to confusion overall symptom management maybe useful BPH : finasteride Gout allopurinol Depression requests psychiatric involvement to help him cope with diagnosis , cymbalta at home doses, follow up with psyche as outpt DVT prophylaxis:- Heparin subcutaneous
[2016-08-23] MEDS: FAMOTIDINE IV INJ 20 MG in DEXTROSE 5% 100ML 100 ML IV SCH ×2 (10:37→23:21)
[2016-08-23] MEDS: ONDANSETRON INJ 8 MG in DEXTROSE 5% 50ML 50 ML IV PRN (14:58)
[2016-08-23] MEDS: TAMSULOSIN HCL 0.4 MG CAP PO SCH (20:51)
[2016-08-23] MEDS: TRAZODONE HCL 50 MG TAB PO SCH (20:51)
[2016-08-24] VITALS (8 sets, daily range): BP systolic 148–175; BP diastolic 71–99; PULSE 80–102; TEMP 36.3–36.7; O2SAT 94–98; BMI 27.1
[2016-08-24] MEDS: NSS + 20MEQ KCL 1000ML 1,000 ML IV SCH ×3 (04:17→23:36)
[2016-08-24] MEDS: HYDROmorphone INJ 1 MG/ML SYR IV PRN ×4 (04:20→23:36)
[2016-08-24] MEDS: METOCLOPRAMIDE HCL INJ 5 MG/ML 2 ML VIAL IV. SCH ×4 (05:00→22:00)
[2016-08-24] MEDS: HEPARIN SOD 5000 UNIT/0.5 ML CARP SQ SCH ×3 (06:26→22:05)
[2016-08-24] MEDS: BOOST PLUS VANILLA PO SCH ×2 (07:00)
[2016-08-24] MEDS ORDERED: TAPENTADOL HCL 50 MG TAB PO PRN (08:15)
[2016-08-24] MEDS: PANTOprazole INJ 40 MG in SYRINGE 0 ML IV SCH ×2 (08:51→19:54)
[2016-08-24] MEDS: DOCUSATE SODIUM 100 MG CAP PO SCH ×2 (08:51→19:54)
[2016-08-24] MEDS: ALLOPURINOL 300 MG TAB PO SCH (08:52)
[2016-08-24] MEDS: FINASTERIDE 5 MG TAB PO SCH (08:52)
[2016-08-24] MEDS: DULOXETINE HCL 60 MG CAP PO SCH (08:52)
[2016-08-24] MEDS: SUCRALFATE 1 GM/10 ML UDC PO SCH ×4 (08:53→19:55)
[2016-08-24] MEDS: POLYETHYLENE (MIRALAX) 17 GM PACK PO SCH (08:54)
--- NOTE | 2016-08-24 09:15 | Hematology/Oncology Prog Note ---
Hematology/Onc Progress Note Date of Service Aug 23, 2016. Diagnoses Metastatic esophageal cancer Intractable pain Medications Medications Administered Medications (Trade) Dose Ordered Sig/Sabino Route Start Time Stop Time Status Last Admin Dose Admin Sodium Chloride (Nss 1000ml) 500 ml @ 999 mls/hr Q31M STAT IV 08/16/16 19:42 08/16/16 20:12 DC 08/16/16 20:21 999 MLS/HR Promethazine HCl 6.25 mg 6.25 mg NOW STAT IV 08/16/16 19:42 08/16/16 19:46 DC 08/16/16 20:29 6.25 MG Sodium Chloride (Nss 1000ml) 1,000 ml @ 200 mls/hr Q5H STAT IV 08/16/16 19:42 08/17/16 00:41 DC 08/16/16 20:56 200 MLS/HR Hydromorphone HCl (Dilaudid Inj) 0.5 mg Q15M PRN IV 08/16/16 19:45 08/17/16 01:22 DC 08/16/16 20:30 0.5 MG Piperacillin Sod/ Tazobactam Sod (Zosyn Iv) 4.5 gm NOW STAT IV 08/16/16 19:45 08/16/16 19:46 DC 08/16/16 20:30 4.5 GM Magnesium Sulfate (Magnesium Sulfate) 1 gm NOW STAT IV 08/16/16 21:56 08/16/16 21:57 DC 08/16/16 22:01 1 GM Ondansetron HCl 4 mg 4 mg Q6H PRN IV 08/17/16 00:00 08/19/16 11:45 DC 08/19/16 07:45 4 MG Potassium Chloride/Sodium Chloride (Nss + 20meq KCl 1000ml) 1,000 ml @ 100 mls/hr Q10H IV 08/17/16 01:30 09/16/16 01:29 08/24/16 04:17 100 MLS/HR Allopurinol (Zyloprim Tab) 300 mg QAM PO 08/17/16 08:00 09/16/16 08:59 08/24/16 08:52 300 MG Docusate Sodium (coLACE CAP) 100 mg BID PO 08/17/16 08:00 09/16/16 08:59 08/24/16 08:51 100 MG Duloxetine HCl (Cymbalta Cap) 30 mg QAM PO 08/17/16 08:00 08/17/16 13:15 DC 08/17/16 08:45 30 MG Famotidine (Pepcid Tab) 20 mg BID PO 08/17/16 08:00 08/20/16 10:38 DC 08/20/16 09:48 20 MG Finasteride (Proscar Tab) 5 mg QAM PO 08/17/16 08:00 09/16/16 08:59 08/24/16 08:52 5 MG Hydromorphone HCl (Dilaudid Tab) 2-4 MG BASED ON PAIN LEVEL Q4 PRN PO 08/17/16 00:00 08/22/16 10:54 DC 08/19/16 11:56 4 MG Lorazepam (Ativan Tab) 0.5 mg Q6H PO 08/17/16 06:00 09/16/16 05:59 Future Hold 08/18/16 05:48 0.5 MG Ondansetron HCl (Zofran Tab) 8 mg Q8 PRN PO 08/17/16 00:00 09/16/16 00:00 08/23/16 07:52 8 MG Prednisone (PredniSONE TAB) 10 mg QAM PO 08/17/16 08:00 09/16/16 08:59 Future hold 08/24/16 08:51 10 MG Promethazine HCl (Phenergan Tab) 25 mg Q6H PRN PO 08/17/16 00:00 09/16/16 00:00 Future Hold 08/18/16 04:26 25 MG Tamsulosin HCl (Flomax Cap) 0.4 mg QPM PO 08/17/16 21:00 09/16/16 20:59 08/23/16 20:51 0.4 MG Dronabinol (Marinol Cap) 5 mg QID PO 08/17/16 08:00 09/16/16 08:59 Future Hold 08/17/16 21:24 5 MG Pantoprazole Sodium (Protonix Tab) 40 mg BID PO 08/17/16 08:00 08/20/16 10:38 DC 08/20/16 09:46 40 MG Polyethylene (Miralax Powder Packet) 17 gm DAILY PO 08/17/16 08:00 09/16/16 08:59 08/24/16 08:54 17 GM Miscellaneous Information (Check Fentanyl Patch Placement) 1 ea QS N/A 08/17/16 08:00 08/17/16 11:25 DC 08/17/16 08:54 1 EA Heparin Sodium (Porcine) (Heparin 100 Unit/ml 5ml Flush) 5 ml PRN PRN IV 08/17/16 02:00 09/16/16 01:59 08/18/16 11:52 5 ML Heparin Sodium (Porcine) (Heparin Sq 5000 Unit/0.5ml) 5,000 unit Q8H SQ 08/17/16 06:00 09/16/16 05:59 08/24/16 06:26 5,000 UNIT Hydromorphone HCl (Dilaudid Inj) 0.5 mg Q4 PRN IV 08/17/16 08:45 08/31/16 08:44 08/21/16 08:52 0.5 MG Hydromorphone HCl (Dilaudid Inj) 1 mg Q4 PRN IV 08/17/16 08:45 08/31/16 08:44 08/24/16 04:20 1 MG Hydromorphone HCl (Dilaudid Tab) 2 mg Q4H PRN PO 08/17/16 11:30 08/31/16 11:29 08/18/16 23:03 2 MG Hydromorphone HCl 4 mg 4 mg Q4H PRN PO 08/17/16 11:30 08/31/16 11:29 08/22/16 01:30 4 MG Hydrocortisone Sodium Succinate/ Syringe (Solu-Cortef IV/ Syringe) 1 ml @ 4 mls/min Q8 IV 08/18/16 09:00 08/20/16 10:38 DC 08/20/16 06:11 4 MLS/MIN Lorazepam (Ativan Inj) 0.5 mg Q4H PRN IV 08/18/16 09:00 09/17/16 08:59 08/18/16 10:55 0.5 MG Olanzapine 5 mg 5 mg 0930 ONCE PO 08/18/16 09:30 08/18/16 09:31 DC 08/18/16 10:00 5 MG Lorazepam/Syringe (Ativan Inj/ Syringe) 1 ml @ 1 mls/min Q4H PRN IV 08/18/16 09:15 09/17/16 09:14 08/20/16 21:22 1 MLS/MIN Trazodone HCl 50 mg 50 mg HS PO 08/18/16 21:00 08/19/16 12:20 DC 08/18/16 19:59 50 MG Ondansetron HCl/ Dextrose (Zofran Inj/D5 50ml) 54 ml @ 216 mls/hr Q6H PRN IV 08/19/16 12:00 09/18/16 11:59 08/23/16 14:58 216 MLS/HR Duloxetine HCl (Cymbalta Cap) 30 mg QAM PO 08/19/16 12:30 08/21/16 06:22 DC 08/20/16 09:45 30 MG Trazodone HCl (Desyrel Tab) 25 mg HS PO 08/19/16 21:00 09/18/16 20:59 08/23/16 20:51 25 MG Sucralfate 1 gm 1 gm QID PO 08/19/16 13:15 09/18/16 13:14 08/24/16 08:53 1 GM Fosaprepitant 150 mg/Sodium Chloride 150 ml @ 300 mls/hr TODAY@1300 IV 08/20/16 13:00 08/20/16 23:00 DC 08/20/16 13:03 300 MLS/HR Pantoprazole Sodium 40 mg/ Syringe 10 ml @ 5 mls/min DAILY@09,21 IV 08/20/16 10:45 09/19/16 10:44 08/24/16 08:51 5 MLS/MIN Famotidine/ Dextrose (Pepcid IV Inj/ D5 100ml) 102 ml @ 200 mls/hr Q12H IV 08/20/16 11:00 09/19/16 10:59 08/23/16 23:21 200 MLS/HR Bismuth Subsalicylate (Kaopectate Liquid) 30 ml ONE ONCE PO 08/20/16 10:45 08/20/16 10:46 DC 08/20/16 11:32 30 ML Duloxetine HCl (Cymbalta Cap) 60 mg QAM PO 08/21/16 08:00 09/20/16 07:59 08/24/16 08:52 60 MG Metoclopramide HCl (Reglan Inj) 10 mg Q6H IV. 08/21/16 16:00 09/20/16 15:59 08/24/16 05:00 10 MG Enteral Nutritional Formula (Boost Plus Vanilla) 1 can [id number] PO 08/22/16 13:00 09/21/16 12:59 08/23/16 17:20 1 CAN Subjective Mr. Howell is comfortable in bed today. He continues to have difficulty finding an effective and tolerable pain regimen. He is currently taking Dilaudid with Reglan. This helps transiently, but he does not get longer lasting relief. He is not currently on any long-acting narcotics. Review of Systems: Constitutional: No fever ENT: No trouble swallowing Respiratory: No cough, No shortness of breath Cardiovascular: No chest pain Abdomen: + nausea, + pain, No vomiting Musculoskeletal: No joint pain, No muscle pain Neurologic: No weakness Vital Signs Vital Signs Past 12 Hours Date Time Temp Pulse Resp B/P Pulse Ox O2 Delivery O2 Flow Rate FiO2 08/24/16 07:25 36.7 83 20 149/74 98 08/24/16 06:37 82 171/83 08/24/16 06:25 Room Air 08/23/16 23:46 36.5 76 18 118/72 95 Room Air Physical Exam Constitutional: General Apperance: heathly-appearing Level of Distress: NAD Psychiatric: Mental Status: active & alert Orientation: oriented except where noted Lungs: Auscuitation: CTA except as noted Cardiovascular: Heart Auscultation: RRR, no murmurs Abdomen: Inspection & Palpation: soft, no tenderness, guarding & rebound Assessment & Plan Mr. Howell is having difficulty finding an effective analgesic regimen, in part due to a narrow therapeutic index and to nausea. I think he may benefit from a pain management consultation, as he should be on some sort of long-acting narcotics and they may be able to help develop a more efficacious and rational pain management strategy. Otherwise, his treatment is on hold until he is able to be discharged. We will make arrangements to resume Opdivo once he is ready for discharge.
--- NOTE | 2016-08-24 10:26 | CONSULTATION REPORT ---
DATE OF CONSULTATION: 08/24/2016 DATE OF CONSULTATION: 08/24/2016. Plan of care discussed with Dr. Lugo. CHIEF COMPLAINT: Abdominal pain. HISTORY OF PRESENT ILLNESS: Mr. Howell is a 70-year-old white male who has a past medical history significant for esophageal cancer status post esophageal stent placement with metastasis to lymph nodes, liver and spine. The patient presented with complaints of dizziness and abdominal pain with nausea. His abdominal pain has been intractable requiring outpatient utilization of fentanyl patch and Dilaudid. The patient was experiencing difficulties with dizziness, weakness and fatigue with concerns over the titration of his fentanyl patch in the outpatient setting as well as initiation of scopolamine patch. He was experiencing some cognitive dysfunction around this timeframe. Fentanyl has been discontinued upon this admission which has improved his mentation and his fatigue. He continues to complain of abdominal pain which is infraumbilical and across the entire abdominal location described as cramping and throbbing in characteristic. He denies a direct relationship with dietary intake. His bowel movements have been minimal and scant experiencing 1 small bowel within the past 2 days. He describes a general sense of fullness in the abdominal location. He has been experiencing difficulties with constipation ongoing which have been refractory to Movantik, MiraLax and multiple other stool softeners in the outpatient setting. The patient is finding IV Dilaudid to be effective at pain control upon this admission. He was utilizing 2-4 mg q. 4-6 hours in the outpatient setting. He has minimal axial thoracolumbar back pain complaints. He denies a radicular component to these symptoms. He denies vomiting at this time, but continues to deal with nausea. His dietary intake has improved minimally. He denies difficulty with swallowing, odynphagia or dysphasia. The patient denies lumbar radicular pain, weaknesses in lower extremity, footdrop or falling. He has no further constitutional complaints at this time. PAST MEDICAL HISTORY: 1. Anxiety disorder. 2. BPH. 3. Cholecystitis. 4. Esophageal cancer with metastasis. 5. Peripheral neuropathy -- chemotherapy induced. 6. Precordial chest pain. 7. Abdominal pain. 8. Esophageal cancer with metastatic disease. PAST SURGICAL HISTORY: 1. Right nephrectomy. 2. A-port placement. 3. EGD. SOCIAL HISTORY: The patient is , currently living with significant other. The patient is retired. He is a former smoker. Denies alcohol or illicit drug use. FAMILY HISTORY: 1. Cancer -- unknown type. 2. Gallbladder disease. 3. CAD. 4. Hypertension. 5. Lung disease. ALLERGIES: No known drug allergies. CURRENT MEDICATIONS: Were reviewed extensively in the EMR -- refer for current listing. REVIEW OF SYSTEMS: The patient denies complaints related to cardiac, pulmonary, GI, , endocrine, neurologic, hepatic, renal, ENT, dermatologic, musculoskeletal other than described above in the HPI. PHYSICAL EXAMINATION: VITAL SIGNS: Temperature 36.7 degrees Celsius, pulse 83, respirations 20, BP 149/74, pulse oximetry 98 on room air. GENERAL: Mr. Howell is sitting up upon entering the room in no obvious acute distress. He is rating his pain minimal at this time at a 3-4/10 in the lower abdominal location. Speech and thought process was appropriate. Mood and affect was appropriate. Cognition is intact. CHEST: The patient is nontender to palpation at the costosternal junction. Nontender with AP and lateral compression. Nontender over the posterolateral chest wall. BACK AND SPINE: He is nontender to palpation and percussion over the thoracolumbar spinal location. He is minimally tender to paravertebral musculature at the thoracolumbar junction. ABDOMEN: Soft and nondistended. He has some generalized tenderness in the lower quadrants to palpation without rebound or guarding. He is nontender in the midepigastric or the upper quadrants to palpation. No appreciable organomegaly. Bowel sounds are active. LOWER EXTREMITIES: SLR negative bilaterally. Strength 5/5 and equal. Sensation was intact without deficits. No evidence of edema, erythema or skin breakdown. NEUROLOGIC: Cranial nerves grossly intact. The patient was witnessed ambulating from his chair to his bed without obvious discomfort. ASSESSMENT: 1. Abdominal pain. 2. Intractable nausea. 3. Metastatic esophageal cancer status post esophageal stent placement. 4. Depressive disorder. 5. Anxiety disorder. 6. Acute encephalopathy -- resolved. 7. Constipation--potentially opioid induced TREATMENT AND RECOMMENDATIONS: 1. Due to uncertain relationship with his constipation being opioid induced will initiate a trial of Relistor 12 mg subcutaneously today to assess impact on sensation of fullness and diminished bowel movements with abdominal pain complaints. 2. Will initiate a trial of tapentadol 50 mg q. 4 h. on a p.r.n. basis for breakthrough pain to assess efficacy and tolerability. The patient may reserve oral hydromorphone and IV hydromorphone for backup at this time. Attempt to transition to p.o. breakthrough pain medications to diminish reliance on IV hydromorphone for discharge planning. 3. Will not recommend resumption of fentanyl at this time due to his mental status changes potentially related to this medication in the outpatient setting. 4. Further recommendations will be made pending response to the above changes. Will continue to follow during his hospitalization. Thank you for the consultation with Mr. Howell. KB
[2016-08-24] MEDS: FAMOTIDINE IV INJ 20 MG in DEXTROSE 5% 100ML 100 ML IV SCH ×2 (11:30→23:35)
[2016-08-24] MEDS ORDERED: BOOST PLUS VANILLA PO SCH ×2 (13:00)
[2016-08-24] MEDS: METHYLNALTREXONE BROMIDE INJ 12 MG/0.6 ML SYR SQ SCH (14:29)
--- NOTE | 2016-08-24 16:23 | Hospitalist Progress Note ---
Hospitalist Progress Note Date of Service Aug 24, 2016. Subjective Pt evaluation today including: conversation w/ patient, physical exam, chart review Medications Medications (Trade) Dose Ordered Sig/Sabino Route Start Time Stop Time Status Last Admin Dose Admin Methylnaltrexone [place] (Relistor Inj) 12 mg Q2D@1000 SQ 08/24/16 10:00 09/23/16 09:59 08/24/16 14:29 12 MG Tapentadol (Nucynta Tab) 50 mg Q4H PRN PO 08/24/16 08:15 09/07/16 08:14 08/24/16 09:33 50 MG Objective Vital Signs Date Time Temp Pulse Resp B/P Pulse Ox O2 Delivery O2 Flow Rate FiO2 08/24/16 16:08 36.6 102 18 175/99 94 Room Air 08/24/16 15:12 Room Air 08/24/16 10:52 36.3 80 20 174/90 98 Room Air 08/24/16 08:30 Room Air 08/24/16 07:25 36.7 83 20 149/74 98 08/24/16 06:37 82 171/83 08/24/16 06:25 Room Air 08/23/16 23:46 36.5 76 18 118/72 95 Room Air 08/23/16 20:00 Room Air 08/23/16 18:52 36.6 76 20 153/85 97 Room Air Physical Exam General Appearance: WD/WN Eyes: normal inspection ENT: normal ENT inspection Neck: supple, no adenopathy, no JVD Respiratory/Chest: chest non-tender, lungs clear Cardiovascular: regular rate, rhythm, no edema, no murmur Abdomen: normal bowel sounds, non tender, soft Neurologic/Psychiatric: process description writer II-XII nml as tested, alert, oriented x 3 Skin: normal color Lymphatic: no adenopathy Laboratory Results 08/17/16 06:53 Red Blood Count 3.74, Mean Corpuscular Volume 86.9, Mean Corpuscular Hemoglobin 28.9, Mean Corpuscular Hemoglobin Concent 33.2, Mean Platelet Volume 9.3, Neutrophils (%) (Auto) 64.9, Lymphocytes (%) (Auto) 21.9, Monocytes (%) (Auto) 9.8, Eosinophils (%) (Auto) 2.3, Basophils (%) (Auto) 0.4, Neutrophils # (Auto) 4.90, Lymphocytes # (Auto) 1.65, Monocytes # (Auto) 0.74, Eosinophils # (Auto) 0.17, Basophils # (Auto) 0.03 08/23/16 05:43 Test 08/16/16 20:13 08/17/16 06:53 08/19/16 05:06 08/21/16 07:39 Prothrombin Time 10.6 SECONDS (9.0-12.0) Prothromb Time International Ratio 1.0 (0.9-1.1) Activated Partial Thromboplast Time 23.6 SECONDS (21.0-31.0) Partial Thromboplastin Ratio 0.9 Lactic Acid Level 1.1 mmol/L (0.4-2.0) Magnesium Level 1.7 mg/dl (1.8-2.4) Troponin I < 0.015 ng/ml (0-0.045) Lipase 149 U/L (73-393) Thyroid Stimulating Hormone (TSH) 1.160 uIu/ml (0.300-4.500) White Blood Count 7.54 K/uL (4.8-10.8) Red Blood Count 3.74 M/uL (4.7-6.1) Hemoglobin 10.8 g/dL (14.0-18.0) Hematocrit 32.5 % (42-52) Mean Corpuscular Volume 86.9 fL (80-100) Mean Corpuscular Hemoglobin 28.9 pg (25-34) Mean Corpuscular Hemoglobin Concent 33.2 g/dl (32-36) Platelet Count 208 K/uL (130-400) Mean Platelet Volume 9.3 fL (7.4-10.4) Neutrophils (%) (Auto) 64.9 % Lymphocytes (%) (Auto) 21.9 % Monocytes (%) (Auto) 9.8 % Eosinophils (%) (Auto) 2.3 % Basophils (%) (Auto) 0.4 % Neutrophils # (Auto) 4.90 K/uL (1.4-6.5) Lymphocytes # (Auto) 1.65 K/uL (1.2-3.4) Monocytes # (Auto) 0.74 K/uL (0.11-0.59) Eosinophils # (Auto) 0.17 K/uL (0-0.5) Basophils # (Auto) 0.03 K/uL (0-0.2) RDW Standard Deviation 46.7 fL (36.4-46.3) RDW Coefficient of Variation 15.0 % (11.5-14.5) Immature Granulocyte % (Auto) 0.7 % Immature Granulocyte # (Auto) 0.05 K/uL (0.00-0.02) Ammonia 24.0 umol/L (11-32) Bedside Glucose 111 mg/dl (70-99) Test 08/23/16 05:43 Anion Gap 5.0 mmol/L (3-11) Est Creatinine Clear Calc Drug Dose 110.3 ml/min Estimated GFR () 117.3 Estimated GFR (Non- 101.2 BUN/Creatinine Ratio 12.2 (10-20) Calcium Level 8.2 mg/dl (8.5-10.1) Total Bilirubin 1.0 mg/dl (0.2-1) Aspartate Amino Transf (AST/SGOT) 86 U/L (15-37) Alanine Aminotransferase (ALT/SGPT) 134 U/L (12-78) Alkaline Phosphatase 521 U/L (45-117) Total Protein 5.2 gm/dl (6.4-8.2) Albumin 2.5 gm/dl (3.4-5.0) Globulin 2.7 gm/dl (2.5-4.0) Albumin/Globulin Ratio 0.9 (0.9-2) Date/Time Source Procedure Growth Status 08/16/16 20:22 Blood Blood Culture - Final NO GROWTH Complete 08/18/16 09:41 Urine , Clean Catch Urine Culture - Final NO GROWTH - LESS THAN 1,000 COLONIES/ML Complete Assessment and Plan 70-M with significant history of esophageal cancer with metastasis status post esophageal stent placement now with concern for soft tissue occlusion of stent on CT. significant encephalopathy overnight, hallucinations, agitation Encephalopahty, toxic from medications, continues with improvement with stopping all meds but po dialudid, and sleeping aid Abdominal pain: nausea and decreased po intake, continues, will change ppi and H2 to IV try emend and add bisthmuth to carafate, hopeful to have GI input on symptom management - CT shows Esophageal stent now showing soft tissue occlusion with stable metastatic disease - UGi to asses stent patency, showing non occlusive narrowing, treat symptomatically. GI recommendations from noted. Appreciate Plant Custodian input. Will add Ensure - Appreciate GI and Onc input. - Appreciate nutrition input. - Nutritional supplements. Will hold off TPN for now. -Iv dilaudid, , family states would rather set alarm at night than to have hallucinations that he has had with fentanyl, still having issues with neuropathic pain. Generalized weakness/dehydration and decreased appetite, IV fluids dronabinol will be held due to confusion overall symptom management maybe useful BPH : finasteride Gout allopurinol Depression requests psychiatric involvement to help him cope with diagnosis , cymbalta at home doses, follow up with psyche as outpt DVT prophylaxis:- Heparin subcutaneous
[2016-08-24] MEDS: TRAZODONE HCL 50 MG TAB PO SCH (19:54)
[2016-08-24] MEDS: TAMSULOSIN HCL 0.4 MG CAP PO SCH (19:54)
[2016-08-24] MEDS: HYDROmorphone INJ 0.5 MG/0.5 ML SYR IV PRN (19:55)
[2016-08-24 22:17] LABS: URINE APPEARANCE CLEAR (CLEAR); URINE BILIRUBIN NEG (NEG); URINE COLOR YELLOW; URINE NITRITE NEG (NEG); URINE SPECIFIC GRAVITY 1.011 (1.000-1.030); UROBILINOGEN NEG (NEG); ZZUR CULT IF INDIC CLEAN CATCH NO
[2016-08-24 22:18] LABS: MANUAL MICROSCOPIC REQUIRED? NO; REVIEW REQ? NO
[2016-08-24] MEDS: HydrALAZINE HCL 20 MG/ML VIAL IV. PRN (23:36)
[2016-08-25] VITALS (8 sets, daily range): BP systolic 121–178; BP diastolic 67–97; PULSE 69–93; TEMP 36.2–37; O2SAT 95–97; BMI 27.0
[2016-08-25] MEDS: ONDANSETRON INJ 8 MG in DEXTROSE 5% 50ML 50 ML IV PRN ×2 (02:51→12:12)
[2016-08-25] MEDS: HYDROmorphone INJ 1 MG/ML SYR IV PRN ×3 (03:27→12:08)
[2016-08-25] MEDS: METOCLOPRAMIDE HCL INJ 5 MG/ML 2 ML VIAL IV. SCH (03:52)
[2016-08-25] MEDS: HEPARIN SOD 5000 UNIT/0.5 ML CARP SQ SCH ×3 (06:06→21:35)
[2016-08-25] MEDS: ALLOPURINOL 300 MG TAB PO SCH (07:31)
[2016-08-25] MEDS: DULOXETINE HCL 60 MG CAP PO SCH (07:31)
[2016-08-25] MEDS: ONDANSETRON 8 MG TAB PO PRN (07:31)
[2016-08-25] MEDS: FINASTERIDE 5 MG TAB PO SCH (07:31)
[2016-08-25] MEDS: SUCRALFATE 1 GM/10 ML UDC PO SCH ×4 (07:31→20:17)
[2016-08-25] MEDS: DOCUSATE SODIUM 100 MG CAP PO SCH ×2 (07:31→20:17)
[2016-08-25] MEDS: POLYETHYLENE (MIRALAX) 17 GM PACK PO SCH (07:31)
[2016-08-25 08:15] LABS: BASO % 0.2 %; BASO ABS # 0.01 K/uL (0-0.2); COMPLETE YES; EOS % 0.9 %; HEMATOCRIT 31.7 % (42-52); IG% 0.6 %; LYMPH % 13.9 %; LYMPH ABS # 0.89 K/uL (1.2-3.4); MEAN CELL VOLUME 85.2 fL (80-100); MEAN CORPUSCULAR HEMOGLOBIN 28.8 pg (25-34); MEAN CORPUSCULAR HGB CONC 33.8 g/dl (32-36); MEAN PLATELET VOLUME 8.5 fL (7.4-10.4); MONO % 9.7 %; NEUT % 74.7 %; PLATELET COUNT 215 K/uL (130-400); RED BLOOD COUNT 3.72 M/uL (4.7-6.1); WHITE BLOOD COUNT 6.41 K/uL (4.8-10.8)
[2016-08-25 08:44] LABS: BUN/CREATININE RATIO 8.2 (10-20); CREATININE 0.57 mg/dl (0.60-1.40); MAGNESIUM 1.6 mg/dl (1.8-2.4); POTASSIUM 3.5 mmol/L (3.5-5.1)
--- NOTE | 2016-08-25 08:44 | Pain Management Progress Note ---
Pain Management Progress Note Date of Service Aug 25, 2016. Subjective Mr. Howell is a 70-year-old white male who has a past medical history significant for esophageal cancer status post esophageal stent placement with metastasis to lymph nodes, liver and spine. Patient is groggy and sleeping when he was seen this morning. Patient was in increased pain throughout the night and this morning as well as nausea so he received IV Dilaudid 1mg and Ativan 1mg 30 minutes ago. He was not able to be stay awake for a conversation so I have spoken with the significant other. Nucynta was tried yesterday which caused jitteriness, restlessness, and agitation. He has since refused to try the medication again. Yesterday he was instructed to try Nucynta and if not tolerated, then take oral Dilaudid. Patient has been using IV Dilaudid for pain as he says that it is effective towards diminishing pain. He was given an injection of Relistor yesterday which did provide a decent BM 30 minutes later as per significant other. Case discussed with Dr. Lugo Objective Vital Signs: Last Vital Signs Documentation Date Time Temp Pulse Resp B/P Pulse Ox O2 Delivery O2 Flow Rate FiO2 08/25/16 07:26 36.2 85 16 158/83 96 Room Air Physical Exam: GENERAL: Mr. Howell is a 70 year old white male that appears his stated age. Patient is difficult to awake and falls asleep shortly after. He is accompanied by his significant other. NEURO: Patient is arousable. Does not stay awake long enough to answer questions. Laboratory (Last CBC): 08/25/16 07:40 Red Blood Count 3.72 L, Mean Corpuscular Volume 85.2, Mean Corpuscular Hemoglobin 28.8, Mean Corpuscular Hemoglobin Concent 33.8, Mean Platelet Volume 8.5, Neutrophils (%) (Auto) 74.7, Lymphocytes (%) (Auto) 13.9, Monocytes (%) ( Auto) 9.7, Eosinophils (%) (Auto) 0.9, Basophils (%) (Auto) 0.2, Neutrophils # ( Auto) 4.79, Lymphocytes # (Auto) 0.89 L, Monocytes # (Auto) 0.62 H, Eosinophils # (Auto) 0.06, Basophils # (Auto) 0.01 Assessment 1. Abdominal pain. 2. Intractable nausea. 3. Metastatic esophageal cancer status post esophageal stent placement. 4. Depressive disorder. 5. Anxiety disorder. 6. Constipation--potentially opioid induced Recommendations 1. Nucynta was discontinued due to side effects 2. Patient was initiated on Morphine IR 15mg x 4 hours PRN pain. 3. I have thoroughly explained to the patient's significant other that Morphine IR will be initiated and if tolerated, will plan to discharge to home with this medication. I have explained that IV Dilaudid should only be used for breakthrough as he will not be discharged with IV medication. 4. If patient does tolerate morphine then IR could be converted into ER. 5. If the patient cannot tolerate morphine, then patient will try oral Dilaudid again. [employer] Voice Recognition This chart was completed in part utilizing [employer] Voice Recognition Software. Random word insertions, pronoun errors, and incomplete sentences are an occasional consequence of this system due to software limitations and ambient noise. Any questions or concerns about the content, text or information contained within the body of this dictation should be directly addressed to the provider for clarification.
[2016-08-25 08:57] LABS: CALCIUM 8.8 mg/dl (8.5-10.1)
[2016-08-25] MEDS: NSS + 20MEQ KCL 1000ML 1,000 ML IV SCH ×2 (10:10→20:16)
[2016-08-25] MEDS: PANTOprazole INJ 40 MG in SYRINGE 0 ML IV SCH ×2 (10:10→20:17)
[2016-08-25] MEDS: FAMOTIDINE IV INJ 20 MG in DEXTROSE 5% 100ML 100 ML IV SCH ×2 (10:11→22:31)
[2016-08-25] MEDS ORDERED: NURSING VERBAL MED ORDER ONE (10:15)
[2016-08-25] MEDS ORDERED: LIDOCAINE HCL 2% JELLY 30 ML TUBE EXT ONE (12:05)
--- NOTE | 2016-08-25 15:33 | Hospitalist Progress Note ---
Hospitalist Progress Note Date of Service Aug 25, 2016. Subjective Pt evaluation today including: conversation w/ patient, conversation w/ family , physical exam, chart review Voiding: voiding difficulty Winchester catheter placed this am for urin.retention. No fevers Medications Medications (Trade) Dose Ordered Sig/Sabino Route Start Time Stop Time Status Last Admin Dose Admin Hydralazine HCl (HydrALAZINE INJ) 10 mg Q4H PRN IV. 08/24/16 21:00 09/23/16 20:59 08/24/16 23:36 10 MG Lidocaine HCl (Xylocaine Jelly 2%) 30 ml STK-MED ONCE EXT 08/25/16 12:05 08/25/16 12:06 DC 08/25/16 12:07 30 ML Objective Vital Signs Date Time Temp Pulse Resp B/P Pulse Ox O2 Delivery O2 Flow Rate FiO2 08/25/16 11:30 Room Air 08/25/16 11:26 36.7 69 16 157/82 97 Room Air 08/25/16 07:26 36.2 85 16 158/83 96 Room Air 08/25/16 03:42 36.3 87 18 121/67 95 Room Air 08/25/16 00:30 141/69 08/25/16 00:01 Room Air 08/24/16 23:48 36.6 90 20 170/71 96 Room Air 08/24/16 22:10 148/84 08/24/16 20:00 Room Air 08/24/16 19:22 36.5 86 20 164/88 95 Room Air 08/24/16 16:30 94 160/93 95 08/24/16 16:08 36.6 102 18 175/99 94 Room Air Physical Exam Eyes: normal inspection ENT: normal ENT inspection Neck: supple Respiratory/Chest: chest non-tender Cardiovascular: regular rate, rhythm, no edema, no murmur Abdomen: non tender, soft, + pertinent finding (winchester catheter) Extremities: normal range of motion, no pedal edema Neurologic/Psychiatric: military personnel specialist II-XII nml as tested, alert, oriented x 3 Laboratory Results Last 24 Hours Test 08/24/16 22:00 08/25/16 07:40 Urine Color YELLOW Urine Appearance CLEAR Urine pH 7.0 Urine Specific [place] 1.011 Urine Protein NEG Urine Glucose (UA) NEG Urine Ketones NEG Urine Occult Blood NEG Urine Nitrite NEG Urine Bilirubin NEG Urine Urobilinogen NEG Urine Leukocyte Esterase NEG White Blood Count 6.41 K/uL Red Blood Count 3.72 M/uL Hemoglobin 10.7 g/dL Hematocrit 31.7 % Mean Corpuscular Volume 85.2 fL Mean Corpuscular Hemoglobin 28.8 pg Mean Corpuscular Hemoglobin Concent 33.8 g/dl Platelet Count 215 K/uL Mean Platelet Volume 8.5 fL Neutrophils (%) (Auto) 74.7 % Lymphocytes (%) (Auto) 13.9 % Monocytes (%) (Auto) 9.7 % Eosinophils (%) (Auto) 0.9 % Basophils (%) (Auto) 0.2 % Neutrophils # (Auto) 4.79 K/uL Lymphocytes # (Auto) 0.89 K/uL Monocytes # (Auto) 0.62 K/uL Eosinophils # (Auto) 0.06 K/uL Basophils # (Auto) 0.01 K/uL RDW Standard Deviation 49.0 fL RDW Coefficient of Variation 15.8 % Immature Granulocyte % (Auto) 0.6 % Immature Granulocyte # (Auto) 0.04 K/uL Sodium Level 132 mmol/L Potassium Level 3.5 mmol/L Chloride Level 97 mmol/L Carbon Dioxide Level 26 mmol/L Anion Gap 9.0 mmol/L Blood Urea Nitrogen 5 mg/dl Creatinine 0.57 mg/dl Est Creatinine Clear Calc Drug Dose 108.8 ml/min Estimated GFR () 120.6 Estimated GFR (Non- 104.0 BUN/Creatinine Ratio 8.2 Random Glucose 110 mg/dl Calcium Level 8.8 mg/dl Magnesium Level 1.6 mg/dl Assessment and Plan 70-M with significant history of esophageal cancer with metastasis status post esophageal stent placement now with concern for soft tissue occlusion of stent on CT. significant encephalopathy overnight, hallucinations, agitation Encephalopahty, toxic from medications, continues with improvement with stopping all meds but po dialudid, and sleeping aid Abdominal pain: nausea and decreased po intake, continues, will change ppi and H2 to IV try emend and add bisthmuth to carafate, hopeful to have GI input on symptom management - CT shows Esophageal stent now showing soft tissue occlusion with stable metastatic disease - UGi to asses stent patency, showing non occlusive narrowing, treat symptomatically. GI recommendations from noted. Appreciate Scheduling Manager input. Will add Ensure - Appreciate GI and Onc input. - Appreciate nutrition input. - Nutritional supplements. Will hold off TPN for now. Urinary retention -s/p winchester catheter placement. -Urology consult pending -Iv dilaudid, , family states would rather set alarm at night than to have hallucinations that he has had with fentanyl, still having issues with neuropathic pain. Generalized weakness/dehydration and decreased appetite, IV fluids dronabinol will be held due to confusion overall symptom management maybe useful BPH : finasteride Gout allopurinol Depression requests psychiatric involvement to help him cope with diagnosis , cymbalta at home doses, follow up with psyche as outpt DVT prophylaxis:- Heparin subcutaneous
[2016-08-25] MEDS: PROMETHAZINE HCL INJ 25 MG in SODIUM CHLORIDE 0.9% 50ML 50 ML IV PRN ×2 (15:34→20:16)
[2016-08-25] MEDS: MoRPHine SULFATE IR 15 MG TAB (IMMEDIATE RELEASE) PO PRN ×2 (15:34→20:16)
--- NOTE | 2016-08-25 15:34 | Urology Consultation ---
History General Date of Service: Aug 25, 2016. Chief Complaint: Urinary retention, BPH Primary Care Physician: Garcia Whalen M.D. Pt seen a urologist before?: Yes If yes, why?: Myself, last in Dec 2015 History of Present Illness 70 yo male, known to myself, admitted due to pain and dizziness from esophageal malignancy with an indwelling esophageal stent. He has longstanding voiding symptoms, previously managed on finasteride for which I have seen him in Dec 2015. He was due to be seen in the office but this was cancelled due to his ongoing health issues. He notes that 2-3 days ago he began to have slowing of his stream and dysuria, culminating in a winchester being placed for urinary retention. consultation is sought out to assist with his acute care. HPI - Urinary Retention Sx Patient has: + decreasing stream, + winchester, + urinary retention Severity: moderate Medications Include: + finasteride, + tamsulosin Laboratory Last 24 Hours Test 08/24/16 22:00 08/25/16 07:40 Urine Color YELLOW Urine Appearance CLEAR Urine pH 7.0 Urine Specific [place] 1.011 Urine Protein NEG Urine Glucose (UA) NEG Urine Ketones NEG Urine Occult Blood NEG Urine Nitrite NEG Urine Bilirubin NEG Urine Urobilinogen NEG Urine Leukocyte Esterase NEG White Blood Count 6.41 K/uL Red Blood Count 3.72 M/uL Hemoglobin 10.7 g/dL Hematocrit 31.7 % Mean Corpuscular Volume 85.2 fL Mean Corpuscular Hemoglobin 28.8 pg Mean Corpuscular Hemoglobin Concent 33.8 g/dl Platelet Count 215 K/uL Mean Platelet Volume 8.5 fL Neutrophils (%) (Auto) 74.7 % Lymphocytes (%) (Auto) 13.9 % Monocytes (%) (Auto) 9.7 % Eosinophils (%) (Auto) 0.9 % Basophils (%) (Auto) 0.2 % Neutrophils # (Auto) 4.79 K/uL Lymphocytes # (Auto) 0.89 K/uL Monocytes # (Auto) 0.62 K/uL Eosinophils # (Auto) 0.06 K/uL Basophils # (Auto) 0.01 K/uL RDW Standard Deviation 49.0 fL RDW Coefficient of Variation 15.8 % Immature Granulocyte % (Auto) 0.6 % Immature Granulocyte # (Auto) 0.04 K/uL Sodium Level 132 mmol/L Potassium Level 3.5 mmol/L Chloride Level 97 mmol/L Carbon Dioxide Level 26 mmol/L Anion Gap 9.0 mmol/L Blood Urea Nitrogen 5 mg/dl Creatinine 0.57 mg/dl Est Creatinine Clear Calc Drug Dose 108.8 ml/min Estimated GFR () 120.6 Estimated GFR (Non- 104.0 BUN/Creatinine Ratio 8.2 Random Glucose 110 mg/dl Calcium Level 8.8 mg/dl Magnesium Level 1.6 mg/dl Problem List Medical Problems: (1) Abdominal pain Status: Acute (2) Dehydration Status: Acute (3) Diffuse abdominal pain Status: Acute (4) Epigastric abdominal pain Status: Acute (5) Esophageal cancer Status: Chronic (6) Esophagitis Status: Acute (7) Failure of outpatient treatment Status: Acute (8) GI bleed Status: Acute (9) Metastasis from esophageal cancer Status: Acute (10) Metastatic cancer Status: Acute (11) Nausea Status: Acute (12) Nausea & vomiting Status: Acute (13) Symptomatic cholelithiasis Status: Acute Past History BPH, cancer (esophageal), GERD, other (urinary retention) Past Surgical History: EGD (esophageal stent placement), nephrectomy (left), other (knee surgery) Family History Cancer Gallbladder disease Heart disease Hypertension Lung disease Social History Hx Tobacco Use In Past Year?: No (QUIT YEARS AGO) Smoking: other (former smokeless tobacco user) Alcohol: no current use Marital status: , in relationship Occupation status: retired Immunizations History of Influenza Vaccine: Yes Influenza Vaccine Date: Jan 18, 2015 History of Tetanus Vaccine?: Unknown History of Pneumococcal: No History of Hepatitis B Vaccine: Unknown History of MDRO No Allergies Coded Allergies: No Known Allergies (Verified , 08/16/16) Medications Home Medications: Home Meds and Scripts Medications Dose Route/Sig Max Daily Dose Days Date Category Dose Instructions Miralax (Polyethylene Glycol 3350) 1 Pow Pow 17 Gm PO DAILY 08/16/16 Reported Phenergan (Promethazine HCl) 25 Mg Tab 25 Mg PO Q6H PRN 08/16/16 Rx Hydromorphone HCl 2 Mg Tab 2-4 Mg PO Q4 PRN 08/16/16 Reported Esomeprazole Magnesium 40 Mg Cap 40 Mg PO BID 08/16/16 Reported Fentanyl 25 Mcg Tdsy 75 Mcg TOP [id number] 08/16/16 Reported CHANGE AT 10 AM START 75MCG ON 08/16/16 Marinol (Dronabinol) 5 Mg Cap 5 Mg PO QID 08/16/16 Reported Pepcid (Famotidine) 20 Mg Tab 20 Mg PO BID 08/16/16 Reported Duloxetine HCl 30 Mg Cap 30 Mg PO QAM 08/02/16 Reported Zyloprim (Allopurinol) 300 Mg Tab 300 Mg PO QAM 08/02/16 Reported Movantik (Naloxegol Oxalate) 25 Mg Tab 25 Mg PO DAILY 07/20/16 Reported Docusate Sodium 100 Mg Cap 100 Mg PO BID 15 07/20/16 Rx Ativan (Lorazepam) 0.5 Mg Tab 0.5 Mg PO Q6H 06/26/16 Reported Proscar (Finasteride) 5 Mg Tab 5 Mg PO QAM 11/27/15 Reported Flomax (Tamsulosin Hcl) 0.4 Mg Cap 0.4 Mg PO QPM 11/27/15 Reported Zofran (Ondansetron HCl) 8 Mg Tab 8 Mg PO Q8 PRN 11/27/15 Reported Prednisone 10 Mg Tab 10 Mg PO QAM 11/27/15 Reported Inpatient Medications: Current Inpatient Medications Medications (Trade) Dose Ordered Sig/Sabino Route Start Time Stop Time Status Last Admin Dose Admin Acetaminophen (Tylenol Tab) 650 mg Q4H PRN PO 08/17/16 00:00 09/16/16 00:00 Al Hydrox/Mg Hydrox/Simethicone (Maalox Max Susp) 15 ml Q4H PRN PO 08/17/16 00:00 09/16/16 00:00 Magnesium Hydroxide (Milk Of Magnesia Susp) 30 ml Q6H PRN PO 08/17/16 00:00 09/16/16 00:00 Polyethylene 17 gm 17 gm DAILY PRN PO 08/17/16 00:00 09/16/16 00:00 Potassium Chloride/Sodium Chloride (Nss + 20meq KCl 1000ml) 1,000 ml @ 100 mls/hr Q10H IV 08/17/16 01:30 09/16/16 01:29 08/25/16 10:10 100 MLS/HR Allopurinol (Zyloprim Tab) 300 mg QAM PO 08/17/16 08:00 5/20/17 08:59 08/25/16 07:31 300 MG Docusate Sodium (coLACE CAP) 100 mg BID PO 08/17/16 08:00 09/16/16 08:59 08/25/16 07:31 100 MG Finasteride (Proscar Tab) 5 mg QAM PO 08/17/16 08:00 09/16/16 08:59 08/25/16 07:31 5 MG Lorazepam (Ativan Tab) 0.5 mg Q6H PO 08/17/16 06:00 09/16/16 05:59 Future Hold 08/18/16 05:48 0.5 MG Ondansetron HCl (Zofran Tab) 8 mg Q8 PRN PO 08/17/16 00:00 09/16/16 00:00 08/25/16 07:31 8 MG Prednisone (PredniSONE TAB) 10 mg QAM PO 08/17/16 08:00 09/16/16 08:59 Future hold 08/25/16 07:31 10 MG Promethazine HCl (Phenergan Tab) 25 mg Q6H PRN PO 08/17/16 00:00 09/16/16 00:00 Future Hold 08/18/16 04:26 25 MG Tamsulosin HCl (Flomax Cap) 0.4 mg QPM PO 08/17/16 21:00 09/16/16 20:59 08/24/16 19:54 0.4 MG Dronabinol (Marinol Cap) 5 mg QID PO 08/17/16 08:00 09/16/16 08:59 Future Hold 08/17/16 21:24 5 MG Polyethylene (Miralax Powder Packet) 17 gm DAILY PO 08/17/16 08:00 09/16/16 08:59 08/25/16 07:31 17 GM Heparin Sodium (Porcine) (Heparin 100 Unit/ml 5ml Flush) 5 ml PRN PRN IV 08/17/16 02:00 09/16/16 01:59 08/25/16 07:24 5 ML Heparin Sodium (Porcine) (Heparin Sq 5000 Unit/0.5ml) 5,000 unit Q8H SQ 08/17/16 06:00 09/16/16 05:59 08/25/16 15:12 5,000 UNIT Hydromorphone HCl (Dilaudid Inj) 0.5 mg Q4 PRN IV 08/17/16 08:45 08/31/16 08:44 08/24/16 19:55 0.5 MG Hydromorphone HCl (Dilaudid Inj) 1 mg Q4 PRN IV 08/17/16 08:45 08/31/16 08:44 08/25/16 12:08 1 MG Hydromorphone HCl (Dilaudid Tab) 2 mg Q4H PRN PO 08/17/16 11:30 08/31/16 11:29 08/18/16 23:03 2 MG Hydromorphone HCl (Dilaudid Tab) 4 mg Q4H PRN PO 08/17/16 11:30 08/31/16 11:29 08/22/16 01:30 4 MG Lorazepam (Ativan Inj) 1 mg Q4H PRN IV 08/18/16 09:00 09/17/16 08:59 08/25/16 07:23 1 MG Lorazepam 0.5 mg 0.5 mg Q4H PRN IV 08/18/16 09:00 09/17/16 08:59 08/18/16 10:55 0.5 MG Lorazepam 0.5 mg/ Syringe 1 ml @ 1 mls/min Q4H PRN IV 08/18/16 09:15 09/17/16 09:14 08/20/16 21:22 1 MLS/MIN Lorazepam 1 mg/ Syringe 1 ml @ 1 mls/min Q4H PRN IV 08/18/16 09:15 09/17/16 09:14 08/24/16 20:00 1 MLS/MIN Ondansetron HCl/ Dextrose (Zofran Inj/D5 50ml) 54 ml @ 216 mls/hr Q6H PRN IV 08/19/16 12:00 09/18/16 11:59 08/25/16 12:12 216 MLS/HR Trazodone HCl (Desyrel Tab) 25 mg HS PO 08/19/16 21:00 09/18/16 20:59 08/24/16 19:54 25 MG Sucralfate 1 gm 1 gm QID PO 08/19/16 13:15 09/18/16 13:14 08/25/16 07:31 1 GM Pantoprazole Sodium 40 mg/ Syringe 10 ml @ 5 mls/min DAILY@09,21 IV 08/20/16 10:45 09/19/16 10:44 08/25/16 10:10 5 MLS/MIN Famotidine/ Dextrose (Pepcid IV Inj/ D5 100ml) 102 ml @ 200 mls/hr Q12H IV 08/20/16 11:00 09/19/16 10:59 08/25/16 10:11 200 MLS/HR Duloxetine HCl (Cymbalta Cap) 60 mg QAM PO 08/21/16 08:00 09/20/16 07:59 08/25/16 07:31 60 MG Methylnaltrexone [place] (Relistor Inj) 12 mg Q2D@1000 SQ 08/24/16 10:00 09/23/16 09:59 08/24/16 14:29 12 MG Hydralazine HCl (HydrALAZINE INJ) 10 mg Q4H PRN IV. 08/24/16 21:00 09/23/16 20:59 08/24/16 23:36 10 MG Morphine Sulfate 15 mg 15 mg Q4 PRN PO 08/25/16 08:30 09/08/16 08:29 Promethazine HCl/ Sodium Chloride (Phenergan Inj/ Nss 50ml) 51 ml @ 204 mls/hr Q4H PRN IV 08/25/16 10:15 09/24/16 10:14 Review of Systems Review of Systems Constitutional: No chills, No fever Eyes: No double vision Neurological: No seizures Endocrine: + tired/sluggish Gastrointestinal: + abdominal pain, + nausea Cardiovascular: + chest pain Respiratory: No coughing up blood Skin: No boils Ears / Nose / Throat: No hearing loss Psychologic / Mental: + difficulty sleeping (pain), No nervous Male : + see HPI, + urinary retention, + weak stream Physical Exam Vital Signs: Vital Signs Past 12 Hours Date Time Temp Pulse Resp B/P Pulse Ox O2 Delivery O2 Flow Rate FiO2 08/25/16 11:30 Room Air 08/25/16 11:26 36.7 69 16 157/82 97 Room Air 08/25/16 07:26 36.2 85 16 158/83 96 Room Air 08/25/16 03:42 36.3 87 18 121/67 95 Room Air Physical Exam: General Appearance: + mild distress, + thin ENT: hearing grossly normal Neck: supple, no adenopathy Respiratory/Chest: no respiratory distress, no accessory muscle use Cardiovascular: no JVD Gastrointestinal: Abdomen: pertinent finding (epigastric tenderness) Renal: normal renal Neurologic/Psychiatric: alert Skin: normal color Assessment & Plan Assessment & Plan A/P 70 yo male with BPH and urinary retention. Findings reviewed with patient and family. Continue finasteride and tamsulosin. Would avoid increasing dose of tamsulosin to BID if there is a question of dizziness recently. As noted, his current difficulties could very well be due to his hospitalization, current state of pain and his ongoing therapy with pain medication for comfort. Would plan on a trial of void prior to discharge home. If the patient is unable to void, can be discharged with the winchester in place and he can contact our office for clean intermittent catheterization teaching. Ultimately, if he were unable to void on maximal medical therapy for BPH then next step would usually be consideration of TURP, but I am not sure this would be appropriate considering his current state of health. Patient agrees. Would leave winchester in place until discharge is more imminent. Will arrange for outpatient follow-up to check on voiding in our office. Thank you for allowing us to participate in this patient's acute inpatient care. Please contact our office PRN any questions or concerns.
[2016-08-25] MEDS: TAMSULOSIN HCL 0.4 MG CAP PO SCH (20:17)
[2016-08-25] MEDS: TRAZODONE HCL 50 MG TAB PO SCH (20:18)
[2016-08-25] MEDS: HydrALAZINE HCL 20 MG/ML VIAL IV. PRN (23:12)
[2016-08-26] VITALS (8 sets, daily range): BP systolic 117–161; BP diastolic 68–100; PULSE 86–106; TEMP 36.4–37.2; O2SAT 94–97; BMI 27.5
[2016-08-26] MEDS: PROMETHAZINE HCL INJ 25 MG in SODIUM CHLORIDE 0.9% 50ML 50 ML IV PRN ×2 (04:42→10:43)
[2016-08-26] MEDS: NSS + 20MEQ KCL 1000ML 1,000 ML IV SCH ×2 (06:09→16:19)
[2016-08-26] MEDS: HEPARIN SOD 5000 UNIT/0.5 ML CARP SQ SCH ×3 (06:10→21:32)
[2016-08-26] MEDS: FINASTERIDE 5 MG TAB PO SCH (08:43)
[2016-08-26] MEDS: DULOXETINE HCL 60 MG CAP PO SCH (08:44)
[2016-08-26] MEDS: ALLOPURINOL 300 MG TAB PO SCH (08:44)
[2016-08-26] MEDS: DOCUSATE SODIUM 100 MG CAP PO SCH ×2 (08:44→21:29)
[2016-08-26] MEDS: SUCRALFATE 1 GM/10 ML UDC PO SCH ×4 (08:45→21:25)
[2016-08-26] MEDS: PANTOprazole INJ 40 MG in SYRINGE 0 ML IV SCH ×2 (08:45→21:26)
[2016-08-26] MEDS: POLYETHYLENE (MIRALAX) 17 GM PACK PO SCH (08:45)
[2016-08-26] MEDS: METHYLNALTREXONE BROMIDE INJ 12 MG/0.6 ML SYR SQ SCH (08:46)
[2016-08-26 09:00] LABS: BUN/CREATININE RATIO 6.9 (10-20); CALCIUM 9.2 mg/dl (8.5-10.1); CREATININE 0.74 mg/dl (0.60-1.40); MAGNESIUM 1.8 mg/dl (1.8-2.4); POTASSIUM 4.1 mmol/L (3.5-5.1)
[2016-08-26 09:07] LABS: BASO % 0.2 %; BASO ABS # 0.02 K/uL (0-0.2); COMPLETE YES; EOS % 1.1 %; HEMATOCRIT 36.4 % (42-52); IG% 0.6 %; LYMPH % 17.4 %; LYMPH ABS # 1.43 K/uL (1.2-3.4); MEAN CELL VOLUME 86.7 fL (80-100); MEAN CORPUSCULAR HEMOGLOBIN 29.5 pg (25-34); MEAN CORPUSCULAR HGB CONC 34.1 g/dl (32-36); MEAN PLATELET VOLUME 8.9 fL (7.4-10.4); MONO % 9.6 %; NEUT % 71.1 %; PLATELET COUNT 323 K/uL (130-400); WHITE BLOOD COUNT 8.23 K/uL (4.8-10.8)
[2016-08-26] MEDS: FAMOTIDINE IV INJ 20 MG in DEXTROSE 5% 100ML 100 ML IV SCH ×2 (11:37→21:26)
--- NOTE | 2016-08-26 11:56 | Hematology/Oncology Prog Note ---
Hematology/Onc Progress Note Date of Service Aug 26, 2016. Diagnoses Metastatic esophageal cancer Intractable pain Medications Medications Administered Medications (Trade) Dose Ordered Sig/Sabino Route Start Time Stop Time Status Last Admin Dose Admin Sodium Chloride (Nss 1000ml) 500 ml @ 999 mls/hr Q31M STAT IV 08/16/16 19:42 08/16/16 20:12 DC 08/16/16 20:21 999 MLS/HR Promethazine HCl 6.25 mg 6.25 mg NOW STAT IV 08/16/16 19:42 08/16/16 19:46 DC 08/16/16 20:29 6.25 MG Sodium Chloride (Nss 1000ml) 1,000 ml @ 200 mls/hr Q5H STAT IV 08/16/16 19:42 08/17/16 00:41 DC 08/16/16 20:56 200 MLS/HR Hydromorphone HCl (Dilaudid Inj) 0.5 mg Q15M PRN IV 08/16/16 19:45 08/17/16 01:22 DC 08/16/16 20:30 0.5 MG Piperacillin Sod/ Tazobactam Sod (Zosyn Iv) 4.5 gm NOW STAT IV 08/16/16 19:45 08/16/16 19:46 DC 08/16/16 20:30 4.5 GM Magnesium Sulfate (Magnesium Sulfate) 1 gm NOW STAT IV 08/16/16 21:56 08/16/16 21:57 DC 08/16/16 22:01 1 GM Ondansetron HCl 4 mg 4 mg Q6H PRN IV 08/17/16 00:00 08/19/16 11:45 DC 08/19/16 07:45 4 MG Potassium Chloride/Sodium Chloride (Nss + 20meq KCl 1000ml) 1,000 ml @ 100 mls/hr Q10H IV 08/17/16 01:30 09/16/16 01:29 08/26/16 06:09 100 MLS/HR Allopurinol (Zyloprim Tab) 300 mg QAM PO 08/17/16 08:00 09/16/16 08:59 08/26/16 08:44 300 MG Docusate Sodium (coLACE CAP) 100 mg BID PO 08/17/16 08:00 09/16/16 08:59 08/26/16 08:44 100 MG Duloxetine HCl (Cymbalta Cap) 30 mg QAM PO 08/17/16 08:00 08/17/16 13:15 DC 08/17/16 08:45 30 MG Famotidine (Pepcid Tab) 20 mg BID PO 08/17/16 08:00 08/20/16 10:38 DC 08/20/16 09:48 20 MG Finasteride (Proscar Tab) 5 mg QAM PO 08/17/16 08:00 09/16/16 08:59 08/26/16 08:43 5 MG Hydromorphone HCl (Dilaudid Tab) 2-4 MG BASED ON PAIN LEVEL Q4 PRN PO 08/17/16 00:00 08/22/16 10:54 DC 08/19/16 11:56 4 MG Lorazepam (Ativan Tab) 0.5 mg Q6H PO 08/17/16 06:00 09/16/16 05:59 Future Hold 08/18/16 05:48 0.5 MG Ondansetron HCl (Zofran Tab) 8 mg Q8 PRN PO 08/17/16 00:00 09/16/16 00:00 08/25/16 07:31 8 MG Prednisone (PredniSONE TAB) 10 mg QAM PO 08/17/16 08:00 09/16/16 08:59 Future hold 08/26/16 08:44 10 MG Promethazine HCl (Phenergan Tab) 25 mg Q6H PRN PO 08/17/16 00:00 09/16/16 00:00 Future Hold 08/18/16 04:26 25 MG Tamsulosin HCl (Flomax Cap) 0.4 mg QPM PO 08/17/16 21:00 09/16/16 20:59 08/25/16 20:17 0.4 MG Dronabinol (Marinol Cap) 5 mg QID PO 08/17/16 08:00 09/16/16 08:59 Future Hold 08/17/16 21:24 5 MG Pantoprazole Sodium (Protonix Tab) 40 mg BID PO 08/17/16 08:00 08/20/16 10:38 DC 08/20/16 09:46 40 MG Polyethylene (Miralax Powder Packet) 17 gm DAILY PO 08/17/16 08:00 09/16/16 08:59 08/26/16 08:45 17 GM Miscellaneous Information (Check Fentanyl Patch Placement) 1 ea QS N/A 08/17/16 08:00 08/17/16 11:25 DC 08/17/16 08:54 1 EA Heparin Sodium (Porcine) (Heparin 100 Unit/ml 5ml Flush) 5 ml PRN PRN IV 08/17/16 02:00 09/16/16 01:59 08/25/16 07:24 5 ML Heparin Sodium (Porcine) (Heparin Sq 5000 Unit/0.5ml) 5,000 unit Q8H SQ 08/17/16 06:00 09/16/16 05:59 08/26/16 06:10 5,000 UNIT Hydromorphone HCl (Dilaudid Inj) 0.5 mg Q4 PRN IV 08/17/16 08:45 08/31/16 08:44 08/24/16 19:55 0.5 MG Hydromorphone HCl (Dilaudid Inj) 1 mg Q4 PRN IV 08/17/16 08:45 08/31/16 08:44 08/25/16 12:08 1 MG Hydromorphone HCl (Dilaudid Tab) 2 mg Q4H PRN PO 08/17/16 11:30 08/31/16 11:29 08/18/16 23:03 2 MG Hydromorphone HCl 4 mg 4 mg Q4H PRN PO 08/17/16 11:30 08/31/16 11:29 08/22/16 01:30 4 MG Hydrocortisone Sodium Succinate/ Syringe (Solu-Cortef IV/ Syringe) 1 ml @ 4 mls/min Q8 IV 08/18/16 09:00 08/20/16 10:38 DC 08/20/16 06:11 4 MLS/MIN Lorazepam (Ativan Inj) 1 mg Q4H PRN IV 08/18/16 09:00 09/17/16 08:59 08/25/16 07:23 1 MG Lorazepam (Ativan Inj) 0.5 mg Q4H PRN IV 08/18/16 09:00 09/17/16 08:59 08/18/16 10:55 0.5 MG Olanzapine 5 mg 5 mg 0930 ONCE PO 08/18/16 09:30 08/18/16 09:31 DC 08/18/16 10:00 5 MG Lorazepam 0.5 mg/ Syringe 1 ml @ 1 mls/min Q4H PRN IV 08/18/16 09:15 09/17/16 09:14 08/20/16 21:22 1 MLS/MIN Lorazepam/Syringe (Ativan Inj/ Syringe) 1 ml @ 1 mls/min Q4H PRN IV 08/18/16 09:15 09/17/16 09:14 08/24/16 20:00 1 MLS/MIN Trazodone HCl 50 mg 50 mg HS PO 08/18/16 21:00 08/19/16 12:20 DC 08/18/16 19:59 50 MG Ondansetron HCl/ Dextrose (Zofran Inj/D5 50ml) 54 ml @ 216 mls/hr Q6H PRN IV 08/19/16 12:00 09/18/16 11:59 08/25/16 12:12 216 MLS/HR Duloxetine HCl (Cymbalta Cap) 30 mg QAM PO 08/19/16 12:30 08/21/16 06:22 DC 08/20/16 09:45 30 MG Trazodone HCl (Desyrel Tab) 25 mg HS PO 08/19/16 21:00 09/18/16 20:59 08/25/16 20:18 25 MG Sucralfate 1 gm 1 gm QID PO 08/19/16 13:15 09/18/16 13:14 08/26/16 11:37 1 GM Fosaprepitant 150 mg/Sodium Chloride 150 ml @ 300 mls/hr TODAY@1300 IV 08/20/16 13:00 08/20/16 23:00 DC 08/20/16 13:03 300 MLS/HR Pantoprazole Sodium 40 mg/ Syringe 10 ml @ 5 mls/min DAILY@ IV 08/20/16 10:45 09/19/16 10:44 08/26/16 08:45 5 MLS/MIN Famotidine/ Dextrose (Pepcid IV Inj/ D5 100ml) 102 ml @ 200 mls/hr Q12H IV 08/20/16 11:00 09/19/16 10:59 08/26/16 11:37 200 MLS/HR Bismuth Subsalicylate (Kaopectate Liquid) 30 ml ONE ONCE PO 08/20/16 10:45 08/20/16 10:46 DC 08/20/16 11:32 30 ML Duloxetine HCl (Cymbalta Cap) 60 mg QAM PO 08/21/16 08:00 09/20/16 07:59 08/26/16 08:44 60 MG Metoclopramide HCl (Reglan Inj) 10 mg Q6H IV. 08/21/16 16:00 08/25/16 10:08 DC 08/25/16 03:52 10 MG Enteral Nutritional Formula (Boost Plus Vanilla) 1 can 4XDQ3H PO 08/22/16 13:00 08/24/16 12:17 DC 08/23/16 17:20 1 CAN Methylnaltrexone [place] (Relistor Inj) 12 mg Q2D@1000 SQ 08/24/16 10:00 09/23/16 09:59 08/26/16 08:46 12 MG Tapentadol (Nucynta Tab) 50 mg Q4H PRN PO 08/24/16 08:15 08/25/16 08:26 DC 08/24/16 09:33 50 MG Hydralazine HCl (HydrALAZINE INJ) 10 mg Q4H PRN IV. 08/24/16 21:00 09/23/16 20:59 08/25/16 23:12 10 MG Morphine Sulfate 15 mg 15 mg Q4 PRN PO 08/25/16 08:30 09/08/16 08:29 08/25/16 20:16 15 MG Promethazine HCl/ Sodium Chloride (Phenergan Inj/ Nss 50ml) 51 ml @ 204 mls/hr Q4H PRN IV 08/25/16 10:15 09/24/16 10:14 08/26/16 10:43 204 MLS/HR Lidocaine HCl (Xylocaine Jelly 2%) 30 ml STK-MED ONCE EXT 08/25/16 12:05 08/25/16 12:06 DC 08/25/16 12:07 30 ML Subjective Mr. Howell is comfortable in bed today. His pain is better on morphine IR. His primary issue today is nausea. He was on Marinol 5 mg q6 as an outpatient, but it was held due to his sedation when he was admitted. He is currently getting Phenergan and Zofran for nausea. He also has chronically been on prednisone 10 mg daily as an appetite stimulant. Review of Systems: Constitutional: + fatigue, No chills, No fever ENT: No trouble swallowing Respiratory: No cough, No shortness of breath Cardiovascular: No chest pain Abdomen: + nausea, + pain (better today) Musculoskeletal: No joint pain, No muscle pain Vital Signs Vital Signs Past 12 Hours Date Time Temp Pulse Resp B/P Pulse Ox O2 Delivery O2 Flow Rate FiO2 08/26/16 11:36 37.0 100 20 147/91 96 08/26/16 09:10 Room Air 08/26/16 07:36 36.4 102 16 157/83 96 Room Air 08/26/16 04:11 36.8 106 20 127/77 97 Room Air 08/26/16 00:15 98 132/68 08/26/16 00:01 Room Air Physical Exam Constitutional: General Apperance: heathly-appearing Level of Distress: NAD Psychiatric: Mental Status: active & alert Orientation: oriented except where noted Lungs: Auscuitation: CTA except as noted Cardiovascular: Heart Auscultation: RRR, no murmurs Abdomen: Inspection & Palpation: soft, no tenderness, guarding & rebound Laboratory Last 24 Hours Test 08/26/16 08:25 White Blood Count 8.23 K/uL Red Blood Count 4.20 M/uL Hemoglobin 12.4 g/dL Hematocrit 36.4 % Mean Corpuscular Volume 86.7 fL Mean Corpuscular Hemoglobin 29.5 pg Mean Corpuscular Hemoglobin Concent 34.1 g/dl Platelet Count 323 K/uL Mean Platelet Volume 8.9 fL Neutrophils (%) (Auto) 71.1 % Lymphocytes (%) (Auto) 17.4 % Monocytes (%) (Auto) 9.6 % Eosinophils (%) (Auto) 1.1 % Basophils (%) (Auto) 0.2 % Neutrophils # (Auto) 5.85 K/uL Lymphocytes # (Auto) 1.43 K/uL Monocytes # (Auto) 0.79 K/uL Eosinophils # (Auto) 0.09 K/uL Basophils # (Auto) 0.02 K/uL RDW Standard Deviation 51.6 fL RDW Coefficient of Variation 16.4 % Immature Granulocyte % (Auto) 0.6 % Immature Granulocyte # (Auto) 0.05 K/uL Sodium Level 135 mmol/L Potassium Level 4.1 mmol/L Chloride Level 101 mmol/L Carbon Dioxide Level 27 mmol/L Anion Gap 7.0 mmol/L Blood Urea Nitrogen 5 mg/dl Creatinine 0.74 mg/dl Est Creatinine Clear Calc Drug Dose 90.9 ml/min Estimated GFR () 108.3 Estimated GFR (Non- 93.5 BUN/Creatinine Ratio 6.9 Random Glucose 96 mg/dl Calcium Level 9.2 mg/dl Magnesium Level 1.8 mg/dl Assessment & Plan Mr. Howell is doing better with regard to his pain. However, his nausea continues to be an issue. It is likely in part related to his pain, but I think we can be doing better to control it. He was on Marinol as an outpatient and this is an effective adjunctive antiemetic. I suggested we restart it at a lower dose, to make sure it does not sedate him, and then increase it to at least the dose he was on outside. I ordered Marinol 2.5 mg PO TID RTC to start today. I will defer his narcotics to Pain Management. Otherwise, his treatment is on hold until he is able to be discharged. We will make arrangements to resume Opdivo once he is ready for discharge.
[2016-08-26] MEDS: ONDANSETRON INJ 8 MG in DEXTROSE 5% 50ML 50 ML IV PRN (12:55)
[2016-08-26] MEDS: MoRPHine SULFATE IR 15 MG TAB (IMMEDIATE RELEASE) PO PRN (12:57)
[2016-08-26] MEDS: HYDROmorphone HCL 2 MG TAB PO PRN (13:44)
[2016-08-26] MEDS: LORAZEPAM 2 MG/ML 1 ML VIAL IV PRN (14:31)
[2016-08-26] MEDS ORDERED: GABAPENTIN 100 MG CAP PO ONE (15:05)
--- NOTE | 2016-08-26 15:08 | Hospitalist Progress Note ---
Hospitalist Progress Note Date of Service Aug 26, 2016. Subjective Pt evaluation today including: conversation w/ patient, conversation w/ family , physical exam, chart review, lab review, review of studies, conversation w/ practice consultant Pain: Intractable pain to lower extremities. Intractable pain to lower extremities. Seen by pain management. FPC opiates held due to lethargy. Discussed with Dr. Lugo from pain management. Will start a trial of gabapentin. Patient denies fever or chills. No dysphagia but continues with anorexia. No other acute complaints Additional Comments: A total of 12 systems was reviewed and is negative other than as listed above in the HPI All Other Systems: Reviewed and Negative Medications Current Inpatient Medications Medications (Trade) Dose Ordered Sig/Sabino Route Start Time Stop Time Status Last Admin Dose Admin Acetaminophen (Tylenol Tab) 650 mg Q4H PRN PO 08/17/16 00:00 09/16/16 00:00 Al Hydrox/Mg Hydrox/Simethicone (Maalox Max Susp) 15 ml Q4H PRN PO 08/17/16 00:00 09/16/16 00:00 Magnesium Hydroxide (Milk Of Magnesia Susp) 30 ml Q6H PRN PO 08/17/16 00:00 09/16/16 00:00 Polyethylene 17 gm 17 gm DAILY PRN PO 08/17/16 00:00 09/16/16 00:00 Potassium Chloride/Sodium Chloride (Nss + 20meq KCl 1000ml) 1,000 ml @ 100 mls/hr Q10H IV 08/17/16 01:30 09/16/16 01:29 08/26/16 16:19 100 MLS/HR Allopurinol (Zyloprim Tab) 300 mg QAM PO 08/17/16 08:00 09/16/16 08:59 08/26/16 08:44 300 MG Docusate Sodium (coLACE CAP) 100 mg BID PO 08/17/16 08:00 09/16/16 08:59 08/26/16 21:29 100 MG Finasteride (Proscar Tab) 5 mg QAM PO 08/17/16 08:00 09/16/16 08:59 08/26/16 08:43 5 MG Lorazepam (Ativan Tab) 0.5 mg Q6H PO 08/17/16 06:00 09/16/16 05:59 Future Hold 08/18/16 05:48 0.5 MG Ondansetron HCl (Zofran Tab) 8 mg Q8 PRN PO 08/17/16 00:00 09/16/16 00:00 08/26/16 21:26 8 MG Prednisone (PredniSONE TAB) 10 mg QAM PO 08/17/16 08:00 09/16/16 08:59 Future hold 08/26/16 08:44 10 MG Promethazine HCl (Phenergan Tab) 25 mg Q6H PRN PO 08/17/16 00:00 09/16/16 00:00 Future Hold 08/18/16 04:26 25 MG Tamsulosin HCl (Flomax Cap) 0.4 mg QPM PO 08/17/16 21:00 09/16/16 20:59 08/26/16 21:27 0.4 MG Dronabinol (Marinol Cap) 5 mg QID PO 08/17/16 08:00 09/16/16 08:59 Future Hold 08/17/16 21:24 5 MG Polyethylene (Miralax Powder Packet) 17 gm DAILY PO 08/17/16 08:00 09/16/16 08:59 08/26/16 08:45 17 GM Heparin Sodium (Porcine) (Heparin 100 Unit/ml 5ml Flush) 5 ml PRN PRN IV 08/17/16 02:00 09/16/16 01:59 08/25/16 07:24 5 ML Heparin Sodium (Porcine) (Heparin Sq 5000 Unit/0.5ml) 5,000 unit Q8H SQ 08/17/16 06:00 09/16/16 05:59 08/26/16 21:32 5,000 UNIT Hydromorphone HCl (Dilaudid Inj) 0.5 mg Q4 PRN IV 08/17/16 08:45 08/31/16 08:44 08/24/16 19:55 0.5 MG Hydromorphone HCl (Dilaudid Inj) 1 mg Q4 PRN IV 08/17/16 08:45 08/31/16 08:44 08/25/16 12:08 1 MG Hydromorphone HCl (Dilaudid Tab) 2 mg Q4H PRN PO 08/17/16 11:30 08/31/16 11:29 08/18/16 23:03 2 MG Hydromorphone HCl (Dilaudid Tab) 4 mg Q4H PRN PO 08/17/16 11:30 08/31/16 11:29 08/26/16 13:44 4 MG Lorazepam (Ativan Inj) 1 mg Q4H PRN IV 08/18/16 09:00 09/17/16 08:59 08/25/16 07:23 1 MG Lorazepam 0.5 mg 0.5 mg Q4H PRN IV 08/18/16 09:00 09/17/16 08:59 08/26/16 14:31 0.5 MG Lorazepam 0.5 mg/ Syringe 1 ml @ 1 mls/min Q4H PRN IV 08/18/16 09:15 09/17/16 09:14 08/26/16 21:26 1 MLS/MIN Lorazepam 1 mg/ Syringe 1 ml @ 1 mls/min Q4H PRN IV 08/18/16 09:15 09/17/16 09:14 08/24/16 20:00 1 MLS/MIN Ondansetron HCl/ Dextrose (Zofran Inj/D5 50ml) 54 ml @ 216 mls/hr Q6H PRN IV 08/19/16 12:00 09/18/16 11:59 08/26/16 12:55 216 MLS/HR Trazodone HCl (Desyrel Tab) 25 mg HS PO 08/19/16 21:00 09/18/16 20:59 08/26/16 21:28 25 MG Sucralfate 1 gm 1 gm QID PO 08/19/16 13:15 09/18/16 13:14 08/26/16 21:25 1 GM Pantoprazole Sodium 40 mg/ Syringe 10 ml @ 5 mls/min DAILY@ IV 08/20/16 10:45 09/19/16 10:44 08/26/16 21:26 5 MLS/MIN Famotidine/ Dextrose (Pepcid IV Inj/ D5 100ml) 102 ml @ 200 mls/hr Q12H IV 08/20/16 11:00 09/19/16 10:59 08/26/16 21:26 200 MLS/HR Duloxetine HCl (Cymbalta Cap) 60 mg QAM PO 08/21/16 08:00 09/20/16 07:59 08/26/16 08:44 60 MG Methylnaltrexone [place] (Relistor Inj) 12 mg Q2D@1000 SQ 08/24/16 10:00 09/23/16 09:59 08/26/16 08:46 12 MG Hydralazine HCl (HydrALAZINE INJ) 10 mg Q4H PRN IV. 08/24/16 21:00 09/23/16 20:59 08/25/16 23:12 10 MG Morphine Sulfate 15 mg 15 mg Q4 PRN PO 08/25/16 08:30 09/08/16 08:29 08/26/16 12:57 15 MG Promethazine HCl/ Sodium Chloride (Phenergan Inj/ Nss 50ml) 51 ml @ 204 mls/hr Q4H PRN IV 08/25/16 10:15 09/24/16 10:14 08/26/16 10:43 204 MLS/HR Dronabinol (Marinol Cap) 2.5 mg AC PO 08/26/16 16:30 09/25/16 16:29 08/26/16 16:24 2.5 MG Gabapentin (Neurontin Cap) 100 mg TID PO 08/27/16 00:00 09/26/16 00:00 Objective Vital Signs Date Time Temp Pulse Resp B/P Pulse Ox O2 Delivery O2 Flow Rate FiO2 08/26/16 15:06 37.2 99 16 161/100 94 Room Air 08/26/16 11:36 37.0 100 20 147/91 96 08/26/16 09:10 Room Air 08/26/16 07:36 36.4 102 16 157/83 96 Room Air 08/26/16 04:11 36.8 106 20 127/77 97 Room Air 08/26/16 00:15 98 132/68 08/26/16 00:01 Room Air 08/25/16 23:15 36.6 90 20 178/97 97 Room Air 08/25/16 21:00 93 137/81 08/25/16 19:08 37.0 90 18 171/84 97 Room Air 08/25/16 16:00 Room Air 08/25/16 15:38 36.4 89 16 145/83 96 Room Air Physical Exam Notes: Vital Signs - as noted below Laboratory Data - as noted below Physical Exam: General - NAD Eyes - No icterus, gaze conjugate ENT - Mucosa moist, no lesions or candidiasis Neck - Supple, No JVD Lungs - No bronchospasm, rales, or rhonchi. Heart - Regular, rate controlled Abdomen - Soft, NT, ND, BS present Extremities - No edema, pedal pulses intact Neuro - A&OX3 Laboratory Results Last 24 Hours Test 08/26/16 08:25 White Blood Count 8.23 K/uL Red Blood Count 4.20 M/uL Hemoglobin 12.4 g/dL Hematocrit 36.4 % Mean Corpuscular Volume 86.7 fL Mean Corpuscular Hemoglobin 29.5 pg Mean Corpuscular Hemoglobin Concent 34.1 g/dl Platelet Count 323 K/uL Mean Platelet Volume 8.9 fL Neutrophils (%) (Auto) 71.1 % Lymphocytes (%) (Auto) 17.4 % Monocytes (%) (Auto) 9.6 % Eosinophils (%) (Auto) 1.1 % Basophils (%) (Auto) 0.2 % Neutrophils # (Auto) 5.85 K/uL Lymphocytes # (Auto) 1.43 K/uL Monocytes # (Auto) 0.79 K/uL Eosinophils # (Auto) 0.09 K/uL Basophils # (Auto) 0.02 K/uL RDW Standard Deviation 51.6 fL RDW Coefficient of Variation 16.4 % Immature Granulocyte % (Auto) 0.6 % Immature Granulocyte # (Auto) 0.05 K/uL Sodium Level 135 mmol/L Potassium Level 4.1 mmol/L Chloride Level 101 mmol/L Carbon Dioxide Level 27 mmol/L Anion Gap 7.0 mmol/L Blood Urea Nitrogen 5 mg/dl Creatinine 0.74 mg/dl Est Creatinine Clear Calc Drug Dose 90.9 ml/min Estimated GFR () 108.3 Estimated GFR (Non- 93.5 BUN/Creatinine Ratio 6.9 Random Glucose 96 mg/dl Calcium Level 9.2 mg/dl Magnesium Level 1.8 mg/dl Assessment and Plan LOWER EXTREMITY PAIN Has been intolerant of pain medications in the past Reports adverse reaction to Gabapentin in the past (reports that it made him very, very angry after several weeks of use) Suspect that anger issues were a result of frustration with chronic pain rather than the medication Patient willing to try Gabapentin again No asymmetrical edema or jerardo sign ALTERED MENTAL STATUS Suspected to be from watermaster opiates Transdermal patches held Now back to baseline No focal neurological changes NAUSEA Secondary to pain from his malignancy Continue with Zofran and add lorazepam for synergy Continue Phenergan as needed ESOPHAGEAL CARCINOMA WITH METS Oncology consulted - Appreciate Dr. Byrd's input Treatment on hold secondary to nausea and pain Plan is to resume Opdivo on discharge CHRONIC PAIN Pain management consulted and managing Appreciate Dr. Lugo's input Start trial of Gabapentin 100 mg PO TID. If tolerated then increase to 200mg TID URINARY RETENTION Mariee catheter placed Urology consulted - Appreciate Dr. George's input GI PROPHYLAXIS Pantoprazole DVT PROPHYLAXIS Heparin SC Please refer to Dr. [place]'s addendum for further recommendations Continued [facility] stay due to: multiple IV medications needed Discharge planning: uncertain
[2016-08-26] MEDS: DRONABINOL 2.5 MG CAP PO SCH (16:24)
[2016-08-26] MEDS: LORAZEPAM INJ 0.5 MG in SYRINGE 0.75 ML IV PRN (21:26)
[2016-08-26] MEDS: ONDANSETRON 8 MG TAB PO PRN (21:26)
[2016-08-26] MEDS: TAMSULOSIN HCL 0.4 MG CAP PO SCH (21:27)
[2016-08-26] MEDS: TRAZODONE HCL 50 MG TAB PO SCH (21:28)
[2016-08-27] MEDS: GABAPENTIN 100 MG CAP PO SCH ×5 (00:09→19:05)
[2016-08-27] MEDS: NSS + 20MEQ KCL 1000ML 1,000 ML IV SCH ×3 (01:43→20:37)
[2016-08-27 03:49] VITALS: BP 135/79; PULSE 93; TEMP 36.7; O2SAT 98
[2016-08-27] MEDS: HEPARIN SOD 5000 UNIT/0.5 ML CARP SQ SCH ×3 (06:00→20:44)
[2016-08-27] MEDS: DRONABINOL 2.5 MG CAP PO SCH ×3 (06:09→16:02)
[2016-08-27 06:17] LABS: BASO % 0.3 %; BASO ABS # 0.02 K/uL (0-0.2); COMPLETE YES; EOS % 1.3 %; HEMATOCRIT 33.6 % (42-52); IG% 0.5 %; LYMPH ABS # 1.27 K/uL (1.2-3.4); MEAN CELL VOLUME 86.8 fL (80-100); MEAN CORPUSCULAR HEMOGLOBIN 28.7 pg (25-34); MEAN PLATELET VOLUME 8.5 fL (7.4-10.4); MONO % 11.2 %; NEUT % 66.7 %; PLATELET COUNT 234 K/uL (130-400); RED BLOOD COUNT 3.87 M/uL (4.7-6.1); WHITE BLOOD COUNT 6.36 K/uL (4.8-10.8)
[2016-08-27 06:26] VITALS: BMI 26.8
[2016-08-27 06:47] LABS: BUN/CREATININE RATIO 10.1 (10-20); CALCIUM 8.7 mg/dl (8.5-10.1); CREATININE 0.66 mg/dl (0.60-1.40); MAGNESIUM 1.9 mg/dl (1.8-2.4)
[2016-08-27] MEDS ORDERED: NURSING VERBAL MED ORDER ONE ×4 (07:15→15:15)
[2016-08-27 07:25] VITALS: BP 144/87; PULSE 97; TEMP 37.1; O2SAT 99
[2016-08-27] MEDS ORDERED: LORAZEPAM 0.5 MG TAB SL SCH (07:45)
[2016-08-27] MEDS: ONDANSETRON 8 MG TAB PO PRN (08:12)
[2016-08-27] MEDS: FINASTERIDE 5 MG TAB PO SCH (08:12)
[2016-08-27] MEDS: POLYETHYLENE (MIRALAX) 17 GM PACK PO SCH (08:12)
[2016-08-27] MEDS: SUCRALFATE 1 GM/10 ML UDC PO SCH ×4 (08:12→19:06)
[2016-08-27] MEDS: DULOXETINE HCL 60 MG CAP PO SCH (08:12)
[2016-08-27] MEDS: ALLOPURINOL 300 MG TAB PO SCH (08:12)
[2016-08-27] MEDS: DOCUSATE SODIUM 100 MG CAP PO SCH ×2 (08:12→19:06)
[2016-08-27] MEDS: PANTOprazole INJ 40 MG in SYRINGE 0 ML IV SCH (08:12)
[2016-08-27] MEDS: MoRPHine SULFATE IR 15 MG TAB (IMMEDIATE RELEASE) PO PRN ×2 (08:16→19:03)
[2016-08-27] MEDS: FAMOTIDINE IV INJ 20 MG in DEXTROSE 5% 100ML 100 ML IV SCH (11:27)
[2016-08-27 11:46] VITALS: BP 147/80; PULSE 88; O2SAT 97
[2016-08-27] MEDS: ONDANSETRON 4MG OD TAB SL PRN (16:01)
[2016-08-27] MEDS: LORAZEPAM 0.5 MG TAB SL PRN (16:01)
[2016-08-27 16:08] VITALS: BP 152/85; PULSE 93; TEMP 36.7; O2SAT 96
--- NOTE | 2016-08-27 16:36 | Hospitalist Progress Note ---
Hospitalist Progress Note Date of Service Aug 27, 2016. Subjective Pt evaluation today including: conversation w/ patient, conversation w/ family , physical exam, chart review, lab review Pain: better controlled since starting gabapentin PO Intake: slowly improving Voiding: no voiding problems Patient states that lower extremity pain is significantly improved since starting gabapentin yesterday. No adverse effects to medication thus far. Continues with some nausea but seems to be improved with better pain management. No vomiting. No abdominal pain. Patient denies fever. No other acute complaints. Additional Comments: A total of 12 systems was reviewed and is negative other than as listed above in the HPI All Other Systems: Reviewed and Negative Medications Current Inpatient Medications Medications (Trade) Dose Ordered Sig/Sabino Route Start Time Stop Time Status Last Admin Dose Admin Acetaminophen (Tylenol Tab) 650 mg Q4H PRN PO 08/17/16 00:00 09/16/16 00:00 Al Hydrox/Mg Hydrox/Simethicone (Maalox Max Susp) 15 ml Q4H PRN PO 08/17/16 00:00 09/16/16 00:00 Magnesium Hydroxide (Milk Of Magnesia Susp) 30 ml Q6H PRN PO 08/17/16 00:00 09/16/16 00:00 Polyethylene 17 gm 17 gm DAILY PRN PO 08/17/16 00:00 09/16/16 00:00 Potassium Chloride/Sodium Chloride (Nss + 20meq KCl 1000ml) 1,000 ml @ 100 mls/hr Q10H IV 08/17/16 01:30 09/16/16 01:29 08/27/16 11:29 100 MLS/HR Allopurinol (Zyloprim Tab) 300 mg QAM PO 08/17/16 08:00 09/16/16 08:59 08/27/16 08:12 300 MG Docusate Sodium (coLACE CAP) 100 mg BID PO 08/17/16 08:00 09/16/16 08:59 08/27/16 08:12 100 MG Finasteride (Proscar Tab) 5 mg QAM PO 08/17/16 08:00 09/16/16 08:59 08/27/16 08:12 5 MG Prednisone (PredniSONE TAB) 10 mg QAM PO 08/17/16 08:00 09/16/16 08:59 Future hold 08/27/16 08:12 10 MG Tamsulosin HCl (Flomax Cap) 0.4 mg QPM PO 08/17/16 21:00 09/16/16 20:59 08/26/16 21:27 0.4 MG Dronabinol (Marinol Cap) 5 mg QID PO 08/17/16 08:00 09/16/16 08:59 Future Hold 08/17/16 21:24 5 MG Polyethylene (Miralax Powder Packet) 17 gm DAILY PO 08/17/16 08:00 09/16/16 08:59 08/27/16 08:12 17 GM Heparin Sodium (Porcine) (Heparin 100 Unit/ml 5ml Flush) 5 ml PRN PRN IV 08/17/16 02:00 09/16/16 01:59 08/25/16 07:24 5 ML Heparin Sodium (Porcine) (Heparin Sq 5000 Unit/0.5ml) 5,000 unit Q8H SQ 08/17/16 06:00 09/16/16 05:59 08/27/16 13:38 5,000 UNIT Hydromorphone HCl (Dilaudid Inj) 0.5 mg Q4 PRN IV 08/17/16 08:45 08/31/16 08:44 08/24/16 19:55 0.5 MG Hydromorphone HCl (Dilaudid Inj) 1 mg Q4 PRN IV 08/17/16 08:45 08/31/16 08:44 08/25/16 12:08 1 MG Hydromorphone HCl (Dilaudid Tab) 2 mg Q4H PRN PO 08/17/16 11:30 08/31/16 11:29 08/18/16 23:03 2 MG Hydromorphone HCl (Dilaudid Tab) 4 mg Q4H PRN PO 08/17/16 11:30 08/31/16 11:29 08/26/16 13:44 4 MG Lorazepam 0.5 mg 0.5 mg Q4H PRN IV 08/18/16 09:00 09/17/16 08:59 08/26/16 14:31 0.5 MG Lorazepam/Syringe (Ativan Inj/ Syringe) 1 ml @ 1 mls/min Q4H PRN IV 08/18/16 09:15 09/17/16 09:14 08/26/16 21:26 1 MLS/MIN Trazodone HCl (Desyrel Tab) 25 mg HS PO 08/19/16 21:00 09/18/16 20:59 08/26/16 21:28 25 MG Sucralfate (Carafate Susp) 1 gm QID PO 08/19/16 13:15 09/18/16 13:14 08/27/16 16:02 1 GM Duloxetine HCl (Cymbalta Cap) 60 mg QAM PO 08/21/16 08:00 09/20/16 07:59 08/27/16 08:12 60 MG Methylnaltrexone [place] (Relistor Inj) 12 mg Q2D@1000 SQ 08/24/16 10:00 09/23/16 09:59 08/26/16 08:46 12 MG Hydralazine HCl (HydrALAZINE INJ) 10 mg Q4H PRN IV. 08/24/16 21:00 09/23/16 20:59 08/25/16 23:12 10 MG Morphine Sulfate (MoRPHine SULFATE IR TAB) 15 mg Q4 PRN PO 08/25/16 08:30 09/08/16 08:29 08/27/16 08:16 15 MG Lorazepam (Ativan Tab) 0.5 mg Q4H PRN SL 08/27/16 11:45 09/26/16 11:44 08/27/16 16:01 0.5 MG Ondansetron HCl (Zofran Odt) 4 mg Q4H PRN SL 08/27/16 12:30 09/26/16 12:29 08/27/16 16:01 4 MG Pantoprazole Sodium (Protonix Tab) 40 mg BID PO 08/27/16 20:00 09/26/16 19:59 Famotidine (Pepcid Tab) 20 mg BID PO 08/27/16 20:00 09/26/16 19:59 Gabapentin (Neurontin Cap) 200 mg TID PO 08/27/16 14:00 09/26/16 13:59 08/27/16 13:30 200 MG Dronabinol (Marinol Cap) 5 mg AC PO 08/27/16 16:30 09/26/16 16:29 08/27/16 16:02 5 MG Objective Vital Signs Date Time Temp Pulse Resp B/P Pulse Ox O2 Delivery O2 Flow Rate FiO2 08/27/16 16:08 36.7 93 20 152/85 96 Room Air 08/27/16 11:46 Room Air 08/27/16 11:46 88 15 147/80 97 Room Air 08/27/16 07:25 37.1 97 18 144/87 99 Room Air 08/27/16 03:49 36.7 93 20 135/79 98 Room Air 08/27/16 00:00 Room Air 08/26/16 23:39 36.7 86 20 150/85 96 Room Air 08/26/16 20:00 97 Room Air 08/26/16 19:23 36.7 91 20 117/71 97 Room Air 08/26/16 16:41 Room Air Physical Exam Notes: Vital Signs - as noted below Laboratory Data - as noted below Physical Exam: General - NAD Eyes - No icterus, gaze conjugate ENT - Mucosa moist, no lesions or candidiasis Neck - Supple, No JVD Lungs - No bronchospasm, rales, or rhonchi. Heart - Regular, rate controlled Abdomen - Soft, NT, ND, BS present Extremities - No edema, pedal pulses intact Neuro - A&OX3 Laboratory Results Last 24 Hours Test 08/27/16 05:30 White Blood Count 6.36 K/uL Red Blood Count 3.87 M/uL Hemoglobin 11.1 g/dL Hematocrit 33.6 % Mean Corpuscular Volume 86.8 fL Mean Corpuscular Hemoglobin 28.7 pg Mean Corpuscular Hemoglobin Concent 33.0 g/dl Platelet Count 234 K/uL Mean Platelet Volume 8.5 fL Neutrophils (%) (Auto) 66.7 % Lymphocytes (%) (Auto) 20.0 % Monocytes (%) (Auto) 11.2 % Eosinophils (%) (Auto) 1.3 % Basophils (%) (Auto) 0.3 % Neutrophils # (Auto) 4.25 K/uL Lymphocytes # (Auto) 1.27 K/uL Monocytes # (Auto) 0.71 K/uL Eosinophils # (Auto) 0.08 K/uL Basophils # (Auto) 0.02 K/uL RDW Standard Deviation 51.3 fL RDW Coefficient of Variation 16.3 % Immature Granulocyte % (Auto) 0.5 % Immature Granulocyte # (Auto) 0.03 K/uL Sodium Level 135 mmol/L Potassium Level 4.0 mmol/L Chloride Level 100 mmol/L Carbon Dioxide Level 27 mmol/L Anion Gap 8.0 mmol/L Blood Urea Nitrogen 7 mg/dl Creatinine 0.66 mg/dl Est Creatinine Clear Calc Drug Dose 93.9 ml/min Estimated GFR () 113.5 Estimated GFR (Non- 98.0 BUN/Creatinine Ratio 10.1 Random Glucose 98 mg/dl Calcium Level 8.7 mg/dl Magnesium Level 1.9 mg/dl Assessment and Plan LOWER EXTREMITY PAIN Has been intolerant of pain medications in the past Reports adverse reaction to Gabapentin in the past (reports that it made him very, very angry after several weeks of use) Suspect that anger issues were a result of frustration with chronic pain rather than the medication Restarted Gabapentin 08/26/16 at 100 mg by mouth 3 times a day - increase to 200 mg by mouth 3 times a day today Significant improvement with the gabapentin No changes to other pain medication at this time Will discuss with pain management again tomorrow for ongoing care 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 Byrd's input Treatment on hold secondary to nausea and pain Plan is to resume Opdivo on discharge CHRONIC PAIN Pain management consulted and managing Appreciate Dr. Lugo's input Started trial of Gabapentin 100 mg PO TID 08/26/16. Tolerated and increased to 200mg TID 08/27/16 Did not increase above 200 mg 3 times a day until seen as an outpatient URINARY RETENTION Mariee catheter placed Urology consulted - Appreciate Dr. George's input Discontinue Mariee catheter today Bladder scan postvoid. If residual greater than 350 mL then straight cath and begin bladder retraining GI PROPHYLAXIS Pantoprazole DVT PROPHYLAXIS Heparin SC Please refer to Dr. Birmingham's addendum for further recommendations Continued [facility] stay due to: multiple IV medications needed Discharge planning: uncertain
[2016-08-27] MEDS: FAMOTIDINE 20 MG TAB PO SCH (19:05)
[2016-08-27] MEDS: PANTOprazole SOD 40 MG TAB PO SCH (19:06)
[2016-08-27 19:32] VITALS: BP 163/83; PULSE 90; TEMP 36.7; O2SAT 96
[2016-08-27] MEDS: TAMSULOSIN HCL 0.4 MG CAP PO SCH (20:39)
[2016-08-27] MEDS: TRAZODONE HCL 50 MG TAB PO SCH (20:40)
[2016-08-28] VITALS (7 sets, daily range): BP systolic 124–181; BP diastolic 73–98; PULSE 71–102; TEMP 36.6–36.8; O2SAT 95–98; Ht 177.8 cm; Wt 74.0 kg
[2016-08-28] MEDS: HYDROmorphone HCL 2 MG TAB PO PRN (00:16)
[2016-08-28] MEDS: LORAZEPAM 0.5 MG TAB SL PRN ×3 (03:25→20:58)
[2016-08-28] MEDS: ONDANSETRON 4MG OD TAB SL PRN ×3 (03:25→20:58)
[2016-08-28] MEDS: DRONABINOL 2.5 MG CAP PO SCH ×3 (05:38→17:24)
[2016-08-28] MEDS: HEPARIN SOD 5000 UNIT/0.5 ML CARP SQ SCH ×3 (06:00→20:54)
[2016-08-28] MEDS: NSS + 20MEQ KCL 1000ML 1,000 ML IV SCH ×2 (06:30→17:24)
[2016-08-28] MEDS: ALLOPURINOL 300 MG TAB PO SCH (08:19)
[2016-08-28] MEDS: GABAPENTIN 100 MG CAP PO SCH ×3 (08:19→20:46)
[2016-08-28] MEDS: DOCUSATE SODIUM 100 MG CAP PO SCH ×2 (08:19→20:46)
[2016-08-28] MEDS: FINASTERIDE 5 MG TAB PO SCH (08:19)
[2016-08-28] MEDS: FAMOTIDINE 20 MG TAB PO SCH ×2 (08:19→20:00)
[2016-08-28] MEDS: DULOXETINE HCL 60 MG CAP PO SCH (08:19)
[2016-08-28] MEDS: PANTOprazole SOD 40 MG TAB PO SCH ×2 (08:20→20:46)
[2016-08-28] MEDS: POLYETHYLENE (MIRALAX) 17 GM PACK PO SCH (08:20)
[2016-08-28] MEDS: SUCRALFATE 1 GM/10 ML UDC PO SCH ×4 (08:20→20:46)
[2016-08-28] MEDS: METHYLNALTREXONE BROMIDE INJ 12 MG/0.6 ML SYR SQ SCH (08:21)
--- NOTE | 2016-08-28 09:52 | PROGRESS NOTE ---
DATE: 08/28/2016 INPATIENT PROGRESS NOTE Plan of care discussed with Dr. Lugo. CHIEF COMPLAINT: Abdominal pain and lower extremity neuropathic pain. SUBJECTIVE: Mr. oHwell is a 70-year-old white male with a past medical history significant for esophageal cancer status post esophageal stent placed with a metastasis to liver, lymph nodes, and spine. The patient continues to have complaints of abdominal pain with nausea as well as lower extremity neuropathic pain. The patient is reporting significant reduction in his lower extremity neuropathic pain with initiation of gabapentin titrated to 200 mg t.i.d. over the weekend. His abdominal pain is under adequate control on most occasions with persisting intermittent nausea. He is finding re-initiation of Marinol and use of Zofran to be effective for nausea. He is reporting improved pain control with hydromorphone versus morphine. He is not experiencing side effects to these medications currently. He is overall pleased with his level of pain control at this time. The patient has been moving his bowels approximately every other day with use of Relistor. The patient has no further constitutional complaints at today's visit. OBJECTIVE: VITAL SIGNS: Temperature 36.7 degrees Celsius, pulse 96, respirations 16, BP 132/83, pulse oximetry 97% on room air. GENERAL: Mr. Howell is lying quietly upon entering the room in no acute distress. Speech and thought process are appropriate. Mood and affect are appropriate. Cognition is intact. ABDOMEN: Soft and nondistended. Minimally tender in the lower quadrants without rebound or guarding. LOWER EXTREMITIES: Sensation intact. Strength 5/5 and equal. No evidence of edema, erythema or skin breakdown. ASSESSMENT: 1. Abdominal pain. 2. Intractable nausea. 3. Peripheral neuropathic pain. 4. Metastatic esophageal cancer status post esophageal stent placement. 5. Anxiety disorder. 6. Constipation - opioid induced. TREATMENT AND RECOMMENDATIONS: 1. Will recommend he maintain gabapentin at 200 mg t.i.d. at this time and upon discharge. Slow titration could be considered in the future with persisting pain complaints. 2. Maintain hydromorphone 2-4 mg q. 4 hours on a p.r.n. basis for breakthrough pain. Would recommend use of hydromorphone in the outpatient setting on a q. 4 hour p.r.n. basis as he is unable to tolerate extended release opiates. 3. Consider discharge with Relistor versus a trial of Amitiza as he has previously failed Movantik in the outpatient setting for opioid-induced constipation. 4. Will sign off on the patient at this time. We discussed outpatient followup which can be scheduled at the patient's request. Thank you for allowing us to participate in the care of Mr. Howell. KB
--- NOTE | 2016-08-28 12:27 | Hospitalist Progress Note ---
Hospitalist Progress Note Date of Service August 28, 2016. (Adrianne Thomas ., PA-C) Subjective Pt evaluation today including: conversation w/ patient, conversation w/ family , physical exam, chart review, lab review, review of inpatient medication list Voiding: no voiding problems Patient states he is feeling very well today, better than he has in a long time. He is beginning to eat/drink more. Pain is currently well controlled. Nausea has greatly improved. He is worried about being discharged home and the pain returning. Patient denies any fever, chills, sweats, lightheadedness, dizziness, vision changes, CP, palpitations, edema, SOB, wheezing, cough, abdominal pain, vomiting, diarrhea, urinary symptoms, melena, numbness/tingling , weakness, anxiety/depression, active bleeding, or new skin discoloration/ changes. (Adrianne Thomas ., PA-C) Medications Current Inpatient Medications Medications (Trade) Dose Ordered Sig/Sabino Route Start Time Stop Time Status Last Admin Dose Admin Acetaminophen (Tylenol Tab) 650 mg Q4H PRN PO 08/17/16 00:00 09/16/16 00:00 Al Hydrox/Mg Hydrox/Simethicone (Maalox Max Susp) 15 ml Q4H PRN PO 08/17/16 00:00 09/16/16 00:00 Magnesium Hydroxide (Milk Of Magnesia Susp) 30 ml Q6H PRN PO 08/17/16 00:00 09/16/16 00:00 Polyethylene 17 gm 17 gm DAILY PRN PO 08/17/16 00:00 09/16/16 00:00 Potassium Chloride/Sodium Chloride (Nss + 20meq KCl 1000ml) 1,000 ml @ 100 mls/hr Q10H IV 08/17/16 01:30 09/16/16 01:29 08/28/16 06:30 100 MLS/HR Allopurinol (Zyloprim Tab) 300 mg QAM PO 08/17/16 08:00 09/16/16 08:59 08/28/16 08:19 300 MG Docusate Sodium (coLACE CAP) 100 mg BID PO 08/17/16 08:00 09/16/16 08:59 08/28/16 08:19 100 MG Finasteride (Proscar Tab) 5 mg QAM PO 08/17/16 08:00 09/16/16 08:59 08/28/16 08:19 5 MG Prednisone (PredniSONE TAB) 10 mg QAM PO 08/17/16 08:00 09/16/16 08:59 Future hold 08/28/16 08:20 10 MG Tamsulosin HCl (Flomax Cap) 0.4 mg QPM PO 08/17/16 21:00 09/16/16 20:59 08/27/16 20:39 0.4 MG Dronabinol (Marinol Cap) 5 mg QID PO 08/17/16 08:00 09/16/16 08:59 Future Hold 08/17/16 21:24 5 MG Polyethylene (Miralax Powder Packet) 17 gm DAILY PO 08/17/16 08:00 09/16/16 08:59 08/28/16 08:20 17 GM Heparin Sodium (Porcine) (Heparin 100 Unit/ml 5ml Flush) 5 ml PRN PRN IV 08/17/16 02:00 09/16/16 01:59 08/25/16 07:24 5 ML Heparin Sodium (Porcine) (Heparin Sq 5000 Unit/0.5ml) 5,000 unit Q8H SQ 08/17/16 06:00 09/16/16 05:59 08/27/16 20:44 5,000 UNIT Hydromorphone HCl (Dilaudid Inj) 0.5 mg Q4 PRN IV 08/17/16 08:45 08/31/16 08:44 08/24/16 19:55 0.5 MG Hydromorphone HCl (Dilaudid Inj) 1 mg Q4 PRN IV 08/17/16 08:45 08/31/16 08:44 08/25/16 12:08 1 MG Hydromorphone HCl (Dilaudid Tab) 2 mg Q4H PRN PO 08/17/16 11:30 08/31/16 11:29 08/28/16 00:16 2 MG Hydromorphone HCl (Dilaudid Tab) 4 mg Q4H PRN PO 08/17/16 11:30 08/31/16 11:29 08/26/16 13:44 4 MG Lorazepam 0.5 mg 0.5 mg Q4H PRN IV 08/18/16 09:00 09/17/16 08:59 08/26/16 14:31 0.5 MG Lorazepam/Syringe (Ativan Inj/ Syringe) 1 ml @ 1 mls/min Q4H PRN IV 08/18/16 09:15 09/17/16 09:14 08/26/16 21:26 1 MLS/MIN Trazodone HCl (Desyrel Tab) 25 mg HS PO 08/19/16 21:00 09/18/16 20:59 08/27/16 20:40 25 MG Sucralfate (Carafate Susp) 1 gm QID PO 08/19/16 13:15 09/18/16 13:14 08/28/16 11:16 1 GM Duloxetine HCl (Cymbalta Cap) 60 mg QAM PO 08/21/16 08:00 09/20/16 07:59 08/28/16 08:19 60 MG Methylnaltrexone [place] (Relistor Inj) 12 mg Q2D@1000 SQ 08/24/16 10:00 09/23/16 09:59 08/28/16 08:21 12 MG Hydralazine HCl (HydrALAZINE INJ) 10 mg Q4H PRN IV. 08/24/16 21:00 09/23/16 20:59 08/25/16 23:12 10 MG Morphine Sulfate (MoRPHine SULFATE IR TAB) 15 mg Q4 PRN PO 08/25/16 08:30 09/08/16 08:29 08/27/16 19:03 15 MG Lorazepam (Ativan Tab) 0.5 mg Q4H PRN SL 08/27/16 11:45 09/26/16 11:44 08/28/16 03:25 0.5 MG Ondansetron HCl (Zofran Odt) 4 mg Q4H PRN SL 08/27/16 12:30 09/26/16 12:29 08/28/16 03:25 4 MG Pantoprazole Sodium (Protonix Tab) 40 mg BID PO 08/27/16 20:00 09/26/16 19:59 08/28/16 08:20 40 MG Famotidine (Pepcid Tab) 20 mg BID PO 08/27/16 20:00 09/26/16 19:59 08/28/16 08:19 20 MG Gabapentin (Neurontin Cap) 200 mg TID PO 08/27/16 14:00 09/26/16 13:59 08/28/16 08:19 200 MG Dronabinol (Marinol Cap) 5 mg AC PO 08/27/16 16:30 09/26/16 16:29 08/28/16 11:16 5 MG (Adrianne Thomas, PA-C) Objective Vital Signs Date Time Temp Pulse Resp B/P Pulse Ox O2 Delivery O2 Flow Rate FiO2 08/28/16 11:18 36.8 94 16 124/73 95 Room Air 08/28/16 08:00 Room Air 08/28/16 07:28 36.7 96 16 132/83 97 Room Air 08/28/16 03:30 36.7 102 20 150/91 98 Room Air 08/28/16 00:10 36.6 93 20 181/98 96 Room Air 08/28/16 00:00 Room Air 08/27/16 19:32 36.7 90 20 163/83 96 Room Air 08/27/16 16:08 36.7 93 20 152/85 96 Room Air 08/27/16 16:00 Room Air (Adrianne Thomas ., PA-C) Physical Exam General Appearance: no apparent distress Eyes: normal inspection, PERRL ENT: hearing grossly normal Neck: supple Respiratory/Chest: lungs clear, no respiratory distress, no accessory muscle use Cardiovascular: regular rate, rhythm Abdomen: normal bowel sounds, non tender, soft Extremities: no pedal edema, no calf tenderness Neurologic/Psychiatric: alert, normal mood/affect, oriented x 3 Skin: normal color, warm/dry, no rash (Adrianne Thomas ., PA-C) Assessment and Plan 70-year-old male with past medical history of esophageal cancer status post esophageal stent placement, 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 He has been experiencing abdominal pain and intermittent nausea for about a month. He has had decreased by mouth intake and has been very dehydrated and feeling very weak and fatigued. AMS, likely secondary to transdermal patches- RESOLVED: - Patches held - MRI of brain: No acute intracranial findings. No evidence of intracranial metastasis. Nausea, likely secondary to pain- IMPROVING: - Continue Zofran 4 mg + Ativan 0.5 PRN, and Marinol - GI consulted, appreciate recommendations Esophageal cancer with mets: - Oncology consulted, appreciate recommendations -- Continue outpt follow-up Chronic pain- IMPROVING: - Pain management consulted, appreciate recommendations -- Relistor -- Dilaudid 2-4 mg PO q4 hrs PRN - Gabapentin 200mg TID on 08/27/16 w/ significant improvement in symptoms Urinary retention- IMPROVED/BPH: - d/c'd Mariee on 08/27 w/ bladder scans + straight cath PRN- no voiding issues - Urology consulted, appreciate recommendations -- Outpt f/u - Proscar 5 mg PO daily and Flomax 0.4 mg HS Anxiety: - Psychiatry consulted, appreciate recommendations -- Cymbalta 60 mg daily GI Prophylaxis: Protonix, Maalox PRN, IV Zofran PRN, Colace and/or Milk of Mag PRN DVT prophylaxis: Heparin Code Status: LEVEL I, FULL Dispo: - Discharge to ?home, hopefully on 08/29 - Appreciate PT/OT evaluations (Adrianne Thomas ., PA-C) PA Physician Supervision Note: I interviewed and examined the patient. Discussed with Adrianne Thomas PAC and agree with findings and plan as documented in the note. Any exceptions or clarifications are listed here: None Pt has improved pain and nausea, tolerating some appetite, has no ill affects since increased gabapentin and marinol vitals are stable pt is eating but walking slowly and somewhat weak will continue PT/OT and eval for home help. continue symptom management on way to resumption of optiva by oncology Documented By: Shawn Robertson (Shawn Robertson M.D.)
[2016-08-28] MEDS: TAMSULOSIN HCL 0.4 MG CAP PO SCH (20:47)
[2016-08-28] MEDS: TRAZODONE HCL 50 MG TAB PO SCH (20:48)
[2016-08-28] MEDS: MoRPHine SULFATE IR 15 MG TAB (IMMEDIATE RELEASE) PO PRN (21:01)
[2016-08-29] MEDS: MoRPHine SULFATE IR 15 MG TAB (IMMEDIATE RELEASE) PO PRN (01:47)
[2016-08-29] MEDS: NSS + 20MEQ KCL 1000ML 1,000 ML IV SCH ×2 (03:17→13:16)
[2016-08-29 04:00] VITALS: BP 154/89; PULSE 91; TEMP 36.7; O2SAT 95
[2016-08-29] MEDS: DRONABINOL 2.5 MG CAP PO SCH ×2 (06:09→11:06)
[2016-08-29] MEDS: HEPARIN SOD 5000 UNIT/0.5 ML CARP SQ SCH ×2 (06:12→14:08)
[2016-08-29 07:41] VITALS: BP 143/80; PULSE 85; TEMP 36.8; O2SAT 96
[2016-08-29] MEDS: SUCRALFATE 1 GM/10 ML UDC PO SCH ×2 (08:01→11:39)
[2016-08-29] MEDS: DULOXETINE HCL 60 MG CAP PO SCH (08:02)
[2016-08-29] MEDS: DOCUSATE SODIUM 100 MG CAP PO SCH (08:02)
[2016-08-29] MEDS: ALLOPURINOL 300 MG TAB PO SCH (08:03)
[2016-08-29] MEDS: FINASTERIDE 5 MG TAB PO SCH (08:03)
[2016-08-29] MEDS: GABAPENTIN 100 MG CAP PO SCH ×2 (08:03→14:08)
[2016-08-29] MEDS: FAMOTIDINE 20 MG TAB PO SCH (08:03)
[2016-08-29] MEDS: POLYETHYLENE (MIRALAX) 17 GM PACK PO SCH (08:04)
[2016-08-29] MEDS: PANTOprazole SOD 40 MG TAB PO SCH (08:04)
[2016-08-29] MEDS ORDERED: PRT40 PO (08:59)
[2016-08-29] MEDS ORDERED: NRN100 PO (08:59)
[2016-08-29] MEDS ORDERED: RLSI SQ (08:59)
[2016-08-29] MEDS ORDERED: CYM60 PO (08:59)
[2016-08-29] MEDS ORDERED: ATV5 SL (08:59)
[2016-08-29] MEDS ORDERED: ONDA4TAB65 PO (08:59)
[2016-08-29] MEDS ORDERED: DLD/2 PO (08:59)
--- NOTE | 2016-08-29 09:16 | Discharge Instructions ---
Discharge Instructions Date of Service August 29, 2016. Admission Reason for Admission: Dehydration, Epigastric Abdominal Pain, Esophageal Discharge Discharge Diagnosis / Problem: Chronic pain; metastatic cancer; nausea Discharge Goals Goal(s): Decrease discomfort, Improve function, Increase independence, Improve disease control, Learn about illness, Diagnostic testing, Therapeutic intervention, Prevent Disease Progression Activity Recommendations Activity Limitations: resume your previous activity . Instructions / Follow-Up Instructions / Follow-Up New/changed medications: 1. Zofran 4 mg by mouth every 4 hours as needed for nausea 2. Ativan 0.5 mg by mouth every 4 hours as needed for nausea/anxiety 3. Cymbalta INCREASED to 60 mg by mouth once daily 4. Gabapentin 200 mg by mouth three times per day 5. Relistor 12 mg injection every other day for constipation- begin this medication on 08/30 6. Protonix 40 mg by mouth twice per day 7. STOP- Esomeprazole, Fentanyl, and Phenergan, Movantik Resume all other regular home medications as prescribed Home health services is being setup for you Please follow-up with your PCP within 5-7 days- case management is working to schedule you an appointment, if you do not hear of an appointment within 1-2 days, please call the office Please follow-up with Pain Management as needed- recommend following up within 1 month to continue to manage good pain control. Please follow-up with Urology as scheduled by case management (if you do not hear of an appointment within 1-2 days, please call office at # [phone] Please follow-up/keep all of your subspecialty appointments Current Hospital Diet Patient's current hospital diet: Regular Diet Discharge Diet Recommended Diet: Regular Diet Pending Studies Studies pending at discharge: yes List of pending studies: Urine culture Laboratory Results Test 08/16/16 20:13 08/19/16 05:06 08/21/16 07:39 08/23/16 05:43 Range/Units Prothrombin Time 10.6 9.0-12.0 SECONDS Prothromb Time International Ratio 1.0 0.9-1.1 Activated Partial Thromboplast Time 23.6 21.0-31.0 SECONDS Partial Thromboplastin Ratio 0.9 Lactic Acid Level 1.1 0.4-2.0 mmol/L Troponin I < 0.015 0-0.045 ng/ml Lipase 149 73-393 U/L Thyroid Stimulating Hormone (TSH) 1.160 0.300-4.500 uIu/ml Ammonia 24.0 11-32 umol/L Bedside Glucose 111 70-99 mg/dl Total Bilirubin 1.0 0.2-1 mg/dl Aspartate Amino Transf (AST/SGOT) 86 15-37 U/L Alanine Aminotransferase (ALT/SGPT) 134 12-78 U/L Alkaline Phosphatase 521 45-117 U/L Total Protein 5.2 6.4-8.2 gm/dl Albumin 2.5 3.4-5.0 gm/dl Globulin 2.7 2.5-4.0 gm/dl Albumin/Globulin Ratio 0.9 0.9-2 Test 08/24/16 22:00 08/27/16 05:30 Range/Units Urine Color YELLOW Urine Appearance CLEAR CLEAR Urine pH 7.0 4.5-7.5 Urine Specific [place] 1.011 1.000-1.030 Urine Protein NEG NEG Urine Glucose (UA) NEG NEG Urine Ketones NEG NEG Urine Occult Blood NEG NEG Urine Nitrite NEG NEG Urine Bilirubin NEG NEG Urine Urobilinogen NEG NEG Urine Leukocyte Esterase NEG NEG White Blood Count 6.36 4.8-10.8 K/uL Red Blood Count 3.87 4.7-6.1 M/uL Hemoglobin 11.1 14.0-18.0 g/dL Hematocrit 33.6 42-52 % Mean Corpuscular Volume 86.8 80-100 fL Mean Corpuscular Hemoglobin 28.7 25-34 pg Mean Corpuscular Hemoglobin Concent 33.0 32-36 g/dl Platelet Count 234 130-400 K/uL Mean Platelet Volume 8.5 7.4-10.4 fL Neutrophils (%) (Auto) 66.7 % Lymphocytes (%) (Auto) 20.0 % Monocytes (%) (Auto) 11.2 % Eosinophils (%) (Auto) 1.3 % Basophils (%) (Auto) 0.3 % Neutrophils # (Auto) 4.25 1.4-6.5 K/uL Lymphocytes # (Auto) 1.27 1.2-3.4 K/uL Monocytes # (Auto) 0.71 0.11-0.59 K/uL Eosinophils # (Auto) 0.08 0-0.5 K/uL Basophils # (Auto) 0.02 0-0.2 K/uL RDW Standard Deviation 51.3 36.4-46.3 fL RDW Coefficient of Variation 16.3 11.5-14.5 % Immature Granulocyte % (Auto) 0.5 % Immature Granulocyte # (Auto) 0.03 0.00-0.02 K/uL Sodium Level 135 136-145 mmol/L Potassium Level 4.0 3.5-5.1 mmol/L Chloride Level 100 98-107 mmol/L Carbon Dioxide Level 27 21-32 mmol/L Anion Gap 8.0 3-11 mmol/L Blood Urea Nitrogen 7 7-18 mg/dl Creatinine 0.66 0.60-1.40 mg/dl Est Creatinine Clear Calc Drug Dose 93.9 ml/min Estimated GFR () 113.5 Estimated GFR (Non- 98.0 BUN/Creatinine Ratio 10.1 10-20 Random Glucose 98 70-99 mg/dl Calcium Level 8.7 8.5-10.1 mg/dl Magnesium Level 1.9 1.8-2.4 mg/dl Medical Emergencies . Who to Call and When: Medical Emergencies: If at any time you feel your situation is an emergency, please call 911 immediately. . Non-Emergent Contact Non-Emergency issues call your: Primary Care Provider . . "Provider Documentation" section prepared by Adrianne Thomas. . VTE Core Measure Inpt VTE Proph given/why not?: Unfractionated heparin SQ
--- NOTE | 2016-08-29 09:31 | Discharge Summary ---
Discharge Summary Date of Service August 29, 2016. (Adrianne Thomas, ANKIT) Discharge Summary Admission Date: Aug 16, 2016 at 23:54 Discharge Date: August 29, 2016 Discharge Disposition: Home with services Principal Diagnosis: Chronic pain secondary to metastatic cancer Problems/Secondary Diagnoses: AMS, likely secondary to transdermal patches Nausea, likely secondary to pain Esophageal cancer with mets Chronic pain Urinary retention BPH Anxiety/depression GERD Immunizations: Have You Had Influenza Vaccine: Yes Influenza Vaccine Date: Jan 18, 2015 History of Tetanus Vaccine?: Unknown History of Pneumococcal: No History of Hepatitis B Vaccine: Unknown Procedures: CHEST ONE VIEW PORTABLE CLINICAL HISTORY: ABDOMINAL PAIN/GI COMPARISON STUDY: 08/15/2016 FINDINGS: The bones soft tissues and hemidiaphragms are normal. The cardiomediastinal silhouette is normal. The lungs are clear. The pulmonary vasculature is normal. IMPRESSION: Negative chest. Electronically signed by: Yash Giordano M.D. 08/16/2016 8:01 PM Dictated Date/Time: 08/16/2016 8:00 PM The status of this report is Signed. Draft = Not yet reviewed or approved by Radiologist. Signed = Reviewed and approved by Radiologist. ABDOMEN AND PELVIS CT WITH IV CONTRAST CT DOSE: 423.32 mGy.cm HISTORY: Pain ABD PAIN, POSS OBSTRUCTION, IV CONTRAST ONLY TECHNIQUE: Multiaxial CT images of the abdomen and pelvis were performed following the use of intravenous contrast. COMPARISON STUDY: 08/02/2016 FINDINGS: Esophageal stent surrounding thickened esophageal wall. Stent appears to be soft tissue occluded. This is progressive compared to the prior study where there was near complete occlusion. Hepatic metastatic change slightly variable in terms of appearance from the prior study but nevertheless stable. Upper abdominal 100. No adenopathy stable. Bowel pattern within the abdomen and pelvis is considered nonobstructive. Skeletal metastatic disease stable. Small amount of fluid within the pelvic cul-de-sac considered an interval finding. Mild chronic colonic diverticulosis. No evidence for acute diverticulitis. IMPRESSION: 1. Esophageal stent now showing soft tissue occlusion. 2. Nonobstructive bowel pattern. 3. Stable abdominal and pelvic adenopathy. 4. Interval development of a small amount of cul-de-sac fluid. 6. Hepatic metastatic disease similar. 7. Skeletal metastatic change similar. Electronically signed by: Yash Goirdano M.D. 08/16/2016 9:32 PM Dictated Date/Time: 08/16/2016 9:28 PM The status of this report is Signed. Draft = Not yet reviewed or approved by Radiologist. Signed = Reviewed and approved by Radiologist. GI SERIES W/O KUB CLINICAL HISTORY: Gastric pain. Possible stent occlusion.Esophageal carcinoma. COMPARISON STUDY: CT scan dated 08/16/2016 FLUOROSCOPY TIME: 2 minutes. 13 fluoroscopic spot images were acquired.. FINDINGS: The study was initially performed with Gastrografin. There is no extravasation. The examination was then performed with barium. There is mild irregular narrowing of the distal esophagus at the proximal aspect of the stent. This is likely secondary to the patient's known neoplasm. The patient's distal esophageal stent is patent. No gastric masses are visualized. There is no gastric outlet obstruction. The duodenal bulb appears patent. The ligament Treitz is located in the normal anatomical position. IMPRESSION: 1. Distal esophageal stent. No evidence of stent occlusion 2. Luminal narrowing of the distal esophagus at the proximal aspect of the stent. The lumen is narrowed by approximately 50%. This may indicate neoplasm . Electronically signed by: Jose Renae M.D. 08/17/2016 2:14 PM Dictated Date/Time: 08/17/2016 2:10 PM The status of this report is Signed. Draft = Not yet reviewed or approved by Radiologist. Signed = Reviewed and approved by Radiologist. MRI OF THE BRAIN WITHOUT AND WITH IV CONTRAST CLINICAL HISTORY: Esophageal carcinoma. Encephalopathy. COMPARISON STUDY: No previous studies for comparison. TECHNIQUE: MRI of the brain was performed from the vertex to the skull base utilizing various T1 and T2 weighted sequences. Following the IV administration of 7.8 mL of Gadavist contrast, additional enhanced images were obtained. FINDINGS: Sagittal T1, axial diffusion, proton density and T2 weighted axial, coronal FLAIR, and pre and post axial T1-weighted images were acquired. These were supplemented with post gadolinium coronal T1 weighted images. No intra or extra-axial mass lesions are visualized. Axial diffusion-weighted images reveal no evidence of acute or subacute infarction. There is no evidence of ventricular dilatation. T2-weighted images reveal no significant brachial signal abnormalities. There are no abnormal flow voids. There is no evidence of pathologic enhancement. The examination is moderately limited from a technical standpoint secondary to motion artifact. IMPRESSION: 1. Technically limited study secondary to motion artifact 2. No acute intracranial findings. No evidence of intracranial metastasis. Electronically signed by: Jose Renae M.D. 08/18/2016 11:54 AM Dictated Date/Time: 08/18/2016 11:51 AM The status of this report is Signed. Draft = Not yet reviewed or approved by Radiologist. Signed = Reviewed and approved by Radiologist. Consultations: Heme/Oncology GI Psychiatry Urology Pain management (Adrianne Thomas, ANKIT) Medication Reconciliation New Medications: Ondansetron Hcl (Zofran) 4 Mg Tab 4 MG PO Q4H PRN for Nausea for 30 Days, #120 TAB Duloxetine HCl (Duloxetine HCl) 60 Mg Cap 60 MG PO QAM for 30 Days, #30 CAP Gabapentin (Gabapentin) 100 Mg Cap 200 MG PO TID for 30 Days, #180 CAP Lorazepam (Lorazepam) 0.5 Mg Tab 0.5 MG SL Q4H PRN for ANXIETY/AGITATION/NAUSEA for 30 Days, #120 TAB Methylnaltrexone [place] (Relistor) 12 Mg/0.6 Ml Inj 12 MG SQ Q2D@1000 for 30 Days, #15 MG Pantoprazole (Pantoprazole Sodium) 40 Mg Tab 40 MG PO BID for 30 Days, #60 TAB Continued Medications: Allopurinol (Zyloprim) 300 Mg Tab 300 MG PO QAM, TAB Docusate Sodium (Docusate Sodium) 100 Mg Cap 100 MG PO BID for 15 Days, CAP Dronabinol (Marinol) 5 Mg Cap 5 MG PO QID Famotidine (Pepcid) 20 Mg Tab 20 MG PO BID Finasteride (Proscar) 5 Mg Tab 5 MG PO QAM, TAB Hydromorphone HCl (Hydromorphone HCl) 2 Mg Tab 2-4 MG PO Q4 PRN for MOD-SEVERE PAIN for 30 Days, #180 (This prescription has been renewed) Polyethylene Glycol 3350 (Miralax) 1 Pow Pow 17 GM PO DAILY, #255 GM Prednisone Tab (Prednisone) 10 Mg Tab 10 MG PO QAM, TAB Tamsulosin Hcl (Flomax) 0.4 Mg Cap 0.4 MG PO QPM, CAP Discontinued Medications: Duloxetine HCl (Duloxetine HCl) 30 Mg Cap 30 MG PO QAM Esomeprazole Magnesium (Esomeprazole Magnesium) 40 Mg Cap 40 MG PO BID Fentanyl (Fentanyl) 25 Mcg Tdsy 75 MCG TOP CQ72HR, #10 CHANGE AT 10 AM START 75MCG ON 08/16/16 Lorazepam (Ativan) 0.5 Mg Tab 0.5 MG PO Q6H, TAB Naloxegol Oxalate (Movantik) 25 Mg Tab 25 MG PO DAILY Ondansetron Hcl (Zofran) 8 Mg Tab 8 MG PO Q8 PRN for Nausea, TAB Promethazine Hcl (Phenergan) 25 Mg Tab 25 MG PO Q6H PRN for Nausea, #20 TAB Referrals At Discharge Follow up Referrals: Family Practice Referral - Within 1 Week with Garcia Whalen M.D. Physician Referral - Within a Month with Jose Golden PA Urologist Referral - Within 1 Week with Jd George MD, Urology Discharge Exam Patient states he is feeling well for discharge. However, he is anxious about going home and the pain returning. He mentioned in the past when he was discharged, he would slowly try to avoid taking pain medications and the pain would "creep up on him."- discussed continuing with current pain/nausea regimen to avoid returning symptoms and admission; verbalized understanding. He admits to pain with starting urination- this has been an ongoing issue for patient. Post void bladder scans <250 mL per nursing staff. Review of Systems: Constitutional: No chills, No fatigue, No fever, No sweats, No weakness Respiratory: No cough, No hemoptysis, No shortness of breath Cardiovascular: No chest pain, No edema, No palpitations Abdomen: No constipation, No diarrhea, No nausea, No pain, No vomiting Musculoskeletal: No calf pain, No joint pain, No muscle pain, No swelling Genitourinary - Male: + dysuria, No hematuria Neurologic: No numbness/tingling, No weakness Psychiatric: + anxiety (about discharge home and pain returning ), No depression symptoms Hematologic / Lymphatic: No abnormal bleeding/bruising Integumentary: No itch, No new/changing skin lesions, No rash Physical Exam: General Appearance: no apparent distress Eyes: normal inspection, PERRL ENT: hearing grossly normal Neck: supple Respiratory/Chest: lungs clear, no respiratory distress, no accessory muscle use Cardiovascular: regular rate, rhythm Abdomen / GI: normal bowel sounds, non tender, soft Extremities: no calf tenderness, no pedal edema Neurologic/Psychiatric: alert, normal mood/affect, oriented x 3 Skin: normal color, warm/dry, no rash (Adrianne Thomas ., PA-C) Hospital Course 70-year-old male with past medical history of esophageal cancer status post esophageal stent placement, 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 He has been experiencing abdominal pain and intermittent nausea for about a month. He has had decreased by mouth intake and has been very dehydrated and feeling very weak and fatigued. AMS, likely secondary to transdermal patches- RESOLVED: - Patches held- did NOT continue at discharge - MRI of brain: No acute intracranial findings. No evidence of intracranial metastasis. Nausea, likely secondary to pain- IMPROVING: - Continue Zofran 4 mg + Ativan 0.5 PRN, and Marinol- discharged with medications - GI consulted, appreciate recommendations Esophageal cancer with mets: - Oncology consulted, appreciate recommendations -- Continue outpt follow-up Chronic pain- IMPROVING: - Pain management consulted, appreciate recommendations -- Relistor and Dilaudid 2-4 mg PO q4 hrs PRN- continued at discharge - Gabapentin 200mg TID on 08/27/16 w/ significant improvement in symptoms- continued at discharge Urinary retention- IMPROVED/BPH: - d/c'd Mariee on 08/27 w/ bladder scans + straight cath PRN- patient reports continued difficulty with urination; urine culture pending, bladder scans with less than 250 mL residual volume per nursing staff - Urology consulted, appreciate recommendations -- Outpt f/u- case management to schedule follow-up - Proscar 5 mg PO daily and Flomax 0.4 mg HS- continue at discharge Anxiety/depression: - Psychiatry consulted, appreciate recommendations -- Cymbalta 60 mg daily- continue at discharge GI Prophylaxis: Protonix, Maalox PRN, IV Zofran PRN, Colace and/or Milk of Mag PRN DVT prophylaxis: Heparin Code Status: LEVEL I, FULL Dispo: Discharge to home w/ [facility] - Case management working on setting up outpatient Urology and PCP follow-up - Instructed patient to call and schedule pain management follow-up in ~1 month if needed - Keep scheduled oncology follow-ups Total Time Spent: Greater than 30 minutes This includes examination of the patient, discharge planning, medication reconciliation, and communication with other providers. (Adrianne Thomas ., PA-C) PA Physician Supervision Note: I interviewed and examined the patient. Discussed with Adrianne Thomas PAC and agree with findings and plan as documented in the note. Any exceptions or clarifications are listed here: None Has no ill affects since increased gabapentin and marinol, is clear mentally and eating somewhat vitals are stable pt is eating improved physical activity car is reg, lungs clear Will have home health and outpt PT after discharge continue symptom management on way to resumption of optiva by oncology Documented By: Shawn Robertson (Shawn Robertson M.D.) Discharge Instructions Please refer to the electronic Patient Visit Report (Discharge Instructions) for additional information. (Adrianne Thomas ., PA-C) Follow-Up Please follow-up with your PCP within 5-7 days Please follow-up with Urology within 1 week Call to schedule pain management follow-up Please follow-up/keep all of your subspecialty appointments (Adrianne Thomas, PA-C) Additional Copies To Garcia Whalen M.D.
--- NOTE | 2016-08-29 09:53 | Hematology/Oncology Prog Note ---
Hematology/Onc Progress Note Date of Service August 29, 2016. Diagnoses Metastatic esophageal adenocarcinoma Medications Medications Administered Medications (Trade) Dose Ordered Sig/Sabino Route Start Time Stop Time Status Last Admin Dose Admin Sodium Chloride (Nss 1000ml) 500 ml @ 999 mls/hr Q31M STAT IV 08/16/16 19:42 08/16/16 20:12 DC 08/16/16 20:21 999 MLS/HR Promethazine HCl 6.25 mg 6.25 mg NOW STAT IV 08/16/16 19:42 08/16/16 19:46 DC 08/16/16 20:29 6.25 MG Sodium Chloride (Nss 1000ml) 1,000 ml @ 200 mls/hr Q5H STAT IV 08/16/16 19:42 08/17/16 00:41 DC 08/16/16 20:56 200 MLS/HR Hydromorphone HCl (Dilaudid Inj) 0.5 mg Q15M PRN IV 08/16/16 19:45 08/17/16 01:22 DC 08/16/16 20:30 0.5 MG Piperacillin Sod/ Tazobactam Sod (Zosyn Iv) 4.5 gm NOW STAT IV 08/16/16 19:45 08/16/16 19:46 DC 08/16/16 20:30 4.5 GM Magnesium Sulfate (Magnesium Sulfate) 1 gm NOW STAT IV 08/16/16 21:56 08/16/16 21:57 DC 08/16/16 22:01 1 GM Ondansetron HCl 4 mg 4 mg Q6H PRN IV 08/17/16 00:00 08/19/16 11:45 DC 08/19/16 07:45 4 MG Potassium Chloride/Sodium Chloride (Nss + 20meq KCl 1000ml) 1,000 ml @ 100 mls/hr Q10H IV 08/17/16 01:30 09/16/16 01:29 08/29/16 03:17 100 MLS/HR Allopurinol (Zyloprim Tab) 300 mg QAM PO 08/17/16 08:00 09/16/16 08:59 08/29/16 08:03 300 MG Docusate Sodium (coLACE CAP) 100 mg BID PO 08/17/16 08:00 09/16/16 08:59 08/29/16 08:02 100 MG Duloxetine HCl (Cymbalta Cap) 30 mg QAM PO 08/17/16 08:00 08/17/16 13:15 DC 08/17/16 08:45 30 MG Famotidine (Pepcid Tab) 20 mg BID PO 08/17/16 08:00 08/20/16 10:38 DC 08/20/16 09:48 20 MG Finasteride (Proscar Tab) 5 mg QAM PO 08/17/16 08:00 09/16/16 08:59 08/29/16 08:03 5 MG Hydromorphone HCl (Dilaudid Tab) 2-4 MG BASED ON PAIN LEVEL Q4 PRN PO 08/17/16 00:00 08/22/16 10:54 DC 08/19/16 11:56 4 MG Lorazepam (Ativan Tab) 0.5 mg Q6H PO 08/17/16 06:00 08/27/16 07:35 DC 08/18/16 05:48 0.5 MG Ondansetron HCl (Zofran Tab) 8 mg Q8 PRN PO 08/17/16 00:00 08/27/16 12:18 DC 08/27/16 08:12 8 MG Prednisone (PredniSONE TAB) 10 mg QAM PO 08/17/16 08:00 09/16/16 08:59 Future hold 08/29/16 08:03 10 MG Promethazine HCl (Phenergan Tab) 25 mg Q6H PRN PO 08/17/16 00:00 08/27/16 12:19 DC 08/18/16 04:26 25 MG Tamsulosin HCl (Flomax Cap) 0.4 mg QPM PO 08/17/16 21:00 09/16/16 20:59 08/28/16 20:47 0.4 MG Dronabinol (Marinol Cap) 5 mg QID PO 08/17/16 08:00 09/16/16 08:59 Future Hold 08/17/16 21:24 5 MG Pantoprazole Sodium (Protonix Tab) 40 mg BID PO 08/17/16 08:00 08/20/16 10:38 DC 08/20/16 09:46 40 MG Polyethylene (Miralax Powder Packet) 17 gm DAILY PO 08/17/16 08:00 09/16/16 08:59 08/29/16 08:04 17 GM Miscellaneous Information (Check Fentanyl Patch Placement) 1 ea QS N/A 08/17/16 08:00 08/17/16 11:25 DC 08/17/16 08:54 1 EA Heparin Sodium (Porcine) (Heparin 100 Unit/ml 5ml Flush) 5 ml PRN PRN IV 08/17/16 02:00 09/16/16 01:59 08/25/16 07:24 5 ML Heparin Sodium (Porcine) (Heparin Sq 5000 Unit/0.5ml) 5,000 unit Q8H SQ 08/17/16 06:00 09/16/16 05:59 08/29/16 06:12 5,000 UNIT Hydromorphone HCl (Dilaudid Inj) 0.5 mg Q4 PRN IV 08/17/16 08:45 08/31/16 08:44 08/24/16 19:55 0.5 MG Hydromorphone HCl (Dilaudid Inj) 1 mg Q4 PRN IV 08/17/16 08:45 08/31/16 08:44 08/25/16 12:08 1 MG Hydromorphone HCl (Dilaudid Tab) 2 mg Q4H PRN PO 08/17/16 11:30 08/31/16 11:29 08/28/16 00:16 2 MG Hydromorphone HCl 4 mg 4 mg Q4H PRN PO 08/17/16 11:30 08/31/16 11:29 08/26/16 13:44 4 MG Hydrocortisone Sodium Succinate/ Syringe (Solu-Cortef IV/ Syringe) 1 ml @ 4 mls/min Q8 IV 08/18/16 09:00 08/20/16 10:38 DC 08/20/16 06:11 4 MLS/MIN Lorazepam (Ativan Inj) 1 mg Q4H PRN IV 08/18/16 09:00 08/27/16 07:34 DC 08/25/16 07:23 1 MG Lorazepam (Ativan Inj) 0.5 mg Q4H PRN IV 08/18/16 09:00 09/17/16 08:59 08/26/16 14:31 0.5 MG Olanzapine 5 mg 5 mg 0930 ONCE PO 08/18/16 09:30 08/18/16 09:31 DC 08/18/16 10:00 5 MG Lorazepam 0.5 mg/ Syringe 1 ml @ 1 mls/min Q4H PRN IV 08/18/16 09:15 09/17/16 09:14 08/26/16 21:26 1 MLS/MIN Lorazepam/Syringe (Ativan Inj/ Syringe) 1 ml @ 1 mls/min Q4H PRN IV 08/18/16 09:15 08/27/16 07:33 DC 08/24/16 20:00 1 MLS/MIN Trazodone HCl 50 mg 50 mg HS PO 08/18/16 21:00 08/19/16 12:20 DC 08/18/16 19:59 50 MG Ondansetron HCl/ Dextrose (Zofran Inj/D5 50ml) 54 ml @ 216 mls/hr Q6H PRN IV 08/19/16 12:00 08/27/16 12:17 DC 08/26/16 12:55 216 MLS/HR Duloxetine HCl (Cymbalta Cap) 30 mg QAM PO 08/19/16 12:30 08/21/16 06:22 DC 08/20/16 09:45 30 MG Trazodone HCl (Desyrel Tab) 25 mg HS PO 08/19/16 21:00 09/18/16 20:59 08/28/16 20:48 25 MG Sucralfate 1 gm 1 gm QID PO 08/19/16 13:15 09/18/16 13:14 08/29/16 08:01 1 GM Fosaprepitant 150 mg/Sodium Chloride 150 ml @ 300 mls/hr TODAY@1300 IV 08/20/16 13:00 08/20/16 23:00 DC 08/20/16 13:03 300 MLS/HR Pantoprazole Sodium 40 mg/ Syringe 10 ml @ 5 mls/min DAILY@21 IV 08/20/16 10:45 08/27/16 12:21 DC 08/27/16 08:12 5 MLS/MIN Famotidine/ Dextrose (Pepcid IV Inj/ D5 100ml) 102 ml @ 200 mls/hr Q12H IV 08/20/16 11:00 08/27/16 12:24 DC 08/27/16 11:27 200 MLS/HR Bismuth Subsalicylate (Kaopectate Liquid) 30 ml ONE ONCE PO 08/20/16 10:45 08/20/16 10:46 DC 08/20/16 11:32 30 ML Duloxetine HCl (Cymbalta Cap) 60 mg QAM PO 08/21/16 08:00 09/20/16 07:59 08/29/16 08:02 60 MG Metoclopramide HCl (Reglan Inj) 10 mg Q6H IV. 08/21/16 16:00 08/25/16 10:08 DC 08/25/16 03:52 10 MG Enteral Nutritional Formula (Boost Plus Vanilla) 1 can 4XDQ3H PO 08/22/16 13:00 08/24/16 12:17 DC 08/23/16 17:20 1 CAN Methylnaltrexone [place] (Relistor Inj) 12 mg Q2D@1000 SQ 08/24/16 10:00 09/23/16 09:59 08/28/16 08:21 12 MG Tapentadol (Nucynta Tab) 50 mg Q4H PRN PO 08/24/16 08:15 08/25/16 08:26 DC 08/24/16 09:33 50 MG Hydralazine HCl (HydrALAZINE INJ) 10 mg Q4H PRN IV. 08/24/16 21:00 09/23/16 20:59 08/25/16 23:12 10 MG Morphine Sulfate 15 mg 15 mg Q4 PRN PO 08/25/16 08:30 09/08/16 08:29 08/29/16 01:47 15 MG Promethazine HCl/ Sodium Chloride (Phenergan Inj/ Nss 50ml) 51 ml @ 204 mls/hr Q4H PRN IV 08/25/16 10:15 08/27/16 12:20 DC 08/26/16 10:43 204 MLS/HR Lidocaine HCl (Xylocaine Jelly 2%) 30 ml STK-MED ONCE EXT 08/25/16 12:05 08/25/16 12:06 DC 08/25/16 12:07 30 ML Dronabinol (Marinol Cap) 2.5 mg AC PO 08/26/16 16:30 08/27/16 15:37 DC 08/27/16 11:27 2.5 MG Gabapentin (Neurontin Cap) 100 mg TID PO 08/27/16 00:00 08/27/16 12:28 DC 08/27/16 08:12 100 MG Gabapentin (Neurontin Cap) 100 mg 1505 ONCE PO 08/26/16 15:05 08/26/16 15:35 DC 08/26/16 16:19 100 MG Lorazepam (Ativan Tab) 0.5 mg Q6H SL 08/27/16 07:45 08/27/16 11:33 DC 08/27/16 08:11 0.5 MG Lorazepam (Ativan Tab) 0.5 mg Q4H PRN SL 08/27/16 11:45 09/26/16 11:44 08/28/16 20:58 0.5 MG Ondansetron HCl (Zofran Odt) 4 mg Q4H PRN SL 08/27/16 12:30 09/26/16 12:29 08/28/16 20:58 4 MG Pantoprazole Sodium (Protonix Tab) 40 mg BID PO 08/27/16 20:00 09/26/16 19:59 08/29/16 08:04 40 MG Famotidine (Pepcid Tab) 20 mg BID PO 08/27/16 20:00 09/26/16 19:59 08/29/16 08:03 20 MG Gabapentin (Neurontin Cap) 200 mg TID PO 08/27/16 14:00 09/26/16 13:59 08/29/16 08:03 200 MG Dronabinol (Marinol Cap) 5 mg AC PO 08/27/16 16:30 09/26/16 16:29 08/29/16 06:09 5 MG Subjective He seems to be eating now. Nausea is less. Anxious for discharge. Review of Systems: Constitutional: Negative for night sweats, or fever. Pain seems fairly well controlled Eyes: Negative for event change of vision ENT: Negative for epistaxis, nasal discharge, sore throat, or deafness Cardiovascular: Negative for chest pain, palpitations, dizziness, diaphoresis Respiratory: Negative for new shortness of breath,hemoptysis, or purulent cough Gastrointestinal: Negative for diarrhea, hematemesis, melena, nausea, vomiting , or dyspepsia Integumentary (skin): Negative for rash or jaundice discoloration Genitourinary: Negative for urinary frequency, hematuria, or dysuria Neurological: Negative for weakness, seizure activity, headache, or dizziness Lymphatic/Hematologic: Negative for petechiae, bleeding or new adenopathy Musculoskeletal: Negative for new joint or back pain Allergic/Immunologic: Negative for unusual rash or pruritis. Vital Signs Vital Signs Past 12 Hours Date Time Temp Pulse Resp B/P Pulse Ox O2 Delivery O2 Flow Rate FiO2 08/29/16 07:41 36.8 85 20 143/80 96 Room Air 08/29/16 04:00 36.7 91 16 154/89 95 Room Air 08/29/16 00:00 Room Air 08/28/16 23:18 36.8 89 18 153/87 95 Room Air Physical Exam Constitutional: vitals are stable. Alert and oriented Eyes: Eyes are SUAD EOMI without conjuctival erythema or icterus. ENT: External examination was negative for masses. Neck: Negative for masses or palpable thyromegaly Respiratory: Lung sounds were generally clear bilaterally Cardiovascular: Heart was RRR without significant murmur, gallops aoe rubs Gastrointestinal: No palpable hepatic or splenomegaly. The abdomen was soft with normal bowel sounds. Lymphatic system: there was no palpable peripheral lymphadenopathy Musculoskeletal System: The musculoskeletal system seemed concordant with age. Skin: The skin was negative for jaundice. Neurologic exam: The exam was negative for any focal findings. Deep tendon reflexes were equal and symmetrical. Psychiatric exam: Was essentially negative with normal mood and effect. 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 Seems symptomatically to be under control with nausea as well as his pain. He feels that discharges probably imminent for today. With that then we will place him on the schedule for his next dose of Opdivo to occur this week and this was reviewed with he and his . I also reviewed with he and his that quality of life and maintaining quality of life is our first goal and mission. If in fact he continues to deteriorate requiring rather significant intervention to control his symptoms then we should understand and recognize the limitations of our attempts at systemic cytoreduction and forego further intervention with chemotherapy or biotherapy. They seemed to understand. For now however we will anticipate his next dose of therapy to be this in our clinic.
[2016-08-29 11:54] VITALS: BP 143/80; PULSE 85; TEMP 36.8; O2SAT 96
== END 2016-08-29 14:29 | disposition home health service (06) | DRG 374 ==
LOC: ENRESERVDT → ENRESERVTM → C.EDB 19:06 → C.4E 23:54
PROVIDERS: ADMIT Family Medicine; ATTEND Hospitalist
DX: C15.9 Malignant neoplasm of esophagus, unspecified (principal); G92 Toxic encephalopathy; F11.921 Opioid use, unspecified with intoxication delirium; C79.89 Secondary malignant neoplasm of other specified sites; C78.7 Secondary malignant neoplasm of liver and intrahepatic bile duct; C79.51 Secondary malignant neoplasm of bone; G89.3 Neoplasm related pain (acute) (chronic); F41.9 Anxiety disorder, unspecified; N40.1 Benign prostatic hyperplasia with lower urinary tract symptoms; M1A.9XX0 Chronic gout, unspecified, without tophus (tophi); Z90.5 Acquired absence of kidney; E86.0 Dehydration; Z87.891 Personal history of nicotine dependence; T40.2X5A Adverse effect of other opioids, initial encounter; R33.9 Retention of urine, unspecified; K21.9 Gastro-esophageal reflux disease without esophagitis; F39 Unspecified mood [affective] disorder; F32.9 Major depressive disorder, single episode, unspecified; K59.03 Drug induced constipation; Y92.009 Unspecified place in unspecified non-institutional (private) residence as the place of occurrence of the external cause; N40.0 Benign prostatic hyperplasia without lower urinary tract symptoms; K81.9 Cholecystitis, unspecified; M10.9 Gout, unspecified; Z87.440 Personal history of urinary (tract) infections; Z80.9 Family history of malignant neoplasm, unspecified; Z83.79 Family history of other diseases of the digestive system; Z82.49 Family history of ischemic heart disease and other diseases of the circulatory system; Z83.6 Family history of other diseases of the respiratory system; Z79.899 Other long term (current) drug therapy; Z79.52 Long term (current) use of systemic steroids

== ENCOUNTER 2016-09-04 17:47 | Emergency (ER) | payer BC, OTHER ==
[~2016-09-04] VITALS: Ht 177.8 cm; Wt 75.0 kg
[~2016-09-04 17:47] MED LIST changes: +ATV5 SL; -CRFL PO; -CYM30 PO; +CYM60 PO; -DRGTP25 TD; -ESOM1CAP34 PO; -FAMO20TA11 PO; -FNTTP25 TOP; -HYDR2TAB3 PO; -LIDO2SOL19 MT; -LORA-741 PO; -LXP10 PO; -NALO1TAB2 PO; +NRN100 PO; -NXM/40 PO; +ONDA4TAB65 PO; -ONDA8TAB6 PO; +POLY335019 PO; -PROC1TAB5 PO; -PROM25TA9 PO; +PRT40 PO; +RLSI SQ
[2016-09-04 17:55] VITALS: Ht 177.8 cm; Wt 75.0 kg
[2016-09-04] MEDS ORDERED: SODIUM CHLORIDE 0.9% 1000ML 1,000 ML IV STA (18:31)
[2016-09-04] MEDS ORDERED: DFL100 PO (18:45)
[2016-09-04] MEDS ORDERED: CLOT10TR PO (18:45)
[2016-09-04] MEDS ORDERED: PHEN-775 PO (18:46)
--- NOTE | 2016-09-04 19:10 | DIAGNOSTIC IMAGING REPORT ---
CHEST ONE VIEW PORTABLE CLINICAL HISTORY: EVALUATE ALTERED MENTAL STATUS/WEAKNESS dyspnea COMPARISON STUDY: 08/16/2016 FINDINGS: Very small parenchymal infiltrate medial aspect left base. Lungs otherwise appear clear. Central catheter in superior vena cava. IMPRESSION: Very small parenchymal infiltrate medial aspect left base. Electronically signed by: Yash Giordano M.D. 09/04/2016 7:09 PM Dictated Date/Time: 09/04/2016 7:08 PM
[2016-09-04 19:34] LABS: BASO % 0.3 %; BASO ABS # 0.03 K/uL (0-0.2); COMPLETE YES; EOS % 0.4 %; HEMATOCRIT 35.6 % (42-52); IG% 0.8 %; LYMPH % 12.4 %; LYMPH ABS # 1.37 K/uL (1.2-3.4); MEAN CELL VOLUME 89.2 fL (80-100); MEAN CORPUSCULAR HEMOGLOBIN 29.3 pg (25-34); MEAN CORPUSCULAR HGB CONC 32.9 g/dl (32-36); MEAN PLATELET VOLUME 8.5 fL (7.4-10.4); MONO % 7.3 %; NEUT % 78.8 %; PLATELET COUNT 233 K/uL (130-400); RED BLOOD COUNT 3.99 M/uL (4.7-6.1); WHITE BLOOD COUNT 11.08 K/uL (4.8-10.8)
[2016-09-04 19:46] LABS: PARTIAL THROMBOPLASTIN RATIO 0.9; PROTHROMBIN TIME (PATIENT) 10.7 SECONDS (9.0-12.0)
[2016-09-04 19:53] LABS: ALT/SGPT 190 U/L (12-78); AST/SGOT 91 U/L (15-37); BLOOD UREA NITROGEN 22 mg/dl (7-18); BUN/CREATININE RATIO 24.5 (10-20); CALCIUM 9.2 mg/dl (8.5-10.1); CARBON DIOXIDE 31 mmol/L (21-32); CHLORIDE 95 mmol/L (98-107); CREATININE 0.91 mg/dl (0.60-1.40); GLUCOSE 115 mg/dl (70-99); MAGNESIUM 2.2 mg/dl (1.8-2.4); POTASSIUM 5.2 mmol/L (3.5-5.1); SODIUM 132 mmol/L (136-145)
[2016-09-04 20:08] LABS: ALKALINE PHOSPHATASE 994 U/L (45-117)
[2016-09-04] MEDS ORDERED: LEVOFLOXACIN 250 MG TAB PO STA (20:38)
--- NOTE | 2016-09-04 20:42 | EMERGENCY ROOM VISIT NOTE ---
History Report prepared by Konrad: Britton Chavarria Under the Supervision of: Dr. Wilbert Ashby D.O. First contact with patient: 18:24 Chief Complaint: DEHYDRATION Stated Complaint: PAIN IN NECK,DEHYDARTION Nursing Triage Summary: Pt's reports pt has not been eating or drinking Sunday pt c/o severe pain in right neck Home health recomends pt come here hx esophageal CA Pt altered History of Present Illness The patient is a 70 year old male who presents to the Emergency Room with complaints of dehydration that began yesterday. He rates his current pain mild. Per the patient's , the patient was discharged from the hospital 5 days ago. He was admitted for two weeks secondary to "stomach issues." The patient has a past medical history of esophagus, liver, coccyx, and lymph cancer. He has not been eating or drinking much for two days. At this time, he had thrush on his tongue. He has been treating this since. He is also experiencing right sided neck pain and pain with swallowing. His states he is very lethargic and mildly mentally altered. He was recently told that he has an enlarged prostate that has giving him trouble while urinating. He is a former smoker and former chewing tobacco user. He took two tablets of Pyridium today. He also takes Dilaudid, Ativan, and Zofran to alleviate his baseline symptoms. Source of History: patient, spouse/significant other Onset: Yesterday Position: other (global) Symptom Intensity: moderate Quality: other (Dehydration) Timing: worsening Associated Symptoms: + neck pain, + weakness Note: He has mild pain with swallowing and lethargy. Review of Systems See HPI for pertinent positives & negatives. A total of 10 systems reviewed and were otherwise negative. Past Medical & Surgical Medical Problems: (1) Anxiety (2) Benign prostate hyperplasia (3) Cholecystitis (4) Chronic pain (5) Esophageal cancer (6) Gout (7) mood disorder related to medical condition (8) Precordial chest pain (9) UTI (urinary tract infection) Surgical Problems: (1) Right Nephrectomy (2) Right Nephrectomy Family History Cancer Gallbladder disease Heart disease Hypertension Lung disease Social History Smoking Status: Never Smoker Alcohol Use: none Drug Use: none Marital Status: , in relationship Housing Status: lives alone Occupation Status: retired Current/Historical Medications Scheduled Allopurinol (Zyloprim), 300 MG PO QAM Clotrimazole (Mycelex), 10 MG PO TID Docusate Sodium (Docusate Sodium), 100 MG PO BID Dronabinol (Marinol), 5 MG PO QID Duloxetine HCl (Duloxetine HCl), 60 MG PO QAM Famotidine (Pepcid), 20 MG PO BID Finasteride (Proscar), 5 MG PO QAM Fluconazole (Fluconazole), 100 MG PO DAILY Gabapentin (Gabapentin), 200 MG PO TID Methylnaltrexone [place] (Relistor), 12 MG SQ Q2D@1000 Pantoprazole (Pantoprazole Sodium), 40 MG PO BID Phenazopyridine Hcl (Pyridium), 200 MG PO TID Polyethylene Glycol 3350 (Miralax), 17 GM PO DAILY Prednisone Tab (Prednisone), 10 MG PO QAM Tamsulosin Hcl (Flomax), 0.4 MG PO QPM Scheduled PRN Hydromorphone HCl (Hydromorphone HCl), 2-4 MG PO Q4 PRN for MOD-SEVERE PAIN Lorazepam (Lorazepam), 0.5 MG SL Q4H PRN for ANXIETY/AGITATION/NAUSEA Ondansetron Hcl (Zofran), 4 MG PO Q4H PRN for Nausea Allergies Coded Allergies: No Known Allergies (Verified , 09/04/16) Physical Exam Vital Signs Date Time Temp Pulse Resp B/P Pulse Ox O2 Delivery O2 Flow Rate FiO2 09/04/16 20:29 36.9 95 14 124/70 95 Room Air 09/04/16 19:24 104 09/04/16 17:55 36.6 124 16 103/71 96 Room Air Physical Exam CONSTITUTIONAL/VITAL SIGNS: Reviewed / noted above. GENERAL: Non-toxic in appearance. INTEGUMENTARY: Warm, dry, and [place]inne. HEAD: Normocephalic. EYES: without scleral icterus or trauma. ENT/OROPHARYNX: clear with dry mucous membranes. No obvious thrush in the mouth. LYMPHADENOPATHY/NECK: Is supple without lymphadenopathy or meningismus. RESPIRATORY: Lungs clear and equal. CARDIOVASCULAR: Regular rate and rhythm. GI/ABDOMEN: Soft and nontender. No organomegaly or pulsatile mass. No rebound or guarding. Normal bowel sounds. EXTREMITIES: Warm and well perfused. BACK: No CVA tenderness. NEUROLOGICAL: Intact without focal deficits. Drowsy with generalized weakness. PSYCHIATRIC: normal affect. MUSCULOSKELETAL: Normally developed with good muscle tone. Medical Decision & Procedures ER Provider Diagnostic Interpretation: X ray results and stated below per my interpretation and radiology interpretation. CHEST ONE VIEW PORTABLE CLINICAL HISTORY: EVALUATE ALTERED MENTAL STATUS/WEAKNESS dyspnea COMPARISON STUDY: 08/16/2016 FINDINGS: Very small parenchymal infiltrate medial aspect left base. Lungs otherwise appear clear. Central catheter in superior vena cava. IMPRESSION: Very small parenchymal infiltrate medial aspect left base. Electronically signed by: Yash Giordano M.D. 09/04/2016 7:09 PM Dictated Date/Time: 09/04/2016 7:08 PM Laboratory Results 09/04/16 19:00 Red Blood Count 3.99, Mean Corpuscular Volume 89.2, Mean Corpuscular Hemoglobin 29.3, Mean Corpuscular Hemoglobin Concent 32.9, Mean Platelet Volume 8.5, Neutrophils (%) (Auto) 78.8, Lymphocytes (%) (Auto) 12.4, Monocytes (%) (Auto) 7.3, Eosinophils (%) (Auto) 0.4, Basophils (%) (Auto) 0.3, Neutrophils # (Auto) 8.74, Lymphocytes # (Auto) 1.37, Monocytes # (Auto) 0.81, Eosinophils # (Auto) 0.04, Basophils # (Auto) 0.03 09/04/16 19:00 Test 09/04/16 18:33 09/04/16 19:00 White Blood Count 11.08 K/uL (4.8-10.8) Red Blood Count 3.99 M/uL (4.7-6.1) Hemoglobin 11.7 g/dL (14.0-18.0) Hematocrit 35.6 % (42-52) Mean Corpuscular Volume 89.2 fL (80-100) Mean Corpuscular Hemoglobin 29.3 pg (25-34) Mean Corpuscular Hemoglobin Concent 32.9 g/dl (32-36) Platelet Count 233 K/uL (130-400) Mean Platelet Volume 8.5 fL (7.4-10.4) Neutrophils (%) (Auto) 78.8 % Lymphocytes (%) (Auto) 12.4 % Monocytes (%) (Auto) 7.3 % Eosinophils (%) (Auto) 0.4 % Basophils (%) (Auto) 0.3 % Neutrophils # (Auto) 8.74 K/uL (1.4-6.5) Lymphocytes # (Auto) 1.37 K/uL (1.2-3.4) Monocytes # (Auto) 0.81 K/uL (0.11-0.59) Eosinophils # (Auto) 0.04 K/uL (0-0.5) Basophils # (Auto) 0.03 K/uL (0-0.2) RDW Standard Deviation 52.4 fL (36.4-46.3) RDW Coefficient of Variation 15.9 % (11.5-14.5) Immature Granulocyte % (Auto) 0.8 % Immature Granulocyte # (Auto) 0.09 K/uL (0.00-0.02) Prothrombin Time 10.7 SECONDS (9.0-12.0) Prothromb Time International Ratio 1.0 (0.9-1.1) Activated Partial Thromboplast Time 23.3 SECONDS (21.0-31.0) Partial Thromboplastin Ratio 0.9 Anion Gap 6.0 mmol/L (3-11) Est Creatinine Clear Calc Drug Dose 78.0 ml/min Estimated GFR () 98.6 Estimated GFR (Non- 85.1 BUN/Creatinine Ratio 24.5 (10-20) Calcium Level 9.2 mg/dl (8.5-10.1) Magnesium Level 2.2 mg/dl (1.8-2.4) Total Bilirubin 1.3 mg/dl (0.2-1) Direct Bilirubin 0.7 mg/dl (0-0.2) Aspartate Amino Transf (AST/SGOT) 91 U/L (15-37) Alanine Aminotransferase (ALT/SGPT) 190 U/L (12-78) Alkaline Phosphatase 994 U/L (45-117) Total Creatine Kinase 231 U/L (39-308) Creatine Kinase MB < 0.5 ng/ml (0.5-3.6) Creatine Kinase MB Ratio (0-3.0) Troponin I 0.018 ng/ml (0-0.045) Total Protein 6.1 gm/dl (6.4-8.2) Albumin 2.7 gm/dl (3.4-5.0) Lipase 108 U/L (73-393) Laboratory results as stated above per my review. Medications Administered Medications (Trade) Dose Ordered Sig/Sabino Route Start Time Stop Time Status Last Admin Dose Admin Sodium Chloride (Nss 1000ml) 1,000 ml @ 999 mls/hr Q1H1M STAT IV 09/04/16 18:31 09/04/16 19:31 DC 09/04/16 19:33 999 MLS/HR Levofloxacin (Levaquin Tab) 500 mg NOW STAT PO 09/04/16 20:38 09/04/16 20:39 DC 09/04/16 20:50 500 MG ECG Indication: weakness Rate (beats per minute): 107 Rhythm: sinus tachycardia Findings: no acute ischemic change, no ectopy ED Course 1823: Previous medical records were reviewed. The patient was evaluated in room B6. A complete history and physical examination was performed. 1830: Ordered Sodium Chloride 1000 ml @ 999 mls/hr IV 2037: Ordered Levaquin Tab 500 mg PO 4: On reevaluation, the patient is resting. I discussed the results and findings with the patient. He verbalized agreement of the treatment plan. He was discharged home. Medical Decision Differential diagnosis: Etiologies such as metabolic, infection, hypo/hyperglycemia, electrolyte abnormalities, cardiac sources, intracerebral event, toxicologic, neurologic, as well as others were entertained. This is a 70-year-old male who presents to the ED with a chief complaint of dehydration. The patient has history of esophageal, lymph node liver cancer according to the . The patient was discharged from the hospital 6 days ago for similar symptoms. His symptoms are felt to be related to medication at that time. The patient developed thrush on Sunday and was placed on Diflucan and clotrimazole for this. He states that it was painful to swallow previously although the thrush has now subsided and his swallowing seems to be improved. He has been having decreased by mouth intake for the past 24 hours. He is more sleepy and lethargic according to the . He does take Dilaudid 2 mg every 4 hours. He is also on some Ativan. The patient appears drowsy on exam. His vital signs reveal tachycardia heart rate 124. Vital signs are otherwise stable. He is afebrile. There is no history of fever according to the . The patient's exam was relatively unremarkable other than dry mucous membranes and the tachycardia. There was no thrush in the mouth at this time. There is no lymphadenopathy or other modalities noted in the face, jaw or neck. The lungs are clear. Abdomen is soft and nontender. Extremities were without abnormality. The patient appears to have some generalized weakness. The states that several people (medical services) at the house today to talk to her about placing the patient on hospice care. The patient's chest x-ray reveals a very small parenchymal infiltrate in the medial left base. White blood count was 11.8. Hemoglobin is 11.7. Potassium is 5.2. BUN is 22. The patient's other blood work is near baseline. The patient was hydrated with IV fluids. He was due for medication for pain during his stay. He was given IV Dilaudid 2 mg for this. The patient was given Levaquin by mouth. He is felt to be stable for discharge and outpatient follow-up. Impression Primary Impression: Pneumonia Additional Impression: Dehydration Scribe Attestation The scribe's documentation has been prepared under my direction and personally reviewed by me in its entirety. I confirm that the note above accurately reflects all work, treatment, procedures, and medical decision making performed by me. Departure Information Dispostion Home / Self-Care Prescriptions Levofloxacin (Levaquin) 500 Mg Tab 500 MG PO DAILY for 7 Days, #7 TAB Prov: Wilbert Ashby D.O. 09/04/16 Referrals Garcia Whalen M.D. (PCP) Forms HOME CARE DOCUMENTATION FORM, IMPORTANT VISIT INFORMATION, WORK / SCHOOL INSTRUCTIONS Patient Instructions ED Pneumonia, My [facility] Additional Instructions Levaquin as prescribed. Encourage hydration. Follow-up with your doctor for further care and evaluation in 1-2 days. Return to the emergency department for worsening or new symptoms or any concerns. You have been examined and treated today on an emergency basis only. This is not a substitute for, or an effort to provide, complete comprehensive medical care. It is impossible to recognize and treat all injuries or illnesses in a single emergency department visit. It is therefore important that you follow up closely with your doctor. Call as soon as possible for an appointment. Problem Qualifiers
[2016-09-04] MEDS ORDERED: LEVO-366 PO (22:06)
[2016-09-04 22:52] VITALS: BP 124/70; PULSE 94; TEMP 36.9; O2SAT 94
== END 2016-09-04 22:53 | disposition home or self-care (01) ==
LOC: C.EDB 17:48
DX: J18.9 Pneumonia, unspecified organism (principal); E86.0 Dehydration; Z85.01 Personal history of malignant neoplasm of esophagus; Z85.05 Personal history of malignant neoplasm of liver; Z85.830 Personal history of malignant neoplasm of bone; Z85.72 Personal history of non-Hodgkin lymphomas; F41.9 Anxiety disorder, unspecified; N40.0 Benign prostatic hyperplasia without lower urinary tract symptoms; K81.9 Cholecystitis, unspecified; G89.29 Other chronic pain; Z87.440 Personal history of urinary (tract) infections; Z80.9 Family history of malignant neoplasm, unspecified; Z83.79 Family history of other diseases of the digestive system; Z82.49 Family history of ischemic heart disease and other diseases of the circulatory system; Z83.6 Family history of other diseases of the respiratory system; Z79.52 Long term (current) use of systemic steroids; Z79.899 Other long term (current) drug therapy